=== PATIENT | female | born 1955 | race Caucasian/White ===

== ENCOUNTER → 2017-06-06 14:23 | Outpatient (CLI) | payer OTHER, SELFPAY ==
[2017-04-24 06:09] VITALS: BMI 31.4
[2017-04-26 14:00] VITALS: BP 146/74
--- NOTE | 2017-06-06 14:25 | RAD_ITS ---
STUDY: X-RAY - LEFT KNEE REASON FOR EXAM: Female, 62 years old. Follow-up. TECHNIQUE: 4 view(s) of the knee. COMPARISON: Left knee, April 24, 2017. FINDINGS: There is a total knee replacement. The prosthetic components are intact and articulate normally with each other. There is no evidence of loosening from the underlying bone. There is no evidence of osseous fracture or destructive osseous pathology. Resolution of the air and soft tissue swelling seen in the anterior knee. There is no joint effusion. RAD/Knee 4 or More Views IMPRESSION: Left TKA without acute abnormality. Electronically Signed: Mikhail Llamas DO at 18:31 EST Tel [phone], Service support ,
== END ==
PROVIDERS: Family Provider Family Medicine; PCP Family Medicine; Visit Provider Orthopaedic Surgery
DX: M25.562 Pain in left knee (principal)
CPT/HCPCS: 73564

== ENCOUNTER 2017-07-03 10:30 | Outpatient (RCR) | payer OTHER, SELFPAY ==
--- NOTE | 2017-05-01 08:46 | HP.PTEVAL_ITS ---
Patient's Visit Information AUDRA SANDERS is a 62 year old F referred to Physical Therapy by Mikey Whitman DO with a diagnosis of Left TKR. Date of Evaluation: 05/01/17 Physical Therapist: Carla Girard - Visit Plan Frequency: 2-3x /Week Duration: 4 Weeks Plan: TKR 04/24- Focus on ROM and functional mobility - Subjective Subjective: Right TKR in December by Dr. Whitman but this one is much worse. Left TKR Apr 24, 2017. Stayed a few days in the hospital and then went home. Lives in a 2 stroy home- full bath is upstairs- goes upstairs 1x a day to shower - sleeps on the couch downstairs. Has help at home as needed. Is not currently driving. Fully I before surgery. Worst: 12/07 Agg: exercises, movement. Eases: ice, percoset Best: 06/09. Pain is located in the whole knee and radiates to the thigh- No pain that radiates into the calf. Numbness on the sides. Occasionally a sharp pain but mostly just a dull ache. Sleep: is okay- she is on the couch. Goes back to see Dr. Whitman next week- incision is glued. Pretty active before surgery- wants to be able to walk, bike, gardening and hiking. Feels that her right leg is 80% of the way to normal. PMHx/Med: none since she left the hospital. - Objective Posture: FH, RS, increased kyphosis. Gait: antalgic- FWW- Decreased stance on the left LE- poor heel/toe pattern. Hr/TR: able. Stairs: non recip with 2 HR. SLS: WS but unable to SLS. Palpation: tender along medial and lateral knee joint- and along thigh. ROM: 15-80 degrees with pain at end range. Strength; Ankle: 5/5, Knee: 3/5, Hip: 3+/5- can SLR but does have a significant lag, quad set visible. - Goals Goal 1:: Patient will be I with HEP and progression Goal Time Frame: 4-6 Weeks Goal 2:: Patient will ambulate >300 feet with a normalized gait pattern Goal Time Frame: 4-6 Weeks Goal 3:: Patient will asc/desc 8 stairs recip with 1 HR Goal Time Frame: 4-6 Weeks Goal 4:: Patient will demo 0-115 degrees of ROM Goal Time Frame: 2-4 Weeks - Rehabilitation Potential Physical Therapy Diagnosis: Patient presents with hypomobility- she has decreased ROM, strength and muscular endurance s/p TRK decreasing her ability to perform normal ADL's Rehabilitation Potential: Good - Anticipated Interventions Patient/Client Instruction: Educate patient on: Benefits of Fitness Program For the Purpose of:: To increase tolerance to activity/condition/position Therapeutic Exercise to Include: Strength training, Endurance training, Balance training, Body mechanics, Postural training, Flexibilty training, Gait and locomotor training, Passive ROM, Active ROM, Dynamic Lumbar Stabilization For the Purpose of:: To improve muscle performance and motor function TENS: Yes Cryotherapy (ice pack, ice massage): Yes Thermo therapy (hot pack): Yes Ultrasound (thermal/non thermal): No Vasopneumatic device: Yes For the Purpose of:: To decrease pain, To decrease swelling/inflammation Thank you for the opportunity to evaluate your patient. For Medicare and Medicare HMO plans, please review the plan of care and approve it. It will need to be FAXED BACK to us at [phone] for Medicare purposes. Please let me know if there are questions or concerns regarding this plan of care. Physician Signature: Date:
--- NOTE | 2017-06-05 09:24 | HP.PTREVAL_ITS ---
Mikey Whitman, DO, It has been my pleasure to treat AUDRA SANDERS over the last 13 visits for Left TKR. Please see the progress note below for an update on the physical therapy plan of care! Subjective: Patient reports that her knee is hurting 3-08/07. Today is one of those days that everything hurts. Feels the knee is getting a little bit better. Has more use of it but its catching . Hurts on the top of the knee cap. Goes back to see Dr. Whitman on . Patient reports that she is getting around okay- her won't let her drive. Is taking the pain medication only at night with Tylenol during the day. Patient feels that she is 50% better. Patient is aware that she will be out of visits. Sleep: somewhat better but still challenging. Objective/Function: Posture: Fh, RS. Gait: slightly antalgic with loud foot slaps bilaterally. stairs: asc with 1 HR but descent uses 2 HR. HR/TR: able but reports pain. SLS: ws but unable to SLS without UE A. Palpation: tender along superior patella. ROM: 15-100 degrees. Strength: ankle: 5/5, Knee: 4+/5 , Hip: 4+/5 Plan Plan: Continue 1x a week for 4 weeks- focus on HEP of ROM and function Goals Goal 1:: Patient will be I with HEP and progression Goal Time Frame: 4-6 Weeks Goal Progress: Progressing Goal 2:: Patient will ambulate >300 feet with a normalized gait pattern Goal Time Frame: 4-6 Weeks Goal Progress: Goal Met Goal 3:: Patient will asc/desc 8 stairs recip with 1 HR Goal Time Frame: 4-6 Weeks Goal Progress: Progressing Goal 4:: Patient will demo 0-115 degrees of ROM Goal Time Frame: 4-6 Weeks Goal Progress: Progressing Anticipated Interventions Patient/Client Instruction: Educate patient on: Benefits of Fitness Program For the Purpose of:: To increase tolerance to activity/condition/position Therapeutic Exercise to Include: Strength training, Endurance training, Balance training, Body mechanics, Postural training, Flexibilty training, Gait and locomotor training, Passive ROM, Active ROM, Dynamic Lumbar Stabilization For the Purpose of:: To improve muscle performance and motor function TENS: Yes Cryotherapy (ice pack, ice massage): Yes Thermo therapy (hot pack): Yes Ultrasound (thermal/non thermal): No Vasopneumatic device: Yes For the Purpose of:: To decrease pain, To decrease swelling/inflammation Please do not hesitate to contact me at [phone] by phone or Fax: if you have questions or concerns regarding this new plan of care! Sincerely, Carla Girard
--- NOTE | 2017-07-03 10:43 | HP.PTDCSUM ---
HP - PT D/C Summary It has been my pleasure to treat AUDRA SANDERS under orders from Mikey Whitman DO, for the diagnosis of Left TKR for a total of 17 visit(s). Discharge Date: Please see the following information for a summary of their discharge status. - Subjective Subjective: Patient reports that the knees are both the same- stiff and sore. Most of the time the knees are stiff and sore- stretching makes them feel better (hamstring stretch and step stretch, bolster extn stretch). Still wakes her up at night. Dr. whitman reports that everything looks good. Patient feels that her knees are 70% better. Is doing her home exercise program. Insurance does not cover silver [employer] program. Worst: 10/07. Best: 05/09. Very steep and narrow to go upstairs- has to do them daily (bathroom, bedroom and sowing room). 2-07/07. Had x-rays taken about a week ago. - Pain left knee Pain Intensity (Out of 10): 3 - Objective Objective/Function: Posture: Fh, RS. Gait: slightly antalgic with loud foot slaps bilaterally. stairs: asc with 1 HR but descent uses 2 HR. HR/TR: able but reports pain with TR. SLS: SLS 5 seconds. Palpation: tender along superior patella and lateral joint line. ROM: 10-100 degrees. Strength: ankle: 5/5, Knee: 4+/5, Hip: 4+/5 - Goals Goal 1:: Patient will be I with HEP and progression Goal Progress: Goal Met Goal 2:: Patient will ambulate >300 feet with a normalized gait pattern Goal Progress: Goal Met Goal 3:: Patient will asc/desc 8 stairs recip with 1 HR Goal Progress: Goal Met Goal 4:: Patient will demo 0-115 degrees of ROM Goal Progress: Progressing - Plan Plan: Discharge to HEP - D/C Information If there are questions or concerns regarding this patient's physical therapy, please feel free to call me at [phone]. Thank you for the referral of this patient. Sincerely, Carla Girard
== END 2017-07-03 19:00 | disposition home or self-care (01) ==
LOC: PT 10:30
PROVIDERS: Family Provider Family Medicine; PCP Family Medicine; Visit Provider Orthopaedic Surgery
DX: Z96.652 Presence of left artificial knee joint (principal)
CPT/HCPCS: 97110; 97140; 97161; 97530

== ENCOUNTER → 2017-10-29 08:50 | Outpatient (CLI) | payer OTHER, SELFPAY ==
--- NOTE | 2017-10-29 08:52 | RAD_ITS ---
STUDY: X-RAY - LEFT KNEE REASON FOR EXAM: Female, 62 years old. Pain TECHNIQUE: 4 view(s) of the knee. COMPARISON: Previous study of June 06, 2017 FINDINGS: Status post total left knee replacement changes are seen with implants appearing in good position. There is no evidence of implant loosening or associated fracture or dislocation. There is a small suprapatellar effusion. RAD/Knee 4 or More Views IMPRESSION: Status post total left knee replacement changes seen with implants appearing in good position. There is no evidence of implant loosening or associated fracture or dislocation. There is a small suprapatellar effusion. Electronically Signed: Rinku Rodríguez MD at 17:00 EDT , Service support ,
== END ==
PROVIDERS: Family Provider Family Medicine; PCP Family Medicine; Visit Provider Orthopaedic Surgery
DX: M25.562 Pain in left knee (principal)
CPT/HCPCS: 73564

== ENCOUNTER → 2017-12-10 08:40 | Outpatient (CLI) | payer OTHER, SELFPAY ==
[2017-12-10 09:51] LABS: Microalbumin,Random Urine 92.6 mg/L (NO RANGE EST.); Microalbumin:Creatinine Ratio 155.1 mg/g CRE (<30 mg/g CRE)
[2017-12-10 09:53] LABS: Hemoglobin A1c 6.4 % (4.2-6.3)
[2017-12-10 10:04] LABS: Anion Gap 6 (5-15); BUN 20 mg/dL (7-18); BUN/Creat Ratio 24.4 RATIO (10-20); Calcium,Total 9.5 mg/dL (8.5-10.1); Chloride 101 mmol/L (98-107); Creatinine, Serum 0.82 mg/dL (0.55-1.02); EST Glomerular Filtration Rate 75 mL/min (>60); Est Glom Filt Rate - Afr Amer 91 mL/min (>60); Glucose 167 mg/dL (74-106); Potassium 4.4 mmol/L (3.5-5.1); Sodium Level 137 mmol/L (136-145); Thyroid Stim Hormone (TSH) 1.92 uIU/mL (0.358-3.74)
== END ==
PROVIDERS: Family Provider Family Medicine; PCP Family Medicine; Visit Provider Family Medicine
DX: E11.21 Type 2 diabetes mellitus with diabetic nephropathy (principal); E03.9 Hypothyroidism, unspecified; I10 Essential (primary) hypertension; R80.9 Proteinuria, unspecified; E78.5 Hyperlipidemia, unspecified
CPT/HCPCS: 36415; 80048; 82043; 82570; 83036; 84443

== ENCOUNTER → 2018-04-09 14:18 | Outpatient (CLI) | payer OTHER, SELFPAY ==
[2017-11-30 10:24] VITALS: BMI 30.3
--- NOTE | 2018-04-09 14:23 | RAD_ITS ---
STUDY: X-RAY - RIGHT HIP REASON FOR EXAM: Female, 62 years old. Right hip pain TECHNIQUE: 2 views of the hip. COMPARISON: None. FINDINGS: There is no evidence of fracture or dislocation in the pelvis or right hip. There are mild degenerative changes in the right hip. RAD/HIP, UNI W/ Pelvis 2-3 Views IMPRESSION: No fracture or dislocation in the pelvis or right hip. Mild degenerative changes. Electronically Signed: Alexander Yeager, at 15:03 EST Tel , Service support ,
--- OUTSIDE RECORDS SUMMARY | 2018-05-26 19:58 | XMS RPT_ITS ---
:1955 Author Organization OHIP Support Name Relationship Address Phone PAWEL LANIER Unavailable [address] + [place] [address] MARILYN TAYLOR Unavailable [address] + [place] [address] [facility] Unavailable [address] + [place] [address] LOBO LANIERD Unavailable [address] + [place] [address] MARILYN TAYLOR Unavailable [address] + [place] [address] [facility] Unavailable [address] + [place] [address] LOBO LANIERD Unavailable Unavailable + [place] [address] MARILYN, TAYLOR Unavailable [address] + [place] [address] UE Unavailable Unavailable Unavailable LOBO LANIERD Unavailable . + [place] [address] LILLYMICHELSARA, TAYLOR Unavailable [address] + [place] [address] UE Unavailable Unavailable Unavailable LOBO LANIERD Unavailable . + [place] [address] LILLYCOREEN, TAYLOR Unavailable [address] + [place] [address] UE Unavailable Unavailable Unavailable LOBO LANIERD Unavailable . + [place] [address] MARILYN, TAYLOR Unavailable [address] + [place] [address] UE Unavailable Unavailable Unavailable LOBO LANIERD Unavailable . + [place] [address] MARILYN TAYLOR Unavailable [address] + [place] [address] UE Unavailable Unavailable Unavailable ALLENBAUGH, ARMAS Unavailable . + [place] [address] ALLENBAUGH, TAYLOR Unavailable [address] + [place] [address] UE Unavailable Unavailable Unavailable ALLENBAUGH, ARMAS Unavailable . + [place] [address] ALLENBAUGH, TAYLOR Unavailable [address] + [place] [address] UE Unavailable Unavailable Unavailable ALLENBAUGH, ARMAS Unavailable . + [place] [address] ALLENBAUGH, TAYLOR Unavailable [address] + [place] [address] UE Unavailable Unavailable Unavailable ALLENBAUGH, ARMAS Unavailable . + [place] [address] ALLENBAUGH, TAYLOR Unavailable [address] + [place] [address] UE Unavailable Unavailable Unavailable ALLENBAUGH, ARMAS Unavailable . + [place] [address] ALLENBAUGH, TAYLOR Unavailable [address] + [place] [address] UE Unavailable Unavailable Unavailable Care Team Providers Name Role Phone Citlali Younger Attending Unavailable Citlali Younger Referring Unavailable Kitty, Karlos Primary Care Unavailable Kitty, Karlos Attending Unavailable Kitty, Karlos Primary Care Unavailable Kitty, Karlos Referring Unavailable Mikey Fields Attending Unavailable Kitty, Karlos Primary Care Unavailable Mikey Fields Attending Unavailable Kitty, Karlos Referring Unavailable Kitty, Karlos Primary Care Unavailable Mikey Fields Attending Unavailable Mikey Fields Referring Unavailable Kitty, Karlos Primary Care Unavailable Mkiey Fields Attending Unavailable Kitty, Karlos Referring Unavailable Kitty, Karlos Primary Care Unavailable Mony Kaur Attending Unavailable Chucho Stuart Attending Unavailable Mikey Fields Attending Unavailable Kitty, Karlos Referring Unavailable Kitty, Karlos Primary Care Unavailable Mikey Fields Attending Unavailable J Carlos Mikey Referring Unavailable Kitty, Karlos Primary Care Unavailable Chucho Stuart Attending Unavailable Kitty, Karlos Referring Unavailable Kitty, Karlos Primary Care Unavailable Kitty, Karlos Attending Unavailable Kitty, Karlos Referring Unavailable Kitty, Karlos Primary Care Unavailable PROBLEMS PROBLEMS DATE TYPE CONDITION / CODE ATTENDING STATUS SOURCE 12/10/2017 Unknown E78.5 - Karlos Tang Active [facility]lipidemia, [facility] unspecified / Hospital E78.5(ICD-10) Repository 12/10/2017 Unknown R80.9 - Proteinuria, Karlos Tang Active [facility] unspecified / Community R80.9(ICD-10) Hospital Repository 12/10/2017 Unknown I10 - Essential Karlos Tang Active [facility] (primary) Community hypertension / Hospital I10(ICD-10) Repository 12/10/2017 Unknown E03.9 - Karlos Tang Active [facility] Hypothyroidism, [facility] unspecified / Hospital E03.9(ICD-10) Repository 12/10/2017 Unknown E11.21 - Type 2 Karlos Tang Active [facility] diabetes mellitus [facility] with diabetic Hospital nephropathy / Repository E11.21(ICD-10) 11/30/2017 Unknown I48.0 - Paroxysmal Chucho Stuart Active [facility] atrial fibrillation Community / I48.0(ICD-10) Hospital Repository 11/30/2017 Unknown E78.2 - Mixed Chucho Stuart Active [facility] hyperlipidemia / Community E78.2(ICD-10) Hospital Repository 10/29/2017 Unknown M25.562 - Pain in Mikey Fields Active [facility] left knee / [facility] M25.562(ICD-10) Hospital Repository 07/06/2017 Unknown Z96.652 - Presence Mikey Fields Active [facility] of left artificial [facility] knee joint / Hospital Z96.652(ICD-10) Repository PROCEDURES PROCEDURES No Procedure Records FoundRESULTS RESULTS HIP, UNI W/ PELVIS Observed: 04/09/2018 Status: F Source: [place] 2-3 VIEWS 2:23 PM [facility] REPOSITORY [facility] Imaging Services [address] [place] [address] HIP, UNI W/ Pelvis 2-3 Views MR#: [id number] Acct: [id number] Name: AUDRA LANIER Rep #: [id number] : 1955 F 62 From: Alexander Yeager MD PCP: Karlos Tang DO Status: REG CLI Study: HIP, UNI W/ Pelvis 2-3 Views Date of Exam: 04/09/18 Exam# [id number] Ordering Dr: Citlali Younger MD STUDY: X-RAY - RIGHT HIP REASON FOR EXAM: Female, 62 years old. Right hip pain TECHNIQUE: 2 views of the hip. COMPARISON: None. FINDINGS: There is no evidence of fracture or dislocation in the pelvis or right hip. There are mild degenerative changes in the right hip. RAD/HIP, UNI W/ Pelvis 2-3 Views IMPRESSION: No fracture or dislocation in the pelvis or right hip. Mild degenerative changes. Electronically Signed: Alexander Shobha, at 15:03 EST Tel , Service support , CC: Citlali Younger MD; Karlos Tang DO Angiographer: Signed MICROALB:CREAT Collected: 12/10/2017 Status: F Source: [place] [facility] UR 8:44 AM [facility] REPOSITORY TYPE CODE TESTS RESULT OUT OF RANGE REFERENCE UNITS LAB L501.1200 NO RANGE EST. mg/dL Normal UR CREAT 59.70 LAB L502.0500 NO RANGE EST. mg/L Normal 92.6 MICROALBUMIN ,UR LAB L502.0600 <30 mg/g CRE mg/g CRE High 155.1 MALB:CREAT Performed By: #### L502.0250 #### [facility] [address] [place], [place], [address] HEMOGLOBIN A1C Collected: 12/10/2017 Status: F Source: [place] 8:44 AM [facility] REPOSITORY TYPE CODE TESTS RESULT OUT OF RANGE REFERENCE UNITS LAB L501.9985 4.2-6.3 % High HGB A1C 6.4 Performed By: #### L501.9985 #### [facility] [address] [place], [place], [address] BASIC METABOLIC Collected: 12/10/2017 Status: F Source: [place] PROFILE (BMP) 8:44 AM [facility] REPOSITORY TYPE CODE TESTS RESULT OUT OF RANGE REFERENCE UNITS LAB L501.0100 74-106 mg/dL High GLU 167 Result Comment: Fasting Glucose result greater than or equal to 126 mg/dL suggests DIABETES MELLITUS per A.D.A. criteria. Please note revised GLUCOSE reference range effective 2017. LAB L501.1000 7-18 mg/dL High BUN 20 LAB L501.1100 0.55-1.02 mg/dL Normal CREAT,SERUM 0.82 Result Comment: The validity of the calculated GFR AND GFRAA in patients over 70 years has not been determined. Clinical correlation is essential. LAB L501.1110 >60 mL/min Normal EST GFR 75 Result Comment: Non- GFR Calc LAB L501.1115 >60 mL/min Normal EST GFR - AA 91 Result Comment: GFR Calc LAB L501.1300 10-20 RATIO High BUN/CRE 24.4 LAB L501.2200 8.5-10.1 mg/dL CA Normal 9.5 LAB L501.5300 136-145 mmol/L NA Normal 137 LAB L501.5600 3.5-5.1 mmol/L K Normal 4.4 LAB L501.5900 98-107 mmol/L CL Normal 101 LAB L501.6100 21.0-32.0 mmol/L Normal CO2 30.0 LAB L501.6200 5-15 Normal GAP 6 Performed By: #### L500.2500, L501.9520 #### [facility] [address] [place], [place], [address] THYROID STIM HORMONE Collected: 12/10/2017 Status: F Source: [place] (TSH) 8:44 AM [facility] REPOSITORY TYPE CODE TESTS RESULT OUT OF RANGE REFERENCE UNITS LAB L501.9520 0.358-3.74 uIU/mL Normal TSH 1.92 Performed By: #### L500.2500, L501.9520 #### [facility] [address] [place], [address] CARDIOLOGY VISIT Observed: 11/30/2017 Status: F Source: [place] REPORT 10:50 AM [facility] REPOSITORY [facility] [address] [place] [address] OFFICE VISIT Date of Service: 11/30/17 MR#: [id number] Acct: [id number] Name: AUDRA LANIER Rep #: [id number] : 1955 Provider: Chucho Stuart MD Age/Sex: 62/F Location: [facility] Status: Signed HPI HPI Chief Complaint: Routine f/u Details: Referring physician: Dr. Castro Mrs. Lanier is a very pleasant 62-year-old moderately obese diabetic female with a history of hypertension, hypercholesterolemia, hypothyroidism. The patient reports that she has had periodic palpitations over the year prior to her 1st visit, which have recently accelerated in March 2015. At the same time she develops fleeting type chest pain and sought medical attention at [facility] ER on 06/03/15. That time she was found to be hypertensive and her pulse range between 140 and 190 with occasional lightheadedness and dizziness. She was ruled out for myocardial infarction, and her EKG demonstrated normal sinus rhythm, normal axis, normal intervals no evidence of previous myocardial infarction. 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 She was placed on a 30 day event monitor, Which showed occasional atrial fibrillation with RVR. This precipitated a stress echocardiogram on 07/01/15 which was abnormal, and then a catheterization on 07/07/15 which demonstrated no significant coronary disease. Her EF is 65%. She denies any exertional angina, chest pain, shortness of breath or on exertion. She is taking and tolerating her medicines well. She denies any prolonged palpitations. She occasionally has the sensation of ectopic beats but nothing prolonged. She is tolerating anticoagulation well. On further history she has an extensive family history of vascular disease, her father in his 80s of a CVA, mother of a subdural hematoma in her 50s, sister has atrial fibrillation and 2 of her brothers of myocardial infarction and had stents. Since her last visit and with medical therapy the patient is doing very well. Patient states she has very rare palpitations, but they are all self-limiting and less than 1 minute in time. She has had no presyncope or syncopal events. She is taking and tolerating her medicines well. She denies any exertional angina, chest pain, shortness of breath or dyspnea on exertion. She takes her blood pressures at home which range in the 140 systolic. he denies any bleeding issues, presyncope or syncope. She has had no change in her exercise capacity since her last visit. In our office today her blood pressure is 130/60, and pulse is 56 and regular. Her physical exam is as below. Her lipids as of 12/2014 show an HDL of 42 and LDL of 48. Her lipids as of August 2015 show an HDL of 40 and an LDL of 62. Her lipids as of 04/16/17 show an LDL of 41 and HDL of 48 Intake Vital Signs11/30/17 Height 5 ft 2 in 11/30/17 Weight: 166 lb 11/30/17 Body Mass Index (BMI) 30.3 11/30/17 Blood Pressure 130/60 Intake Visit Reasons: 6 M FU Allergies No Known Allergies Allergy (Verified 11/30/17 10:24) Medications B Complex with Vitamin C [B-Complex Plus Vitamin C] 1 ea PO DAILY 06/03/15 [History Confirmed 11/30/17] Levothyroxine [Synthroid] 125 mcg PO DAILY 06/03/15 [History Confirmed 11/30/17] Metformin HCl [Glucophage] 1,000 mg PO BIDCM 06/03/15 [History Confirmed 11/30/17] Simvastatin [Zocor] 20 mg PO QHS 06/03/15 [History Confirmed 11/30/17] Loratadine [Claritin] 10 mg PO DAILY 07/06/15 [History Confirmed 11/30/17] Alogliptin Benzoate [Alogliptin] 25 mg PO DAILY 01/08/17 [History Confirmed 11/30/17] melatonin 5 mg capsule 5 mg PO .daily at bedtime PRN ea 04/03/17 [History Confirmed 11/30/17] Gabapentin [Neurontin] 100 mg PO TID #30 cap 04/25/17 [Rx Confirmed 11/30/17] rivaroxaban 20 mg tablet 20 mg PO DAILY #30 tab 07/30/17 [Rx Confirmed 11/30/17] atenolol 50 mg tablet 50 mg PO BID #180 tab 08/13/17 [Rx Confirmed 11/30/17] losartan 100 mg tablet 100 mg PO QHS #90 tab 08/13/17 [Rx Confirmed 11/30/17] potassium chloride ER 20 mEq tablet,extended release(part/cryst) 20 meq PO DAILY #90 tab 08/13/17 [Rx Confirmed 11/30/17] hydrochlorothiazide 12.5 mg capsule 12.5 mg PO DAILY #90 cap 08/19/17 [Rx Confirmed 11/30/17] aspirin 81 mg tablet,delayed release 81 mg PO QDAY 11/30/17 [History Confirmed 11/30/17] tramadol 50 mg tablet 50 mg PO BID PRN tab 11/30/17 [History Confirmed 11/30/17] [facility] Medical History Type 2 diabetes mellitus without complications (Chronic) Hyperlipidemia (Chronic) Hypertension (Chronic) Paroxysmal atrial fibrillation (Chronic) Nonsustained paroxysmal ventricular tachycardia (Chronic) Family history of sudden cardiac (Chronic) Surgical History History of total left knee replacement (Acute) History of left heart catheterization (Chronic 06/2015) Hx of total knee replacement (Chronic) Family History Mother CVA (cerebral vascular accident) Atrial fibrillation Diabetes Sister Hyperlipidemia Sister Diabetes Atrial fibrillation Sister Parkinson disease Brother CAD (coronary artery disease) Brother CAD (coronary artery disease) Social History Smoking Status: Never smoker second hand exposure: No alcohol intake: former year quit: 2014 details: rarely substance use type: does not use caffeine: Yes Type: coffee Number of servings: 1 eating out: 1-3 times/week during the past year weight has: remained stable what type of physical activity do you participate in: yoga frequency: 3-4 times per week duration: 15-30 minutes/day kiley/worship: Jehovah Witness seatbelt use: always do you feel safe at home: Yes additional social history: No Blood Transfusions ROS Const Const: Negative for fatigue, weakness, weight gain, weight loss, frequent falls or excessive sweating Eyes Eyes: Negative for change in vision, blurry vision or transient loss of vision ENT ENT: Negative for dizziness or balance problems Cardio Chest Pain: No Palpitations: Yes (occasional) feels like its: skipping Edema: None Muscle aches with walking: None Resp Respiratory: Negative for SOB with activity or SOB at rest GI GI: Negative vomiting or vomiting blood/hematemesis : Negative for hematuria Musc Musc: Negative for balance problems, muscle aches/ myalgia, muscle weakness or joint pain Skin Skin: Negative non-healing lesions or rash Neuro Neuro: Positive for other (essential tremors); negative for weakness, blurry vision, dizziness, lightheadedness, frequent falls or orthostatic symptoms Eliud Hematologic/Lymphatic: Negative for easy bleeding Endo Endo: Negative for fatigue or excessive sweating Psych Psych: Negative for anxiety or depression Allergy Allergy/Immunology: Negative for hives, Negative for rash Cardiology Exam Const Appearance: cooperative, healthy appearing and no acute distress Nutritional Appearance: well nourished Orientation: alert, oriented x3 and oriented to person Head Head: normal to inspection, atraumatic and normocephalic Nose: external nose normal Face and Sinus: face symmetric Mouth: oral mucosae normal Eyes General: appearance normal, both eyes and all related structures Eyelids: eyelids normal Conjunctivae: conjunctivae normal Pupils: PERRL and normal by confrontation EOM: EOM intact bilaterally Neck Neck: normal visual inspection and full ROM Carotids: normal carotid upstroke Chest Chest inspection: normal inspection of the chest Auscultation: Bilateral: Clear to Auscultation Cardio Palpation: normal PMI Rate: regular rate Rhythm: regular rhythm Heart sounds: S1 normal and S2 normal GI GI: normal to inspection, no hepatosplenomegaly and bowel sounds present Neuro General: alert, oriented x3, awake, CN's II-XI intact bilaterally and moves all extremities Skin Skin: no rashes or lesions noted Extremities Pulses: Normal: Right Femoral Pulse, Left Femoral Pulse, Right Dorsalis Pedis Pulse, Left Dorsalis Pedis Pulse, Right Posterior Tibial Pulse, Left Posterior Tibial Pulse, Right Radial Pulse, Left Radial Pulse Lower Extremity Edema: None: Bilateral Psych Psychological: normal affect Assessment AND Plan 1. Paroxysmal atrial fibrillation I48.0 Plan 1. Atrial fibrillation: For the most part the patient is in normal sinus rhythm and occasionally gets palpitations which are self-limiting and or of a nuisance than anything else. She denies any chest pain, angina, shortness of breath or dyspnea on exertion. She is taking and tolerating her medicines well. I recommend she continue her baby aspirin, atenolol, hydrochlorothiazide, losartan, Xarelto and potassium. No indication for any additional testing at this time per 2. Mixed hyperlipidemia E78.2 Plan 2. Hyperlipidemia: Her LDL and HDL cholesterol are under optimal control. Continue Zocor. 3. Return office in 6 months. This note was generated using a voice recognition system and there may be incorrect words, spelling or punctuation that were not noted when reviewing the office note prior to saving. Plan Detail Other Medications Discontinued: promethazine Discontinued Reason: Pt no longer tak25 mg PO Q4H PRN PRN Nausea ing docusate sodium Discontinued Reason: Pt no longer 100 mg PO BID PRN PRN Constipation taking Follow Up +6M (Narciso) Coding Level of Care Code Off vis,est,level 3 Diagnoses Paroxysmal atrial fibrillation I48.0 Mixed hyperlipidemia E78.2 Hyperlipidemia type: mixed hyperlipidemia Coding Level of Care Code Off vis,est,level 3 Diagnoses Paroxysmal atrial fibrillation I48.0 Mixed hyperlipidemia E78.2 Hyperlipidemia type: mixed hyperlipidemia 11/30/17 1050 <Electronically signed by Chucho Stuart MD> Date [facility] Signature: Date (if applicable) CC: ORTHOPEDIC VISIT Observed: 11/07/2017 Status: F Source: [place] REPORT 9:44 AM [facility] REPOSITORY [facility] Medicine [address] [place] [address] OFFICE VISIT Date of Service: 10/29/17 MR#: [id number] Acct: [id number] Name: AUDRA LANIER Beatriz Rep #: [id number] : 1955 Provider: Mikey Fields DO Age/Sex: 62/F Location: [facility] Status: Signed Intake Intake Visit Reasons: LEFT KNEE Is patient in pain?: Yes Pain scale (1-10): 1 Allergies No Known Allergies Allergy (Verified 06/06/17 15:04) Medications B Complex with Vitamin C [B-Complex Plus Vitamin C] 1 ea PO DAILY 06/03/15 [History Confirmed 06/06/17] Levothyroxine [Synthroid] 125 mcg PO DAILY 06/03/15 [History Confirmed 06/06/17] Metformin HCl [Glucophage] 1,000 mg PO BIDCM 06/03/15 [History Confirmed 06/06/17] Simvastatin [Zocor] 20 mg PO QHS 06/03/15 [History Confirmed 06/06/17] Loratadine [Claritin] 10 mg PO DAILY 07/06/15 [History Confirmed 06/06/17] Alogliptin Benzoate [Alogliptin] 25 mg PO DAILY 01/08/17 [History Confirmed 06/06/17] melatonin 5 mg capsule 5 mg PO .daily at bedtime PRN ea 04/03/17 [History Confirmed 06/06/17] Docusate Sodium [Colace] 100 mg PO BID PRN PRN #30 cap 04/25/17 [Rx Confirmed 06/06/17] Gabapentin [Neurontin] 100 mg PO TID #30 cap 04/25/17 [Rx Confirmed 06/06/17] proMETHazine tablet [Phenergan] 25 mg PO Q4H PRN PRN #10 tab 04/25/17 [Rx Confirmed 06/06/17] rivaroxaban 20 mg tablet 20 mg PO DAILY #30 tab 07/30/17 [Rx] atenolol 50 mg tablet 50 mg PO BID #180 tab 08/13/17 [Rx] losartan 100 mg tablet 100 mg PO QHS #90 tab 08/13/17 [Rx] potassium chloride ER 20 mEq tablet,extended release(part/cryst) 20 meq PO DAILY #90 tab 08/13/17 [Rx] hydrochlorothiazide 12.5 mg capsule 12.5 mg PO DAILY #90 cap 08/19/17 [Rx] PFSH Medical History Type 2 diabetes mellitus without complications (Chronic) Hyperlipidemia (Chronic) Hypertension (Chronic) Paroxysmal atrial fibrillation (Chronic) Nonsustained paroxysmal ventricular tachycardia (Chronic) Family history of sudden cardiac (Chronic) Surgical History History of total left knee replacement (Acute) History of left heart catheterization (Chronic 06/2015) Hx of total knee replacement (Chronic) Family History Mother CVA (cerebral vascular accident) Atrial fibrillation Diabetes Sister Hyperlipidemia Sister Diabetes Atrial fibrillation Sister Parkinson disease Brother CAD (coronary artery disease) Brother CAD (coronary artery disease) Social History Smoking Status: Never smoker second hand exposure: No alcohol intake: former year quit: 2014 details: rarely substance use type: does not use caffeine: Yes Type: coffee Number of servings: 1 eating out: 1-3 times/week during the past year weight has: remained stable what type of physical activity do you participate in: yoga frequency: 3-4 times per week duration: 15-30 minutes/day kiley/worship: Jehovah Witness seatbelt use: always do you feel safe at home: Yes additional social history: No Blood Transfusions HPI LEFT KNEE: Details: AUDRA LANIER is a 62 year old F here today for f/u 04/24/17 left TKA. She complains of aching and some stiffness, she is working on rom at home and has joined [employer]. She states her pain is primarily in the posterior knee with aching medially. Denies any instability or swelling. She has good flexion but still lacks a small amount of extension. ROS Ovi Reports joint pain, Reports as per HPI Ortho Exam Right Knee Skin/Wound: Yes CDI Contralateral Normal: Yes Swelling: No Homans Sign: No Knee ROM: Yes ROM-Extension -20 to 0, Yes ROM-Passive Flexion 0-140, Yes ROM-Flexion 0-140, Yes ROM-Passive Extension -10 to 0 Quad Atrophy: No Stability: NML: Anterior Drawer, NML: Mary, NML: Posterior Drawer, NML: Valgus 0, NML: Valgus 30, NML: Varus 0, NML: Varus 30, NML: Dial 90, NML: Dial 30 Popliteal Adenopathy: No Patella Translation: 1 Apprehension with Lateral Translation: No Patellar Tilt Normal: Yes Patella Grind: No Left Knee Skin/Wound: Yes CDI Contralateral Normal: Yes Swelling: No Homans Sign: No Knee ROM: Yes ROM-Flexion 0-140 (0 115) Examination: No med jt line tenderness, No Lat jt line tenderness, No TTP inf pole patella, No Crepitus, No Pain with flexion, No Pam's Test, No Dial at 90, No Dial at 60, No Duck Walk Quad Atrophy: No Stability: NML: Posterior Drawer, NML: Valgus 0, NML: Valgus 30, NML: Varus 0, NML: Varus 30, NML: Dial 90, NML: Dial 30 Popliteal Adenopathy: No Patella Translation: 1 Apprehension with Lateral Translation: No Patellar Tilt Normal: Yes Patella Grind: No KNEE: Alert and oriented 3 in no acute distress. Appropriate eye contact and affect. Walks with a nonantalgic gait. Otherwise intact from L1-S1 distributions. Patient's range of motion is 0-115. Patient remains ligamentously stable. Patient has has has mild discomfort really anteromedially otherwise excellent tracking and range of motion. No popliteal masses or adenopathy. X-rays: Evaluated by myself the patient-hardware is otherwise well-seated well-placed status post left total knee arthroplasty with well centered patella. No signs of loosening Assessment AND Plan Problems 1. Primary osteoarthritis of left knee M17.12 2. History of total left knee replacement Z96.652 Plan Assessment: Knee osteoarthritis status post left total knee arthroplasty doing well. Plan: This point time patient continues to advance through the rehab and range of motion. Overall the patient's knee looks very good with no significant signs of swelling or signs of erythema etc. She remains ligamentously stable. He continues to make advancing progress. Overall radiographs of very good and the patient does need to continue to proceed work on good strengthening as a continued process of recovery. Patient will follow-up in 6 months with [facility] Melgar for surveillance x-rays. Patient aware that I am leaving the practice. Patient aware that if there is an issue with the prosthesis would refer to Dr. Delgadillo at the [facility]. X-rays at next for one-year surveillance. Any issues return. Orders Orders: Coding Level of Care Code Off vis,est,level 4 Diagnoses Primary osteoarthritis of left knee M17.12 Osteoarthritis type: primary History of total left knee replacement Z96.652 11/07/17 0944 <Electronically signed by Mikey Fields DO> Date Mikey Fields DO Cosigner Signature: Date (if applicable) CC: KNEE 4 OR MORE Observed: 10/29/2017 Status: F Source: [place] VIEWS 8:53 AM [facility] REPOSITORY [facility] Imaging Services [address] [place] [address] Knee 4 or More Views MR#: [id number] Acct: [id number] Name: AUDRA LANIER Rep #: [id number] : 1955 F 62 From: Rinku Rodríguez MD PCP: Karlos Tang DO Status: REG CLI Study: Knee 4 or More Views Date of Exam: 10/29/17 Exam# [id number] Ordering Dr: Mikey Fields DO STUDY: X-RAY - LEFT KNEE REASON FOR EXAM: Female, 62 years old. Pain TECHNIQUE: 4 view(s) of the knee. COMPARISON: Previous study of June 06, 2017 FINDINGS: Status post total left knee replacement changes are seen with implants appearing in good position. There is no evidence of implant loosening or associated fracture or dislocation. There is a small suprapatellar effusion. RAD/Knee 4 or More Views IMPRESSION: Status post total left knee replacement changes seen with implants appearing in good position. There is no evidence of implant loosening or associated fracture or dislocation. There is a small suprapatellar effusion. Electronically Signed: Rinku Rodríguez MD at 17:00 EDT , Service support , CC: Karlos Tang DO; Mikey Fields DO Angiographer: Signed PROGRESS Observed: 09/13/2017 Status: COMPLETED Source: [place] 2:59 PM [facility] REPOSITORY HNO ID: [id number] Author: Katy Carpenter Cma Service: (none) Author Type: (none) Type: Progress Notes Filed: 09/13/2017 3:00 PM Note Text: Patient left clinic due to insurance purposes. Dr. Castro removed as PCP. PROGRESS Observed: 09/10/2017 Status: COMPLETED Source: [place] 3:13 PM [facility] REPOSITORY HNO ID: [id number] Author: Katy Carpenter [facility] Service: (none) Author Type: (none) Type: Progress Notes Filed: 09/13/2017 3:00 PM Note Text: MediGainhart message sent. PROGRESS Observed: 09/10/2017 Status: COMPLETED Source: [place] 3:09 PM [facility] REPOSITORY HNO ID: [id number] Author: Katy Carpenter [facility] Service: (none) Author Type: (none) Type: Progress Notes Filed: 09/13/2017 3:00 PM Note Text: PHMA TEAMLET DOCUMENTATION Provider Action/FYI: Please file labs and specify DM dx. PSR Action/FYI: Teamlet has identified patient by name and date of . Team: unknown ? Last Office Visit:Visit date not found ? Next Office Visit: Visit date not found ? Last BP/Labs: Blood Pressure: Last 3 Encounter BP Readings: Date: BP: 01/06/2015 134/56 07/06/2014 116/64 01/05/2014 130/72 Lipids: Cholesterol, Total (mg/dL) Date Value 12/29/2014 111 01/05/2014 143 HDL Cholesterol (mg/dL) Date Value 12/29/2014 42 01/05/2014 49 LDL Cholesterol (mg/dL) Date Value 12/29/2014 48 01/05/2014 65 Triglyceride (mg/dL) Date Value 12/29/2014 107 01/05/2014 144 HGB A1C: Lab Results Component Value Date HBA1C 7.8 12/29/2014 HBA1C 7.7 06/30/2014 HBA1C 7.5 01/05/2014 TSH: TSH (uU/mL) Date Value 12/29/2014 0.919 06/30/2014 1.430 ) Care Gap: DM HTN Thyroid hyperlipidemia Plan: ? Confirm PCP / Status ? Type of appointment needed: Physical next available with PCP or MAILROOM COURIER Labs, HM and Immunization: Health Maintenance Due: DILATED RETINAL EXAM due on 1955 HEPATITIS C SCREENING due on 1998 - order pending HPV EVERY 5 YEARS due on 03/26/2011 MAMMOGRAM due on 04/09/2014 -order pending HBA1C due on 06/29/2015 - order pending URINE ALBUMIN CREATININE RATIO due on 07/01/2015 - order pending LDL due on 12/30/2015 - order pending DIABETIC FOOT EXAM due on 01/07/2016 FECAL OCCULT BLOOD due on 01/08/2016 PAP EVERY 5 YEARS due on 01/21/2017 Katy Carpenter [facility] CNPTOUTREACH Observed: 09/10/2017 Status: COMPLETED Source: [place] 12:00 AM [facility] REPOSITORY Patient Outreach (INTMWS) AUDRA LANIER ([id number]) 1955 F Date Time Provider Department 09/10/17 KATY CARPENTER (LATISHA) INTMWS During your visit today, we recorded the following information about you: Katy Carpenter [facility] 09/13/2017 3:00 PM Signed PHMA TEAMLET DOCUMENTATION Provider Action/FYI: Please file labs and specify DM dx. PSR Action/FYI: Teamlet has identified patient by name and date of . Team: unknown ? Last Office Visit:Visit date not found ? Next Office Visit: Visit date not found ? Last BP/Labs: Blood Pressure: Last 3 Encounter BP Readings: Date: BP: 01/06/2015 134/56 07/06/2014 116/64 01/05/2014 130/72 Lipids: Cholesterol, Total (mg/dL) Date Value 12/29/2014 111 01/05/2014 143 HDL Cholesterol (mg/dL) Date Value 12/29/2014 42 01/05/2014 49 LDL Cholesterol (mg/dL) Date Value 12/29/2014 48 01/05/2014 65 Triglyceride (mg/dL) Date Value 12/29/2014 107 01/05/2014 144 HGB A1C: Lab Results Component Value Date HBA1C 7.8 12/29/2014 HBA1C 7.7 06/30/2014 HBA1C 7.5 01/05/2014 TSH: TSH (uU/mL) Date Value 12/29/2014 0.919 06/30/2014 1.430 ) Care Gap: DM HTN Thyroid hyperlipidemia Plan: ? Confirm PCP / Status ? Type of appointment needed: Physical next available with PCP or MAILROOM COURIER Labs, HM and Immunization: Health Maintenance Due: DILATED RETINAL EXAM due on 1955 HEPATITIS C SCREENING due on 1998 - order pending HPV EVERY 5 YEARS due on 03/26/2011 MAMMOGRAM due on 04/09/2014 -order pending HBA1C due on 06/29/2015 - order pending URINE ALBUMIN CREATININE RATIO due on 07/01/2015 - order pending LDL due on 12/30/2015 - order pending DIABETIC FOOT EXAM due on 01/07/2016 FECAL OCCULT BLOOD due on 01/08/2016 PAP EVERY 5 YEARS due on 01/21/2017 Katy Randolph [facility] Katy [facility] 09/13/2017 3:00 PM Signed Prism Microwave message sent. Katyyolanda Carpenter [facility] 09/13/2017 3:00 PM Signed Patient left clinic due to insurance purposes. Dr. Castro removed as PCP. Allergies As of Date: 09/10/2017 (No Known Allergies) Date Reviewed: 01/06/2015 Reviewed by: Frandy Arndt - Fully Assessed Reason for Visit: [facility]/Care Gap Outreach [[id number]] Primary Visit Diagnosis:Screening mammogram, encounter for [Z12.31] Other Visit Diagnosis:Need for hepatitis C screening test [Z11.59] Prescriptions as of 09/10/2017 Sig: LEVOTHYROXINE 150 MCG TABLET Take 1 tablet by mouth once d* LOSARTAN 100 MG TABLET Take 1 tablet by mouth once d* METFORMIN 1,000 MG TABLET Take 1 tablet by mouth twice * SIMVASTATIN 20 MG TABLET Take 1 tablet by mouth daily * LORATADINE 10 MG TABLET Take 1 tablet by mouth once d* VITAMIN B COMPLEX TABLET Take 1 tablet by mouth once d* FLUTICASONE 50 MCG/ACTUATION * Use 2 Sprays in each nostril * Problem List As Of Date 09/10/2017 Noted Resolved Diabetes mellitus (HCC) [E11.9] Hypertension [I10] Hypothyroidism [E03.9] Hyperlipidemia [E78.5] Refusal of blood transfusions as patient is Jeh* Encounter Status:Closed by KATY CARPENTER CMA on 09/13/17 ORTHOPEDIC VISIT Observed: 07/26/2017 Status: F Source: [place] REPORT 9:58 AM [facility] Orthopaedics AND Sports Medicine [address] [place] [address] [address] [place] [address] OFFICE VISIT Date of Service: 07/18/17 MR#: [id number] Acct: [id number] Name: AUDRA LANIER Rep #: [id number] : 1955 Provider: Mikey Fields DO Age/Sex: 62/F Location: [facility] Status: Signed Intake Intake Visit Reasons: left knee Is patient in pain?: Yes Pain scale (1-10): 3 Allergies No Known Allergies Allergy (Verified 06/06/17 15:04) Medications B Complex with Vitamin C [B-Complex Plus Vitamin C] 1 ea PO DAILY 06/03/15 [History Confirmed 06/06/17] Levothyroxine [Synthroid] 125 mcg PO DAILY 06/03/15 [History Confirmed 06/06/17] Losartan Potassium [Cozaar] 100 mg PO QHS 06/03/15 [History Confirmed 06/06/17] Metformin HCl [Glucophage] 1,000 mg PO BIDCM 06/03/15 [History Confirmed 06/06/17] Simvastatin [Zocor] 20 mg PO QHS 06/03/15 [History Confirmed 06/06/17] Atenolol [Tenormin (beta omar)] 50 mg PO BID 07/06/15 [History Confirmed 06/06/17] Loratadine [Claritin] 10 mg PO DAILY 07/06/15 [History Confirmed 06/06/17] Rivaroxaban [Xarelto] 20 mg PO DAILY 07/06/15 [History Confirmed 06/06/17] Hydrochlorothiazide 12.5 mg PO DAILY 06/04/16 [History Confirmed 06/06/17] Potassium Chloride [Klor-Con M20] 20 meq PO DAILY 06/04/16 [History Confirmed 06/06/17] Alogliptin Benzoate [Alogliptin] 25 mg PO DAILY 01/08/17 [History Confirmed 06/06/17] melatonin 5 mg capsule 5 mg PO .daily at bedtime PRN ea 04/03/17 [History Confirmed 06/06/17] Docusate Sodium [Colace] 100 mg PO BID PRN PRN #30 cap 04/25/17 [Rx Confirmed 06/06/17] Gabapentin [Neurontin] 100 mg PO TID #30 cap 04/25/17 [Rx Confirmed 06/06/17] proMETHazine tablet [Phenergan] 25 mg PO Q4H PRN PRN #10 tab 04/25/17 [Rx Confirmed 06/06/17] Gabapentin [Neurontin] 100 mg PO TIDCM #30 cap 04/26/17 [Rx Confirmed 06/06/17] PFSH Medical History Hyperlipidemia (Chronic) Hypertension (Chronic) Palpitations (Chronic) Paroxysmal atrial fibrillation (Chronic) Nonsustained paroxysmal ventricular tachycardia (Chronic) Family history of sudden cardiac (Chronic) Type 2 diabetes mellitus without complications (Chronic) Surgical History History of total left knee replacement (Acute) Hx of total knee replacement (Chronic) Family History Mother CVA (cerebral vascular accident) Atrial fibrillation Diabetes Sister Hyperlipidemia Sister Diabetes Atrial fibrillation Sister Parkinson disease Brother CAD (coronary artery disease) Brother CAD (coronary artery disease) Social History Smoking Status: Never smoker second hand exposure: No alcohol intake: former year quit: 2014 details: rarely substance use type: does not use caffeine: Yes Type: coffee Number of servings: 1 eating out: 1-3 times/week during the past year weight has: remained stable what type of physical activity do you participate in: yoga frequency: 3-4 times per week duration: 15-30 minutes/day kiley/worship: Jehovah Witness seatbelt use: always do you feel safe at home: Yes additional social history: No Blood Transfusions HPI left knee: Details: AUDRA LANIER is a 62 year old F here today for f/u left TKA 04/24/17. She has been discharge from PT and continues to be compliant with her HEP. She has good rom today, walks with no assistive device and is able to get up and down from chair with no problem. She complains of posterior knee pain when walking and pain at the proximal aspect of her incision. Denies numbness, tingling or other associated symptoms. ROS Const Reports system reviewed and no additional complaints, except as docu Eyes Reports system reviewed and no additional complaints, except as docu ENT Reports system reviewed and no additional complaints, except as docu Card Reports system reviewed and no additional complaints, except as docu Resp Reports system reviewed and no additional complaints, except as docu GI Reports system reviewed and no additional complaints, except as docu Musc Reports joint pain, Reports muscle weakness, Reports stiffness Skin/Breast Reports system reviewed and no additional complaints, except as docu Neuro Yes system reviewed and no additional complaints, except as docu Psych Reports system reviewed and no additional complaints, except as docu Endo Reports system reviewed and no additional complaints, except as docu Ortho Exam Right Knee Patella Translation: 1 Left Knee Skin/Wound: Yes CDI, Yes healed Contralateral Normal: Yes Swelling: No Homans Sign: No Knee ROM: Yes ROM-Flexion 0-140 (0-120) Examination: No med jt line tenderness, No Lat jt line tenderness, No TTP inf pole patella, No Crepitus, No Pain with flexion, No Pam's Test, No Dial at 90, No Dial at 60, No Duck Walk Quad Atrophy: No Stability: NML: Posterior Drawer, NML: Valgus 0, NML: Valgus 30, NML: Varus 0, NML: Varus 30, NML: Dial 90, NML: Dial 30 Popliteal Adenopathy: No Patella Translation: 1 Apprehension with Lateral Translation: No Patellar Tilt Normal: Yes Patella Grind: No KNEE: No calf pain negative Homans. No signs of erythema. Excellent range of motion. Assessment AND Plan Problems 1. Orthopedic aftercare Z47.89 Plan Assessment: After orthopedic status post left total knee arthroplasty doing well. Plan: Patient follow-up in 3 months. X-rays at that time. Patient informed that I will be leaving the practice that there is any major issues with her joint arthroplasty she can follow-up with Dr. Delgadillo at [facility]. Coding Level of Care Code Global Post Op Diagnoses Orthopedic aftercare Z47.89 07/26/17 0958 <Electronically signed by Mikey Fields DO> Date Mikey Fields DO Cosigner Signature: Date (if applicable) CC: PT D/C SUMMARY (1) Observed: 07/03/2017 Status: F Source: [place] 10:44 AM [facility] REPOSITORY [facility] [address] [place], [place] [id number] Fax REHABILITATION SERVICES DISCHARGE SUMMARY MR#: [id number] Acct: [id number] Name: AUDRA LANIER Rep #: [id number] : 1955 62 From: Carla Girard DPT Referring Dr.: Mikey Fields DO Status: REG RCR Insurance: [employer] JUST FOR ME SELF PAY INSURANCE HP - PT D/C Summary It has been my pleasure to treat AUDRA LANIER under orders from Mikey Fields DO, for the diagnosis of Left TKR for a total of 17 visit(s). Discharge Date: Please see the following information for a summary of their discharge status. - Subjective Subjective: Patient reports that the knees are both the same- stiff and sore. Most of the time the knees are stiff and sore- stretching makes them feel better (hamstring stretch and step stretch, bolster extn stretch). Still wakes her up at night. Dr. fields reports that everything looks good. Patient feels that her knees are 70% better. Is doing her home exercise program. Insurance does not cover silver [employer] program. Worst: 10/07. Best: 05/09. Very steep and narrow to go upstairs- has to do them daily (bathroom, bedroom and sowing room). 2-07/07. Had x-rays taken about a week ago. - Pain left knee Pain Intensity (Out of 10): 3 - Objective Objective/Function: Posture: Fh, RS. Gait: slightly antalgic with loud foot slaps bilaterally. stairs: asc with 1 HR but descent uses 2 HR. HR/TR: able but reports pain with TR. SLS: SLS 5 seconds. Palpation: tender along superior patella and lateral joint line. ROM: 10-100 degrees. Strength: ankle: 5/5, Knee: 4+/5, Hip: 4+/5 - Goals Goal 1:: Patient will be I with HEP and progression Goal Progress: Goal Met Goal 2:: Patient will ambulate >300 feet with a normalized gait pattern Goal Progress: Goal Met Goal 3:: Patient will asc/desc 8 stairs recip with 1 HR Goal Progress: Goal Met Goal 4:: Patient will demo 0-115 degrees of ROM Goal Progress: Progressing - Plan Plan: Discharge to I HEP - D/C Information If there are questions or concerns regarding this patient's physical therapy, please feel free to call me at [phone]. Thank you for the referral of this patient. Sincerely, Carla Girard <Electronically signed by Carla Girard DPT> 07/03/17 1044 CC: Karlos Tang DO; Mikey Fields DO ELR Signed ORTHOPEDIC VISIT Observed: 06/13/2017 Status: F Source: [place] RE[place] 1:39 PM [facility] REPOSITORY [facility] Orthopaedics AND Sports Medicine [address] [place] [address] OFFICE VISIT Date of Service: 06/06/17 MR#: [id number] Acct: [id number] Name: AUDRA LANIER Rep #: [id number] : 1955 Provider: Mikey Fields DO Age/Sex: 62/F Location: [facility] Status: Signed Intake Intake Visit Reasons: LEFT KNEE Is patient in pain?: Yes Allergies No Known Allergies Allergy (Verified 06/06/17 15:04) Medications B Complex with Vitamin C [B-Complex Plus Vitamin C] 1 ea PO DAILY 06/03/15 [History Confirmed 06/06/17] Levothyroxine [Synthroid] 125 mcg PO DAILY 06/03/15 [History Confirmed 06/06/17] Losartan Potassium [Cozaar] 100 mg PO QHS 06/03/15 [History Confirmed 06/06/17] Metformin HCl [Glucophage] 1,000 mg PO BIDCM 06/03/15 [History Confirmed 06/06/17] Simvastatin [Zocor] 20 mg PO QHS 06/03/15 [History Confirmed 06/06/17] Atenolol [Tenormin (beta omar)] 50 mg PO BID 07/06/15 [History Confirmed 06/06/17] Loratadine [Claritin] 10 mg PO DAILY 07/06/15 [History Confirmed 06/06/17] Rivaroxaban [Xarelto] 20 mg PO DAILY 07/06/15 [History Confirmed 06/06/17] Hydrochlorothiazide 12.5 mg PO DAILY 06/04/16 [History Confirmed 06/06/17] Potassium Chloride [Klor-Con M20] 20 meq PO DAILY 06/04/16 [History Confirmed 06/06/17] Alogliptin Benzoate [Alogliptin] 25 mg PO DAILY 01/08/17 [History Confirmed 06/06/17] melatonin 5 mg capsule 5 mg PO .daily at bedtime PRN ea 04/03/17 [History Confirmed 06/06/17] Docusate Sodium [Colace] 100 mg PO BID PRN PRN #30 cap 04/25/17 [Rx Confirmed 06/06/17] Gabapentin [Neurontin] 100 mg PO TID #30 cap 04/25/17 [Rx Confirmed 06/06/17] ProMETHAzine [Phenergan] 25 mg PO Q4H PRN PRN #10 tab 04/25/17 [Rx Confirmed 06/06/17] Gabapentin [Neurontin] 100 mg PO TIDCM #30 cap 04/26/17 [Rx Confirmed 06/06/17] PFSH Medical History Hyperlipidemia (Chronic) Hypertension (Chronic) Palpitations (Chronic) Paroxysmal atrial fibrillation (Chronic) Nonsustained paroxysmal ventricular tachycardia (Chronic) Family history of sudden cardiac (Chronic) Type 2 diabetes mellitus without complications (Chronic) Surgical History History of total left knee replacement (Acute) Hx of total knee replacement (Chronic) Family History Mother CVA (cerebral vascular accident) Atrial fibrillation Diabetes Sister Hyperlipidemia Sister Diabetes Atrial fibrillation Sister Parkinson disease Brother CAD (coronary artery disease) Brother CAD (coronary artery disease) Social History Smoking Status: Never smoker second hand exposure: No alcohol intake: former year quit: 2014 details: rarely substance use type: does not use caffeine: Yes Type: coffee Number of servings: 1 eating out: 1-3 times/week during the past year weight has: remained stable what type of physical activity do you participate in: yoga frequency: 3-4 times per week duration: 15-30 minutes/day kiley/worship: Jehovah Witness seatbelt use: always do you feel safe at home: Yes additional social history: No Blood Transfusions HPI LEFT KNEE: Chief Complaint: left knee Details: AUDRA LANIER is a 62 year old F here today s/p left TKA dos 04/24/18. Patient states that she feels good and has been improving. She continues to have stiffness. Patient has done a home exercise program. She is ambulating with no assistive device. Denies numbness, tingling or other associated symptoms. ROS Const Reports system reviewed and no additional complaints, except as docu Eyes Reports system reviewed and no additional complaints, except as docu ENT Reports system reviewed and no additional complaints, except as docu Card Reports system reviewed and no additional complaints, except as docu Resp Reports system reviewed and no additional complaints, except as docu GI Reports system reviewed and no additional complaints, except as docu Reports system reviewed and no additional complaints, except as docu Musc Reports stiffness Skin/Breast Reports system reviewed and no additional complaints, except as docu Neuro Yes system reviewed and no additional complaints, except as docu Psych Reports system reviewed and no additional complaints, except as docu Endo Reports system reviewed and no additional complaints, except as docu Ortho Exam Left Knee Skin/Wound: Yes CDI Contralateral Normal: Yes Swelling: No Homans Sign: No Popliteal Adenopathy: No Apprehension with Lateral Translation: No Patellar Tilt Normal: Yes Patella Grind: No KNEE: Incision clean dry and intact. Range of motion 0-115. Ligamentously stable all planes. Good extension and flexion. Mild subjective numbness to the lateral aspect of the knee as expected. Otherwise no calf pain negative Homans. X-rays: Evaluate myself patient show the hardware otherwise well-seated well-placed with a centered patella. Assessment AND Plan Problems 1. Orthopedic aftercare Z47.89 Plan a/p: Patient will follow up with me in 6 weeks to check on range of motion. Otherwise activity as tolerated. Any major issues return. Patient agrees to plan. Orders Orders: Coding Level of Care Code Global Post Op Diagnoses Orthopedic aftercare Z47.89 06/13/17 1339 <Electronically signed by Mikey Fields DO> Date Mikey Fields DO Cosigner Signature: Date (if applicable) CC: KNEE 4 OR MORE Observed: 06/06/2017 Status: F Source: [place] VIEWS 2:25 PM [facility] REPOSITORY [facility] Imaging Services [address] [place] [address] Knee 4 or More Views MR#: [id number] Acct: [id number] Name: AUDRA LANIER Rep #: [id number] : 1955 F 62 From: Mikhail Llamas DO PCP: Karlos Tang DO Status: REG CLI Study: Knee 4 or More Views Date of Exam: 06/06/17 Exam# [id number] Ordering Dr: Mikey Fields DO STUDY: X-RAY - LEFT KNEE REASON FOR EXAM: Female, 62 years old. Follow-up. TECHNIQUE: 4 view(s) of the knee. COMPARISON: Left knee, April 24, 2017. FINDINGS: There is a total knee replacement. The prosthetic components are intact and articulate normally with each other. There is no evidence of loosening from the underlying bone. There is no evidence of osseous fracture or destructive osseous pathology. Resolution of the air and soft tissue swelling seen in the anterior knee. There is no joint effusion. RAD/Knee 4 or More Views IMPRESSION: Left TKA without acute abnormality. Electronically Signed: Mikhail LlamasDO at 18:31 EST Tel [phone], Service support , CC: Karlos Tang DO; Mikey Fields DO Angiographer: Signed RE-EVALUATION - PT (1) Observed: 06/05/2017 Status: F Source: [place] 9:24 AM [facility] REPOSITORY [facility] [address] [place] [address] Fax REEVALUATION / MEDICARE RECERTIFICATION PHYSICAL THERAPY MR#: [id number] Acct: [id number] Name: AUDRA LANIER Rep #: [id number] : 1955 62 From: Carla Girard DPT Referring Dr.: Mikey Fields DO Status: REG RCR Insurance: [employer] JUST FOR ME SELF PAY INSURANCE Mikey Fields DO, It has been my pleasure to treat AUDRA LANIER over the last 13 visits for Left TKR. Please see the progress note below for an update on the physical therapy plan of care! Subjective: Patient reports that her knee is hurting 3-08/07. Today is one of those days that everything hurts. Feels the knee is getting a little bit better. Has more use of it but its catching . Hurts on the top of the knee cap. Goes back to see Dr. Fields on . Patient reports that she is getting around okay- her won't let her drive. Is taking the pain medication only at night with Tylenol during the day. Patient feels that she is 50% better. Patient is aware that she will be out of visits. Sleep: somewhat better but still challenging. Objective/Function: Posture: Fh, RS. Gait: slightly antalgic with loud foot slaps bilaterally. stairs: asc with 1 HR but descent uses 2 HR. HR/TR: able but reports pain. SLS: ws but unable to SLS without UE A. Palpation: tender along superior patella. ROM: 15-100 degrees. Strength: ankle: 5/5, Knee: 4+/5, Hip: 4+/5 Plan Plan: Continue 1x a week for 4 weeks- focus on HEP of ROM and function Goals Goal 1:: Patient will be I with HEP and progression Goal Time Frame: 4-6 Weeks Goal Progress: Progressing Goal 2:: Patient will ambulate >300 feet with a normalized gait pattern Goal Time Frame: 4-6 Weeks Goal Progress: Goal Met Goal 3:: Patient will asc/desc 8 stairs recip with 1 HR Goal Time Frame: 4-6 Weeks Goal Progress: Progressing Goal 4:: Patient will demo 0-115 degrees of ROM Goal Time Frame: 4-6 Weeks Goal Progress: Progressing Anticipated Interventions Patient/Client Instruction: Educate patient on: Benefits of Fitness Program For the Purpose of:: To increase tolerance to activity/condition/position Therapeutic Exercise to Include: Strength training, Endurance training, Balance training, Body mechanics, Postural training, Flexibilty training, Gait and locomotor training, Passive ROM, Active ROM, Dynamic Lumbar Stabilization For the Purpose of:: To improve muscle performance and motor function TENS: Yes Cryotherapy (ice pack, ice massage): Yes Thermo therapy (hot pack): Yes Ultrasound (thermal/non thermal): No Vasopneumatic device: Yes For the Purpose of:: To decrease pain, To decrease swelling/inflammation Please do not hesitate to contact me at [phone] by phone or if you have questions or concerns regarding this new plan of care! Sincerely, Carla Girard <Electronically signed by Carla Girard DPT> 06/05/17 0924 CC: Karlos Tang DOJack Fields DO ELR Signed For Medicare only, by signing this I certify the plan of care. Physicians Signature Date ALLERGIES ALLERGIES DATE TYPE / CODE NAME / CODE REACTION SEVERITY SOURCE 11/30/2017 Drug No Known Unknown [place] [facility] Allergy/4160 Allergies/F00 [facility] 30216(SNOMED [id number](RXNOR Repository CT) M) ENCOUNTERS ENCOUNTERS ADMIT/DISCHARGE ACCOUNT ADMITTING ENCOUNTER LOCATION SOURCE NUMBER CLASS 05/14/2018 [id number] [place] [facility] ing:PT Repository 04/09/2018 [id number] Ambulatory [place] [facility] ing:MTRAD Repository 12/10/2017 [id number] Ambulatory [place] [facility] ing:LAB Repository 11/30/2017/ [id number] Ambulatory [facility]:B [place] [facility] 4 [facility] Repository 10/29/2017 [id number] Ambulatory [place] 9 [facility] ing:HPRAD Repository 10/29/2017/ [id number] Ambulatory BMSBuilding:B [place] [facility] 0 [facility] Repository 10/22/2017 [id number] Ambulatory BMS[facility]:B [place] 2 [facility] Repository 10/21/2017 [id number] Ambulatory B[facility]:B [place] 4 [facility] Repository 07/18/2017/ [id number] Ambulatory BMSBuilding:B [place] [facility] 6 [facility] Repository 07/03/2017/ [id number] Ambulatory [place] 8 9 [facility] ing:PT Repository 06/06/2017 [id number] Ambulatory [place] 2 [facility] ing:HPRAD Repository 06/06/2017/ [id number] Ambulatory BMSBuilding:B [place] 8 4 [facility] Repository PAYERS PAYERS ENCOUNTER GUARANTOR PAYER SUBSCRIBER SOURCE 05/14/2018 AUDRA Henderson Primary AUDRA [id number] CR Insurance:LAKEFIDENCIO MONTGOMERY: [address] Number: [id number], [place] [address]Dbt: [id number] Repository Date:2018-03-30 O (BW) [address]ATTN: [place] [address]PL: 05/14/2018 Secondary NOT GIVENUNK [place] Insurance:SELF PAY [facility] Number: Effective Repository Date:2018-05-13 04/09/2018 AUDRA Henderson Primary AUDRA Gaona [id number] CR Insurance:CARESOAJIT LANIERDOB: [address] , [place] [address]Mmg: Number: Repository [id number] (HP) Date:8684-10-74FJ [address] [place] [phone]: 04/09/2018 Secondary NOT GIVENUNK [place] Insurance:SELF PAY [facility] Number: Effective Repository Date:2018-04-09 12/10/2017 AUDRA M Primary AUDRA Henderson [place] [id number] CR Insurance:CARESOAJIT LANIERDOB: [address] , [place] [address]Cdi: Number: Repository [id number] (HP) Date:6803-30-50LH [address] [place] [address]TE: 12/10/2017 Secondary NOT GIVENUNK [place] Insurance:SELF PAY [facility] Number: Effective Repository Date:2017-12-10 11/30/2017 AUDRA Henderson Primary AUDRA Gaona [id number] Insurance:CARESOAJIT CHEWB: [address] Number: Repository , [place] [address]Dsl: [id number] Date:6544-80-50YS [address], [place] [address]LB: 11/30/2017 Secondary NOT GIVENUNK [place] Insurance:SELF PAY [facility] Number: Effective Repository Date:2017-11-23 10/29/2017 AUDRA Henderson Primary AUDRA Gaona [id number] CR Insurance:CARESOAJIT LANIERDOB: [address] , [place] [address]Qta: Number: Repository [id number] (HP) Date:3643-03-84TM [address] [address]WU: 10/29/2017 Secondary NOT GIVENUNK [place] Insurance:SELF PAY [facility] Number: Effective Repository Date:2017-10-29 10/29/2017 AUDRA Primary AUDRA CARRBAUGH80 CR Insurance:CARESOURCE ALLENCOREENDOB: Community [address] [place], [place] [address] , [place] [address]Oxw: Number: Repository [id number] (HP) Date:2868-94-75BJ [address] [address]AG: 10/29/2017 Secondary NOT GIVENUNK [place] Insurance:SELF PAY [facility] Number: Effective Repository Date:2017-10-29 10/22/2017 AUDRA Primary AUDRA CARRBAUGH80 CR Insurance:CARESOURCE MARILYNDOB: Community [address] [place], [place] [address] , [place] [address]Syy: Number: Repository [id number] (HP) Date:3183-70-41HA [address] [address]WR: 10/22/2017 Secondary NOT GIVENUNK [place] Insurance:SELF PAY [facility] Number: Effective Repository Date:2017-04-03 10/21/2017 AUDRA Primary AUDRA CARRBAUGH80 CR Insurance:CARESOURCE MARILYNDOB: [address] , [place] [address]Ikt: Number: Repository [id number] (HP) Date:4642-32-10VD [address] [address]UM: 10/21/2017 Secondary NOT GIVENUNK [place] Insurance:SELF PAY [facility] Number: Effective Repository Date:2017-10-21 07/18/2017 AUDRA Primary AUDRA CARRBAUGH80 CR Insurance:CARESOAJIT LANIERDOB: [address] , [place] [address]Ofy: Number: Repository [id number] (HP) Date:2074-26-25VW [address] [address]BL: 07/18/2017 Secondary NOT GIVENUNK [place] Insurance:SELF PAY [facility] Number: Effective Repository Date:2017-07-18 07/03/2017 AUDRA Primary AUDRA CARRBAUGH80 CR Insurance:CARESOAJIT LANIERDOB: [address] , [place] [address]Txe: Number: Repository [id number] (HP) Date:0911-36-86UY [address] [address]CK: 07/03/2017 Secondary NOT GIVENUNK [place] Insurance:SELF PAY [facility] Number: Effective Repository Date:2017-04-26 06/06/2017 AUDRA Primary AUDRA CARRBAUGH80 CR Insurance:LAKESOAJIT CHEWB: [address] , [place] [address]Uou: Number: Repository [id number] (HP) Date:1320-51-84IE [address] [address]ZH: 06/06/2017 Secondary NOT GIVENUNK [place] Insurance:SELF PAY [facility] Number: Effective Repository Date:2017-06-06 06/06/2017 AUDRA Primary AUDRA Gaona [id number] CR Insurance:LAKESOAJIT CHEWB: [address] , [place] [address]Rwt: Number: Repository [id number] (HP) Date:6360-35-33GX [address] [address]GK: 06/06/2017 Secondary NOT GIVENUNK [place] Insurance:SELF PAY [facility] Number: Effective Repository Date:2017-05-07
== END ==
PROVIDERS: Family Provider Family Medicine; PCP Family Medicine; Referring Provider Family Medicine; Visit Provider Family Medicine
DX: M25.551 Pain in right hip (principal)
CPT/HCPCS: 73502

== ENCOUNTER 2018-05-14 14:17 | Outpatient (RCR) | payer MEDICAID, SELFPAY ==
--- NOTE | 2018-07-04 11:44 | HP.PT.NRP ---
HP - Discharge Summary (1) - Patient Information AUDRA SANDERS was seen in my office for initial evaluation on . The following Plan of Care was established for this patient: This patient was last seen in our office 05/14/18. Pertinent comments regarding their Physical therapy will appear below: Pt. came for ther intiial evaluation, but decided to go a different route and did not complete her initial evaluation. Pt. has not been seen since and will be DC from PT at this point intime. At this point I will be discontinuing this patient from physical therapy. I would be happy to see this patient again in the future if found appropriate by the physician. Thank you! MOUNIKA VuongT
== END 2018-05-14 19:00 | disposition home or self-care (01) ==
LOC: PT 14:17
PROVIDERS: Family Provider Family Medicine; PCP Family Medicine; Referring Provider Family Medicine; Visit Provider Family Medicine
DX: M25.551 Pain in right hip (principal); M54.31 Sciatica, right side

== ENCOUNTER → 2018-06-11 09:18 | Outpatient (CLI) | payer MEDICAID, SELFPAY ==
[2018-06-07 11:51] VITALS: BMI 27.4
[2018-06-11 10:22] LABS: AST(SGOT) 23 U/L (15-37); Alanine Aminotransfer ALT/SGPT 29 U/L (13-56); Alkaline Phosphatase 48 U/L (45-117); Cholesterol 125 mg/dL (200); Globulin 3.4 g/dL (2.2-4.2); High Density Lipoprotein 52 mg/dL; Protein, Total 7.4 g/dL (6.4-8.2); Triglycerides 85 mg/dL; Very Low Density Lipoprotein 17 mg/dL (5-40)
== END ==
PROVIDERS: Family Provider Family Medicine; PCP Family Medicine; Referring Provider Internal Medicine Cardiovascular Disease; Visit Provider Internal Medicine Cardiovascular Disease
DX: E78.5 Hyperlipidemia, unspecified (principal)
CPT/HCPCS: 36415; 80061; 80076

== ENCOUNTER → 2018-12-06 08:19 | Outpatient (CLI) | payer MEDICAID, SELFPAY ==
[2018-06-07 11:51] VITALS: BMI 27.4
[2018-12-06 12:26] LABS: Absolute Lymphocyte Count 1.85 X10^3/uL (0.83-4.51); Absolute Neutrophil Count 2.7 X10^3/uL (2.0-7.7); Basophil# 0.02 X10^3/uL; Basophil% 0.4 % (0-1); Eosinophil# 0.29 X10^3/uL; Eosinophils% 5.5 % (0-5); Hematocrit 38.6 % (37-47); Hemoglobin 12.5 g/dL (12.0-15.0); Lymphocyte # 1.85 X10^3/ul (4.0); Lymphocyte % 35.2 % (19-41); Mean Corp Hgb Conc 32.4 g/dL (32-36); Mean Corpuscular Hgb 29.8 pg (27.0-32.0); Mean Corpuscular Volume 92.1 fL (81-99); Mean Platelet Vol. 9.9 fl (6.2-12.0); Monocyte# 0.37 X10^3/uL; NRBC Flagged by Analyzer 0 % (0-5); Neutrophil # 2.71 X10^3/uL (2.7-7.7); Neutrophil % 51.7 % (47-70); Platelet Count 205 K/mm3 (150-450); RBC Distribution Width CV 12.5 % (11.6-14.6); Red Blood Count 4.19 M/mm3 (4.2-5.4); White Blood Count 5.3 K/mm3 (4.4-11.0)
[2018-12-06 12:42] LABS: AST(SGOT) 21 U/L (15-37); Alanine Aminotransfer ALT/SGPT 31 U/L (13-56); Albumin, Serum 3.9 g/dL (3.2-5.0); Alkaline Phosphatase 61 U/L (45-117); Anion Gap 8 (5-15); BUN 24 mg/dL (7-18); BUN/Creat Ratio 27.8 RATIO (10-20); Calcium,Total 9.2 mg/dL (8.5-10.1); Chloride 101 mmol/L (98-107); Cholesterol 127 mg/dL (200); Creatinine, Serum 0.86 mg/dL (0.55-1.02); EST Glomerular Filtration Rate 70 mL/min (>60); Est Glom Filt Rate - Afr Amer 85 mL/min (>60); Globulin 3.1 g/dL (2.2-4.2); Glucose 109 mg/dL (74-106); High Density Lipoprotein 51 mg/dL; Potassium 4.2 mmol/L (3.5-5.1); Sodium Level 139 mmol/L (136-145); T4 Free Direct 1.46 ng/dL (0.76-1.46); Triglycerides 123 mg/dL; Very Low Density Lipoprotein 25 mg/dL (5-40)
[2018-12-06 12:43] LABS: Hemoglobin A1c 6.4 % (4.2-6.3)
[2018-12-06 12:51] LABS: Microalbumin:Creatinine Ratio 102.9 mg/g CRE (<30 mg/g CRE)
== END ==
PROVIDERS: Internal Medicine Cardiovascular Disease; Family Provider Family Medicine; PCP Family Medicine; Visit Provider Family Medicine
DX: E11.21 Type 2 diabetes mellitus with diabetic nephropathy (principal); I10 Essential (primary) hypertension; E03.9 Hypothyroidism, unspecified
CPT/HCPCS: 36415; 80048; 80061; 80076; 82043; 82570; 83036; 84439; 84443; 85025

== ENCOUNTER → 2019-06-11 08:27 | Outpatient (CLI) | payer MEDICARE, SELFPAY ==
[2019-06-05 10:52] VITALS: BMI 29.4
[2019-06-11 09:32] LABS: AST(SGOT) 24 U/L (15-37); Alanine Aminotransfer ALT/SGPT 37 U/L (13-56); Alkaline Phosphatase 62 U/L (45-117); Bilirubin, Direct 0.09 mg/dL (0.00-0.30); Cholesterol 175 mg/dL (200); Globulin 3.3 g/dL (2.2-4.2); High Density Lipoprotein 52 mg/dL; Protein, Total 7.3 g/dL (6.4-8.2); Triglycerides 208 mg/dL; Very Low Density Lipoprotein 42 mg/dL (5-40)
== END ==
PROVIDERS: PCP Family Medicine; Referring Provider Internal Medicine Cardiovascular Disease; Visit Provider Internal Medicine Cardiovascular Disease
DX: E11.9 Type 2 diabetes mellitus without complications (principal); E78.5 Hyperlipidemia, unspecified
CPT/HCPCS: 36415; 80061; 80076

== ENCOUNTER → 2019-06-20 10:39 | Outpatient (CLI) | payer MEDICARE, SELFPAY ==
[2019-06-05 10:52] VITALS: BMI 29.4
--- NOTE | 2019-06-20 10:42 | ECHOCS_ITS ---
Reason For Study: Afib/Flutter Procedure This was a 2D Doppler, Color Flow transthoracic echocardiogram. Contrast injection was performed. Exam performed in department. Left Ventricle Normal size and thickness. The estimated ejection fraction is 65 %. Stage 2 diastolic dysfunction. No regional wall motion abnormalities noted. Right Ventricle Normal size and thickness. Normal systolic function. Atria The left atrium is mildly enlarged. Normal right atrium. Normal atrial septum. Mitral Valve The mitral valve is structurally normal. No prolapse or stenosis seen. Trivial mitral valve insufficiency. Tricuspid Valve Normal tricuspid valve. Mild (1+) tricuspid valve insufficiency. Right ventricular systolic pressure estimated to be 39 mmHg. Mild pulmonary hypertension. Aortic Valve Trisinus/trileaflet aortic valve. Normal aortic valve. Pulmonic Valve Normal pulmonic valve. Great Vessels Normal aortic root. Normal arch. Normal inferior vena cava. Inferior vena cava collapse with respiration. Pericardium/Pleural No pericardial effusion. Medication 22 gauge I.V. with prn adaptor inserted into right arm. Diluted definity 2ml given slow IV push to enhance endocardial definition. MMode/2D Measurements & Calculations LVIDd: 4.5 cm IVSd: 1.3 cm LA dimension: 3.8 cm LVIDs: 2.9 cm LVPWd: 1.4 cm FS: 35.9 % LAV(MOD-bp): 74.8 ml LA A4 area: 22.4 cm2 RA A4 area: 16.0 cm2 LAV(MOD-bp) Indexed: 43.3 ml/m2 LAV(MOD-sp2): 76.0 ml LAV(MOD-sp4): 71.6 ml Time Measurements MV dec time: 0.18 sec Doppler Measurements & Calculations MV E max sergey: 83.0 cm/sec Lat Peak E' Sergey: 8.4 cm/sec Med Peak E' Sergey: 7.7 cm/sec MV A max sergey: 58.2 cm/sec E/E' lat: 9.9 E/E' med: 10.7 MV E/A: 1.4 MV V2 max: 94.4 cm/sec MV P1/2t max sergey: 93.4 cm/sec Ao V2 max: 147.3 cm/sec MV max P.6 mmHg MV P1/2t: 144.9 msec Ao max P.7 mmHg MV V2 mean: 44.8 cm/sec MV dec slope: 188.8 cm/sec2 Ao V2 mean: 93.0 cm/sec MV mean P.0 mmHg Ao mean P.0 mmHg MV V2 VTI: 37.7 cm MVA(P1/2t): 1.5 cm2 Ao V2 VTI: 33.3 cm LV V1 max: 116.9 cm/sec PA V2 max: 96.3 cm/sec PI end-d sergey: 105.9 cm/sec LV V1 max P.5 mmHg LV V1 mean P.8 mmHg LV V1 mean: 78.8 cm/sec LV V1 VTI: 29.3 cm TR max sergey: 291.3 cm/sec TR max P.0 mmHg Interpretation Summary The estimated ejection fraction is 65 %. Stage 2 diastolic dysfunction. The left atrium is mildly enlarged. Trivial mitral valve insufficiency. Mild (1+) tricuspid valve insufficiency. Right ventricular systolic pressure estimated to be 39 mmHg. Mild pulmonary hypertension. Compared to echo report dated 06/25/2015 no appreciable changes noted. The study was technically difficult. Contrast injection was performed. Ordering Physician: Chucho Stuart Referring Physician: Karlos Tagn Performed By: Agustin Masterson RCS
== END ==
PROVIDERS: PCP Family Medicine; Referring Provider Internal Medicine Cardiovascular Disease; Visit Provider Internal Medicine Cardiovascular Disease
DX: I48.0 Paroxysmal atrial fibrillation (principal); I47.2 Ventricular tachycardia; I10 Essential (primary) hypertension
CPT/HCPCS: 93306; Q9957; A4216; C8929

== ENCOUNTER → 2019-06-27 09:21 | Outpatient (CLI) | payer MEDICARE, SELFPAY ==
[2019-06-05 10:52] VITALS: BMI 29.4
--- NOTE | 2019-06-27 09:25 | STEWCON_ITS ---
Reason For Study: AFIB/FLUTTER Stress Results Protocol: Steven Protocol WITH DEFINITY Maximum Predicted HR: 155 bpm Target HR: 132 bpm % Maximum Predicted HR: 93 % DurationHeart Rate Stage (mm:ss) (bpm) BP Comment BASELINE 50 132/624 CC DEFINITY FOR TEST STAGE 1 3:00 102 168/62 STAGE 2 3:00 115 178/60 STAGE 3 3:00 144 180/82 RECOVERY 68 148/82 Stress Duration: 9:00 mm:ss Maximum Stress HR: 144 bpm Baseline Echocardiogram Findings The estimated ejection fraction is 65 %. Stress Echo Wall motion Data Resting WM Intermediate WM Stress WM Resting Wall Motion Wall Motion Stress No regional wall motion No regional wall motion abnormalities noted. abnormalities noted. EKG Data The baseline ECG displays normal sinus rhythm. The patient exercised according to the regular Steven protocol for a total duration of 9:00. The maximum heart rate attained was 142 beats per minute. This was 91% of maximum predicted heart rate. The patient exercised into stage 4 of the Steven protocol. During stress, there were no ST or T wave changes noted to suggest ischemia. No clinical angina was noted. No arrhythmias noted. Doppler Measurements & Calculations TR max josefa: 259.8 cm/sec TR max P.0 mmHg Interpretation Summary The estimated ejection fraction is 65 %. Normal, adequate, treadmill echocardiogram. Negative for ischemia by EKG and echocardiographic criteria. No anginal symptoms noted. No arrhythmias noted. Test terminated due to target heart rate achieved and dyspnea. Final LVEF is 75%. Decrease sensitivity due to poor echo windows requiring Definity agent. Patient tolerated procedure well. No complications. The study was technically difficult. Contrast injection was performed. Ordering Physician: Chucho Stuart Referring Physician: Chucho Stuart Performed By: Vaishnavi Sesay RDCS
== END ==
PROVIDERS: PCP Family Medicine; Referring Provider Internal Medicine Cardiovascular Disease; Visit Provider Internal Medicine Cardiovascular Disease
DX: I48.0 Paroxysmal atrial fibrillation (principal); I47.2 Ventricular tachycardia; E78.5 Hyperlipidemia, unspecified; E11.9 Type 2 diabetes mellitus without complications; I10 Essential (primary) hypertension; I25.10 Atherosclerotic heart disease of native coronary artery without angina pectoris
CPT/HCPCS: 93017; 93350; Q9957; A4216; C8928

== ENCOUNTER → 2019-07-01 14:13 | Outpatient (CLI) | payer MEDICARE, SELFPAY ==
[2019-06-05 10:52] VITALS: BMI 29.4
--- NOTE | 2019-07-01 14:16 | BI_ITS ---
MAMMOGRAPHY - BILATERAL SCREENING REASON FOR EXAM: Female, 64 years old. Routine annual screening examination. PERTINENT HISTORY: Non-contributory. TECHNIQUE: Digital bilateral breast phyllis (3D mammographic acquisition) in the CC and MLO projections. 2-D mediolateral oblique (MLO) and craniocaudad (CC) views of both breasts were obtained. CAD: Full Field Digital Mammography with Computer Added Detection was performed. COMPARISON: Comparison is made with prior examination dated September 08, 2015. FINDINGS: Breast Composition: The breasts are heterogeneously dense, which may obscure small masses. There are no dominant masses or suspicious calcifications. No other significant abnormalities are identified. There has been no significant change since the prior study. BI/SCREEN MAMM (CAD) W/PHYLLIS BILAT IMPRESSION: Stable bilateral screening mammogram. Yearly follow-up mammogram recommended. (A) ASSESSMENT CATEGORY: BIRADS Category 1: Negative. A letter regarding these results will be sent to the patient by the facility within 30 days. Approximately 10% of breast cancers are not detected by mammography. A normal mammogram should not delay biopsy of a clinically suspicious abnormality. [id number] Electronically Signed: Vicente Marshall, at 15:48 EST , Service support ,
--- NOTE | 2019-07-01 14:35 | BD_ITS ---
STUDY: DUAL ENERGY X-RAY ABSORPTIOMETRY / DXA REASON FOR EXAM: Female, 64 years old. Age of luis carlos- 48. Pat is 161.1# and 61 and amp; quot; a loss of 1 and amp; quot; per pat. Past hx of taking HRT. Type II diabetic and takes metformin. Has steroid ini in her knees and shoulder. Takes levothyroxin. Has a diuretic in her BP meds. Takes a multi-vit. Exercises a little to moderately. Sister have osteo. TECHNIQUE: Bone Mineral Density (BMD) measurements of lumbar spine and bilateral hips were obtained. COMPARISON: None. FINDINGS: Lumbar Spine (L1-L4): g/cm2 (1.203) / T-score (0.3) / Z-score (1.9) Findings are suggestive of normal bone density with a low fracture risk. Left Femur Total: g/cm2 (0.967) / T-score (-0.3) / Z-score (0.9) Left Femoral Neck: g/cm2 (0.816) / T-score (-1.6) / Z-score (-0.1) Right Femur Total: g/cm2 (0.929) / T-score (-0.6) / Z-score (0.6) Right Femoral Neck: g/cm2 (0.823) / T-score (-1.5) / Z-score (-0.1) BD/Dexa Bone Density Study IMPRESSION: The patient is considered osteopenic as outlined below according to World Alvaro Organization (WHO) criteria with a moderate fracture risk. Reference Information: The T-score is the number of standard deviations above or below the standard which is normal for young adults at their peak bone mineral density. The World Health Organization (WHO) interprets the T-scores as follows: Above -1 Normal bone density Between -1 and -2.5 Osteopenia Equal to / or below -2.5 Osteoporosis As a practical clinical guideline, osteopenia may be graded as follows: Mild -1 through -1.5 Moderate -1.6 through -2.0 Severe -2.1 through -2.4 The Z-score is the number of standard deviations above or below age-matched controls. A Z-score of less than -1.5 would be considered abnormal. References: 1. NIH Osteoporosis and Related Bone Diseases http://www.osteo.org 2. International Society for Clinical Densitometry http://www.iscd.org 3. National Osteoporosis Foundation http://www.nof.org Electronically Signed: Vicente Marshall, at 14:16 EST , Service support ,
== END ==
PROVIDERS: PCP Family Medicine; Referring Provider Family Medicine; Visit Provider Family Medicine
DX: Z12.31 Encounter for screening mammogram for malignant neoplasm of breast (principal); Z78.0 Asymptomatic menopausal state; Z13.820 Encounter for screening for osteoporosis; Z82.62 Family history of osteoporosis
CPT/HCPCS: 77063; 77067; 77080

== ENCOUNTER → 2019-10-13 11:06 | Outpatient (CLI) | payer MEDICARE, SELFPAY ==
[2019-06-05 10:52] VITALS: BMI 29.4
== END ==
PROVIDERS: PCP Family Medicine; Visit Provider Internal Medicine Gastroenterology
DX: Z11.59 Encounter for screening for other viral diseases (principal)
CPT/HCPCS: 87635; G2023; U0003

== ENCOUNTER → 2019-12-15 10:21 | Outpatient (CLI) | payer MEDICARE, SELFPAY ==
[2019-06-05 10:52] VITALS: BMI 29.4
[2019-12-15 12:12] LABS: Absolute Lymphocyte Count 1.52 X10^3/uL (0.83-4.51); Absolute Neutrophil Count 4.8 X10^3/uL (2.0-7.7); Basophil# 0.03 X10^3/uL; Basophil% 0.4 % (0-1); Eosinophil# 0.22 X10^3/uL; Eosinophils% 3.1 % (0-5); Hematocrit 38.4 % (37-47); Lymphocyte # 1.52 X10^3/ul (4.0); Lymphocyte % 21.7 % (19-41); Mean Corp Hgb Conc 31.3 g/dL (32-36); Mean Corpuscular Hgb 28.4 pg (27.0-32.0); Mean Platelet Vol. 9.9 fl (6.2-12.0); Monocyte# 0.44 X10^3/uL; Monocyte% 6.3 % (0-10); NRBC Flagged by Analyzer 0 % (0-5); Neutrophil # 4.75 X10^3/uL (2.7-7.7); Neutrophil % 67.9 % (47-70); Platelet Count 229 K/mm3 (150-450); RBC Distribution Width CV 12.5 % (11.6-14.6); RBC Distribution Width SD 41.2 fl (35.1-43.9); Red Blood Count 4.22 M/mm3 (4.2-5.4)
[2019-12-15 12:31] LABS: ALB/GLOB Ratio 1.2 RATIO (0.9-2.4); AST(SGOT) 21 U/L (15-37); Alanine Aminotransfer ALT/SGPT 31 U/L (13-56); Albumin, Serum 3.7 g/dL (3.2-5.0); Alkaline Phosphatase 53 U/L (45-117); Anion Gap 7 (5-15); BUN 28 mg/dL (7-18); BUN/Creat Ratio 31.6 RATIO (10-20); Chloride 105 mmol/L (98-107); Creatinine, Serum 0.88 mg/dL (0.55-1.02); EST Glomerular Filtration Rate 68 mL/min (>60); Est Glom Filt Rate - Afr Amer 82 mL/min (>60); Globulin 3.2 g/dL (2.2-4.2); Glucose 162 mg/dL (74-106); Potassium 4.3 mmol/L (3.5-5.1); Protein, Total 6.9 g/dL (6.4-8.2); Sodium Level 140 mmol/L (136-145); T4 Free Direct 1.29 ng/dL (0.76-1.46)
[2019-12-15 12:35] LABS: Microalbumin:Creatinine Ratio 471.5 mg/g CRE (<30 mg/g CRE)
[2019-12-15 14:11] LABS: Hemoglobin A1c 7.4 % (3.8-5.6)
== END ==
PROVIDERS: PCP Family Medicine; Visit Provider Family Medicine
DX: E11.21 Type 2 diabetes mellitus with diabetic nephropathy (principal); I10 Essential (primary) hypertension; E03.9 Hypothyroidism, unspecified; I48.0 Paroxysmal atrial fibrillation
CPT/HCPCS: 36415; 80053; 82043; 82570; 83036; 83735; 84439; 84443; 85025

== ENCOUNTER 2020-08-23 11:57 | Emergency (ER) | payer MEDICARE, SELFPAY ==
[2019-06-05 10:52] VITALS: BMI 29.4
[2020-08-23 12:01] VITALS: BP 141/109; PULSE 146; RESP 20; TEMP 36.6; O2SAT 96; BMI 33.3
--- NOTE | 2020-08-23 12:17 | EKG12_ITS ---
Test Reason : TACHY Blood Pressure : / mmHG Vent. Rate : 160 BPM Atrial Rate : 153 BPM P-R Int : 000 ms QRS Dur : 084 ms QT Int : 300 ms P-R-T Axes : 000 016 112 degrees QTc Int : 489 ms Atrial fibrillation with premature ventricular or aberrantly conducted complexes Nonspecific ST and T wave abnormality Abnormal ECG Confirmed by NATI CURRY, URIEL ([id number]), production editor TRAY GREEN ([id number]) on 08/25/2020 8:57:14 AM Referred By: DIAMOND/MEGGAN Confirmed By:URIEL DAMIAN MD
--- NOTE | 2020-08-23 12:17 | RAD_ITS ---
STUDY: X-RAY CHEST REASON FOR EXAM: Female, 65 years old. Chest pain TECHNIQUE: Single AP portable view of the chest. COMPARISON: Comparison is made with prior study dated 06/03/2015. FINDINGS: EKG electrodes are seen. Stable elevation of the right hemidiaphragm. The lungs are clear. There is no demonstrated pleural abnormality. Normal size heart. Normal mediastinum and jordy. Normal visualized pulmonary arteries. Normal visualized aortic arch and descending thoracic aorta. Normal visualized thoracic spine. Normal visualized ribs, clavicles, and shoulders. There is no demonstrated abnormality of the visualized soft tissue structures of the upper abdomen. RAD/Chest 1 View (Portable) IMPRESSION: Normal x-ray examination of the chest. Electronically Signed: Vicente Marshall MD at 12:58 EDT , Service support ,
[2020-08-23 12:35] LABS: Absolute Lymphocyte Count 1.49 X10^3/uL (0.83-4.51); Absolute Neutrophil Count 5.4 X10^3/uL (2.0-7.7); Basophil# 0.04 X10^3/uL; Basophil% 0.5 % (0-1); Eosinophil# 0.14 X10^3/uL; Eosinophils% 1.9 % (0-5); Hematocrit 38.3 % (37-47); Hemoglobin 12.2 g/dL (12.0-15.0); Lymphocyte # 1.49 X10^3/ul (0.83-4.51); Lymphocyte % 19.8 % (19-41); Mean Corp Hgb Conc 31.9 g/dL (32-36); Mean Corpuscular Hgb 28.3 pg (27.0-32.0); Mean Corpuscular Volume 88.9 fL (81-99); Mean Platelet Vol. 9.8 fl (6.2-12.0); Monocyte# 0.43 X10^3/uL; Monocyte% 5.7 % (0-10); NRBC Flagged by Analyzer 0 % (0-5); Neutrophil # 5.41 X10^3/uL (2.7-7.7); Neutrophil % 71.7 % (47-70); Platelet Count 220 K/mm3 (150-450); RBC Distribution Width CV 12.9 % (11.6-14.6); RBC Distribution Width SD 42.7 fl (35.1-43.9); Red Blood Count 4.31 M/mm3 (4.2-5.4); White Blood Count 7.5 K/mm3 (4.4-11.0)
--- NOTE | 2020-08-23 12:50 | EKG12_ITS ---
Test Reason : RHYTHM CHANGE Blood Pressure : / mmHG Vent. Rate : 069 BPM Atrial Rate : 069 BPM P-R Int : 146 ms QRS Dur : 076 ms QT Int : 394 ms P-R-T Axes : 034 010 033 degrees QTc Int : 422 ms Normal sinus rhythm Normal ECG Confirmed by NATI CURRY, URIEL ([id number]), clinical editor TRAY GREEN ([id number]) on 08/25/2020 9:00:22 AM Referred By: MEGGAN Confirmed By:URIEL DAMIAN MD
[2020-08-23 12:53] LABS: Anion Gap 10 (5-15); BUN 34 mg/dL (7-18); BUN/Creat Ratio 28.3 RATIO (10-20); Calcium,Total 9.3 mg/dL (8.5-10.1); Chloride 101 mmol/L (98-107); EST Glomerular Filtration Rate 48 mL/min (>60); Est Glom Filt Rate - Afr Amer 58 mL/min (>60); Estimated Creatinine Clearance 36.47 ml/min; Glucose 283 mg/dL (74-106); Magnesium 1.9 mg/dL (1.6-2.6); Potassium 4.1 mmol/L (3.5-5.1); Sodium Level 136 mmol/L (136-145)
--- NOTE | 2020-08-23 13:47 | ED.VIS.GEN ---
History of Present Illness Chief Complaint: Palpitations Informant: Patient, Significant Other Narrative: 65-year-old female with a history of paroxysmal atrial fibrillation presenting to the emergency department with rapid heartbeat. She tells me that she has been working with Dr. Infante and she notes over the past several months an increase in the amount of A. fib she has been experiencing. She states she is almost experiencing an hour daily. She has been referred to electrophysiology at [facility] and has appointment in about 2 weeks. Today she states her heart was extremely rapid. EMS was called they stated that her heart rate was about 250. They gave adenosine and the monitor then showed A. fib rate of 130-150. Patient denies any chest pain. No syncope. She has been compliant and not missed any doses of Xarelto. He states that she has been tried on multiple medications. - Past Medical History (1) Paroxysmal atrial fibrillation with RVR Status: Chronic (2) Hyperlipidemia Status: Chronic (3) Hypertension Status: Chronic (4) Type 2 diabetes mellitus without complications Status: Chronic Past Medical History - Allergies and Home Meds Allergies/Adverse Reactions: Allergies No Known Allergies Allergy (Verified 08/23/20 12:06) Primary Care Physician: Los Infante MD [STAFF PHYSICIAN] - As soon as possible Surgical History: noncontributory Lives: Spouse/ Significant Other Smoking Status: Never smoker Drugs: None Review of Systems General: Denies: Chills, Fever, Sweats Eyes: Denies: Visual changes - bilaterally, Diplopia ENT: Denies: Rhinorrhea, Sore throat Cardiovascular: Reports: Palpitations, Heart racing. Denies: Chest pain Respiratory: Denies: Dyspnea, Cough, Dyspnea on exertion Gastrointestinal: Denies: Abdominal pain, Nausea, Vomiting, Diarrhea, Melena, Hematochezia Genitourinary: Denies: Dysuria, Hematuria, Frequency Musculoskeletal: Denies: Back pain, Extremity Pain Skin: Denies: Rash, Wounds Neurological: Denies: Headache, Weakness, Numbness Physical Exam Vital Signs/Narrative: Vital Signs Temp Pulse Resp BP Pulse Ox 08/23/20 12:01 97.8 F 146 H 20 H 141/109 H 96 Inital Vital Signs reviewed: Yes General: Well nourished, Well developed, No Acute Distress Head: Normocephalic, Atraumatic Eyes: Perrl, EOMI ENT: Moist mucous membranes, No rhinorrhea Neck: Supple, Nontender Cardiovascular: No murmurs, Irregular Respiratory: No distress, CTA bilaterally, Chest nontender Abdomen: Soft, Nontender, Nondistended, Normal bowel sounds Back: Nontender, Normal Inspection Extremities: Nontender, No edema Skin: Normal color, No rash Neurological: Alert, Oriented x3, Cranial nerves II-XII grossly intact, Normal Strength, Normal Sensation Psychological: Normal affect, Normal Mood Diagnostic/Tx/Re-eval Clinical Impression(s) from Imaging Studies Chest X-Ray 08/23/20 12:17 IMPRESSION: Normal x-ray examination of the chest. Electronically Signed: Vicente Marshall MD at 12:58 EDT , Service support , Laboratory Last Values WBC 7.5 K/mm3 (4.4-11.0) 08/23/20 12: RBC 4.31 M/mm3 (4.2-5.4) 08/23/20 12:21 Hgb 12.2 g/dL (12.0-15.0) 08/23/20 12: Hct 38.3 % (37-47) 08/23/20 12:21 MCV 88.9 fL (81-99) 08/23/20 12:21 MCH 28.3 pg (27.0-32.0) 08/23/20 12: MCHC 31.9 g/dL (32-36) L 08/23/20 12: RDW Std Deviation 42.7 fl (35.1-43.9) 08/23/20 12:21 RDW Coeff of Woody 12.9 % (11.6-14.6) 08/23/20 12:21 Plt Count 220 K/mm3 (150-450) 08/23/20 12: MPV 9.8 fl (6.2-12.0) 08/23/20 12:21 Immature Gran % (Auto) 0.400 % (0.0-0.9) 08/23/20 12: Neut % (Auto) 71.7 % (47-70) H 08/23/20 12:21 Lymph % (Auto) 19.8 % (19-41) 08/23/20 12:21 Barton % (Auto) 5.7 % (0-10) 08/23/20 12:21 Eos % (Auto) 1.9 % (0-5) 08/23/20 12:21 Baso % (Auto) 0.5 % (0-1) 08/23/20 12:21 Absolute Neuts (auto) 5.4 X10^3/uL (2.0-7.7) 08/23/20 12:21 Absolute Lymphs (auto) 1.49 X10^3/uL (0.83-4.51) 08/23/20 12:21 Nucleated RBC % 0 % (0-5) 08/23/20 12:21 Sodium 136 mmol/L (136-145) 08/23/20 12:21 Potassium 4.1 mmol/L (3.5-5.1) 08/23/20 12:21 Chloride 101 mmol/L (98-107) 08/23/20 12:21 Carbon Dioxide 25.0 mmol/L (21.0-32.0) 08/23/20 12:21 Anion Gap 10 (5-15) 08/23/20 12:21 BUN 34 mg/dL (7-18) H 08/23/20 12:21 Creatinine 1.20 mg/dL (0.55-1.02) H 08/23/20 12:21 Estim Creat Clear Calc 36.47 ml/min 08/23/20 12:21 Est GFR (MDRD) Af Amer 58 mL/min (>60) L 08/23/20 12:21 Est GFR (MDRD) Non-Af 48 mL/min (>60) L 08/23/20 12:21 BUN/Creatinine Ratio 28.3 RATIO (10-20) H 08/23/20 12:21 Glucose 283 mg/dL (74-106) H 08/23/20 12:21 Calcium 9.3 mg/dL (8.5-10.1) 08/23/20 12:21 Magnesium 1.9 mg/dL (1.6-2.6) 08/23/20 12:21 Troponin I 0.073 ng/mL (<0.045) H 08/23/20 12:21 - EKG Initial EKG Interpretation: Atrial Fibrillation - EKG demonstrates atrial fibrillation with rapid ventricular response. - Medical Decision Making Patient self converted to sinus rhythm. She has been tried on multiple medications and has follow-up with EP. She most likely is going to do an ablation. I expressed my understanding that she is frustrated with the number of A. fib event she is having. At this point patient will be discharged home return if worsening or concerns ED Disposition - Plan for ED Patient: Disposition: Home or Assisted Living Diagnosis: Paroxysmal atrial fibrillation with RVR Instructions: ED AFIB Referrals: Los Infante MD [STAFF PHYSICIAN] - As soon as possible
[2020-08-23 14:08] VITALS: BP 112/66; PULSE 59; RESP 16; O2SAT 95
== END 2020-08-23 14:09 | disposition home or self-care (01) ==
PROVIDERS: Emergency Provider Emergency Medicine; PCP Family Medicine
DX: I48.0 Paroxysmal atrial fibrillation (principal); E78.5 Hyperlipidemia, unspecified; I10 Essential (primary) hypertension; E11.9 Type 2 diabetes mellitus without complications
CPT/HCPCS: 71045; 80048; 83735; 84484; 85025; 93005; 99285; A4216

== ENCOUNTER → 2021-01-07 14:37 | Outpatient (CLI) | payer MEDICARE, SELFPAY ==
--- NOTE | 2021-01-07 14:41 | RAD_ITS ---
INDICATION: BACK PAIN EXAMINATION/TECHNIQUE: X-RAY - XR Spine Thoracic 2 Views COMPARISON: Lumbar spine x-rays from 09/15/2016. FINDINGS: Mildly exaggerated thoracic kyphosis is not associated with vertebral body height loss or focal malalignment. There is no fracture or focal osseous lesion visualized thoracolumbar spine. Multilevel degenerative endplate sclerosis and anterior osteophytosis most notable at T6-T10. Visualized posterior ribs are intact. Soft tissue shadows visualized lungs and abdomen are within normal limits. RAD/Thoracic Spine 3 Views IMPRESSION: Mildly exaggerated thoracic kyphosis without focal malalignment. No fracture. Degenerative changes as above. Electronically Signed: Mikey Lee DO at 22:01 EDT Tel , Service support ,
== END ==
PROVIDERS: PCP Family Medicine; Referring Provider Family Medicine; Visit Provider Family Medicine
DX: M54.9 Dorsalgia, unspecified (principal)
CPT/HCPCS: 72072

== ENCOUNTER → 2021-03-23 15:43 | Outpatient (CLI) | payer MEDICARE, SELFPAY | PROVIDERS: PCP Family Medicine; Visit Provider Family Medicine | DX: Z20.828 Contact with and (suspected) exposure to other viral communicable diseases (principal) | CPT/HCPCS: 87635; U0005; U0003 ==

== ENCOUNTER 2021-04-11 09:13 | Outpatient (RCR) | payer MEDICARE, SELFPAY ==
[2021-04-11 10:22] LABS: International Normalized Ratio 3.1; Prothrombin Time (Protime)PT. 30.7 SECONDS (11.7-14.9)
== END 2021-04-30 18:00 | disposition home or self-care (01) ==
LOC: LAB 09:13
PROVIDERS: PCP Family Medicine; Referring Provider Internal Medicine Cardiovascular Disease; Visit Provider Internal Medicine Cardiovascular Disease
DX: I48.0 Paroxysmal atrial fibrillation (principal); Z79.01 Long term (current) use of anticoagulants
CPT/HCPCS: 36415; 85610

== ENCOUNTER → 2021-04-13 11:12 | Outpatient (CLI) | payer MEDICARE, SELFPAY ==
[2021-04-13 11:40] LABS: Pathologist Comment May follow
[2021-04-13 11:43] LABS: Absolute Lymphocyte Count 1.48 X10^3/uL (0.83-4.51); Absolute Neutrophil Count 7.5 X10^3/uL (2.0-7.7); Basophil# 0.02 X10^3/uL; Basophil% 0.2 % (0-1); Eosinophil# 0.11 X10^3/uL; Eosinophils% 1.1 % (0-5); Hematocrit 34.1 % (37-47); Hemoglobin 11.1 g/dL (12.0-15.0); Lymphocyte # 1.48 X10^3/ul (0.83-4.51); Lymphocyte % 15.2 % (19-41); Mean Corp Hgb Conc 32.6 g/dL (32-36); Mean Corpuscular Hgb 29.5 pg (27.0-32.0); Mean Corpuscular Volume 90.7 fL (81-99); Mean Platelet Vol. 8.7 fl (6.2-12.0); Monocyte# 0.59 X10^3/uL; Monocyte% 6.1 % (0-10); NRBC Flagged by Analyzer 0 % (0-5); Neutrophil # 7.45 X10^3/uL (2.7-7.7); Neutrophil % 76.8 % (47-70); Platelet Count 459 K/mm3 (150-450); RBC Distribution Width CV 12.5 % (11.6-14.6); RBC Distribution Width SD 41.5 fl (35.1-43.9); Red Blood Count 3.76 M/mm3 (4.2-5.4); White Blood Count 9.7 K/mm3 (4.4-11.0)
[2021-04-13 12:19] LABS: Synovial Fld Mononuclear WBC % 3.1 %; Synovial Fld Polynuclear WBC % 96.9 %
[2021-04-13 12:20] LABS: Anion Gap 8 (5-15); BUN 25 mg/dL (7-18); BUN/Creat Ratio 24.3 RATIO (10-20); Calcium,Total 9.9 mg/dL (8.5-10.1); Chloride 99 mmol/L (98-107); Creatinine, Serum 1.03 mg/dL (0.55-1.02); EST Glomerular Filtration Rate 57 mL/min (>60); Est Glom Filt Rate - Afr Amer 69 mL/min (>60); Glucose 206 mg/dL (74-106); Potassium 4.4 mmol/L (3.5-5.1); Sodium Level 135 mmol/L (136-145); Thyroid Stim Hormone (TSH) 8.65 uIU/mL (0.358-3.74)
[2021-04-13 12:34] LABS: RBC /Synovial Fluid 0.005 10^6/uL (0)
[2021-04-13 12:36] LABS: AUTO B FLUID DILUENT BKGD CT WBC <0.1 RBC <0.01 (W<.1,R<.01); Source- Body Fluid SYNOVIAL
[2021-04-13 12:37] LABS: Appearance /Synovial Fluid Cloudy (CLEAR); Color / Synovial Fluid Yellow (Pale Yellow); Source / Synovial Fluid LEFT KNEE
[2021-04-13 12:53] LABS: Lymph 3 %; Monocyte /Synovial Fluid 2 %; Neutrophil 95 % (0-25)
[2021-04-13 12:54] LABS: Body Fluid QC Type(s) BF1Q,BF2Q
[2021-04-13 14:38] LABS: Pathologist Review Reviewed
[2021-04-14 09:18] LABS: Erythrocyte Sedimentation Rate 39 mm/hr (0-30)
== END ==
PROVIDERS: Physician Assistant Medical; PCP Family Medicine; Visit Provider Physician Assistant
DX: M25.562 Pain in left knee (principal); M25.462 Effusion, left knee; R00.2 Palpitations; I48.0 Paroxysmal atrial fibrillation; I47.2 Ventricular tachycardia
CPT/HCPCS: 36415; 80048; 83735; 84443; 85025; 85652; 86141; 87070; 87075; 87205; 89050; 89051; 89060

== ENCOUNTER 2021-04-14 15:18 | Inpatient (IN) | payer MEDICARE, SELFPAY ==
[2021-04-14 13:38] VITALS: BP 140/61; PULSE 55; RESP 18; TEMP 36.5; O2SAT 96; BMI 31.4
[2021-04-14] MEDS: Scopolamine 1mg/72hr Patch 1 PATCH TD (13:52)
[2021-04-14] MEDS: Gabapentin 600 MG Tablet PO (13:54)
[2021-04-14] MEDS: Celecoxib 200 MG Capsule 400 MG PO (13:54)
[2021-04-14] MEDS: Acetaminophen 500 MG Tablet 1000 MG PO (13:54)
[2021-04-14 14:24] LABS: International Normalized Ratio 4.6; Prothrombin Time (Protime)PT. 42.5 SECONDS (11.7-14.9)
--- NOTE | 2021-04-14 15:01 | HP.PCM.HOS_ITS ---
HPI - General General Date of Admission: 04/14/21 Date of Service: 04/14/21 Chief Complaint: Left knee pain HPI Narrative AUDRA SANDERS, is a 65 F who presents with multiple comorbidities including paroxysmal A. fib with recent ablation 2 weeks prior to her admission, previous history of left knee replacement on 04/24/[address] Roberto who presents with a 2-week history of left knee pain with associated warmth and swelling. Patient had apparently been seen as an outpatient a knee aspirate was obtained and sent for cultures. Patient was supposed to have undergone further surgical intervention by Dr. Delgadillo on the day of her admission. She was however found to have elevated INR of 4.6. Patient procedure was postponed and admitted to the hospitalist service [facility] Medical History Arthritis Diabetes Easy bruising Family history of sudden cardiac Heartburn High cholesterol History of ulceration Hyperlipidemia Hypertension Non-smoker Nonsustained paroxysmal ventricular tachycardia Paroxysmal atrial fibrillation Post-menopausal Thyroid disease Type 2 diabetes mellitus without complications Walker as ambulation aid Wears glasses Home Medications B-complex with vitamin C 1 ea PO DAILY 06/03/15 [History Last Taken 04/23/17] tramadol 50 mg tablet 50 mg PO TID tab 11/30/17 [History Last Taken Unknown] levothyroxine 125 mcg tablet 125 mcg PO DAILY 06/07/18 [History Last Taken Unknown] loratadine 10 mg tablet 10 mg PO DAILY PRN 06/07/18 [History Last Taken Unknown] hydrochlorothiazide 12.5 mg capsule 12.5 mg PO DAILY #90 cap 06/05/19 [Rx Last Taken 04/14/21] losartan 100 mg tablet 100 mg PO QHS #90 tab 06/05/19 [Rx Last Taken Unknown] metformin 500 mg tablet 500 mg PO BIDCM tab 06/05/19 [History Last Taken 04/14/21] potassium chloride 20 mEq tablet,extended release(part/cryst) 20 meq PO DAILY #90 tab 06/05/19 [Rx Last Taken 04/14/21] simvastatin 20 mg tablet 20 mg PO QHS #90 tab 06/05/19 [Rx Last Taken Unknown] atenolol 25 mg tablet 25 mg PO DAILY #90 tab 06/11/20 [Rx Last Taken 04/14/21] amiodarone 100 mg tablet 100 mg PO DAILY 11/30/21 [History Last Taken Unknown] aspirin 81 mg tablet,delayed release 81 mg PO DAILY 03/29/21 [History Last Taken Unknown] warfarin 4 mg tablet 4 mg PO DAILY #30 tab 04/04/21 [Rx Last Taken Unknown] omeprazole 80 mg PO DAILY 04/14/21 [History Last Taken 04/14/21] Allergy/AdvReac Type Severity Reaction Status Date / Time No Known Allergies Allergy Verified 04/14/21 13:23 Family History Mother CVA (cerebral vascular accident) Atrial fibrillation Diabetes Sister Hyperlipidemia Sister Diabetes Atrial fibrillation Sister Parkinson disease Brother CAD (coronary artery disease) Brother CAD (coronary artery disease) Surgical History History of left heart catheterization (~06/2015) History of radiofrequency ablation (RFA) procedure for cardiac arrhythmia History of radiofrequency ablation procedure for cardiac arrhythmia (03/28/21) History of total left knee replacement Hx of total knee replacement Total knee replacement status Social History adopted: No household members: spouse and children housing: house number of children: 2 financial difficulty paying for basics: somewhat hard service: No current occupational status: retired current occupational exposures/hazards: No pets and animals: No leisure activities: exercise history of recent travel: No Smoking Status: Never smoker second hand exposure: No alcohol intake: former year quit: 2014 details: rarely substance use type: does not use diet: diabetic well-balanced diet: daily or most days caffeine: Yes Type: coffee Number of servings: 1 eating out: 1-3 times/week during the past year weight has: remained stable what type of physical activity do you participate in: walking How many days of moderate to strenuous exercise, like a brisk walk, did you do in the last 7 days: 3 frequency: 3-4 times per week duration: 45-60 minutes/day kiley/alevism: Jehovah Witness seatbelt use: always do you feel safe at home: Yes additional social history: No Blood Transfusions ROS ROS Narrative GENERAL: denies fever, chills, night sweats, HEENT: denies headache, sinus congestion, RESPIRATORY: denies cough, sputum production, CARDIAC: denies chest pain, palpitations, orthopnea, GASTROINTESTINAL: denies abdominal pain, nausea, EXTREMITY: denies swelling MUSCULOSKELETAL: Left knee swelling and pain NEUROLOGIC: denies focal numbness, weakness, tingling HEMATOLOGIC: denies easy bruising and/or hemorrhage INTEGUMENT: denies rashes PSYCHIATRIC: denies suicidal or homicidal ideation Vital Signs Vital Signs Vital Signs: 04/14/21 13:38 Temperature 97.7 F L Temperature Source Temporal Pulse Rate 55 L Respiratory Rate 18 Respiratory Pattern Normal Blood Pressure 140/61 H Blood Pressure Mean 87 Blood Pressure Source Monitor Blood Pressure Position Semi-Fowlers Blood Pressure Location Left Arm Pulse Ox 96 Oxygen Delivery Method Room Air Weight Weight: 78 kg Body Mass Index (BMI) 31.4 Physical Exam Narrative GENERAL: cooperative HEENT: Atraumatic; EYES; Anicteric, Normal Conjunctiva NECK; supple, normal thyroid, RESPIRATORY: Diminished to auscultation CARDIOVASCULAR: Regular S1 S2, GI: soft, normoactive bowel sounds, : No Renal angle tenderness; EXTREMITIES: No edema, no clubbing, MUSCULOSKELETAL: Left knee swelling with surrounding warmth NEURO: Awake; no lateralizing signs. SKIN: No Rash PSYCH; Flat affect Results Lab / Micro Data Labs: Laboratory Results - last 24 hr 04/14/21 14:00: PT 42.5 H, INR 4.6 H* Assessment & Plan Assessment/Plan (1) Septic arthritis of knee: PLAN: Patient is a 65-year-old lady presented with left knee pain and swelling and assessment of left prosthetic knee septic arthritis made admitted with consultation placed orthopedic surgery 1. Septic left prosthetic knee ?Patient has been admitted to regular nursing floor with plans for patient to undergo incision and drainage and possible revision by Dr. Burnette. Patient however is on Coumadin procedure was postponed plan is to reverse Coumadin with patient surgical procedure tentatively scheduled for the afternoon of 04/15/2021 2. Paroxysmal A. fib ?With recent ablation. Patient is on Coumadin INR is elevated. Patient coagulopathy is being reversed as discussed above. Patient is on amiodarone did continue 3. Coumadin induced coagulopathy ?As discussed above 4. Hypertension - Blood pressure controlled, home medications continued with dose adjustment as needed 5. Diabetes mellitus type II -patient's oral hypoglycemics held. Placed on long acting insulin, Accu-Cheks a.c. and at bedtime and covered with sliding scale insulin 6. Hypothyroidism - Patient is on levothyroxine home dose continued 7. Dyslipidemia -Patient is on statin therapy, continued at home dose 8. GERD ?On omeprazole 9. History of nonsustained paroxysmal ventricular tachycardia ?On amiodarone 10. Class I obesity with BMI of 31.5 ?Weight loss advised 11. DVT prophylaxis patient is on Coumadin ?No further management is warranted Advance planning; did discuss with the patient and family regarding advanced directives as well as CODE STATUS. Did explain the various scenarios involved ( FULL CODE, DNR CCA, DNR CCA with no intubation, and DNR CC and what each meant) patient elected full code and intubation. Patient also stated she Jehova's Witness and will therefore not like to receive any blood products.. Order was placed. Time spent on discussion 18 minutes. Charges/Coding Visit Charges Inpatient E&M: 71279 Init Hosp L3 Procedures Hospitalists Procedures: 71994 Advncd Care Plan 30 Min
[2021-04-14 15:20] LABS: Bedside Glucose 146 mg/dL (70-110)
[2021-04-14 16:27] LABS: Absolute Lymphocyte Count 1.06 X10^3/uL (0.83-4.51); Absolute Neutrophil Count 6.9 X10^3/uL (2.0-7.7); Basophil# 0.03 X10^3/uL; Basophil% 0.3 % (0-1); Eosinophil# 0.07 X10^3/uL; Eosinophils% 0.8 % (0-5); Hematocrit 30.8 % (37-47); Hemoglobin 9.9 g/dL (12.0-15.0); Lymphocyte # 1.06 X10^3/ul (0.83-4.51); Lymphocyte % 12.4 % (19-41); Mean Corp Hgb Conc 32.1 g/dL (32-36); Mean Corpuscular Hgb 28.9 pg (27.0-32.0); Mean Corpuscular Volume 89.8 fL (81-99); Mean Platelet Vol. 8.1 fl (6.2-12.0); Monocyte# 0.54 X10^3/uL; Monocyte% 6.3 % (0-10); NRBC Flagged by Analyzer 0 % (0-5); Neutrophil # 6.85 X10^3/uL (2.7-7.7); Neutrophil % 79.9 % (47-70); Platelet Count 398 K/mm3 (150-450); RBC Distribution Width CV 12.4 % (11.6-14.6); RBC Distribution Width SD 41.1 fl (35.1-43.9); Red Blood Count 3.43 M/mm3 (4.2-5.4); White Blood Count 8.6 K/mm3 (4.4-11.0)
[2021-04-14 16:44] VITALS: BMI 32.2
[2021-04-14 16:44] LABS: ALB/GLOB Ratio 0.6 RATIO (0.9-2.4); AST(SGOT) 15 U/L (15-37); Alanine Aminotransfer ALT/SGPT 21 U/L (13-56); Albumin, Serum 2.8 g/dL (3.2-5.0); Alkaline Phosphatase 61 U/L (45-117); Anion Gap 6 (5-15); BUN 22 mg/dL (7-18); BUN/Creat Ratio 23.7 RATIO (10-20); Calcium,Total 9.6 mg/dL (8.5-10.1); Chloride 100 mmol/L (98-107); Creatinine, Serum 0.93 mg/dL (0.55-1.02); EST Glomerular Filtration Rate 64 mL/min (>60); Est Glom Filt Rate - Afr Amer 77 mL/min (>60); Estimated Creatinine Clearance 47.06 ml/min; Globulin 4.4 g/dL (2.2-4.2); Glucose 169 mg/dL (74-106); Magnesium 1.7 mg/dL (1.6-2.6); Potassium 4.4 mmol/L (3.5-5.1); Protein, Total 7.2 g/dL (6.4-8.2); Sodium Level 135 mmol/L (136-145)
[2021-04-14 17:55] LABS: Bedside Glucose 162 mg/dL (70-110)
[2021-04-14] MEDS: Insulin Lispro 100 UNIT/ML INSULN.PEN SC ×2 (18:56→21:14)
[2021-04-14 19:29] VITALS: RESP 17; O2SAT 96
[2021-04-14 20:00] VITALS: BP 125/68; PULSE 75; RESP 18; TEMP 36.4; O2SAT 95
[2021-04-14] MEDS: Phytonadione (Vit K1) 5 MG TABLET 10 MG PO (20:37)
[2021-04-14] MEDS: Sodium Ferric Gluconat 250 MG in 0.9% Normal Saline 250 ML 135 MG IV (21:03)
[2021-04-14] MEDS: Atorvastatin Calcium 10 MG Tablet PO (21:04)
[2021-04-14] MEDS: Aspirin E.C. 81 MG Tablet PO (21:04)
[2021-04-14] MEDS: Losartan Potassium 100 MG Tablet PO (21:04)
[2021-04-14 21:36] LABS: Bedside Glucose 200 mg/dL (70-110)
[2021-04-14 22:13] LABS: Mucous, Urine 0 SEEN /hpf (<or=2+); Red Blood Cells-Urine 0 SEEN /hpf (0-5); Squamous Epithelial Cells - UA 0 SEEN /hpf (5-10)
[2021-04-14 22:14] LABS: Color, Urine Yellow (Yellow); Glucose, Dipstick Normal (Normal); Ketone-Dipstick Negative (Negative); Leukocyte Esterase-Dipstick 100 /ul (Negative); Nitrite-Dipstick Negative (Negative); Occult Blood-Urine 50 /ul (Negative); Protein-Dipstick 15 mg/dl (Negative); Urine Bilirubin Dipstick Negative (Negative); Urine Clarity Clear (Clear); Urine Urobilinogen Normal (Normal); Urine pH 6.5 (5.0 - 8.0)
[2021-04-14 22:21] LABS: Bacteria 1+ /hpf (None Seen); White Blood Cells 0-5 SEEN /hpf (0-5)
[2021-04-15] VITALS (12 sets, daily range): BP systolic 120–130; BP diastolic 60–78; PULSE 48–65; RESP 16; TEMP 36.3–36.7; O2SAT 96–97; BMI 32.2
[2021-04-15] MEDS: oxyCODONE 5 MG Tablet PO (04:01)
[2021-04-15 05:20] LABS: Bedside Glucose 122 mg/dL (70-110)
[2021-04-15 05:54] LABS: Absolute Lymphocyte Count 1.21 X10^3/uL (0.83-4.51); Absolute Neutrophil Count 4.7 X10^3/uL (2.0-7.7); Basophil# 0.03 X10^3/uL; Basophil% 0.5 % (0-1); Eosinophils% 1.5 % (0-5); Hematocrit 29.4 % (37-47); Hemoglobin 9.4 g/dL (12.0-15.0); Lymphocyte # 1.21 X10^3/ul (0.83-4.51); Lymphocyte % 18.4 % (19-41); Mean Corpuscular Hgb 28.7 pg (27.0-32.0); Mean Corpuscular Volume 89.9 fL (81-99); Mean Platelet Vol. 8.8 fl (6.2-12.0); Monocyte% 7.6 % (0-10); NRBC Flagged by Analyzer 0 % (0-5); Neutrophil % 71.7 % (47-70); Platelet Count 424 K/mm3 (150-450); RBC Distribution Width CV 12.5 % (11.6-14.6); RBC Distribution Width SD 41.3 fl (35.1-43.9); Red Blood Count 3.27 M/mm3 (4.2-5.4); White Blood Count 6.6 K/mm3 (4.4-11.0)
[2021-04-15 06:08] LABS: International Normalized Ratio 3.9; Prothrombin Time (Protime)PT. 37.1 SECONDS (11.7-14.9)
[2021-04-15 06:15] LABS: Anion Gap 7 (5-15); BUN 19 mg/dL (7-18); BUN/Creat Ratio 25.5 RATIO (10-20); Calcium,Total 9.2 mg/dL (8.5-10.1); Chloride 101 mmol/L (98-107); Creatinine, Serum 0.74 mg/dL (0.55-1.02); EST Glomerular Filtration Rate 83 mL/min (>60); Est Glom Filt Rate - Afr Amer 100 mL/min (>60); Estimated Creatinine Clearance 43.77 ml/min; Glucose 129 mg/dL (74-106); Potassium 4.3 mmol/L (3.5-5.1); Sodium Level 138 mmol/L (136-145)
--- NOTE | 2021-04-15 07:39 | PN.HOSP_ITS ---
Subjective Subjective Patient seen still complains of some discomfort in the left knee. Patient did receive 10 mg of vitamin K today prior. INR only dropped to 3.9. Additional 10 mg given this a.m.. Hemoglobin 9.4. Patient did receive parenteral iron the day prior. Objective Data Objective Data Vital Signs: Vital Signs Temp Pulse Resp BP Pulse Ox 98.0 F 62 16 128/70 H 97 04/15/21 05:57 04/15/21 06:00 04/15/21 05:57 04/15/21 05:57 04/15/21 05:57 Oxygen Delivery Method Room Air Weight: 79.9 kg Body Mass Index (BMI) 32.2 Intake & Output: Intake and Output for Last 24 Hours 04/13/21 04/14/21 04/15/21 23:59 23:59 23:59 Intake Total 270 / 370 100 / 100 Balance 270 / 370 100 / 100 Lab / Micro Data Result Diagrams: 04/15/21 05:10 04/15/21 05:10 Labs: Laboratory Results - last 24 hr 04/14/21 13:41: POC Glucose 146 H 04/14/21 14:00: PT 42.5 H, INR 4.6 H* 04/14/21 16:20: WBC 8.6, RBC 3.43 L, Hgb 9.9 L, Hct 30.8 L, MCV 89.8, MCH 28.9, MCHC 32.1, RDW Std Deviation 41.1, RDW Coeff of Woody 12.4, Plt Count 398, MPV 8.1, Immature Gran % (Auto) 0.300, Neut % (Auto) 79.9 H, Lymph % (Auto) 12.4 L, [place] % (Auto) 6.3, Eos % (Auto) 0.8, Baso % (Auto) 0.3, Absolute Neuts (auto) 6.9, Absolute Lymphs (auto) 1.06, Nucleated RBC % 0 04/14/21 16:20: Sodium 135 L, Potassium 4.4, Chloride 100, Carbon Dioxide 29.0, Anion Gap 6, BUN 22 H, Creatinine 0.93, Estim Creat Clear Calc 47.06, Est GFR (MDRD) Af Amer 77, Est GFR (MDRD) Non-Af 64, BUN/Creatinine Ratio 23.7 H, Glucose 169 H, Calcium 9.6, Magnesium 1.7, Total Bilirubin 0.20, AST 15, ALT 21, Alkaline Phosphatase 61, Total Protein 7.2, Albumin 2.8 L, Globulin 4.4 H, Albumin/Globulin Ratio 0.6 L 04/14/21 17:49: POC Glucose 162 H 04/14/21 21:10: POC Glucose 200 H 04/14/21 22:10: Urine Color Yellow, Urine Clarity Clear, Urine pH 6.5, Ur Specific [place] 1.010, Urine Protein 15 H, Urine Glucose (UA) Normal, Urine Ketones Negative, Urine Occult Blood 50 H, Urine Nitrite Negative, Urine Bilirubin Negative, Urine Urobilinogen Normal, Ur Leukocyte Esterase 100 H, Urine RBC 0 SEEN, Urine WBC 0-5 SEEN, Ur Squamous Epith Cells 0 SEEN, Urine Bacteria 1+, Urine Mucus 0 SEEN 04/15/21 05:07: POC Glucose 122 H 04/15/21 05:10: WBC 6.6, RBC 3.27 L, Hgb 9.4 L, Hct 29.4 L, MCV 89.9, MCH 28.7, MCHC 32.0, RDW Std Deviation 41.3, RDW Coeff of [place] 12.5, Plt Count 424, MPV 8.8, Immature Gran % (Auto) 0.300, Neut % (Auto) 71.7 H, Lymph % (Auto) 18.4 L, [place] % (Auto) 7.6, Eos % (Auto) 1.5, Baso % (Auto) 0.5, Absolute Neuts (auto) 4.7, Absolute Lymphs (auto) 1.21, Nucleated RBC % 0 04/15/21 05:10: PT 37.1 H, INR 3.9 04/15/21 05:10: Sodium 138, Potassium 4.3, Chloride 101, Carbon Dioxide 30.0, Anion Gap 7, BUN 19 H, Creatinine 0.74, Estim Creat Clear Calc 43.77, Est GFR (MDRD) Af Amer 100, Est GFR (MDRD) Non-Af 83, BUN/Creatinine Ratio 25.5 H, Glucose 129 H, Calcium 9.2 Physical Exam Narrative GENERAL: cooperative HEENT: Atraumatic; EYES; Anicteric, Normal Conjunctiva NECK; supple, normal thyroid, RESPIRATORY: Diminished to auscultation CARDIOVASCULAR: Regular S1 S2, GI: soft, normoactive bowel sounds, : No Renal angle tenderness; EXTREMITIES: No edema, no clubbing, MUSCULOSKELETAL: Left knee swelling with surrounding warmth NEURO: Awake; no lateralizing signs. SKIN: No Rash PSYCH; Flat affect Assessment & Plan Assessment/Plan (1) Septic arthritis of knee: PLAN: Patient is a 65-year-old lady presented with left knee pain and swelling and assessment of left prosthetic knee septic arthritis made admitted with consultation placed orthopedic surgery 1. Septic left prosthetic knee ?Patient has been admitted to regular nursing floor with plans for patient to undergo incision and drainage and possible revision by Dr. Burnette. Patient however is on Coumadin procedure was postponed plan is to reverse Coumadin with patient surgical procedure tentatively scheduled for the afternoon of 04/15/2021 ?Patient INR only came down to 3.9 after 10 mg administration of vitamin K. Additional 10 mg given with repeat labs ordered 2. Paroxysmal A. fib ?With recent ablation. Patient is on Coumadin INR is elevated. Patient coagulopathy is being reversed as discussed above. Patient is on amiodarone did continue 3. Coumadin induced coagulopathy ?As discussed above 4. Hypertension - Blood pressure controlled, home medications continued with dose adjustment as needed 5. Diabetes mellitus type II -patient's oral hypoglycemics held. Placed on long acting insulin, Accu-Cheks a. c. and at bedtime and covered with sliding scale insulin 6. Hypothyroidism - Patient is on levothyroxine home dose continued 7. Dyslipidemia -Patient is on statin therapy, continued at home dose 8. GERD ?On omeprazole 9. History of nonsustained paroxysmal ventricular tachycardia ?On amiodarone 10. Class I obesity with BMI of 31.5 ?Weight loss advised 11. DVT prophylaxis patient is on Coumadin ?No further management is warranted 12. Anemia - Secondary to chronic disorder monitoring H&H. Patient receiving parenteral iron Charges/Coding Visit Charges Inpatient E&M: 52912 Subs Hosp L3
[2021-04-15] MEDS: Phytonadione (Vit K1) 5 MG TABLET 10 MG PO (08:02)
[2021-04-15] MEDS: Levothyroxine 125 MCG Tablet PO (09:03)
[2021-04-15] MEDS: Potassium Chloride Oral Tablet 20 MEQ PO (09:03)
[2021-04-15] MEDS: hydroCHLOROthiazide 12.5mg 12.5 MG PO (09:03)
[2021-04-15 09:47] LABS: Thyroid Stim Hormone (TSH) 6.13 uIU/mL (0.358-3.74)
[2021-04-15 09:54] LABS: Hemoglobin A1c 7.6 % (3.8-5.6)
[2021-04-15] MEDS: Pantoprazole Sodium 40 MG Tablet 80 MG PO (10:03)
--- NOTE | 2021-04-15 10:07 | EKG12_ITS ---
Test Reason : PRE-OP Blood Pressure : / mmHG Vent. Rate : 053 BPM Atrial Rate : 053 BPM P-R Int : 148 ms QRS Dur : 082 ms QT Int : 464 ms P-R-T Axes : 040 005 028 degrees QTc Int : 435 ms Sinus bradycardia Otherwise normal ECG Confirmed by NATI CURRY, URIEL ([id number]), metropolitan editor TRAY GREEN ([id number]) on 04/18/2021 11:07:12 AM Referred By: Alexander Delgadillo Confirmed By:URIEL DAMIAN MD
--- NOTE | 2021-04-15 11:00 | CASEMGMT ---
RN CM Face to Face with patient for initial transition planning/care coordination assessment. RN CM introduced self and role at [facility]. Patient lying in bed, alert and oriented, at bedside. Patient willing to participate in assessment and is able to answer all questions appropriately. Care providers, pharmacy, and demographics verified. Patient wishes to discharge home. RN CM discussed possible IV ATBs at discharge and options of HHC vs SNF pending progress with therapy. Patient states she has no further needs or concerns at this time. CM to follow for discharge planning needs that may arise. PCP: Kitty Specialists: Juli cardioloigist; matthew Delgadillo Pharmacy: [facility] Insurance: [employer] Prescription Benefit: yes Living Will/HPOA: yes, daughter Taylor Lanier LNOK: , daughter Living Arrangements: Patient lives with in a 2 story home with bed and bath on the first floor. 2-6 steps to enter the home with railing. Patient states she is independent at home. Transportation: self/ DME/HHC: Patient states she has shower chair, raised toilet, cane, walker, and grab bars at home. Patient denies previous HHC or SNF. Disposition Plan: HHC vs SNF pending course of treatment and progress with therapy. Will need IV ATBs at discharge per ID. Fariba PALACIOS, RN, CM
[2021-04-15] MEDS: Amiodarone 200 MG Tablet 100 MG PO (11:03)
[2021-04-15] MEDS: Atenolol 25 MG Tablet PO (11:04)
[2021-04-15] MEDS: Vitamin B Comp W-C Capsule 1 CAP PO (11:04)
[2021-04-15 11:16] LABS: Bedside Glucose 134 mg/dL (70-110)
[2021-04-15] MEDS: 0.9% Saline Lock 10 ML Syringe IV (12:11)
[2021-04-15] MEDS: Sodium Ferric Gluconat 250 MG in 0.9% Normal Saline 250 ML 135 MG IV (12:11)
[2021-04-15 12:32] LABS: International Normalized Ratio 2.3; Prothrombin Time (Protime)PT. 24.3 SECONDS (11.7-14.9)
--- NOTE | 2021-04-15 13:18 | NURSING ---
2nd chlorahex bath given at this time. OR belt picker time scheduled for approx 1330.
--- NOTE | 2021-04-15 14:35 | PCM.CONS.GEN ---
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 OR with Dr. Delgadillo planned for 04/16/21. Aspiration cx neg so far. Holding abx. After surgery, recommend starting iv vanc pharm to dose and iv ceftriaxone 2gm iv q24h. Is fully covid vaccinated. Will follow, thank you HPI Consult Data Date of Consult: 04/15/21 HPI Narrative HPI Narrative: AUDRA SANDERS, is a 65 F who presented with 2-3 weeks of progressive L knee pain, swelling, warmth. Has prior knee replacement. No inciting event, no drainage, no fever. Admitted after aspiration done, abx have been held. OR planned for tomorrow. Has had covid vaccine x3. Full ROS performed and neg except as noted above. [facility] Medical History Arthritis Diabetes Easy bruising Family history of sudden cardiac Heartburn High cholesterol History of ulceration Hyperlipidemia Hypertension Non-smoker Nonsustained paroxysmal ventricular tachycardia Paroxysmal atrial fibrillation Post-menopausal Thyroid disease Type 2 diabetes mellitus without complications Walker as ambulation aid Wears glasses Home Medications B-complex with vitamin C 1 ea PO DAILY 06/03/15 [History Last Taken 04/13/21] tramadol 50 mg tablet 50 mg PO TID tab 11/30/17 [History Last Taken 04/13/21] levothyroxine 125 mcg tablet 125 mcg PO DAILY 06/07/18 [History Last Taken 04/13/21] loratadine 10 mg tablet 10 mg PO DAILY PRN 06/07/18 [History Last Taken Unknown] hydrochlorothiazide 12.5 mg capsule 12.5 mg PO DAILY #90 cap 06/05/19 [Rx Last Taken 04/14/21] losartan 100 mg tablet 100 mg PO QHS #90 tab 06/05/19 [Rx Last Taken 04/13/21] metformin 500 mg tablet 500 mg PO BIDCM tab 06/05/19 [History Last Taken 04/14/21] potassium chloride 20 mEq tablet,extended release(part/cryst) 20 meq PO DAILY #90 tab 06/05/19 [Rx Last Taken 04/14/21] simvastatin 20 mg tablet 20 mg PO QHS #90 tab 06/05/19 [Rx Last Taken 04/13/21] atenolol 25 mg tablet 25 mg PO DAILY #90 tab 06/11/20 [Rx Last Taken 04/14/21] amiodarone 100 mg tablet 100 mg PO DAILY 03/29/21 [History Last Taken 04/13/21] aspirin 81 mg tablet,delayed release 81 mg PO DAILY 03/29/21 [History Last Taken 04/13/21] warfarin 4 mg tablet 4 mg PO DAILY #30 tab 04/04/21 [Rx Last Taken 04/13/21] omeprazole 80 mg PO DAILY 04/14/21 [History Last Taken 04/14/21] Allergy/AdvReac Type Severity Reaction Status Date / Time No Known Allergies Allergy Verified 04/14/21 13:23 Family History Mother CVA (cerebral vascular accident) Atrial fibrillation Diabetes Sister Hyperlipidemia Sister Diabetes Atrial fibrillation Sister Parkinson disease Brother CAD (coronary artery disease) Brother CAD (coronary artery disease) Surgical History (Updated 04/15/21 @ 09:38 by Janae Arizmendi) History of left heart catheterization (~06/2015) History of radiofrequency ablation (RFA) procedure for cardiac arrhythmia History of radiofrequency ablation procedure for cardiac arrhythmia (03/28/21) History of total left knee replacement Hx of total knee replacement Total knee replacement status Social History adopted: No household members: spouse and children housing: house number of children: 2 financial difficulty paying for basics: somewhat hard service: No current occupational status: retired current occupational exposures/hazards: No pets and animals: No leisure activities: exercise history of recent travel: No Smoking Status: Never smoker second hand exposure: No alcohol intake: former year quit: 2014 details: rarely substance use type: does not use diet: diabetic well-balanced diet: daily or most days caffeine: Yes Type: coffee Number of servings: 1 eating out: 1-3 times/week during the past year weight has: remained stable what type of physical activity do you participate in: walking How many days of moderate to strenuous exercise, like a brisk walk, did you do in the last 7 days: 3 frequency: 3-4 times per week duration: 45-60 minutes/day kiley/latter-day: Jehovah Witness seatbelt use: always do you feel safe at home: Yes additional social history: No Blood Transfusions Physical Exam Const alert, oriented x3 and no apparent distress General Appearance: cooperative Exam Limitations: no limitations HEENT normocephalic and head/scalp atraumatic Eyes PERRL and EOMs intact bilaterally Neck supple and No nodes Resp normal air movement and clear to auscultation bilaterally Cardio regular rate and regular rhythm GI normal to inspection, nondistended, normoactive bowel sounds Extremity no clubbing, cyanosis or edema Skin Skin Narrative: L knee with warmth, tenderness, swelling Neuro CN's II-XII intact bilaterally Lab / Micro Data Result Diagrams: 04/15/21 05:10 04/15/21 05:10 Labs: Laboratory Results - last 24 hr 04/14/21 13:41: POC Glucose 146 H 04/14/21 16:20: WBC 8.6, RBC 3.43 L, Hgb 9.9 L, Hct 30.8 L, MCV 89.8, MCH 28.9, MCHC 32.1, RDW Std Deviation 41.1, RDW Coeff of Woody 12.4, Plt Count 398, MPV 8.1, Immature Gran % (Auto) 0.300, Neut % (Auto) 79.9 H, Lymph % (Auto) 12.4 L, [place] % (Auto) 6.3, Eos % (Auto) 0.8, Baso % (Auto) 0.3, Absolute Neuts (auto) 6.9, Absolute Lymphs (auto) 1.06, Nucleated RBC % 0 04/14/21 16:20: Sodium 135 L, Potassium 4.4, Chloride 100, Carbon Dioxide 29.0, Anion Gap 6, BUN 22 H, Creatinine 0.93, Estim Creat Clear Calc 47.06, Est GFR (MDRD) Af Amer 77, Est GFR (MDRD) Non-Af 64, BUN/Creatinine Ratio 23.7 H, Glucose 169 H, Calcium 9.6, Magnesium 1.7, Total Bilirubin 0.20, AST 15, ALT 21, Alkaline Phosphatase 61, Total Protein 7.2, Albumin 2.8 L, Globulin 4.4 H, Albumin/Globulin Ratio 0.6 L 04/14/21 17:49: POC Glucose 162 H 04/14/21 21:10: POC Glucose 200 H 04/14/21 22:10: Urine Color Yellow, Urine Clarity Clear, Urine pH 6.5, Ur Specific [place] 1.010, Urine Protein 15 H, Urine Glucose (UA) Normal, Urine Ketones Negative, Urine Occult Blood 50 H, Urine Nitrite Negative, Urine Bilirubin Negative, Urine Urobilinogen Normal, Ur Leukocyte Esterase 100 H, Urine RBC 0 SEEN, Urine WBC 0-5 SEEN, Ur Squamous Epith Cells 0 SEEN, Urine Bacteria 1+, Urine Mucus 0 SEEN 04/15/21 05:07: POC Glucose 122 H 04/15/21 05:10: WBC 6.6, RBC 3.27 L, Hgb 9.4 L, Hct 29.4 L, MCV 89.9, MCH 28.7, MCHC 32.0, RDW Std Deviation 41.3, RDW Coeff of [place]y 12.5, Plt Count 424, MPV 8.8, Immature Gran % (Auto) 0.300, Neut % (Auto) 71.7 H, Lymph % (Auto) 18.4 L, [place] % (Auto) 7.6, Eos % (Auto) 1.5, Baso % (Auto) 0.5, Absolute Neuts (auto) 4.7, Absolute Lymphs (auto) 1.21, Nucleated RBC % 0 04/15/21 05:10: PT 37.1 H, INR 3.9 04/15/21 05:10: Sodium 138, Potassium 4.3, Chloride 101, Carbon Dioxide 30.0, Anion Gap 7, BUN 19 H, Creatinine 0.74, Estim Creat Clear Calc 43.77, Est GFR (MDRD) Af Amer 100, Est GFR (MDRD) Non-Af 83, BUN/Creatinine Ratio 25.5 H, Glucose 129 H, Calcium 9.2 04/15/21 05:10: TSH 6.13 H 04/15/21 05:10: Hemoglobin A1c 7.6 H 04/15/21 11:07: POC Glucose 134 H 04/15/21 12:08: PT 24.3 H, INR 2.3
--- NOTE | 2021-04-15 16:08 | CON.PCM_ITS ---
Assessment & Plan Assessment/Plan (1) Infection of prosthetic left knee joint: PLAN: At this point I have explained to the patient that she meets criteria for infection of the left knee. Cultures at this point are negative. However I recommended that since her symptoms are less than 4 weeks there is a significantly good chance that she can be treated with debridement irrigation and retainment of implants with a polyethylene exchange. Patient understands that without surgery treatment for infection of a periprosthetic joint infection would likely lead to chronic infection and required removal of implants compl etely. She also understands that there is roughly a 25% failure rate and retaining implants. She has had a well-functioning total knee. I did note that there was a lucency along the tibial baseplate. We will attempt to determine loosening intraoperatively. If implants are stably fixed we will retain implants if they are not we will proceed with a antibiotic spacer. Currently cultures are negative so we are holding antibiotics. Postoperative antibiotic regimen is recommended by infectious disease for vancomycin and cephalosporins. Risk and benefits of procedure were discussed the patient including but not limited to blood loss, DVTs, PEs, nervous damage infection, the risk of anesthes ia including loss of life. Considering the patient's cardiac history and her INR of 2.3 as well as her hemoglobin of 9.4 and her personal decision to not except any blood products due to scientologist reasons we have elected to continue with iron infusions and vitamin K to allow the patient's INR to reverse further until tomorrow morning. Considering the current literature this keeps this in the time frame of successful irrigation debridement and retainment of implants. Patient demonstrates an understanding. Plan is to proceed with surgery tomorrow. 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: (3) History of radiofrequency ablation procedure for cardiac arrhythmia: (4) Type 2 diabetes mellitus without complications: (5) Hyperlipidemia: QUALIFIERS: Hyperlipidemia type: mixed hyperlipidemia Qualified Code(s): E78.2 - Mixed hyperlipidemia (6) Hypertension: QUALIFIERS: Hypertension type: essential hypertension Qualified Code(s): I10 - Essential (primary) hypertension (7) Paroxysmal atrial fibrillation: HPI Consult Data Date of Consult: 04/15/21 PCP / Referring MD: Renato Attending Care Provider: Referred for left knee pain status post left total knee replacement HPI Narrative HPI Narrative: AUDRA SANDERS, is a 65 F with a history of diabetes mellitus and atrial fibrillation on Coumadin for anticoagulation presents today for left knee pain and swelling. Patient was originally seen in my office on April 13. She was complaining of left knee pain she was seen and evaluated by the PA. Patient had a left total knee replacement in March [address] Mikey Whitman. Patient notes that postoperatively she had no complications and her knee was functioning well up until 2 weeks ago. On March 28 patient had a cardiac ablation for her atrial fibrillation where they placed a catheter through her groin. She did not receive preoperative antibiotics. She notes the following day she had stiffness in her knee. Subsequently she developed swelling and pain. She never had any fevers at home. She is currently afebrile she denies any chills or night sweats. She has difficulty with knee flexion and extension at this time. She is lost range of motion since the swelling began. She denies any associated erythema. No associated numbness or tingling distally. She was aspirated in the office and sent for inflammatory lab work. Inflammatory lab work was elevated. White blood cell in the aspiration was 46,000 with 95% neutrophils. She meets criteria for periprosthetic joint infection. Her INR yesterday was 4.6. This morning was 3.9. Currently it is 2.3. She is Islam and it is against her sikhism to take blood products. [facility] Medical History Arthritis Diabetes Easy bruising Family history of sudden cardiac Heartburn High cholesterol History of ulceration Hyperlipidemia Hypertension Non-smoker Nonsustained paroxysmal ventricular tachycardia Paroxysmal atrial fibrillation Post-menopausal Thyroid disease Type 2 diabetes mellitus without complications Walker as ambulation aid Wears glasses Home Medications B-complex with vitamin C 1 ea PO DAILY 06/03/15 [History Last Taken 04/13/21] tramadol 50 mg tablet 50 mg PO TID tab 11/30/17 [History Last Taken 04/13/21] levothyroxine 125 mcg tablet 125 mcg PO DAILY 06/07/18 [History Last Taken 04/13/21] loratadine 10 mg tablet 10 mg PO DAILY PRN 06/07/18 [History Last Taken Unknown] hydrochlorothiazide 12.5 mg capsule 12.5 mg PO DAILY #90 cap 06/05/19 [Rx Last Taken 04/14/21] losartan 100 mg tablet 100 mg PO QHS #90 tab 06/05/19 [Rx Last Taken 04/13/21] metformin 500 mg tablet 500 mg PO BIDCM tab 06/05/19 [History Last Taken 04/14/21] potassium chloride 20 mEq tablet,extended release(part/cryst) 20 meq PO DAILY #90 tab 06/05/19 [Rx Last Taken 04/14/21] simvastatin 20 mg tablet 20 mg PO QHS #90 tab 06/05/19 [Rx Last Taken 04/13/21] atenolol 25 mg tablet 25 mg PO DAILY #90 tab 06/11/20 [Rx Last Taken 04/14/21] amiodarone 100 mg tablet 100 mg PO DAILY 03/29/21 [History Last Taken 04/13/21] aspirin 81 mg tablet,delayed release 81 mg PO DAILY 03/29/21 [History Last Taken 04/13/21] warfarin 4 mg tablet 4 mg PO DAILY #30 tab 04/04/21 [Rx Last Taken 04/13/21] omeprazole 80 mg PO DAILY 04/14/21 [History Last Taken 04/14/21] Allergy/AdvReac Type Severity Reaction Status Date / Time No Known Allergies Allergy Verified 04/14/21 13:23 Family History Mother CVA (cerebral vascular accident) Atrial fibrillation Diabetes Sister Hyperlipidemia Sister Diabetes Atrial fibrillation Sister Parkinson disease Brother CAD (coronary artery disease) Brother CAD (coronary artery disease) Surgical History (Updated 04/15/21 @ 09:38 by Janae Arizmendi) History of left heart catheterization (~06/2015) History of radiofrequency ablation (RFA) procedure for cardiac arrhythmia History of radiofrequency ablation procedure for cardiac arrhythmia (03/28/21) History of total left knee replacement Hx of total knee replacement Total knee replacement status Social History adopted: No household members: spouse and children housing: house number of children: 2 financial difficulty paying for basics: somewhat hard service: No current occupational status: retired current occupational exposures/hazards: No pets and animals: No leisure activities: exercise history of recent travel: No Smoking Status: Never smoker second hand exposure: No alcohol intake: former year quit: 2014 details: rarely substance use type: does not use diet: diabetic well-balanced diet: daily or most days caffeine: Yes Type: coffee Number of servings: 1 eating out: 1-3 times/week during the past year weight has: remained stable what type of physical activity do you participate in: walking How many days of moderate to strenuous exercise, like a brisk walk, did you do in the last 7 days: 3 frequency: 3-4 times per week duration: 45-60 minutes/day kiley/sikhism: Jehovah Witness seatbelt use: always do you feel safe at home: Yes additional social history: No Blood Transfusions ROS Constitutional Constitutional: Reports systems reviewed and no addt'l complaints, except as documented Physical Exam Const alert, oriented x3 and no apparent distress HEENT normocephalic Eyes PERRL Neck no JVD Resp normal respiratory effort Cardio Cardio Narrative: Regular pulse rate GI non-distended Extremity Extremity Narrative: Left lower extremity: Well-healed incision. Patient has large effusion with tenderness palpation. Previous aspiration site is noted. Range of motion is 10-90 with increased pain with increased flexion. No overlying erythema but significant increase in warmth compared to the contralateral side. Right lower extremity shows a well-healed incision with no effusion. Lab / Micro Data Result Diagrams: 04/15/21 05:10 04/15/21 05:10 Labs: Laboratory Results - last 24 hr 04/14/21 16:20: WBC 8.6, RBC 3.43 L, Hgb 9.9 L, Hct 30.8 L, MCV 89.8, MCH 28.9, MCHC 32.1, RDW Std Deviation 41.1, RDW Coeff of Woody 12.4, Plt Count 398, MPV 8.1, Immature Gran % (Auto) 0.300, Neut % (Auto) 79.9 H, Lymph % (Auto) 12.4 L, [place] % (Auto) 6.3, Eos % (Auto) 0.8, Baso % (Auto) 0.3, Absolute Neuts (auto) 6.9, Absolute Lymphs (auto) 1.06, Nucleated RBC % 0 04/14/21 16:20: Sodium 135 L, Potassium 4.4, Chloride 100, Carbon Dioxide 29.0, Anion Gap 6, BUN 22 H, Creatinine 0.93, Estim Creat Clear Calc 47.06, Est GFR (MDRD) Af Amer 77, Est GFR (MDRD) Non-Af 64, BUN/Creatinine Ratio 23.7 H, Glucose 169 H, Calcium 9.6, Magnesium 1.7, Total Bilirubin 0.20, AST 15, ALT 21, Alkaline Phosphatase 61, Total Protein 7.2, Albumin 2.8 L, Globulin 4.4 H, Albumin/Globulin Ratio 0.6 L 04/14/21 17:49: POC Glucose 162 H 04/14/21 21:10: POC Glucose 200 H 04/14/21 22:10: Urine Color Yellow, Urine Clarity Clear, Urine pH 6.5, Ur Specific [place] 1.010, Urine Protein 15 H, Urine Glucose (UA) Normal, Urine Ketones Negative, Urine Occult Blood 50 H, Urine Nitrite Negative, Urine Bilirubin Negative, Urine Urobilinogen Normal, Ur Leukocyte Esterase 100 H, U rine RBC 0 SEEN, Urine WBC 0-5 SEEN, Ur Squamous Epith Cells 0 SEEN, Urine Bacteria 1+, Urine Mucus 0 SEEN 04/15/21 05:07: POC Glucose 122 H 04/15/21 05:10: WBC 6.6, RBC 3.27 L, Hgb 9.4 L, Hct 29.4 L, MCV 89.9, MCH 28.7, MCHC 32.0, RDW Std Deviation 41.3, RDW Coeff of Woody 12.5, Plt Count 424, MPV 8.8, Immature Gran % (Auto) 0.300, Neut % (Auto) 71.7 H, Lymph % (Auto) 18.4 L, [place] % (Auto) 7.6, Eos % (Auto) 1.5, Baso % (Auto) 0.5, Absolute Neuts (auto) 4.7, Absolute Lymphs (auto) 1.21, Nucleated RBC % 0 04/15/21 05:10: PT 37.1 H, INR 3.9 04/15/21 05:10: Sodium 138, Potassium 4.3, Chloride 101, Carbon Dioxide 30.0, Anion Gap 7, BUN 19 H, Creatinine 0.74, Estim Creat Clear Calc 43.77, Est GFR (MDRD) Af Amer 100, Est GFR (MDRD) Non-Af 83, BUN/Creatinine Ratio 25.5 H, Glucose 129 H, Calcium 9.2 04/15/21 05:10: TSH 6.13 H 04/15/21 05:10: Hemoglobin A1c 7.6 H 04/15/21 11:07: POC Glucose 134 H 04/15/21 12:08: PT 24.3 H, INR 2.3
[2021-04-15] MEDS: Insulin Lispro 100 UNIT/ML INSULN.PEN SC (16:44)
[2021-04-15] MEDS: Acetaminophen 325 MG Tablet 650 MG PO (16:49)
[2021-04-15 16:51] LABS: Bedside Glucose 210 mg/dL (70-110)
[2021-04-15] MEDS: Atorvastatin Calcium 10 MG Tablet PO (21:37)
[2021-04-15] MEDS: Losartan Potassium 100 MG Tablet PO (21:37)
[2021-04-15 21:40] LABS: International Normalized Ratio 1.9; Prothrombin Time (Protime)PT. 20.7 SECONDS (11.7-14.9)
[2021-04-15 21:55] LABS: Bedside Glucose 147 mg/dL (70-110)
[2021-04-16] VITALS (21 sets, daily range): BP systolic 119–150; BP diastolic 59–82; PULSE 48–102; RESP 16–18; TEMP 36.1–36.8; O2SAT 83–97; BMI 32.4
[2021-04-16] MEDS: oxyCODONE 5 MG Tablet PO ×3 (02:26→21:57)
[2021-04-16 06:35] LABS: Bedside Glucose 171 mg/dL (70-110)
[2021-04-16 07:31] LABS: Absolute Lymphocyte Count 1.48 X10^3/uL (0.83-4.51); Absolute Neutrophil Count 5.1 X10^3/uL (2.0-7.7); Basophil# 0.02 X10^3/uL; Basophil% 0.3 % (0-1); Eosinophil# 0.11 X10^3/uL; Eosinophils% 1.5 % (0-5); Hematocrit 33.2 % (37-47); Hemoglobin 10.6 g/dL (12.0-15.0); Lymphocyte # 1.48 X10^3/ul (0.83-4.51); Lymphocyte % 19.8 % (19-41); Mean Corp Hgb Conc 31.9 g/dL (32-36); Mean Corpuscular Hgb 28.6 pg (27.0-32.0); Mean Corpuscular Volume 89.5 fL (81-99); Mean Platelet Vol. 8.7 fl (6.2-12.0); Monocyte# 0.68 X10^3/uL; Monocyte% 9.1 % (0-10); NRBC Flagged by Analyzer 0 % (0-5); Neutrophil # 5.14 X10^3/uL (2.7-7.7); Neutrophil % 68.5 % (47-70); Platelet Count 487 K/mm3 (150-450); RBC Distribution Width CV 12.5 % (11.6-14.6); RBC Distribution Width SD 41.4 fl (35.1-43.9); Red Blood Count 3.71 M/mm3 (4.2-5.4); White Blood Count 7.5 K/mm3 (4.4-11.0)
--- NOTE | 2021-04-16 07:46 | PCM.PN.HOSP ---
Subjective Subjective Patient seen INR down to 1.6. Scheduled to undergo I&D and left knee revision Objective Data Objective Data Vital Signs: Vital Signs Temp Pulse Resp BP Pulse Ox 98.2 F 58 L 18 144/77 H 97 04/16/21 06:08 04/16/21 06:08 04/16/21 06:08 04/16/21 06:08 04/16/21 06:08 Oxygen Delivery Method Room Air Weight: 79.9 kg Body Mass Index (BMI) 32.4 Intake & Output: Intake and Output for Last 24 Hours 04/14/21 04/15/21 04/16/21 23:59 23:59 23:59 Intake Total 270 / 370 970 / 1210 240 / 240 Balance 270 / 370 970 / 1210 240 / 240 Lab / Micro Data Result Diagrams: 04/16/21 06:44 04/16/21 06:44 Labs: Laboratory Results - last 24 hr 04/15/21 05:10: TSH 6.13 H 04/15/21 05:10: Hemoglobin A1c 7.6 H 04/15/21 11:07: POC Glucose 134 H 04/15/21 12:08: PT 24.3 H, INR 2.3 04/15/21 16:43: POC Glucose 210 H 04/15/21 21:13: PT 20.7 H, INR 1.9 04/15/21 21:45: POC Glucose 147 H 04/16/21 06:25: POC Glucose 171 H 04/16/21 06:44: WBC 7.5, RBC 3.71 L, Hgb 10.6 L, Hct 33.2 L, MCV 89.5, MCH 28.6, MCHC 31.9 L, RDW Std Deviation 41.4, RDW Coeff of Woody 12.5, Plt Count 487 H, MPV 8.7, Immature Gran % (Auto) 0.800, Neut % (Auto) 68.5, Lymph % (Auto) 19.8, [place] % (Auto) 9.1, Eos % (Auto) 1.5, Baso % (Auto) 0.3, Absolute Neuts (auto) 5.1, Absolute Lymphs (auto) 1.48, Nucleated RBC % 0 Micro: Microbiology 04/15/21 22:15 Nasal Secretion SARS-CoV-2 Antigen (Rapid) - Final Physical Exam Narrative GENERAL: cooperative HEENT: Atraumatic; EYES; Anicteric, Normal Conjunctiva NECK; supple, normal thyroid, RESPIRATORY: Diminished to auscultation CARDIOVASCULAR: Regular S1 S2, GI: soft, normoactive bowel sounds, : No Renal angle tenderness; EXTREMITIES: No edema, no clubbing, MUSCULOSKELETAL: Left knee swelling with surrounding warmth NEURO: Awake; no lateralizing signs. SKIN: No Rash PSYCH; Flat affect Assessment & Plan Assessment/Plan (1) Septic arthritis of knee: PLAN: Patient is a 65-year-old lady presented with left knee pain and swelling and assessment of left prosthetic knee septic arthritis made admitted with consultation placed orthopedic surgery 1. Septic left prosthetic knee ?Patient has been admitted to regular nursing floor with plans for patient to undergo incision and drainage and possible revision by Dr. Burnette. Patient however is on Coumadin procedure was postponed plan is to reverse Coumadin with patient surgical procedure tentatively scheduled for the afternoon of 04/15/2021 ?Patient INR only came down to 3.9 after 10 mg administration of vitamin K. Additional 10 mg given with repeat labs ordered -04/16/2021; Patient seen INR down to 1.6. Scheduled to undergo I&D and left knee revision 2. Paroxysmal A. fib ?With recent ablation. Patient is on Coumadin INR is elevated. Patient coagulopathy is being reversed as discussed above. Patient is on amiodarone did continue 3. Coumadin induced coagulopathy ?As discussed above 4. Hypertension - Blood pressure controlled, home medications continued with dose adjustment as needed 5. Diabetes mellitus type II -patient's oral hypoglycemics held. Placed on long acting insulin, Accu-Cheks a.c. and at bedtime and covered with sliding scale insulin 6. Hypothyroidism - Patient is on levothyroxine home dose continued 7. Dyslipidemia -Patient is on statin therapy, continued at home dose 8. GERD ?On omeprazole 9. History of nonsustained paroxysmal ventricular tachycardia ?On amiodarone 10. Class I obesity with BMI of 31.5 ?Weight loss advised 11. DVT prophylaxis patient is on Coumadin ?No further management is warranted 12. Anemia - Secondary to chronic disorder monitoring H&H. Patient receiving parenteral iron Charges/Coding Visit Charges Inpatient E&M: 04491 Subs Hosp L2
[2021-04-16 07:49] LABS: Anion Gap 9 (5-15); BUN 23 mg/dL (7-18); BUN/Creat Ratio 24.4 RATIO (10-20); Calcium,Total 9.7 mg/dL (8.5-10.1); Chloride 100 mmol/L (98-107); Creatinine, Serum 0.94 mg/dL (0.55-1.02); EST Glomerular Filtration Rate 63 mL/min (>60); Est Glom Filt Rate - Afr Amer 76 mL/min (>60); Estimated Creatinine Clearance 44.42 ml/min; Glucose 183 mg/dL (74-106); Potassium 3.7 mmol/L (3.5-5.1); Sodium Level 138 mmol/L (136-145)
[2021-04-16 07:55] LABS: International Normalized Ratio 1.6; Prothrombin Time (Protime)PT. 18.2 SECONDS (11.7-14.9)
--- NOTE | 2021-04-16 08:06 | PCS.PANDOC ---
PANDEMIC DOCUMENTATION INITIATED: Date: 12/13/2020 Time: 190
--- NOTE | 2021-04-16 08:44 | RAD_ITS ---
STUDY: X-RAY - LEFT KNEE REASON FOR EXAM: Female, 65 years old. post op -- AP and Lateral xray of operative knee in PACU TECHNIQUE: 2 view(s) of the knee. COMPARISON: 10/29/2017 FINDINGS: Normal visualized distal femur. Normal visualized proximal tibia and fibula. Normal proximal tibiofibular articulation. Status post recent revision of total knee arthroplasty with skin nai and subcutaneous emphysema.. The soft tissue structures are unremarkable. RAD/Knee 1 or 2 Views IMPRESSION: Status post recent revision of left total knee arthroplasty. Electronically Signed: Holger Contreras MD at 10:42 EST Tel , Service support ,
[2021-04-16] MEDS: Vancomycin IV 1,000 MG/20 ML Vial 1000 MG OPERA.SITE (08:46)
--- NOTE | 2021-04-16 08:46 | PCM.OPRPT ---
Report of Operation Date of Procedure: 04/16/21 Pre-Operative Diagnosis: Left knee periprosthetic joint infection Post-Operative Diagnosis: Left knee periprosthetic joint infection Surgery/Procedure Performed:: Irrigation debridement with complete synovectomy and polyethylene exchange 1 component revision left knee Description of Surgical Findings:: Gross synovitis. Cloudy synovial fluid. Patient's preoperative examination showed gross instability. We did exchange the 9 mm polyethylene for a 11 mm which demonstrated greater stability of the knee. Surgeon: Alexander Delgadillo strainer tender: Juanito Becker Type of Anesthesia: General Anesthesiologist: Patti Booth Special Medications: 2 g Ancef were administered after cultures were taken. 1 g vancomycin was placed in the wound and the powder form prior to closure. Specimen's removed: 3 separate specimens were sent to microbiology Estimated Blood Loss (mL): 150 Fluids Replaced: 1 L crystalloid Description of Procedure: 65 yo F history of L TKA in presents with knee swelling and pain with aspiration consistent with infection status post cardiac ablation 2 weeks ago. Reviewed options were discussed the patient. Based on acuity of the symptoms and organism irrigation debridement with polyethylene exchange is recommended. Risks and benefits of the procedure were discussed with the patient including but not limited to blood loss, DVTs, PEs, neurovascular damage, infection, general risk of anesthesia including loss of life. Demonstrated understanding and was able to sign informed consent. On the date of procedure patient's L lower extremity was marked in the preoperative area. The patient was then taken back to the operating room where the patient was placed on the table in the supine position. All bony prominences were identified a well-padded. Anesthesia assumed control of the C-spine and airway and remained controlled throughout the remainder of the procedure. A tourniquet was placed on the operative thigh and the leg was prepped in a sterile fashion. The surgeon then scrubbed at this time .Upon reentering the room left lower extremity was draped in a standard orthopedic fashion. A timeout was then called and everyone agreed upon the side, the site, the procedure to be performed, patient's identity and antibiotics given. A midline skin incision was made and sharp dissection was taken down through skin subcutaneous tissue and fat. Appropriate flaps were elevated medially and laterally. His arthrotomy was identified and the standard medial parapatellar incision was made and the patella was subluxed laterally. The standard deep MCL release was done. At this point an aggressive synovectomy commenced. Our attention was first turned towards the subpatellar pouch and all suspicious synovium and tissues were debrided. We then directed our attention towards medial lateral gutters were these tissues were aggressively debrided. Knee was then flexed up the polyethylene was removed. Once polyethylene was removed we did the remainder of the synovium in the medial and lateral gutters and along the lateral structures and MCL. We then debrided the posterior knee. Knee was flexed up and culture was taken from the femoral notch. And also there was a membrane beneath the tibial baseplate that was removed and sent for culture. He had completed our synovectomy and were happy with the joint. We then used a chlorahexadine scrub sponge and physically scrub the metal implants using a scrub sponge but nothing abrasive. We also scrubbed the remainder of the wound with chlorhexidine. Tourniquet was let down and hemostasis was obtained. 6 L of normal saline were then irrigated throughout the wound with low-pressure lavage and the wound was once again explored. All remaining tissue that was suspicious was seen in the wound was once again irrigated with normal saline. We then once again trialed based on her preoperative examination she did have instability especially laterally. An 11 mm polyethylene was more appropriate for stability of the knee. Based on this and 11 mm polyethylene was then opened and put back into place after appropriate trialing. Hemostasis was obtained as well as possible. Lateral drain was placed in 2 g of vancomycin powder were placed in the wound/joint. Once the final components were placed the wound was lavaged with TXA for 2 minutes with firm pressure on the knee, then a 3-minute Betadine soak then irrisept solution and finally was copiously irrigated with normal saline solution. The wound was closed in a layer myles fashion using #1 vicryl interrupted sutures for the arthrotomy, 2-0 interrupted Vicryl for the subcuticular layer and nai for final skin closure. A sterile compressive dressing was then placed. The patient was then awakened from anesthesia, transferred to the [facility] and transferred to the PACU for recovery. Post op plan Based on patient's jew aversion to blood products, her preoperative anemia and expected associated blood loss I would like to hold her Coumadin for 48 hours prior to initiating anticoagulation again. We will start Coumadin on postoperative day 2. Patient is weightbearing as tolerated, activity as tolerated. Patient will be placed on vancomycin and ceftriaxone postoperatively as recommended by infectious disease. PICC line is ordered. [place] removed on postop day 13. Follow-up in office in 2 weeks. Grafts/Implants Used: [place] size 3, X3 polyethylene 11 mm PS
[2021-04-16] MEDS: Atenolol 25 MG Tablet PO (11:08)
[2021-04-16] MEDS: Pantoprazole Sodium 40 MG Tablet 80 MG PO (11:09)
[2021-04-16] MEDS: Vitamin B Comp W-C Capsule 1 CAP PO (11:09)
[2021-04-16] MEDS: Potassium Chloride Oral Tablet 20 MEQ PO (11:10)
[2021-04-16] MEDS: Amiodarone 200 MG Tablet 100 MG PO (11:11)
[2021-04-16] MEDS: Aspirin E.C. 81 MG Tablet PO (11:11)
[2021-04-16] MEDS: hydroCHLOROthiazide 12.5mg 12.5 MG PO (11:11)
[2021-04-16] MEDS: Senna/Docusate Sodium 1 Tablet 2 TABLET PO ×2 (11:14→21:49)
--- NOTE | 2021-04-16 12:10 | PCM.RX.CS ---
Consult Pharmacy has been consulted to manage selected antiobiotic: Vancomycin Type of Consult: New start Suspected Infection: Sepsis Prior Doses of Antibiotics Received/Current Regimen: 1250mg (15mg/kg) iv x 1 as initial dose. Labs: Sodium 138 mmol/L (136-145) 04/16/21 06:44 Potassium 3.7 mmol/L (3.5-5.1) 04/16/21 06:44 Chloride 100 mmol/L (98-107) 04/16/21 06:44 Carbon Dioxide 29.0 mmol/L (21.0-32.0) 04/16/21 06:44 Anion Gap 9 (5-15) 04/16/21 06:44 BUN 23 mg/dL (7-18) H 04/16/21 06:44 Creatinine 0.94 mg/dL (0.55-1.02) 04/16/21 06:44 Est GFR (MDRD) Af Amer 76 mL/min (>60) 04/16/21 06:44 Est GFR (MDRD) Non-Af 63 mL/min (>60) 04/16/21 06:44 BUN/Creatinine Ratio 24.4 RATIO (10-20) H 04/16/21 06:44 Glucose 183 mg/dL (74-106) H 04/16/21 06:44 Microbiology: Microbiology 04/15/21 22:15 Nasal Secretion SARS-CoV-2 Antigen (Rapid) - Final Weight used for dosin.9 kg Estimated Creatinine Clearance: 44 ml/min Goal Trough: 15-20 mcg/mL Pharmacy Plan for Drug Dosing: Will begin 500mg iv q12h per protocol. Trough level ordered fro 04.17.21 before 4th total dose. Pharmacy Service will continue to monitor and adjust dosing as required.
[2021-04-16] MEDS: Insulin Lispro 100 UNIT/ML INSULN.PEN SC ×3 (12:30→21:47)
[2021-04-16 12:40] LABS: Bedside Glucose 240 mg/dL (70-110)
[2021-04-16] MEDS: Acetaminophen 500 MG Tablet 1000 MG PO ×2 (14:25→21:50)
[2021-04-16 16:35] LABS: Bedside Glucose 339 mg/dL (70-110)
[2021-04-16] MEDS: Acetaminophen 325 MG Tablet 650 MG PO (17:08)
[2021-04-16] MEDS: Ensure Surgery 237 ML LIQUID PO (17:12)
[2021-04-16] MEDS: Losartan Potassium 100 MG Tablet PO (21:46)
[2021-04-16] MEDS: Atorvastatin Calcium 10 MG Tablet PO (21:49)
[2021-04-16 22:00] LABS: Bedside Glucose 347 mg/dL (70-110)
[2021-04-16] MEDS: Vancomycin IV 500 MG/100 ML BAG 100 MG IV (22:36)
[2021-04-17] VITALS (10 sets, daily range): BP systolic 128–149; BP diastolic 52–68; PULSE 47–61; RESP 16–18; TEMP 36.4–36.8; O2SAT 95–98
[2021-04-17] MEDS: Levothyroxine 125 MCG Tablet PO (06:11)
[2021-04-17] MEDS: Acetaminophen 500 MG Tablet 1000 MG PO ×3 (06:11→20:59)
[2021-04-17] MEDS: Insulin Lispro 100 UNIT/ML INSULN.PEN SC ×4 (06:26→21:00)
[2021-04-17 06:36] LABS: Bedside Glucose 233 mg/dL (70-110)
[2021-04-17 07:20] LABS: Absolute Lymphocyte Count 0.72 X10^3/uL (0.83-4.51); Absolute Neutrophil Count 11.1 X10^3/uL (2.0-7.7); Basophil# 0.01 X10^3/uL; Basophil% 0.1 % (0-1); Hematocrit 28.3 % (37-47); Hemoglobin 9.2 g/dL (12.0-15.0); Lymphocyte # 0.72 X10^3/ul (0.83-4.51); Lymphocyte % 5.7 % (19-41); Mean Corp Hgb Conc 32.5 g/dL (32-36); Mean Corpuscular Hgb 28.8 pg (27.0-32.0); Mean Corpuscular Volume 88.7 fL (81-99); Mean Platelet Vol. 8.7 fl (6.2-12.0); Monocyte# 0.81 X10^3/uL; Monocyte% 6.4 % (0-10); NRBC Flagged by Analyzer 0 % (0-5); Neutrophil # 11.11 X10^3/uL (2.7-7.7); Neutrophil % 87.2 % (47-70); Platelet Count 423 K/mm3 (150-450); RBC Distribution Width CV 12.5 % (11.6-14.6); RBC Distribution Width SD 40.6 fl (35.1-43.9); Red Blood Count 3.19 M/mm3 (4.2-5.4); White Blood Count 12.7 K/mm3 (4.4-11.0)
--- NOTE | 2021-04-17 07:23 | PCM.PN.HOSP ---
Subjective Subjective Patient underwent Irrigation debridement with complete synovectomy and polyethylene exchange 1 component revision left knee on 04/16/2021. Culture sent results pending. Case discussed with Dr. Burnette plan is to start patient systemic anticoagulation starting 04/18/2021. Objective Data Objective Data Vital Signs: Vital Signs Temp Pulse Resp BP Pulse Ox 97.7 F L 57 L 18 133/52 H 95 04/17/21 02:21 04/17/21 02:21 04/17/21 02:21 04/17/21 02:21 04/17/21 07:11 Oxygen Flow Rate (L/min) 2 Oxygen Delivery Method Nasal Cannula Weight: 79.9 kg Body Mass Index (BMI) 32.4 Intake & Output: Intake and Output for Last 24 Hours 04/15/21 04/16/21 04/17/21 23:59 23:59 23:59 Intake Total 970 / 1210 849.5 / 849.5 210 / 210 Balance 970 / 1210 849.5 / 849.5 210 / 210 Lab / Micro Data Result Diagrams: 04/17/21 06:57 04/17/21 06:57 Labs: Laboratory Results - last 24 hr 04/16/21 06:44: WBC 7.5, RBC 3.71 L, Hgb 10.6 L, Hct 33.2 L, MCV 89.5, MCH 28.6, MCHC 31.9 L, RDW Std Deviation 41.4, RDW Coeff of Woody 12.5, Plt Count 487 H, MPV 8.7, Immature Gran % (Auto) 0.800, Neut % (Auto) 68.5, Lymph % (Auto) 19.8, [place] % (Auto) 9.1, Eos % (Auto) 1.5, Baso % (Auto) 0.3, Absolute Neuts (auto) 5.1, Absolute Lymphs (auto) 1.48, Nucleated RBC % 0 04/16/21 06:44: PT 18.2 H, INR 1.6 04/16/21 06:44: Sodium 138, Potassium 3.7, Chloride 100, Carbon Dioxide 29.0, Anion Gap 9, BUN 23 H, Creatinine 0.94, Estim Creat Clear Calc 44.42, Est GFR (MDRD) Af Amer 76, Est GFR (MDRD) Non-Af 63, BUN/Creatinine Ratio 24.4 H, Glucose 183 H, Calcium 9.7 04/16/21 12:28: POC Glucose 240 H 04/16/21 16:31: POC Glucose 339 H 04/16/21 21:43: POC Glucose 347 H 04/17/21 06:25: POC Glucose 233 H 04/17/21 06:57: WBC 12.7 H, RBC 3.19 L, Hgb 9.2 L, Hct 28.3 L, MCV 88.7, MCH 28.8, MCHC 32.5, RDW Std Deviation 40.6, RDW Coeff of Woody 12.5, Plt Count 423, MPV 8.7, Immature Gran % (Auto) 0.600, Neut % (Auto) 87.2 H, Lymph % (Auto) 5.7 L, [place] % (Auto) 6.4, Eos % (Auto) 0.0, Baso % (Auto) 0.1, Absolute Neuts (auto) 11.1 H, Absolute Lymphs (auto) 0.72 L, Nucleated RBC % 0 Micro: Microbiology 04/15/21 22:15 Nasal Secretion SARS-CoV-2 Antigen (Rapid) - Final Radiography Diagnostic Testing: Radiology Impression Knee X-Ray 04/16/21 08:44 IMPRESSION: Status post recent revision of left total knee arthroplasty. Electronically Signed: Holger Contreras MD at 10:42 EST Tel , Service support , Physical Exam Narrative GENERAL: cooperative HEENT: Atraumatic; EYES; Anicteric, Normal Conjunctiva NECK; supple, normal thyroid, RESPIRATORY: Diminished to auscultation CARDIOVASCULAR: Regular S1 S2, GI: soft, normoactive bowel sounds, : No Renal angle tenderness; EXTREMITIES: No edema, no clubbing, MUSCULOSKELETAL: Left knee in surgical dressing NEURO: Awake; no lateralizing signs. SKIN: No Rash PSYCH; Flat affect Assessment & Plan Assessment/Plan (1) Septic arthritis of knee: PLAN: Patient is a 65-year-old lady presented with left knee pain and swelling and assessment of left prosthetic knee septic arthritis made admitted with consultation placed orthopedic surgery 1. Septic left prosthetic knee ?Patient has been admitted to regular nursing floor with plans for patient to undergo incision and drainage and possible revision by Dr. Delgadillo. Patient however is on Coumadin procedure was postponed plan is to reverse Coumadin with patient surgical procedure tentatively scheduled for the afternoon of 04/15/2021 ?Patient INR only came down to 3.9 after 10 mg administration of vitamin K. Additional 10 mg given with repeat labs ordered -04/16/2021; Patient seen INR down to 1.6. Scheduled to undergo I&D and left knee revision 04/17/2021; Patient underwent Irrigation debridement with complete synovectomy and polyethylene exchange 1 component revision left knee on 04/16/2021. Culture sent results pending. Patient remains on broad-spectrum antibiotic therapy with Rocephin and vancomycin. 2. Paroxysmal A. fib ?With recent ablation. Patient is on Coumadin INR is elevated. Patient coagulopathy is being reversed as discussed above. Patient is on amiodarone did continue -04/17/2021;Case discussed with Dr. Delgadillo plan is to start patient systemic anticoagulation starting 04/18/2021. 3. Coumadin induced coagulopathy ?As discussed above 4. Hypertension - Blood pressure controlled, home medications continued with dose adjustment as needed 5. Diabetes mellitus type II -patient's oral hypoglycemics held. Placed on long acting insulin, Accu-Cheks a.c. and at bedtime and covered with sliding scale insulin 6. Hypothyroidism - Patient is on levothyroxine home dose continued 7. Dyslipidemia -Patient is on statin therapy, continued at home dose 8. GERD ?On omeprazole 9. History of nonsustained paroxysmal ventricular tachycardia ?On amiodarone 10. Class I obesity with BMI of 31.5 ?Weight loss advised 11. DVT prophylaxis patient is on Coumadin ?No further management is warranted 12. Anemia - Secondary to chronic disorder monitoring H&H. Patient receiving parenteral iron Charges/Coding Visit Charges Inpatient E&M: 38142 Subs Hosp L2
[2021-04-17 07:57] LABS: Anion Gap 7 (5-15); BUN 22 mg/dL (7-18); BUN/Creat Ratio 23.7 RATIO (10-20); Calcium,Total 9.1 mg/dL (8.5-10.1); Chloride 100 mmol/L (98-107); Creatinine, Serum 0.93 mg/dL (0.55-1.02); EST Glomerular Filtration Rate 64 mL/min (>60); Est Glom Filt Rate - Afr Amer 78 mL/min (>60); Glucose 252 mg/dL (74-106); Potassium 4.3 mmol/L (3.5-5.1); Sodium Level 134 mmol/L (136-145)
--- NOTE | 2021-04-17 08:07 | PN.ORTHO_ITS ---
Subjective Subjective The patient was sitting in bed eating breakfast upon examination. Patient denies any chest pain, shortness of breath, dizziness, lightheadedness, nausea or vomiting, or calf pain. Pain is controlled on medications. No adverse overnight events. Patient appears to be doing well from an orthopedic standpoint. We are currently holding the Coumadin for 48 hours postoperatively due to her anemia. Due to patient's jehovah's witness believes she does not want any blood products. Patient states the pain is well controlled in the knee. Objective Data Objective Data Vital Signs: Vital Signs Temp Pulse Resp BP Pulse Ox 97.7 F L 57 L 18 133/52 H 95 04/17/21 02:21 04/17/21 02:21 04/17/21 02:21 04/17/21 02:21 04/17/21 07:11 Oxygen Flow Rate (L/min) 2 Oxygen Delivery Method Nasal Cannula Weight: 79.9 kg Body Mass Index (BMI) 32.4 Intake & Output: Intake and Output for Last 24 Hours 04/15/21 04/16/21 04/17/21 23:59 23:59 23:59 Intake Total 970 / 1210 849.5 / 849.5 210 / 210 Balance 970 / 1210 849.5 / 849.5 210 / 210 Lab / Micro Data Result Diagrams: 04/17/21 06:57 04/17/21 06:57 Labs: Laboratory Results - last 24 hr 04/16/21 12:28: POC Glucose 240 H 04/16/21 16:31: POC Glucose 339 H 04/16/21 21:43: POC Glucose 347 H 04/17/21 06:25: POC Glucose 233 H 04/17/21 06:57: WBC 12.7 H, RBC 3.19 L, Hgb 9.2 L, Hct 28.3 L, MCV 88.7, MCH 28.8, MCHC 32.5, RDW Std Deviation 40.6, RDW Coeff of Woody 12.5, Plt Count 423, MPV 8.7, Immature Gran % (Auto) 0.600, Neut % (Auto) 87.2 H, Lymph % (Auto) 5.7 L, [place] % (Auto) 6.4, Eos % (Auto) 0.0, Baso % (Auto) 0.1, Absolute Neuts (auto) 11.1 H, Absolute Lymphs (auto) 0.72 L, Nucleated RBC % 0 04/17/21 06:57: Sodium 134 L, Potassium 4.3, Chloride 100, Carbon Dioxide 27.0, Anion Gap 7, BUN 22 H, Creatinine 0.93, Estim Creat Clear Calc 44.90, Est GFR (MDRD) Af Amer 78, Est GFR (MDRD) Non-Af 64, BUN/Creatinine Ratio 23.7 H, Glucose 252 H, Calcium 9.1 Micro: Microbiology 04/15/21 22:15 Nasal Secretion SARS-CoV-2 Antigen (Rapid) - Final Radiography Diagnostic Testing: Radiology Impression Knee X-Ray 04/16/21 08:44 IMPRESSION: Status post recent revision of left total knee arthroplasty. Electronically Signed: Holger Contreras MD at 10:42 EST Tel , Service support , Physical Exam Narrative Vital signs stable and afebrile. Patient is able to plantarflex and dorsiflex actively. Sensation is intact to light touch to saphenous, sural, superficial and deep peroneal, and tibial distribution. Dressing is clean dry and intact. Negative Homans bilaterally, negative signs and symptoms of DVT. Const alert, oriented x3 and no apparent distress Assessment & Plan Assessment/Plan (1) Infection of prosthetic left knee joint: (2) Septic arthritis of knee: PLAN: 1. S/P irrigation debridement with complete synovectomy and polyethylene exchange 1 component revision left knee POD #1 2. Continue Pain Medications: Continue with Tylenol and oxycodone as needed for pain control 3. DVT Prophylaxis: Due to patient's preoperative anemia and expected blood loss with surgery Dr. Alexander Delgadillo would like Coumadin to be held for 48 hours prior to initiating her anticoagulation again. Plan to start the Coumadin on postoperative day #2 4. PT/OT: Weightbearing as tolerated left lower extremity 5. H & H: 9.2/28.3, patient is currently asymptomatic. Postoperative anemia secondary to acute blood loss from surgery without any intra operative complications. Due to patient's jehovah's witness believes she does not want any blood products. Continue treatment per medicine. She did get iron treatment prior to surgery and vitamin K. 6. Encouraged Incentive Spirometry 7. Continue postoperative medical management per medicine 8. Continue antibiotics while following cultures: Currently on vancomycin and ceftriaxone per infectious disease. Cultures are pending. Continue consult with infectious disease and appreciate input on further antibiotics and cultu res. 9. Disposition: Patient orthopedically is doing well. We will need to continue to follow cultures and appreciate recommendation from infectious disease. Patient is currently on vancomycin and ceftriaxone. Plan will be for patient to continue with physical therapy for range of motion and strengthening. Weightbearing as tolerated. Patient will require the postoperative dressing for 5 days postoperatively. Continue with MARY butler bilaterally. We will need to see the patient back for a 2-week follow-up at [facility] [place] with Dr. Alexander Delgadillo. Plan to remove nai 2 weeks postoperatively.
[2021-04-17 08:08] LABS: International Normalized Ratio 1.6; Prothrombin Time (Protime)PT. 18.4 SECONDS (11.7-14.9)
[2021-04-17] MEDS: 0.9% Saline Lock 10 ML Syringe IV ×2 (08:37→16:46)
[2021-04-17] MEDS: Sodium Ferric Gluconat 250 MG in 0.9% Normal Saline 250 ML 135 MG IV (08:38)
[2021-04-17] MEDS: oxyCODONE 5 MG Tablet PO ×3 (08:47→19:37)
[2021-04-17] MEDS: Vitamin B Comp W-C Capsule 1 CAP PO (08:48)
[2021-04-17] MEDS: Potassium Chloride Oral Tablet 20 MEQ PO (08:48)
[2021-04-17] MEDS: Aspirin E.C. 81 MG Tablet PO (08:48)
[2021-04-17] MEDS: Pantoprazole Sodium 40 MG Tablet 80 MG PO (08:48)
[2021-04-17] MEDS: Senna/Docusate Sodium 1 Tablet 2 TABLET PO ×2 (08:48→20:59)
[2021-04-17] MEDS: Amiodarone 200 MG Tablet 100 MG PO (08:57)
[2021-04-17] MEDS: hydroCHLOROthiazide 12.5mg 12.5 MG PO (08:58)
[2021-04-17] MEDS: Ensure Surgery 237 ML LIQUID PO ×2 (08:59→12:07)
[2021-04-17] MEDS: 0.9 % NaCl (Sterile) Posiflush 10 mL IV (09:28)
[2021-04-17] MEDS: Vancomycin IV 500 MG/100 ML BAG 100 MG IV ×2 (12:00→23:09)
[2021-04-17] MEDS: Atenolol 25 MG Tablet PO (12:01)
[2021-04-17 12:16] LABS: Bedside Glucose 305 mg/dL (70-110)
[2021-04-17 16:31] LABS: Bedside Glucose 267 mg/dL (70-110)
[2021-04-17] MEDS: Morphine 4 MG/ML Syringe IV (16:45)
[2021-04-17 17:10] LABS: Bedside Glucose 250 mg/dL (70-110)
[2021-04-17] MEDS: Atorvastatin Calcium 10 MG Tablet PO (20:59)
[2021-04-17] MEDS: Losartan Potassium 100 MG Tablet PO (20:59)
[2021-04-17 21:06] LABS: Bedside Glucose 294 mg/dL (70-110)
[2021-04-18] VITALS (10 sets, daily range): BP systolic 112–152; BP diastolic 59–71; PULSE 48–79; RESP 16–18; TEMP 36.5–36.9; O2SAT 96–99
[2021-04-18] MEDS: oxyCODONE 5 MG Tablet PO ×6 (00:25→23:56)
[2021-04-18 00:35] LABS: Vancomycin, Trough Level 10.9 ug/mL (5.0-15.0)
--- NOTE | 2021-04-18 01:04 | PCM.RX.CS ---
Consult Pharmacy has been consulted to manage selected antiobiotic: Vancomycin Type of Consult: Follow-up Labs: Sodium 134 mmol/L (136-145) L 04/17/21 06:57 Potassium 4.3 mmol/L (3.5-5.1) 04/17/21 06:57 Chloride 100 mmol/L (98-107) 04/17/21 06:57 Carbon Dioxide 27.0 mmol/L (21.0-32.0) 04/17/21 06:57 Anion Gap 7 (5-15) 04/17/21 06:57 BUN 22 mg/dL (7-18) H 04/17/21 06:57 Creatinine 0.93 mg/dL (0.55-1.02) 04/17/21 06:57 Est GFR (MDRD) Af Amer 78 mL/min (>60) 04/17/21 06:57 Est GFR (MDRD) Non-Af 64 mL/min (>60) 04/17/21 06:57 BUN/Creatinine Ratio 23.7 RATIO (10-20) H 04/17/21 06:57 Glucose 252 mg/dL (74-106) H 04/17/21 06:57 Vancomycin Trough 10.9 ug/mL (5.0-15.0) 04/17/21 23:02 Microbiology: Microbiology 04/16/21 08:00 Tissue - Tibial Membrane Gram Stain - Final 04/16/21 08:00 Tissue - Tibial Membrane Wound Culture - Preliminary Gram positive organism 04/16/21 08:00 Tissue - Femoral Membrane Gram Stain - Final 04/16/21 08:00 Tissue - Femoral Membrane Wound Culture - Preliminary No growth-Final to follow 04/16/21 08:00 Tissue - Suprapatellar Pouch Gram Stain - Final 04/16/21 08:00 Tissue - Suprapatellar Pouch Wound Culture - Preliminary No growth-Final to follow 04/15/21 22:15 Nasal Secretion SARS-CoV-2 Antigen (Rapid) - Final Goal Trough: 15-20 mcg/mL Pharmacy Plan for Drug Dosing: Pharmacy Service will continue to monitor and adjust dosing as required. TROUGH 10.9 AT 11HRS. INCREASE TO 750MG Q12H AND FOLLOW UP TROUGH PRIOR TO 4TH DOSE Follow-Up Labs: Trough Vancomycin Labs to be done on [date and time ordered]: 04/19 @ 4394
[2021-04-18] MEDS: Acetaminophen 500 MG Tablet 1000 MG PO ×3 (06:03→22:32)
[2021-04-18] MEDS: Insulin Lispro 100 UNIT/ML INSULN.PEN SC ×4 (06:04→22:33)
[2021-04-18] MEDS: Levothyroxine 125 MCG Tablet PO (06:04)
[2021-04-18 06:15] LABS: Bedside Glucose 215 mg/dL (70-110)
--- NOTE | 2021-04-18 07:31 | PN.ORTHO_ITS ---
Subjective Subjective Patient sitting at bedside. Patient states pain is been very well managed. Patient denies chest pain calf pain, nausea vomiting. Patient has no other complaints at this time. Patient is anxious to return home. Objective Data Objective Data Vital Signs: Vital Signs Temp Pulse Resp BP Pulse Ox 98.2 F 56 L 18 112/59 L 99 04/18/21 02:43 04/18/21 02:43 04/18/21 02:43 04/18/21 02:43 04/18/21 02:43 Oxygen Flow Rate (L/min) 3 Oxygen Delivery Method Nasal Cannula Weight: 79.9 kg Body Mass Index (BMI) 32.4 Intake & Output: Intake and Output for Last 24 Hours 04/16/21 04/17/21 04/18/21 23:59 23:59 23:59 Intake Total 849.5 / 849.5 630 / 630 100 / 100 Balance 849.5 / 849.5 630 / 630 100 / 100 Lab / Micro Data Result Diagrams: 04/18/21 06:14 04/18/21 06:14 Labs: Laboratory Results - last 24 hr 04/17/21 06:57: PT 18.4 H, INR 1.6 04/17/21 06:57: Sodium 134 L, Potassium 4.3, Chloride 100, Carbon Dioxide 27.0, Anion Gap 7, BUN 22 H, Creatinine 0.93, Estim Creat Clear Calc 44.90, Est GFR (MDRD) Af Amer 78, Est GFR (MDRD) Non-Af 64, BUN/Creatinine Ratio 23.7 H, Glucose 252 H, Calcium 9.1 04/17/21 12:03: POC Glucose 305 H 04/17/21 16:26: POC Glucose 267 H 04/17/21 16:51: POC Glucose 250 H 04/17/21 20:55: POC Glucose 294 H 04/17/21 23:02: Vancomycin Trough 10.9 04/18/21 06:01: POC Glucose 215 H 04/18/21 06:14: WBC 11.4 H, RBC 1.81 L, Hgb 6.0 L*, Hct 19.0 L, MCV 105.0 H D, MCH 33.1 H, MCHC 31.6 L, RDW Std Deviation 58.2 H, RDW Coeff of Woody 15.5 H, Plt Count 326, MPV 9.8, Immature Gran % (Auto) 3.700 H, Neut % (Auto) 67.2, Lymph % (Auto) 19.5, [place] % (Auto) 7.3, Eos % (Auto) 1.8, Baso % (Auto) 0.5, Absolute Neuts (auto) 7.7, Absolute Lymphs (auto) 2.23, Nucleated RBC % 0 04/18/21 06:14: PT 12.1, INR 1.0 04/18/21 06:14: Sodium 137, Potassium 4.0, Chloride 101, Carbon Dioxide 32.0, Anion Gap 4 L, BUN 16, Creatinine 0.84, Estim Creat Clear Calc 49.04, Est GFR (MDRD) Af Amer 87, Est GFR (MDRD) Non-Af 72, BUN/Creatinine Ratio 19.0, Glucose 108 H, Calcium 9.2 Micro: Microbiology 04/16/21 08:00 Tissue - Tibial Membrane Gram Stain - Final 04/16/21 08:00 Tissue - Tibial Membrane Wound Culture - Preliminary Gram positive organism 04/16/21 08:00 Tissue - Femoral Membrane Gram Stain - Final 04/16/21 08:00 Tissue - Femoral Membrane Wound Culture - Preliminary No growth-Final to follow 04/16/21 08:00 Tissue - Suprapatellar Pouch Gram Stain - Final 04/16/21 08:00 Tissue - Suprapatellar Pouch Wound Culture - Preliminary No growth-Final to follow 04/15/21 22:15 Nasal Secretion SARS-CoV-2 Antigen (Rapid) - Final Physical Exam Narrative Patient alert and oriented. Patient in no respiratory distress, speaking in full sentences. Patient's dressing is clean dry intact. Patient has no calf pain no signs or symptoms of DVT. Patient has good plantar flexion dorsiflexion of the left ankle and foot. Neurovascular is otherwise intact. Harrison positive organisms noted in preliminary results. Patient's hemoglobin is 6.0. Patient is a Jehovah witness, and refuses transfusion Const alert and oriented x3 Eyes PERRL Neuro CN's II-XII intact bilaterally Assessment & Plan Assessment/Plan (1) Infection of prosthetic left knee joint: PLAN: 1. Continue all pain medications as prescribed 2. Ice to left knee 3. Medicine ID will continue to manage 4. Resume anticoagulation when hemoglobin is stable as directed by medicine 5. Continue antibiotic therapy as directed by ID 6. Patient to follow-up with Dr. Delgadillo in 2 weeks.
[2021-04-18] MEDS: Aspirin E.C. 81 MG Tablet PO (09:11)
[2021-04-18] MEDS: Vitamin B Comp W-C Capsule 1 CAP PO (09:11)
[2021-04-18] MEDS: Amiodarone 200 MG Tablet 100 MG PO (09:11)
[2021-04-18] MEDS: Pantoprazole Sodium 40 MG Tablet 80 MG PO (09:12)
[2021-04-18] MEDS: Atenolol 25 MG Tablet PO (09:12)
[2021-04-18] MEDS: Potassium Chloride Oral Tablet 20 MEQ PO (09:12)
[2021-04-18] MEDS: hydroCHLOROthiazide 12.5mg 12.5 MG PO (09:12)
[2021-04-18] MEDS: Senna/Docusate Sodium 1 Tablet 2 TABLET PO ×2 (09:12→22:32)
[2021-04-18] MEDS: Ensure Surgery 237 ML LIQUID PO ×2 (09:19→16:59)
--- NOTE | 2021-04-18 11:15 | PN.ID_ITS ---
ID ID: Route of nutrition/ use of supplements: [] Nutritional Intake: [] IV Site: [] Li Catheter: [] Patient is alert overall clinically stable. Denies any specific complaints, one of the operative specimens is growing rare growth of Enterococcus. Patient felisa ears to be tolerating parenteral antibiotic therapy well. Patient does have a PICC line in left arm. On exam she is alert does not appear toxic left knee appears stable. Abdomen soft nontender Based on the microbiology data, I will add ampicillin 2 g IV every 6 hours and closely follow the final sensitivity data of this Enterococcus.
[2021-04-18 11:50] LABS: Bedside Glucose 348 mg/dL (70-110)
--- NOTE | 2021-04-18 15:28 | CASEMGMT ---
JS VELEZ in to discuss discharge planning with patient. Per ID, patient will need IV ATBs at discharge. Patient states she would like to go home at discharge. RN AGUSTIN provided list of HHC and infusion companies. Patient states she would like [facility] and [facility]. JS VELEZ sent referrals to [facility] and [facility]. Per Michelle they are able to accept the patient with an anticipated discharge of Sunday. [facility] is requesting earlier discharge on Sunday if possible. Still awaiting script for IV ATB. CM will continue to follow this patient and plan for a safe discharge.
[2021-04-18 17:05] LABS: Bedside Glucose 258 mg/dL (70-110)
[2021-04-18 22:31] LABS: Bedside Glucose 245 mg/dL (70-110)
[2021-04-18] MEDS: Atorvastatin Calcium 10 MG Tablet PO (22:32)
[2021-04-18] MEDS: Losartan Potassium 100 MG Tablet PO (22:32)
[2021-04-19] VITALS (10 sets, daily range): BP systolic 140–154; BP diastolic 64–78; PULSE 57–70; RESP 16–18; TEMP 36.4–36.8; O2SAT 93–97
[2021-04-19] MEDS: oxyCODONE 5 MG Tablet PO ×4 (03:58→21:03)
[2021-04-19] MEDS: Acetaminophen 500 MG Tablet 1000 MG PO ×3 (06:25→21:03)
[2021-04-19] MEDS: Levothyroxine 125 MCG Tablet PO (06:25)
[2021-04-19] MEDS: Insulin Lispro 100 UNIT/ML INSULN.PEN SC ×4 (06:25→21:03)
[2021-04-19 06:50] LABS: Bedside Glucose 187 mg/dL (70-110)
--- NOTE | 2021-04-19 07:37 | PCM.PN.ORT ---
Subjective Subjective Patient sitting at bedside. Patient states her pain is been well managed. Patient reports that she had a brief nosebleed yesterday. Patient denies chest pain, shortness of breath, calf pain, nausea vomiting. Patient denies any dizziness or lightheadedness. No other complaints at this time. Objective Data Objective Data Vital Signs: Vital Signs Temp Pulse Resp BP Pulse Ox 97.7 F L 62 18 140/68 H 97 04/19/21 03:54 04/19/21 04:00 04/19/21 03:54 04/19/21 03:54 04/19/21 03:54 Oxygen Flow Rate (L/min) 2 Oxygen Delivery Method Nasal Cannula Weight: 79.9 kg Body Mass Index (BMI) 32.4 Intake & Output: Intake and Output for Last 24 Hours 04/17/21 04/18/21 04/19/21 23:59 23:59 23:59 Intake Total 630 / 630 1062.25 / 2562.25 1867.75 / 1867.75 Balance 630 / 630 1062.25 / 2562.25 1867.75 / 1867.75 Lab / Micro Data Result Diagrams: 04/18/21 06:14 04/18/21 06:14 Labs: Laboratory Results - last 24 hr 04/18/21 06:14: Differential Comment COMMENT, Diff Path Review May 04/18/21 11:48: POC Glucose 348 H 04/18/21 16:56: POC Glucose 258 H 04/18/21 22:22: POC Glucose 245 H 04/19/21 06:24: POC Glucose 187 H Micro: Microbiology 04/16/21 08:00 Tissue - Tibial Membrane Gram Stain - Final 04/16/21 08:00 Tissue - Tibial Membrane Wound Culture - Preliminary GPC Poss Enterococcus sp 04/16/21 08:00 Tissue - Tibial Membrane Anaerobic Culture - Preliminary 04/16/21 08:00 Tissue - Femoral Membrane Gram Stain - Final 04/16/21 08:00 Tissue - Femoral Membrane Wound Culture - Preliminary No growth-Final to follow 04/16/21 08:00 Tissue - Femoral Membrane Anaerobic Culture - Preliminary No growth in 48 hours. 04/16/21 08:00 Tissue - Suprapatellar Pouch Gram Stain - Final 04/16/21 08:00 Tissue - Suprapatellar Pouch Wound Culture - Preliminary No growth-Final to follow 04/16/21 08:00 Tissue - Suprapatellar Pouch Anaerobic Culture - Preliminary No growth in 48 hours. 04/15/21 22:15 Nasal Secretion SARS-CoV-2 Antigen (Rapid) - Final Physical Exam Narrative Patient in no respiratory distress, speaking in full sentences. Patient's dressing is clean dry intact. Or signs and symptoms of DVT. Patient hemoglobin is 6.0. Patient's vitals remained stable. Const alert and oriented x3 Eyes PERRL Neuro CN's II-XII intact bilaterally Assessment & Plan Assessment/Plan (1) Infection of prosthetic left knee joint: PLAN: 1. Continue continue all pain medications as prescribed 2. Continue physical therapy 3. Encourage incentive spirometry 4. Discussed with medicine, who will continue to manage medically. Patient is Orthodox and refuses transfusion 5. ID will continue to to manage antibiotic treatments (2) Anemia: QUALIFIERS: Other causes of anemia: other cause, not classified Anemia type: other cause Qualified Code(s): D64.89 - Other specified anemias
[2021-04-19 09:21] LABS: Absolute Lymphocyte Count 1.16 X10^3/uL (0.83-4.51); Absolute Neutrophil Count 7.8 X10^3/uL (2.0-7.7); Basophil# 0.02 X10^3/uL; Basophil% 0.2 % (0-1); Eosinophil# 0.11 X10^3/uL; Eosinophils% 1.1 % (0-5); Hematocrit 29.6 % (37-47); Hemoglobin 9.6 g/dL (12.0-15.0); Lymphocyte # 1.16 X10^3/ul (0.83-4.51); Lymphocyte % 11.8 % (19-41); Mean Corp Hgb Conc 32.4 g/dL (32-36); Mean Corpuscular Hgb 29.8 pg (27.0-32.0); Mean Corpuscular Volume 91.9 fL (81-99); Mean Platelet Vol. 8.8 fl (6.2-12.0); Monocyte# 0.64 X10^3/uL; Monocyte% 6.5 % (0-10); NRBC Flagged by Analyzer 0.2 % (0-5); Neutrophil # 7.77 X10^3/uL (2.7-7.7); Platelet Count 415 K/mm3 (150-450); RBC Distribution Width CV 13.2 % (11.6-14.6); RBC Distribution Width SD 43.7 fl (35.1-43.9); Red Blood Count 3.22 M/mm3 (4.2-5.4); White Blood Count 9.8 K/mm3 (4.4-11.0)
[2021-04-19] MEDS: Vitamin B Comp W-C Capsule 1 CAP PO (10:24)
[2021-04-19] MEDS: Amiodarone 200 MG Tablet 100 MG PO (10:25)
[2021-04-19] MEDS: Aspirin E.C. 81 MG Tablet PO (10:25)
[2021-04-19] MEDS: hydroCHLOROthiazide 12.5mg 12.5 MG PO (10:26)
[2021-04-19] MEDS: Pantoprazole Sodium 40 MG Tablet 80 MG PO (10:27)
[2021-04-19] MEDS: Potassium Chloride Oral Tablet 20 MEQ PO (10:27)
[2021-04-19] MEDS: Senna/Docusate Sodium 1 Tablet 2 TABLET PO ×2 (10:28→21:03)
[2021-04-19] MEDS: Ensure Surgery 237 ML LIQUID PO ×2 (10:29→11:41)
[2021-04-19] MEDS: Atenolol 25 MG Tablet PO (10:30)
[2021-04-19 10:59] LABS: Anion Gap 9 (5-15); BUN 19 mg/dL (7-18); BUN/Creat Ratio 21.4 RATIO (10-20); Calcium,Total 8.9 mg/dL (8.5-10.1); Chloride 98 mmol/L (98-107); Creatinine, Serum 0.89 mg/dL (0.55-1.02); EST Glomerular Filtration Rate 67 mL/min (>60); Est Glom Filt Rate - Afr Amer 82 mL/min (>60); Estimated Creatinine Clearance 46.29 ml/min; Glucose 329 mg/dL (74-106); Potassium 4.1 mmol/L (3.5-5.1); Sodium Level 136 mmol/L (136-145)
[2021-04-19 11:35] LABS: Bedside Glucose 397 mg/dL (70-110)
[2021-04-19 11:40] LABS: International Normalized Ratio 1.5; Prothrombin Time (Protime)PT. 17.3 SECONDS (11.7-14.9)
--- NOTE | 2021-04-19 13:38 | PN.HOSP_ITS ---
Subjective Subjective Feels tired. Denies any new complaints. Objective Data Objective Data Vital Signs: Vital Signs Temp Pulse Resp BP Pulse Ox 36.5 C L 70 18 154/78 H 95 04/19/21 10:00 04/19/21 11:54 04/19/21 10:00 04/19/21 10:00 04/19/21 10:02 Oxygen Flow Rate (L/min) 2 Oxygen Delivery Method Room Air Weight: 79.9 kg Body Mass Index (BMI) 32.4 Intake & Output: Intake and Output for Last 24 Hours 04/17/21 04/18/21 04/19/21 23:59 23:59 23:59 Intake Total 630 / 630 1062.25 / 2562.25 1867.75 / 1867.75 Balance 630 / 630 1062.25 / 2562.25 1867.75 / 1867.75 Lab / Micro Data Result Diagrams: 04/19/21 08:45 04/19/21 08:45 Labs: Laboratory Results - last 24 hr 04/18/21 06:14: WBC Cancelled, Corrected WBC Cancelled, RBC Cancelled, Hgb Cancelled, Hct Cancelled, MCV Cancelled, MCH Cancelled, MCHC Cancelled, RDW Std Deviation Cancelled, RDW Coeff of Woody Cancelled, Plt Count Cancelled, MPV Cancelled, Immature Gran % (Auto) Cancelled, Neut % (Auto) Cancelled, Lymph % (Auto) Cancelled, [place] % (Auto) Cancelled, Eos % (Auto) Cancelled, Baso % (Auto) Cancelled, Absolute Neuts (auto) Cancelled, Absolute Lymphs (auto) Cancelled, Total Counted Cancelled, Neutrophils % (Manual) Cancelled, Band Neutrophils % Cancelled, Lymphocytes % (Manual) Cancelled, Monocytes % (Manual) Cancelled, Eosinophils % (Manual) Cancelled, Basophils % (Manual) Cancelled, Metamyelocytes % Cancelled, Myelocytes % Cancelled, Promyelocytes % Cancelled, Blast Cells % Cancelled, Plasma Cell % (Manual) Cancelled, Other Cells % Cancelled, Nucleated RBC % Cancelled, Nucleated RBCs/100 WBC Cancelled, Differential Comment Cancelled, Diff Path Review Cancelled, Hypersegmented Neuts Cancelled, Atypical Lymphocytes Cancelled, Reactive Lymphocytes Cancelled, Smudge Cells Cancelled, Toxic Granulation Cancelled, Toxic Vacuolation Cancelled, Dohle Bodies Cancelled, Jamar Rods Cancelled, Platelet Estimate Cancelled, Plt Morphology Comment Cancelled, RBC Morphology Cancelled, Polychromasia Cancelled, Hypochromasia Cancelled, Poikilocytosis Cancelled, Basophilic Stippling Cancelled, Anisocytosis Cancelled, Microcytosis Cancelled, Macrocytosis Cancelled, Spherocytes Cancelled, Sickle Cells Cancelled, Target Cells Cancelled, Tear Drop Cells Cancelled, Ovalocytes Cancelled, Stomatocytes Cancelled, [place] Bodies Cancelled, [place] Cells Cancelled, Bite Cells Cancelled, Crenated Cell Cancelled, Acanthocytes (Spur) Cancelled, Rouleaux C ancelled, Schistocytes Cancelled 04/18/21 06:14: PT Cancelled, INR Cancelled 04/18/21 06:14: Sodium Cancelled, Potassium Cancelled, Chloride Cancelled, Ca rbon Dioxide Cancelled, Anion Gap Cancelled, BUN Cancelled, Creatinine Cancelled, Estim Creat Clear Calc Cancelled, Est GFR (MDRD) Af Amer Cancelled, Est GFR (MDRD) Non-Af Cancelled, BUN/Creatinine Ratio Cancelled, Glucose Cancelled, Calcium Cancelled 04/18/21 16:56: POC Glucose 258 H 04/18/21 22:22: POC Glucose 245 H 04/19/21 06:24: POC Glucose 187 H 04/19/21 08:45: WBC 9.8, RBC 3.22 L, Hgb 9.6 L, Hct 29.6 L, MCV 91.9, MCH 29.8, MCHC 32.4, RDW Std Deviation 43.7, RDW Coeff of Woody 13.2, Plt Count 415, MPV 8.8, Immature Gran % (Auto) 1.400 H, Neut % (Auto) 79.0 H, Lymph % (Auto) 11.8 L , [place] % (Auto) 6.5, Eos % (Auto) 1.1, Baso % (Auto) 0.2, Absolute Neuts (auto) 7.8 H, Absolute Lymphs (auto) 1.16, Nucleated RBC % 0.2 04/19/21 08:45: Sodium 136, Potassium 4.1, Chloride 98, Carbon Dioxide 29.0, Anion Gap 9, BUN 19 H, Creatinine 0.89, Estim Creat Clear Calc 46.29, Est GFR (MDRD) Af Amer 82, Est GFR (MDRD) Non-Af 67, BUN/Creatinine Ratio 21.4 H, Glucose 329 H, Calcium 8.9 04/19/21 11:11: PT 17.3 H, INR 1.5 04/19/21 11:27: POC Glucose 397 H Micro: Microbiology 04/16/21 08:00 Tissue - Tibial Membrane Gram Stain - Final 04/16/21 08:00 Tissue - Tibial Membrane Wound Culture - Preliminary Strep salivarius sp salivarius 04/16/21 08:00 Tissue - Tibial Membrane Anaerobic Culture - Preliminary 04/16/21 08:00 Tissue - Femoral Membrane Gram Stain - Final 04/16/21 08:00 Tissue - Femoral Membrane Wound Culture - Final No growth aerobically. 04/16/21 08:00 Tissue - Femoral Membrane Anaerobic Culture - Preliminary No growth in 48 hours. 04/16/21 08:00 Tissue - Suprapatellar Pouch Gram Stain - Final 04/16/21 08:00 Tissue - Suprapatellar Pouch Wound Culture - Final No growth aerobically. 04/16/21 08:00 Tissue - Suprapatellar Pouch Anaerobic Culture - Preliminary No growth in 48 hours. 04/15/21 22:15 Nasal Secretion SARS-CoV-2 Antigen (Rapid) - Final Physical Exam Const alert and no apparent distress Resp normal respiratory effort, no retractions and no use of accessory muscles Cardio regular rate, regular rhythm and S1 normal heart sound GI normal to inspection, nondistended, normoactive bowel sounds, soft to palpation, non-tender and non-distended Extremity normal to inspection Assessment & Plan Assessment/Plan (1) Anemia: QUALIFIERS: Anemia type: other cause Other causes of anemia: other cause, not classified Qualified Code(s): D64.89 - Other specified anemias (2) Infection of prosthetic left knee joint: QUALIFIERS: Encounter type: sequela Qualified Code(s): T84.54XS - Infection and inflammatory reaction due to internal left knee prosthesis, sequela PLAN: 1. Anemia Patient had a hemoglobin that read at 6 on the . Today, the hemoglobin is 9.6. The lab from the has since been rejected by laboratory. So that was obviously a laboratory error. Hemoglobin is currently stable. No additional anemia work-up is necessary at this time. Of note, if the patient does have further anemia issue she is a [place]anda[place] and would refuse any transfusions. Fortunately, no transfusions are indicated at this time. No additional work-up at this time 2. Atrial fibrillation Patient had been on warfarin and was put on it because her did not want to pay for the rivaroxaban which was too expensive. Patient now states that she would rather be on rivaroxaban given the convenience of administration rather than doing with the getting her labs checked with warfarin. 3. Septic arthritis of prosthetic knee S/P I+D w complete synovectomy and polyethylene exchange on the 04/16 micro showing Strep salivarius sp. ID following. On vanc 4. VTE prophylaxis: anticoagulated. Charges/Coding Visit Charges Inpatient E&M: 54850 Subs Hosp L2
--- NOTE | 2021-04-19 13:49 | CASEMGMT ---
JS VELEZ NOTE: TC to Carmela @ [facility]. Culture sensitivity is still pending, so unknown at this time what atb's pt will be on @ discharge. Carmela did provide the following costs: Vanco $22.61/wk Ceftriaxone- $9.64/wk Ampicillin- $51.76/wk In addition, there will be an additional charge of $80/week, per atb, for supplies and pharmacy fees. Mark PALACIOS RN, CM
[2021-04-19] MEDS: Rivaroxaban 20 MG Tablet PO (16:55)
[2021-04-19 17:06] LABS: Bedside Glucose 313 mg/dL (70-110)
[2021-04-19] MEDS: Atorvastatin Calcium 10 MG Tablet PO (21:02)
[2021-04-19] MEDS: Losartan Potassium 100 MG Tablet PO (21:03)
[2021-04-19 21:06] LABS: Bedside Glucose 277 mg/dL (70-110)
[2021-04-20] VITALS (7 sets, daily range): BP systolic 156–175; BP diastolic 68–83; PULSE 56–68; RESP 16; TEMP 36.5–36.7; O2SAT 95–97
[2021-04-20 00:24] LABS: Vancomycin, Trough Level 12.4 ug/mL (5.0-15.0)
--- NOTE | 2021-04-20 01:16 | PCM.RX.CS ---
Consult Pharmacy has been consulted to manage selected antiobiotic: Vancomycin Type of Consult: Follow-up Labs: Sodium 136 mmol/L (136-145) 04/19/21 08:45 Potassium 4.1 mmol/L (3.5-5.1) 04/19/21 08:45 Chloride 98 mmol/L (98-107) 04/19/21 08:45 Carbon Dioxide 29.0 mmol/L (21.0-32.0) 04/19/21 08:45 Anion Gap 9 (5-15) 04/19/21 08:45 BUN 19 mg/dL (7-18) H 04/19/21 08:45 Creatinine 0.89 mg/dL (0.55-1.02) 04/19/21 08:45 Est GFR (MDRD) Af Amer 82 mL/min (>60) 04/19/21 08:45 Est GFR (MDRD) Non-Af 67 mL/min (>60) 04/19/21 08:45 BUN/Creatinine Ratio 21.4 RATIO (10-20) H 04/19/21 08:45 Glucose 329 mg/dL (74-106) H 04/19/21 08:45 Vancomycin Trough 12.4 ug/mL (5.0-15.0) 04/19/21 22:06 Microbiology: Microbiology 04/16/21 08:00 Tissue - Tibial Membrane Gram Stain - Final 04/16/21 08:00 Tissue - Tibial Membrane Wound Culture - Preliminary Strep salivarius sp salivarius 04/16/21 08:00 Tissue - Tibial Membrane Anaerobic Culture - Preliminary 04/16/21 08:00 Tissue - Femoral Membrane Gram Stain - Final 04/16/21 08:00 Tissue - Femoral Membrane Wound Culture - Final No growth aerobically. 04/16/21 08:00 Tissue - Femoral Membrane Anaerobic Culture - Preliminary No growth in 48 hours. 04/16/21 08:00 Tissue - Suprapatellar Pouch Gram Stain - Final 04/16/21 08:00 Tissue - Suprapatellar Pouch Wound Culture - Final No growth aerobically. 04/16/21 08:00 Tissue - Suprapatellar Pouch Anaerobic Culture - Preliminary No growth in 48 hours. 04/15/21 22:15 Nasal Secretion SARS-CoV-2 Antigen (Rapid) - Final Pharmacy Plan for Drug Dosing: Pharmacy Service will continue to monitor and adjust dosing as required. TROUGH 12.4 @ 10.5 HRS. INCREASE TO 1GM Q12H AND FOLLOW UP TROUGH PRIOR TO 4TH DOSE Follow-Up Labs: Trough Vancomycin Labs to be done on [date and time ordered]: 04/21 @ [id number]
[2021-04-20] MEDS: oxyCODONE 5 MG Tablet PO ×4 (01:50→14:33)
[2021-04-20] MEDS: Levothyroxine 125 MCG Tablet PO (05:57)
[2021-04-20] MEDS: Acetaminophen 500 MG Tablet 1000 MG PO ×2 (05:57→14:32)
[2021-04-20] MEDS: Insulin Lispro 100 UNIT/ML INSULN.PEN SC ×2 (06:11→11:21)
[2021-04-20 06:26] LABS: Bedside Glucose 212 mg/dL (70-110)
[2021-04-20 06:49] LABS: Anion Gap 7 (5-15); BUN 22 mg/dL (7-18); BUN/Creat Ratio 25.5 RATIO (10-20); Calcium,Total 8.8 mg/dL (8.5-10.1); Chloride 100 mmol/L (98-107); Creatinine, Serum 0.86 mg/dL (0.55-1.02); EST Glomerular Filtration Rate 70 mL/min (>60); Est Glom Filt Rate - Afr Amer 84 mL/min (>60); Glucose 238 mg/dL (74-106); Potassium 4.4 mmol/L (3.5-5.1); Sodium Level 137 mmol/L (136-145)
[2021-04-20] MEDS: Amiodarone 200 MG Tablet 100 MG PO (07:52)
[2021-04-20] MEDS: Pantoprazole Sodium 40 MG Tablet 80 MG PO (07:52)
[2021-04-20] MEDS: Vitamin B Comp W-C Capsule 1 CAP PO (07:52)
[2021-04-20] MEDS: Atenolol 25 MG Tablet PO (07:53)
[2021-04-20] MEDS: Potassium Chloride Oral Tablet 20 MEQ PO (07:53)
[2021-04-20] MEDS: Aspirin E.C. 81 MG Tablet PO (07:53)
[2021-04-20] MEDS: hydroCHLOROthiazide 12.5mg 12.5 MG PO (07:53)
[2021-04-20] MEDS: Senna/Docusate Sodium 1 Tablet 2 TABLET PO (07:53)
--- NOTE | 2021-04-20 11:08 | PCM.PN.ID ---
Physical Exam Narrative Alert does not appear toxic. Overall clinically stable PICC line is in place. Lungs are clear heart exam S1-S2 left knee appears stable. ID ID: Alert had a relatively uneventful night. Microbiology data reviewed Route of nutrition/ use of supplements: [] Nutritional Intake: [] IV Site: [] Li Catheter: [] Assessment & Plan Assessment/Plan (1) Infection of prosthetic left knee joint: QUALIFIERS: Encounter type: sequela Qualified Code(s): T84.54XS - Infection and inflammatory reaction due to internal left knee prosthesis, sequela PLAN: Based on the microbiology data of the intraoperative culture will treat with ceftriaxone 2 g IV daily through May 27 with weekly blood work that includes a CBC, CMP, ESR. Prescription written.
[2021-04-20 11:50] LABS: Bedside Glucose 323 mg/dL (70-110)
--- NOTE | 2021-04-20 11:51 | CASEMGMT ---
JS VELEZ received script from ID for IV Rocephin daily. JS VELEZ updated [facility] and [facility]. Patient to discharge home today with planned start of care for 04/21/21 1100. JS VELEZ updated patient regarding IV ATB, [facility] start of care, and potential costs. Patient voiced understanding. Patient had no further questions or concerns at this time.
--- NOTE | 2021-04-20 12:05 | PCM.DC ---
Discharge Instructions Diet Discharge Diet: No restrictions Activity Discharge Activity: Return to Normal Activity and Use Walker Dressing / Incision Call your doctor if you observe: Fever of 101 or Higher and Shortness of breath Follow Up Care Test Results: Test results from this visit will be discussed in further detail at your follow-up appointment, if applicable. Discharge Plan Admission Admit Date/Time: 04/14/21 15:18 Primary Reason for Your Visit: septic arthritis Attending Provider: Mickey Guaman Primary Care Provider: Karlos Tang Consulting Providers: Alexander Delgadillo ; Carlton Prado Discharge Orders/Prescriptions Prescriptions: New Xarelto 20 mg Tablet 20 mg PO DINNER Qty: 30 RF: 0 oxycodone 5 mg Tablet 5 mg PO Q4H PRN PRN (Reason: Pain Score 6-10/10) 3 Days Qty: 12 RF: 0 ceftriaxone in dextrose,iso-os 2 gram/50 mL piggyback 2 g IV DAILY Qty: 24 RF: 0 Continued tramadol 50 mg tablet 50 mg PO TID RF: 0 levothyroxine 125 mcg tablet 125 mcg PO DAILY RF: 0 hydrochlorothiazide 12.5 mg capsule 12.5 mg PO DAILY Qty: 90 RF: 3 losartan 100 mg tablet 100 mg PO QHS Qty: 90 RF: 3 potassium chloride 20 mEq tablet,ER particles/crystals 20 meq PO DAILY Qty: 90 RF: 3 simvastatin 20 mg tablet 20 mg PO QHS Qty: 90 RF: 3 B-complex with vitamin C 1 EACH tablet 1 ea PO DAILY RF: 0 metformin 500 mg tablet 500 mg PO BIDCM RF: 0 loratadine 10 mg tablet 10 mg PO DAILY PRN (Reason: SEASONAL ALLERGIES) RF: 0 omeprazole 40 mg capsule,delayed release(DR/EC) 40 mg PO BID RF: 0 atenolol 25 mg tablet 25 mg PO DAILY Qty: 90 RF: 3 aspirin [Adult Low Dose Aspirin] 81 mg tablet,delayed release (DR/EC) 81 mg PO DAILY RF: 0 amiodarone 100 mg tablet 100 mg PO DAILY RF: 0 Hold Instructions: Persistent cough Discontinued warfarin 4 mg tablet 4 mg PO DAILY Qty: 30 RF: 11 Referrals / Follow Up: Karlos Tang DO [Primary Care Provider] - Within 2 Weeks Carlton Prado MD [STAFF PHYSICIAN] - Within 2 Weeks Alexander Delgadillo MD [STAFF PHYSICIAN] - Within 2 Weeks Disposition Disposition (needs filled in before D/C Order can be placed): Home Health Service
--- NOTE | 2021-04-20 12:43 | DS.PCM_ITS ---
Providers Date of Admission: 04/14/21 Primary Care Physician: Dr. Karlos Tang, Consultations 04/14/21 15:24 Consult: Infectious Disease Routine Consulting Provider: Carlton Prado Reason for Consult: Septic knee EMERGENT Consult: No MD Notified: Yes Date Notified: 04/15/21 Time Notified: 07:38 Method of Notification: Answering Service Consult: Orthopedics Routine Consulting Provider: Alexander Delgadillo Reason for Consult: Septic knee EMERGENT Consult: No Notified: Yes Date Notified: 04/14/21 Time Notified: 15:24 Method of Notification: Verbal Diagnosis Discharge Diagnosis (1) Infection of prosthetic left knee joint: Status: Acute Code(s): T84.54XA - Infection and inflammatory reaction due to internal left knee prosthesis, initial encounter Qualifiers: Encounter type: sequela Qualified Code(s): T84.54XS - Infection and inflammatory reaction due to internal left knee prosthesis, sequela Medications at Discharge Home Medications B-complex with vitamin C 1 ea PO DAILY 06/03/15 tramadol 50 mg tablet 50 mg PO TID tab 11/30/17 levothyroxine 125 mcg tablet 125 mcg PO DAILY 06/07/18 loratadine 10 mg tablet 10 mg PO DAILY PRN 06/07/18 hydrochlorothiazide 12.5 mg capsule 12.5 mg PO DAILY #90 cap 06/05/19 losartan 100 mg tablet 100 mg PO QHS #90 tab 06/05/19 metformin 500 mg tablet 500 mg PO BIDCM tab 06/05/19 potassium chloride 20 mEq tablet,extended release(part/cryst) 20 meq PO DAILY #90 tab 06/05/19 simvastatin 20 mg tablet 20 mg PO QHS #90 tab 06/05/19 atenolol 25 mg tablet 25 mg PO DAILY #90 tab 06/11/20 amiodarone 100 mg tablet 100 mg PO DAILY 03/29/21 aspirin 81 mg tablet,delayed release 81 mg PO DAILY 03/29/21 omeprazole 40 mg PO BID 04/14/21 ceftriaxone in dextrose,iso-os 2 g IV DAILY #24 ea 04/20/21 oxycodone 5 mg PO Q4H PRN PRN 3 Days #12 tab 04/20/21 rivaroxaban [Xarelto] 20 mg PO DINNER #30 tab 04/20/21 Hospital Course Operations - ( Irrigation debridement with complete synovectomy and polyethylene exchange 1 component revision left knee) Procedures None Summary of Care Provided Minutes Spent on Discharge: 32 Hospital Course: 1. Anemia Patient had a hemoglobin that read at 6 on the . Today, the hemoglobin is 9.6. The lab from the has since been rejected by laboratory. So that was obviously a laboratory error. Hemoglobin is currently stable. No additional anemia work-up is necessary at this time. Of note, if the patient does have further anemia issue she is a [employer]ism and would refuse any transfusions. Fortunately, no transfusions are indicated at this time. No additional work-up at this time 2. Atrial fibrillation Patient had been on warfarin and was put on it because her did not want to pay for the rivaroxaban which was too expensive. Patient now states that she would rather be on rivaroxaban given the convenience of administration rather than doing with the getting her labs checked with warfarin. 3. Septic arthritis of prosthetic knee S/P I+D w complete synovectomy and polyethylene exchange on the 04/16 micro showing Strep salivarius sp. ID following. Ceftriaxone through 05/27/21 Physical Exam Resp normal respiratory effort, no retractions, no use of accessory muscles and clear to auscultation bilaterally Cardio regular rate and regular rhythm GI normal to inspection, nondistended, normoactive bowel sounds and soft to palpation Weight / BMI Weight Weight: 79.9 kg Body Mass Index (BMI) 32.4 ABG / Lab / Microbiology Data Result Diagrams: 04/19/21 08:45 04/20/21 06:17 Laboratory: Laboratory Results - last 24 hr 04/19/21 16:51: POC Glucose 313 H 04/19/21 20:54: POC Glucose 277 H 04/19/21 22:06: Vancomycin Trough 12.4 04/20/21 06:10: POC Glucose 212 H 04/20/21 06:17: Sodium 137, Potassium 4.4, Chloride 100, Carbon Dioxide 30.0, Anion Gap 7, BUN 22 H, Creatinine 0.86, Estim Creat Clear Calc 47.90, Est GFR (MDRD) Af Amer 84, Est GFR (MDRD) Non-Af 70, BUN/Creatinine Ratio 25.5 H, Glucose 238 H, Calcium 8.8 04/20/21 11:19: POC Glucose 323 H Microbiology: Microbiology 04/16/21 08:00 Tissue - Tibial Membrane Gram Stain - Final 04/16/21 08:00 Tissue - Tibial Membrane Wound Culture - Final Strep salivarius sp salivarius 04/16/21 08:00 Tissue - Tibial Membrane Anaerobic Culture - Final No anaerobic bacteria isolated. 04/16/21 08:00 Tissue - Femoral Membrane Gram Stain - Final 04/16/21 08:00 Tissue - Femoral Membrane Wound Culture - Final No growth aerobically. 04/16/21 08:00 Tissue - Femoral Membrane Anaerobic Culture - Preliminary No growth in 48 hours. 04/16/21 08:00 Tissue - Suprapatellar Pouch Gram Stain - Final 04/16/21 08:00 Tissue - Suprapatellar Pouch Wound Culture - Final No growth aerobically. 04/16/21 08:00 Tissue - Suprapatellar Pouch Anaerobic Culture - Preliminary No growth in 48 hours. 04/15/21 22:15 Nasal Secretion SARS-CoV-2 Antigen (Rapid) - Final D/C Instructions Discharge Diet: No restrictions Call your doctor if you observe: Fever of 101 or Higher and Shortness of breath Meaningful Use Info Meaningful Use Diagnoses (Choose all that apply): None applicable Discharge Plan Admission Admit Date/Time: 04/14/21 15:18 Primary Reason for Your Visit: septic arthritis Attending Provider: Mickey Guaman Primary Care Provider: Karlos Tang Consulting Providers: Alexander Delgadillo ; Carlton Prado Discharge Orders/Prescriptions Prescriptions: New Xarelto 20 mg Tablet 20 mg PO DINNER Qty: 30 RF: 0 oxycodone 5 mg Tablet 5 mg PO Q4H PRN PRN (Reason: Pain Score 6-10/10) 3 Days Qty: 12 RF: 0 ceftriaxone in dextrose,iso-os 2 gram/50 mL piggyback 2 g IV DAILY Qty: 24 RF: 0 Continued tramadol 50 mg tablet 50 mg PO TID RF: 0 levothyroxine 125 mcg tablet 125 mcg PO DAILY RF: 0 hydrochlorothiazide 12.5 mg capsule 12.5 mg PO DAILY Qty: 90 RF: 3 losartan 100 mg tablet 100 mg PO QHS Qty: 90 RF: 3 potassium chloride 20 mEq tablet,ER particles/crystals 20 meq PO DAILY Qty: 90 RF: 3 simvastatin 20 mg tablet 20 mg PO QHS Qty: 90 RF: 3 B-complex with vitamin C 1 EACH tablet 1 ea PO DAILY RF: 0 metformin 500 mg tablet 500 mg PO BIDCM RF: 0 loratadine 10 mg tablet 10 mg PO DAILY PRN (Reason: SEASONAL ALLERGIES) RF: 0 omeprazole 40 mg capsule,delayed release(DR/EC) 40 mg PO BID RF: 0 atenolol 25 mg tablet 25 mg PO DAILY Qty: 90 RF: 3 aspirin [Adult Low Dose Aspirin] 81 mg tablet,delayed release (DR/EC) 81 mg PO DAILY RF: 0 amiodarone 100 mg tablet 100 mg PO DAILY RF: 0 Hold Instructions: Persistent cough Discontinued warfarin 4 mg tablet 4 mg PO DAILY Qty: 30 RF: 11 Referrals / Follow Up: Karlos Tang DO [Primary Care Provider] - Within 2 Weeks Carlton Prado MD [STAFF PHYSICIAN] - Within 2 Weeks Alexander Delgadillo MD [STAFF PHYSICIAN] - Within 2 Weeks Disposition Disposition (needs filled in before D/C Order can be placed): Home Health Service Charges/Coding Visit Charges Inpatient E&M: 19068 Disch Hosp
[2021-04-20] MEDS: 0.9% Saline Lock 10 ML Syringe IV (14:33)
== END 2021-04-20 15:00 | disposition home health service (06) | DRG 467 ==
LOC: SDC 16:22 → MS2 16:22
PROVIDERS: Anesthesiology; Internal Medicine; Admitting Provider Specialist; PCP Family Medicine; Referring Provider Specialist
PROC: 0SRW0JZ Replacement of Left Knee Joint, Tibial Surface with Synthetic Substitute, Open Approach (ICD-10-PCS; CPT 27301; principal; 2021-04-16 07:00)
DX: T84.54XA Infection and inflammatory reaction due to internal left knee prosthesis, initial encounter (principal); M00.9 Pyogenic arthritis, unspecified; D62 Acute posthemorrhagic anemia; Y83.1 Surgical operation with implant of artificial internal device as the cause of abnormal reaction of the patient, or of later complication, without mention of misadventure at the time of the procedure; R04.0 Epistaxis; M65.9 Synovitis and tenosynovitis, unspecified; I48.0 Paroxysmal atrial fibrillation; E11.9 Type 2 diabetes mellitus without complications; E03.9 Hypothyroidism, unspecified; I10 Essential (primary) hypertension; E78.5 Hyperlipidemia, unspecified; K21.9 Gastro-esophageal reflux disease without esophagitis; E66.9 Obesity, unspecified; Z68.31 Body mass index [BMI] 31.0-31.9, adult; Z66 Do not resuscitate; R79.1 Abnormal coagulation profile; D64.9 Anemia, unspecified; Z79.01 Long term (current) use of anticoagulants; Z82.41 Family history of sudden cardiac death; Z79.82 Long term (current) use of aspirin; Z82.0 Family history of epilepsy and other diseases of the nervous system; Z82.3 Family history of stroke; Z82.49 Family history of ischemic heart disease and other diseases of the circulatory system; Z83.3 Family history of diabetes mellitus
CPT/HCPCS: 36415; 36569; 73560; 80048; 80053; 80202; 81001; 82962; 83036; 83735; 84443; 85025; 85610; 85652; 86141; 87015; 87070; 87075; 87077; 87102; 87116; 87176; 87186; 87205; 87206; 87426; 89050; 89051; 89060; 93005; 97110; 97116; 97162; 97164; 97165; 97166; 97168; 97530; 97535; 99251; C1776; J7050; J7120; A4216; G0463; J0696; J2405; J2916

== ENCOUNTER 2021-04-28 15:46 | Outpatient (RCR) | payer MEDICARE, SELFPAY ==
[2021-04-28 16:22] LABS: Hematocrit 34.7 % (37-47); Hemoglobin 10.5 g/dL (12.0-15.0); Mean Corp Hgb Conc 30.3 g/dL (32-36); Mean Corpuscular Hgb 28.8 pg (27.0-32.0); Mean Corpuscular Volume 95.1 fL (81-99); Mean Platelet Vol. 9.1 fl (6.2-12.0); Platelet Count 301 K/mm3 (150-450); RBC Distribution Width CV 14.8 % (11.6-14.6); RBC Distribution Width SD 49.9 fl (35.1-43.9); Red Blood Count 3.65 M/mm3 (4.2-5.4)
[2021-04-28 16:28] LABS: Erythrocyte Sedimentation Rate 44 mm/hr (0-30)
[2021-04-28 16:33] LABS: ALB/GLOB Ratio 0.8 RATIO (0.9-2.4); AST(SGOT) 26 U/L (15-37); Alanine Aminotransfer ALT/SGPT 42 U/L (13-56); Albumin, Serum 3.3 g/dL (3.2-5.0); Alkaline Phosphatase 63 U/L (45-117); Anion Gap 7 (5-15); BUN 21 mg/dL (7-18); BUN/Creat Ratio 18.9 RATIO (10-20); Calcium,Total 9.4 mg/dL (8.5-10.1); Chloride 100 mmol/L (98-107); Creatinine, Serum 1.11 mg/dL (0.55-1.02); EST Glomerular Filtration Rate 52 mL/min (>60); Est Glom Filt Rate - Afr Amer 63 mL/min (>60); Globulin 4.2 g/dL (2.2-4.2); Glucose 146 mg/dL (74-106); Potassium 4.3 mmol/L (3.5-5.1); Protein, Total 7.5 g/dL (6.4-8.2); Sodium Level 137 mmol/L (136-145)
== END 2021-04-30 18:00 | disposition home or self-care (01) ==
LOC: HHLAB 15:46
PROVIDERS: PCP Family Medicine; Visit Provider Internal Medicine Infectious Disease
DX: M00.9 Pyogenic arthritis, unspecified (principal)
CPT/HCPCS: 80053; 85027; 85652

== ENCOUNTER 2021-05-05 13:33 | Outpatient (RCR) | payer MEDICARE, SELFPAY ==
[2021-05-05 15:20] LABS: Hematocrit 33.9 % (37-47); Hemoglobin 10.5 g/dL (12.0-15.0); Mean Corpuscular Hgb 29.2 pg (27.0-32.0); Mean Corpuscular Volume 94.2 fL (81-99); Mean Platelet Vol. 9.4 fl (6.2-12.0); Platelet Count 328 K/mm3 (150-450); RBC Distribution Width CV 14.9 % (11.6-14.6); RBC Distribution Width SD 51.7 fl (35.1-43.9)
[2021-05-05 15:37] LABS: ALB/GLOB Ratio 0.9 RATIO (0.9-2.4); AST(SGOT) 23 U/L (15-37); Alanine Aminotransfer ALT/SGPT 30 U/L (13-56); Albumin, Serum 3.6 g/dL (3.2-5.0); Alkaline Phosphatase 59 U/L (45-117); Anion Gap 10 (5-15); BUN 21 mg/dL (7-18); BUN/Creat Ratio 23.3 RATIO (10-20); Calcium,Total 9.9 mg/dL (8.5-10.1); Chloride 95 mmol/L (98-107); EST Glomerular Filtration Rate 66 mL/min (>60); Est Glom Filt Rate - Afr Amer 80 mL/min (>60); Glucose 132 mg/dL (74-106); Potassium 4.3 mmol/L (3.5-5.1); Protein, Total 7.6 g/dL (6.4-8.2); Sodium Level 134 mmol/L (136-145)
[2021-05-05 16:07] LABS: Erythrocyte Sedimentation Rate 53 mm/hr (0-30)
== END 2021-05-05 23:59 | disposition home or self-care (01) ==
LOC: HHLAB 13:33
PROVIDERS: PCP Family Medicine; Referring Provider Internal Medicine Infectious Disease; Visit Provider Internal Medicine Infectious Disease
DX: Z45.2 Encounter for adjustment and management of vascular access device (principal); T84.54XA Infection and inflammatory reaction due to internal left knee prosthesis, initial encounter; Y83.1 Surgical operation with implant of artificial internal device as the cause of abnormal reaction of the patient, or of later complication, without mention of misadventure at the time of the procedure
CPT/HCPCS: 80053; 85027; 85652

== ENCOUNTER 2021-05-26 12:11 | Outpatient (RCR) | payer MEDICARE, SELFPAY ==
[2021-05-12 17:57] LABS: Erythrocyte Sedimentation Rate 26 mm/hr (0-30)
[2021-05-12 17:58] LABS: Hematocrit 32.1 % (37-47); Hemoglobin 10.2 g/dL (12.0-15.0); Mean Corp Hgb Conc 31.8 g/dL (32-36); Mean Corpuscular Volume 94.4 fL (81-99); Mean Platelet Vol. 9.6 fl (6.2-12.0); Platelet Count 299 K/mm3 (150-450); RBC Distribution Width CV 14.7 % (11.6-14.6); RBC Distribution Width SD 50.8 fl (35.1-43.9); White Blood Count 5.7 K/mm3 (4.4-11.0)
[2021-05-12 18:08] LABS: AST(SGOT) 21 U/L (15-37); Alanine Aminotransfer ALT/SGPT 35 U/L (13-56); Albumin, Serum 3.6 g/dL (3.2-5.0); Alkaline Phosphatase 51 U/L (45-117); Anion Gap 8 (5-15); BUN 19 mg/dL (7-18); BUN/Creat Ratio 21.1 RATIO (10-20); Calcium,Total 9.2 mg/dL (8.5-10.1); Chloride 98 mmol/L (98-107); EST Glomerular Filtration Rate 66 mL/min (>60); Est Glom Filt Rate - Afr Amer 80 mL/min (>60); Globulin 3.5 g/dL (2.2-4.2); Glucose 138 mg/dL (74-106); Potassium 4.1 mmol/L (3.5-5.1); Protein, Total 7.1 g/dL (6.4-8.2); Sodium Level 137 mmol/L (136-145)
[2021-05-19 17:51] LABS: Hematocrit 33.5 % (37-47); Hemoglobin 10.5 g/dL (12.0-15.0); Mean Corp Hgb Conc 31.3 g/dL (32-36); Mean Corpuscular Hgb 29.3 pg (27.0-32.0); Mean Corpuscular Volume 93.6 fL (81-99); Mean Platelet Vol. 9.5 fl (6.2-12.0); Platelet Count 275 K/mm3 (150-450); RBC Distribution Width CV 14.9 % (11.6-14.6); Red Blood Count 3.58 M/mm3 (4.2-5.4); White Blood Count 7.3 K/mm3 (4.4-11.0)
[2021-05-19 18:02] LABS: Erythrocyte Sedimentation Rate 38 mm/hr (0-30)
[2021-05-19 18:15] LABS: ALB/GLOB Ratio 1.1 RATIO (0.9-2.4); AST(SGOT) 23 U/L (15-37); Alanine Aminotransfer ALT/SGPT 31 U/L (13-56); Albumin, Serum 3.8 g/dL (3.2-5.0); Alkaline Phosphatase 49 U/L (45-117); Anion Gap 7 (5-15); BUN 22 mg/dL (7-18); Calcium,Total 9.6 mg/dL (8.5-10.1); Chloride 100 mmol/L (98-107); Creatinine, Serum 0.88 mg/dL (0.55-1.02); EST Glomerular Filtration Rate 68 mL/min (>60); Est Glom Filt Rate - Afr Amer 83 mL/min (>60); Globulin 3.6 g/dL (2.2-4.2); Glucose 135 mg/dL (74-106); Potassium 4.5 mmol/L (3.5-5.1); Protein, Total 7.4 g/dL (6.4-8.2); Sodium Level 138 mmol/L (136-145)
[2021-05-26 12:33] LABS: Hemoglobin 10.9 g/dL (12.0-15.0); Mean Corp Hgb Conc 32.1 g/dL (32-36); Mean Corpuscular Hgb 29.7 pg (27.0-32.0); Mean Corpuscular Volume 92.6 fL (81-99); Mean Platelet Vol. 9.4 fl (6.2-12.0); Platelet Count 258 K/mm3 (150-450); RBC Distribution Width CV 14.5 % (11.6-14.6); RBC Distribution Width SD 49.5 fl (35.1-43.9); Red Blood Count 3.67 M/mm3 (4.2-5.4); White Blood Count 6.3 K/mm3 (4.4-11.0)
[2021-05-26 12:37] LABS: Erythrocyte Sedimentation Rate 33 mm/hr (0-30); Scan Indicated on CBC? Y/N NO
[2021-05-26 13:26] LABS: AST(SGOT) 19 U/L (15-37); Alanine Aminotransfer ALT/SGPT 28 U/L (13-56); Albumin, Serum 3.7 g/dL (3.2-5.0); Alkaline Phosphatase 54 U/L (45-117); Anion Gap 8 (5-15); BUN 23 mg/dL (7-18); BUN/Creat Ratio 28.8 RATIO (10-20); Calcium,Total 9.7 mg/dL (8.5-10.1); Chloride 99 mmol/L (98-107); EST Glomerular Filtration Rate 76 mL/min (>60); Est Glom Filt Rate - Afr Amer 92 mL/min (>60); Globulin 3.8 g/dL (2.2-4.2); Glucose 137 mg/dL (74-106); Potassium 4.4 mmol/L (3.5-5.1); Protein, Total 7.5 g/dL (6.4-8.2); Sodium Level 135 mmol/L (136-145)
== END 2021-05-30 18:00 | disposition home or self-care (01) ==
LOC: HHLAB 12:11
PROVIDERS: PCP Family Medicine; Visit Provider Internal Medicine Infectious Disease
DX: Z45.2 Encounter for adjustment and management of vascular access device (principal); T84.54XA Infection and inflammatory reaction due to internal left knee prosthesis, initial encounter; Y83.1 Surgical operation with implant of artificial internal device as the cause of abnormal reaction of the patient, or of later complication, without mention of misadventure at the time of the procedure
CPT/HCPCS: 80053; 85027; 85652

== ENCOUNTER 2021-07-05 13:00 | Outpatient (RCR) | payer MEDICARE, SELFPAY ==
--- NOTE | 2021-05-31 09:08 | HP.PTEVAL_ITS ---
Patient's Visit Information AUDRA SANDERS is a 66 year old F referred to Physical Therapy by Dr. Alexander Delgadillo MD with a diagnosis of L knee infection post cardiac ablation. Date of Evaluation: 05/31/21 Physical Therapist: Naveed Flood, PT, ATC - Visit Plan Frequency: 1x/Week Duration: 2 Weeks Plan: Issue and instruct pt on a safe gym routine consisting of L LE strengthening and core stab ex's over 1-2 visits - Subjective Pt reports she had L TKA approximately 4 years ago. Pt reports she had a heart ablasion 2 months ago and shortly after that she ended up with an infection of her L knee. Pt reports her knee became stiff and swelled up, and that is when she was told she had an infection. Pt reports she had to have surgery the next day to have her knee flushed out and to replace the spacer in her L knee. Pt reports she was in the hospital for 5-6 days, and then sent home on antibiotics. Pt reports then over the next 4 weeks, she had physical therapy come to her house to treat her for one day a week to focus on ROM and walking. Pt reports it did help some, but she would like to get her [employer] membership started so she can do some more aggressive strengthening. Pt denies tingling or numbness in L LE with the exception of tissue surrounding the incision. Pt reports she has stairs at her house, and she has difficulty with descending stairs at this time. Pt reports she also feels limited with prolonged ambulation so grocery shopping is still limited. 2/10 pain at rest, 4/10 pain with prolonged activity. - Pain L knee Pain Intensity (Out of 10): 2 Pain Intensity Range: 4 - Objective Neuro: B LE sensation is WNL to light touch. reflexes unable to obtain. Girth at joint line: L knee 39 cm, R knee 37 cm. ROM: R knee 0-10-108; L knee 0-16-100 degrees. MMT: L knee flexion and extension are 4-/5. All other B LE MMT 5/5 throughout. Gait: Pt ambulates with a lack of heel strike secondary to lack of L knee extension - Balance/Special Test Scores Lower Extremity Functional Score: 50 - Goals Goal 1:: I with a gym based program after 1-2 visits - Rehabilitation Potential Physical Therapy Diagnosis: Pt has L knee weakness, limited ROM, and L knee pain secondary to L knee infection post cardiac ablasion Rehabilitation Potential: Good - Anticipated Interventions Patient/Client Instruction: Educate patient on: Condition, Plan of Care For the Purpose of:: To improve self management Therapeutic Exercise to Include: Strength training, Endurance training, Balance training, Flexibilty training, Active ROM, Dynamic Lumbar Stabilization For the Purpose of:: To decrease pain, To increase ROM, To improve muscle performance and motor function Cryotherapy (ice pack, ice massage): Yes For the Purpose of:: To decrease pain Thank you for the opportunity to evaluate your patient. For Medicare and Medicare HMO plans, please review the plan of care and approve it. It will need to be FAXED BACK to us at [phone] for Medicare purposes. For Medicare only, by signing this I certify the plan of care. Please let me know if there are questions or concerns regarding this plan of care. Physician Signature: Date:__
--- NOTE | 2021-07-05 13:49 | HP.PTREVAL ---
Dr. Alexander Delgadillo MD, It has been my pleasure to treat AUDRA SANDERS over the last 3 visits for L knee infection post cardiac ablation. Please see the progress note below for an update on the physical therapy plan of care! Subjective: Pt reports her pain is minimal Objective/Function: L knee pain is currently 2/10, increases to 5/10 at worst. L knee strength is grossly 4+/5 throughout. L knee ROM: 0-10-100 Plan Plan: Follow up or discharge in one month Balance/Gait/Functional tests - Balance/Special Test Scores Lower Extremity Functional Score: 57 Goals Goal 1:: I with a gym based program after 1-2 visits Anticipated Interventions Patient/Client Instruction: Educate patient on: Condition, Plan of Care For the Purpose of:: To improve self management Therapeutic Exercise to Include: Strength training, Endurance training, Balance training, Flexibilty training, Active ROM, Dynamic Lumbar Stabilization For the Purpose of:: To decrease pain, To increase ROM, To improve muscle performance and motor function Cryotherapy (ice pack, ice massage): Yes For the Purpose of:: To decrease pain Please do not hesitate to contact me at [phone] by phone or if you have questions or concerns regarding this new plan of care! Sincerely, Naveed Flood, PT, ATC
--- NOTE | 2021-10-11 13:48 | HP.PT.NRP ---
AUDRA SANDERS was seen in my office for initial evaluation on 05/31/21. The following Plan of Care was established for this patient: Initial Frequency: 1x/Week Initial Duration: 2 Weeks Patient/Client Instruction: Educate patient on: Condition, Plan of Care For the Purpose of:: To improve self management Therapeutic Exercise to Include: Strength training, Endurance training, Balance training, Flexibilty training, Active ROM, Dynamic Lumbar Stabilization For the Purpose of:: To decrease pain, To increase ROM, To improve muscle performance and motor function Cryotherapy (ice pack, ice massage): Yes For the Purpose of:: To decrease pain This patient was last seen in our office . Pertinent comments regarding their Physical therapy will appear below: Pt was treated for 3 PT visits for L knee pain through the date of 07/05/21. Pt has not returned through todays date and will be discontinued at this time. At this point I will be discontinuing this patient from physical therapy. I would be happy to see this patient again in the future if found appropriate by the physician. Thank you! Naveed Flood, PT, ATC Balance/Gait/Functional tests - Balance/Special Test Scores Lower Extremity Functional Score: 57
== END 2021-07-05 19:00 | disposition home or self-care (01) ==
LOC: PT 13:00
PROVIDERS: PCP Family Medicine; Referring Provider Specialist; Visit Provider Specialist
DX: Z96.652 Presence of left artificial knee joint (principal); Z47.1 Aftercare following joint replacement surgery
CPT/HCPCS: 97110; 97161; 97164

== ENCOUNTER 2021-08-08 11:08 | Outpatient (CLI) | payer MEDICARE, SELFPAY ==
[2021-08-08 12:31] LABS: Absolute Lymphocyte Count 1.41 X10^3/uL (0.83-4.51); Absolute Neutrophil Count 3.5 X10^3/uL (2.0-7.7); Basophil# 0.02 X10^3/uL; Basophil% 0.4 % (0-1); Eosinophil# 0.22 X10^3/uL; Eosinophils% 3.9 % (0-5); Hematocrit 36.6 % (37-47); Hemoglobin 12.1 g/dL (12.0-15.0); Lymphocyte # 1.41 X10^3/ul (0.83-4.51); Lymphocyte % 24.8 % (19-41); Mean Corp Hgb Conc 33.1 g/dL (32-36); Mean Corpuscular Hgb 29.3 pg (27.0-32.0); Mean Corpuscular Volume 88.6 fL (81-99); Mean Platelet Vol. 9.4 fl (6.2-12.0); Monocyte# 0.51 X10^3/uL; NRBC Flagged by Analyzer 0 % (0-5); Neutrophil % 61.4 % (47-70); Platelet Count 233 K/mm3 (150-450); RBC Distribution Width CV 13.1 % (11.6-14.6); RBC Distribution Width SD 42.5 fl (35.1-43.9); Red Blood Count 4.13 M/mm3 (4.2-5.4); White Blood Count 5.7 K/mm3 (4.4-11.0)
[2021-08-08 12:42] LABS: Erythrocyte Sedimentation Rate 7 mm/hr (0-30)
== END 2021-08-08 23:59 | disposition home or self-care (01) ==
LOC: LAB 11:10
PROVIDERS: PCP Family Medicine; Referring Provider Internal Medicine Infectious Disease; Visit Provider Internal Medicine Infectious Disease
DX: T84.54XA Infection and inflammatory reaction due to internal left knee prosthesis, initial encounter (principal)
CPT/HCPCS: 36415; 85025; 85652

== ENCOUNTER → 2021-08-19 | Outpatient (CLI) | payer MEDICARE, SELFPAY ==
[2021-08-19 10:18] LABS: Absolute Lymphocyte Count 1.32 X10^3/uL (0.83-4.51); Absolute Neutrophil Count 4.1 X10^3/uL (2.0-7.7); Basophil# 0.03 X10^3/uL; Basophil% 0.5 % (0-1); Eosinophil# 0.23 X10^3/uL; Eosinophils% 3.7 % (0-5); Hematocrit 38.6 % (37-47); Hemoglobin 12.4 g/dL (12.0-15.0); Lymphocyte # 1.32 X10^3/ul (0.83-4.51); Lymphocyte % 21.4 % (19-41); Mean Corp Hgb Conc 32.1 g/dL (32-36); Mean Corpuscular Hgb 28.6 pg (27.0-32.0); Mean Corpuscular Volume 88.9 fL (81-99); Mean Platelet Vol. 9.6 fl (6.2-12.0); Monocyte# 0.45 X10^3/uL; Monocyte% 7.3 % (0-10); NRBC Flagged by Analyzer 0 % (0-5); Neutrophil # 4.11 X10^3/uL (2.7-7.7); Neutrophil % 66.8 % (47-70); Platelet Count 265 K/mm3 (150-450); RBC Distribution Width SD 42.5 fl (35.1-43.9); Red Blood Count 4.34 M/mm3 (4.2-5.4); White Blood Count 6.2 K/mm3 (4.4-11.0)
[2021-08-19 10:37] LABS: Hemoglobin A1c 7.5 % (3.8-5.6)
[2021-08-19 10:48] LABS: ALB/GLOB Ratio 1.1 RATIO (0.9-2.4); AST(SGOT) 21 U/L (15-37); Alanine Aminotransfer ALT/SGPT 34 U/L (13-56); Albumin, Serum 3.8 g/dL (3.2-5.0); Alkaline Phosphatase 51 U/L (45-117); Anion Gap 4 (5-15); BUN 17 mg/dL (7-18); BUN/Creat Ratio 19.7 RATIO (10-20); Calcium,Total 9.5 mg/dL (8.5-10.1); Chloride 103 mmol/L (98-107); Cholesterol 150 mg/dL (200); Creatinine, Serum 0.86 mg/dL (0.55-1.02); EST Glomerular Filtration Rate 70 mL/min (>60); Est Glom Filt Rate - Afr Amer 84 mL/min (>60); Globulin 3.5 g/dL (2.2-4.2); Glucose 201 mg/dL (74-106); High Density Lipoprotein 49 mg/dL; Microalbumin:Creatinine Ratio 360.1 mg/g CRE (<30 mg/g CRE); Potassium 4.2 mmol/L (3.5-5.1); Protein, Total 7.3 g/dL (6.4-8.2); Sodium Level 138 mmol/L (136-145); T4 Free Direct 1.95 ng/dL (0.76-1.46); Thyroid Stim Hormone (TSH) 1.68 uIU/mL (0.358-3.74); Triglycerides 152 mg/dL; Very Low Density Lipoprotein 30 mg/dL (5-40)
== END | disposition home or self-care (01) ==
PROVIDERS: PCP Family Medicine; Referring Provider Family Medicine; Visit Provider Family Medicine
DX: E11.21 Type 2 diabetes mellitus with diabetic nephropathy (principal); I10 Essential (primary) hypertension; E78.5 Hyperlipidemia, unspecified; E03.9 Hypothyroidism, unspecified
CPT/HCPCS: 36415; 80053; 80061; 82043; 82570; 83036; 84439; 84443; 85025

== ENCOUNTER → 2021-09-27 | Outpatient (CLI) | payer MEDICARE, SELFPAY ==
--- NOTE | 2021-09-27 11:54 | BI_ITS ---
MAMMOGRAPHY - BILATERAL SCREENING REASON FOR EXAM: Female, 66 years old. Routine annual screening examination. PERTINENT HISTORY: Non-contributory. TECHNIQUE: Digital bilateral breast phyllis (3D mammographic acquisition) in the CC and MLO projections. 2-D mediolateral oblique (MLO) and craniocaudad (CC) views of both breasts were obtained. CAD: Full Field Digital Mammography with Computer Added Detection was performed. COMPARISON: Comparison is made with prior study of 07/01/2019 and 09/08/2015. FINDINGS: Breast Composition: The breasts are heterogeneously dense, which may obscure small masses. There are no dominant masses or suspicious calcifications. No other significant abnormalities are identified. There has been no significant change since the prior study. BI/SCRN MAMM (CAD)W/PHYLLIS BILAT IMPRESSION: Stable bilateral screening mammogram. Yearly follow-up mammogram recommended. (A) ASSESSMENT CATEGORY: BIRADS Category 1: Negative. A letter regarding these results will be sent to the patient by the facility within 30 days. Approximately 10% of breast cancers are not detected by mammography. A normal mammogram should not delay biopsy of a clinically suspicious abnormality. [id number] Electronically Signed: Vicente Marshall MD at 12:31 EDT ,
== END | disposition home or self-care (01) ==
LOC: OPBI 11:52
PROVIDERS: PCP Family Medicine; Visit Provider Family Medicine
DX: Z12.31 Encounter for screening mammogram for malignant neoplasm of breast (principal)
CPT/HCPCS: 77063; 77067

== ENCOUNTER 2021-09-30 09:00 | Outpatient (RCR) | payer SELFPAY | END 2021-09-30 19:00 | disposition home or self-care (01) | LOC: PT 09:00 | PROVIDERS: PCP Family Medicine | DX: Z00.00 Encounter for general adult medical examination without abnormal findings (principal) ==

== ENCOUNTER → 2021-10-18 | Outpatient (CLI) | payer MEDICARE, SELFPAY ==
--- NOTE | 2021-10-18 09:35 | RAD_ITS ---
INDICATION: DYSPHAGIA -- 12 MM TABLET EXAMINATION/TECHNIQUE: Barium oral contrast , barium pill, and gas bubbles were administered to the patient. Total Fluoroscopic Time: 18 seconds AND number of Fluoroscopic Images: 12 COMPARISON: None. FINDINGS: No masses or strictures are identified. No hiatal hernia. The mucosal pattern is unremarkable. There is normal motility. Reflux was not elicited. Small supra clavicular calcified density adjacent to the esophagus could relate to a calcified thyroid nodule. RAD/Esophagus Dual Contrast IMPRESSION: Normal esophagram. Small calcified density adjacent to the esophagus is a nonspecific finding but could relate to a calcified thyroid nodule. Further assessment with ultrasound recommended. Electronically Signed: Ramin Serrato, at 11:14 EDT ,
== END | disposition home or self-care (01) ==
LOC: RAD 09:28
PROVIDERS: PCP Family Medicine; Referring Provider Internal Medicine Gastroenterology; Visit Provider Internal Medicine Gastroenterology
DX: R13.10 Dysphagia, unspecified (principal)
CPT/HCPCS: 74221

== ENCOUNTER 2021-11-02 08:53 | Emergency (ER) | payer MEDICARE, SELFPAY ==
[2021-11-02 08:55] VITALS: BP 162/74; PULSE 165; RESP 16; TEMP 36.4; O2SAT 94; BMI 31.1
--- NOTE | 2021-11-02 09:18 | EKG12_ITS ---
Test Reason : CP Blood Pressure : / mmHG Vent. Rate : 162 BPM Atrial Rate : 214 BPM P-R Int : 000 ms QRS Dur : 072 ms QT Int : 246 ms P-R-T Axes : 000 018 183 degrees QTc Int : [address] depression, consider subendocardial injury Nonspecific T wave abnormality Abnormal ECG Confirmed by NATI CURRY, URIEL ([id number]), sports editor TRAY GREEN ([id number]) on 11/05/2021 9:42:55 AM Referred By: Confirmed By:URIEL DAMIAN MD
--- NOTE | 2021-11-02 09:25 | RAD_ITS ---
STUDY: X-RAY CHEST REASON FOR EXAM: Female, 66 years old. Chest pain TECHNIQUE: Single AP portable view of the chest. COMPARISON: Comparison is made with prior study dated 08/23/2020. FINDINGS: EKG electrodes are seen. Persistent elevation of the right hemidiaphragm. The lungs are clear. There is no demonstrated pleural abnormality. Normal size heart. Normal mediastinum and jordy. Normal visualized pulmonary arteries. There is atherosclerotic calcification of the aortic arch with tortuosity. Normal visualized thoracic spine. Normal visualized ribs, clavicles, and shoulders. There is no demonstrated abnormality of the visualized soft tissue structures of the upper abdomen. RAD/Chest 1 View (Portable) IMPRESSION: No acute abnormality is seen. Electronically Signed: iVcente Marshall MD at 9:50 EDT ,
[2021-11-02] MEDS: Aspirin 81 MG TAB.CHEW 324 MG PO (09:26)
[2021-11-02] MEDS: dilTIAZem 25 MG/5 ML Vial 20 MG IV BOLUS (09:27)
[2021-11-02 09:28] VITALS: BP 125/76; PULSE 143; RESP 15; O2SAT 96
[2021-11-02 09:29] VITALS: O2SAT 95
[2021-11-02 09:33] LABS: Absolute Lymphocyte Count 1.86 X10^3/uL (0.83-4.51); Absolute Neutrophil Count 6.2 X10^3/uL (2.0-7.7); Basophil# 0.03 X10^3/uL; Basophil% 0.3 % (0-1); Eosinophil# 0.18 X10^3/uL; Hemoglobin 14.2 g/dL (12.0-15.0); Lymphocyte # 1.86 X10^3/ul (0.83-4.51); Lymphocyte % 20.8 % (19-41); Mean Corpuscular Hgb 29.8 pg (27.0-32.0); Mean Corpuscular Volume 90.3 fL (81-99); Mean Platelet Vol. 9.7 fl (6.2-12.0); Monocyte# 0.64 X10^3/uL; Monocyte% 7.2 % (0-10); NRBC Flagged by Analyzer 0 % (0-5); Neutrophil % 69.3 % (47-70); Platelet Count 286 K/mm3 (150-450); RBC Distribution Width CV 12.7 % (11.6-14.6); RBC Distribution Width SD 41.8 fl (35.1-43.9); Red Blood Count 4.76 M/mm3 (4.2-5.4)
--- NOTE | 2021-11-02 09:43 | EX.ED.DYSGE1 ---
HPI History of Present Illness Chief Complaint: Chest Pain Narrative Narrative: Patient presents with palpitations and chest discomfort, this is day #3. She has a history of atrial fibrillation, she is on Xarelto although last week she skipped a few days because she Holter monitor in place. She has no back pain or tearing sensation, she has no pleuritic component, she has no lower extremity edema or calf pain no neurological symptoms. [facility] Medical History Arthritis Diabetes Easy bruising Essential hypertension Family history of sudden cardiac Heartburn High cholesterol History of ulceration Hyperlipidemia Infection of prosthetic left knee joint USP current use of anticoagulant Non-smoker Nonsustained paroxysmal ventricular tachycardia Paroxysmal atrial fibrillation Post-menopausal Septic arthritis of knee Thyroid disease Type 2 diabetes mellitus without complications Walker as ambulation aid Wears glasses Home Medications tramadol 50 mg tablet 50 mg PO TID PRN PRN Pain 11/30/17 [History Last Taken 04/13/21] levothyroxine 125 mcg tablet 125 mcg PO DAILY thyroid 06/07/18 [History Last Taken 04/13/21] loratadine 10 mg tablet 10 mg PO DAILY PRN SEASONAL ALLERGIES 06/07/18 [History Last Taken Unknown] hydrochlorothiazide 12.5 mg capsule 12.5 mg PO DAILY DIURETIC #90 caps 06/05/19 [Rx Last Taken 04/14/21] losartan 100 mg tablet 100 mg PO QHS BP #90 tabs 06/05/19 [Rx Last Taken 04/13/21] metformin 500 mg tablet 500 mg PO BIDCM DIABETES 06/05/19 [History Last Taken 04/14/21] potassium chloride 20 mEq tablet,extended release(part/cryst) 20 meq PO DAILY POTASSIUM #90 tabs 06/05/19 [Rx Last Taken 04/14/21] simvastatin 20 mg tablet 20 mg PO QHS CHOLESTEROL #90 tabs 06/05/19 [Rx Last Taken 04/13/21] atenolol 25 mg tablet 25 mg PO DAILY (stop Metoprolol) #90 tabs 05/30/21 [Rx Last Taken Unknown] amoxicillin 500 mg capsule 1 cap PO TID 11/02/21 [History Last Taken Unknown] omeprazole 40 mg capsule,delayed release 40 mg PO DAILY stomach 11/02/21 [History Last Taken Unknown] Allergy/AdvReac Type Severity Reaction Status Date / Time No Known Allergies Allergy Verified 11/02/21 08:55 Family History Mother CVA (cerebral vascular accident) Atrial fibrillation Diabetes Sister Hyperlipidemia Sister Diabetes Atrial fibrillation Sister Parkinson disease Brother CAD (coronary artery disease) Brother CAD (coronary artery disease) Surgical History History of left heart catheterization (~06/2015) History of radiofrequency ablation (RFA) procedure for cardiac arrhythmia History of radiofrequency ablation procedure for cardiac arrhythmia (03/28/21) History of total left knee replacement Hx of total knee replacement Total knee replacement status Social History adopted: No household members: spouse and children housing: house number of children: 2 current occupational status: retired current occupational exposures/hazards: No pets and animals: No leisure activities: exercise history of recent travel: No Smoking Status: Never smoker second hand exposure: No alcohol intake: former year quit: 2014 details: rarely substance use type: does not use diet: diabetic well-balanced diet: daily or most days caffeine: Yes Type: coffee Number of servings: 1 eating out: 1-3 times/week during the past year weight has: remained stable what type of physical activity do you participate in: walking frequency: 3-4 times per week duration: 45-60 minutes/day kiley/presybeterian: Jehovah Witness seatbelt use: always do you feel safe at home: Yes additional social history: No Blood Transfusions ROS ROS ED ROS Narrative Past medical history: Reviewed in [facility] includes A. fib, hypertension, hyperlipidemia Medications: Reviewed, includes Xarelto Social history: Noncontributory Review of systems: All systems negative except as indicated General: No fever Eyes: No visual changes ENT: No upper airway congestion, normal voice Neck: No neck pain Cardiovascular: As in HPI Respiratory: No shortness of breath or cough Gastrointestinal: No abdominal pain, nausea vomiting or diarrhea Genitourinary: No dysuria Musculoskeletal: Denies myalgias no difficulty with ambulation Skin: No rash Neurological: No memory loss, confusion or any focal weakness Psych: No recent behavioral changes Hematologic: No easy bleeding or easy bruising EXAM Physical Exam Narrative Exam Narrative: Physical exam General: Well nourished, Well developed, No Acute Distress Head: Normocephalic, Atraumatic Eyes: Conjunctiva not pale ENT: Moist mucous membranes Neck: Supple, Nontender, No lymphadenopathy Cardiovascular: Irregular tachycardia, no obvious murmur Respiratory: No distress, CTA bilaterally Abdomen: Soft, Nontender, Nondistended Back: Nontender, Normal Inspection. Negative for: CVA tenderness Extremities: Nontender, No edema Skin: Normal color, No rash Neurological: Alert, Normal Strength, Normal Sensation Psychological: Normal affect Const Vital Signs: 11/02/21 08:55 11/02/21 09:28 11/02/21 09:29 Temperature 97.6 F L Temperature Source Oral Pulse Rate 165 H 143 H Respiratory Rate 16 15 Respiratory Effort Blood Pressure 162/74 H 125/76 H Blood Pressure Mean 103 92 Pulse Ox 94 96 95 Oxygen Delivery Method Room Air Room Air Room Air 11/02/21 09:58 11/02/21 10:00 Temperature Temperature Source Pulse Rate 105 H Respiratory Rate 16 Respiratory Effort Normal Non-Labored Blood Pressure 120/78 Blood Pressure Mean 92 Pulse Ox 97 Oxygen Delivery Method Room Air MDM MDM MDM Narrative Medical decision making narrative: After 20 mg of Cardizem patient converted to sinus rhythm she has been in sinus rhythm for about an hour now I believe she can be now discharged home she is to continue her Xarelto as well as her atenolol and all her other medications. I attempted to talk to Dr. Han who is in a procedure however my reason for calling is that to see if she can get an earlier appointment since her appointments not till November. Otherwise I will discharge the patient in stable condition. Lab Data Labs: Laboratory Results - last 24 hr 11/02/21 11/02/21 11/02/21 09:00 09:00 09:00 WBC 9.0 RBC 4.76 Hgb 14.2 Hct 43.0 MCV 90.3 MCH 29.8 MCHC 33.0 RDW Std Deviation 41.8 RDW Coeff of Woody 12.7 Plt Count 286 MPV 9.7 Immature Gran % (Auto) 0.400 Neut % (Auto) 69.3 Lymph % (Auto) 20.8 [place] % (Auto) 7.2 Eos % (Auto) 2.0 Baso % (Auto) 0.3 Absolute Neuts (auto) 6.2 Absolute Lymphs (auto) 1.86 Nucleated RBC % 0 PT 14.9 INR 1.2 Sodium 138 Potassium 4.1 Chloride 100 Carbon Dioxide 28.0 Anion Gap 10 BUN 27 H Creatinine 1.30 H Estim Creat Clear Calc 33.21 Est GFR (MDRD) Af Amer 53 L Est GFR (MDRD) Non-Af 43 L BUN/Creatinine Ratio 20.8 H Glucose 308 H Calcium 10.0 Troponin I High Sens 72 H B-Natriuretic Peptide TSH 3.95 H 11/02/21 09:00 WBC RBC Hgb Hct MCV MCH MCHC RDW Std Deviation RDW Coeff of Woody Plt Count MPV Immature Gran % (Auto) Neut % (Auto) Lymph % (Auto) [place] % (Auto) Eos % (Auto) Baso % (Auto) Absolute Neuts (auto) Absolute Lymphs (auto) Nucleated RBC % PT INR Sodium Potassium Chloride Carbon Dioxide Anion Gap BUN Creatinine Estim Creat Clear Calc Est GFR (MDRD) Af Amer Est GFR (MDRD) Non-Af BUN/Creatinine Ratio Glucose Calcium Troponin I High Sens B-Natriuretic Peptide 272.5 H TSH Radiography Chest X-Ray - ED: 1 View, Read by ED Physician, Read by Radiologist and Normal Diagnostic Testing: Clinical Impression(s) from Imaging Studies Chest X-Ray 11/02/21 09:25 IMPRESSION: No acute abnormality is seen. Electronically Signed: Vicente Marshall MD at 9:50 EDT , X-ray read by me and radiologist as normal EKG Initial EKG: Comments: Atrial fibrillation with a rate of 162. Normal QTC, no obvious ischemic changes. Interpreted by emergency Dr. Discharge Plan Triage Chief Complaint: Chest Pain ED Provider: Marino Hoover Dx/Rx/DC Orders Clinical Impression: Paroxysmal atrial fibrillation, Rapid palpitations Instructions: ED AFIB Prescriptions: No Action tramadol 50 mg tablet 50 mg PO TID PRN PRN (Reason: Pain) levothyroxine 125 mcg tablet 125 mcg PO DAILY hydrochlorothiazide 12.5 mg capsule 12.5 mg PO DAILY Qty: 90 3RF losartan 100 mg tablet 100 mg PO QHS Qty: 90 3RF potassium chloride 20 mEq tablet,ER particles/crystals 20 meq PO DAILY Qty: 90 3RF simvastatin 20 mg tablet 20 mg PO QHS Qty: 90 3RF metformin 500 mg tablet 500 mg PO BIDCM loratadine 10 mg tablet 10 mg PO DAILY PRN (Reason: SEASONAL ALLERGIES) Label Comments: SEASONAL ALLERGIES amoxicillin 500 mg capsule 1 cap PO TID Label Comments: TAKE 1 CAPSULE BY MOUTH THREE TIMES DAILY omeprazole 40 mg capsule,delayed release(DR/EC) 40 mg PO DAILY atenolol 25 mg tablet 25 mg PO DAILY Qty: 90 3RF Primary Care Provider: Karlos Tang Referrals: Quinton Bustos MD [STAFF PHYSICIAN] - 3-5 Days Karlos Tang DO [Primary Care Provider] - Disposition Disposition: Home, Self Care
[2021-11-02 09:48] LABS: International Normalized Ratio 1.2; Prothrombin Time (Protime)PT. 14.9 SECONDS (11.7-14.9)
[2021-11-02 09:54] LABS: BNP,B-Type NATRIURETIC PEPTIDE 272.5 pg/mL (0-100)
[2021-11-02 09:56] LABS: Anion Gap 10 (5-15); BUN 27 mg/dL (7-18); BUN/Creat Ratio 20.8 RATIO (10-20); Chloride 100 mmol/L (98-107); EST Glomerular Filtration Rate 43 mL/min (>60); Est Glom Filt Rate - Afr Amer 53 mL/min (>60); Estimated Creatinine Clearance 33.21 ml/min; Glucose 308 mg/dL (74-106); Potassium 4.1 mmol/L (3.5-5.1); Sodium Level 138 mmol/L (136-145); Thyroid Stim Hormone (TSH) 3.95 uIU/mL (0.358-3.74); Troponin-I HS (w/2H Reflex) 72 pg/mL (3.0-54.0)
[2021-11-02 10:00] VITALS: BP 120/78; PULSE 105; RESP 16; O2SAT 97
--- NOTE | 2021-11-02 10:10 | EKG12_ITS ---
Test Reason : repeat Blood Pressure : / mmHG Vent. Rate : 105 BPM Atrial Rate : 105 BPM P-R Int : 180 ms QRS Dur : 074 ms QT Int : 336 ms P-R-T Axes : 094 005 015 degrees QTc Int : 444 ms Sinus tachycardia Nonspecific T wave abnormality Abnormal ECG Confirmed by NATI CURRY, URIEL ([id number]), newspaper editor managing TRAY GREEN ([id number]) on 11/05/2021 9:43:11 AM Referred By: Kiko Confirmed By:URIEL DAMIAN MD
[2021-11-02 10:34] VITALS: BP 126/84
[2021-11-02 11:25] LABS: Reflex Troponin-HS? (from REC) Y
== END 2021-11-02 10:39 | disposition home or self-care (01) ==
PROVIDERS: Emergency Provider Emergency Medicine; PCP Family Medicine; Visit Provider Emergency Medicine
DX: I48.0 Paroxysmal atrial fibrillation (principal); E11.9 Type 2 diabetes mellitus without complications; I10 Essential (primary) hypertension; R00.2 Palpitations; E78.5 Hyperlipidemia, unspecified; Z79.01 Long term (current) use of anticoagulants; R94.31 Abnormal electrocardiogram [ECG] [EKG]
CPT/HCPCS: 71045; 80048; 83880; 84443; 84484; 85025; 85610; 93005; 99285; J7030; A4216

== ENCOUNTER → 2021-12-07 | Outpatient (CLI) | payer MEDICARE, SELFPAY ==
--- NOTE | 2021-12-07 14:51 | US_ITS ---
STUDY: THYROID ULTRASOUND REASON FOR EXAM: Female, 66 years old. ASSESS THYROID NODULE TECHNIQUE: Ultrasound evaluation of the thyroid was performed with real-time and static crane-scale imaging. COMPARISON: None. FINDINGS: RIGHT LOBE: The right lobe of the thyroid gland measures 4.2 cm x 1.5 cm x 1.8 cm. There is a heterogeneous echotexture. Multiple hypoechoic solid nodules are seen throughout the right lobe. The largest measures 1.2 cm x 0.87 x 1.1 cm. LEFT LOBE: The left lobe of the thyroid gland measures 4.5 cm x 1.5 cm x 1.8 cm. There is a heterogeneous echotexture. Multiple hypoechoic solid nodule is seen. The largest measures 1.3 cm x 1.5 cm x 1.3 cm. This is slightly echogenic. ISTHMUS: The isthmus measures 5 mm. The regional lymph nodes are normal. US/Thyroid IMPRESSION: Heterogeneous appearance of the thyroid with multiple bilateral hypoechoic solid nodules with dominant nodules in each lobe. Correlation with a nuclear medicine thyroid scan and uptake recommended for further evaluation. Electronically Signed: Vicente Marshall MD at 15:36 EDT ,
== END | disposition home or self-care (01) ==
LOC: US 14:50
PROVIDERS: PCP Family Medicine; Referring Provider Family Medicine; Visit Provider Family Medicine
DX: E04.1 Nontoxic single thyroid nodule (principal)
CPT/HCPCS: 76536

== ENCOUNTER → 2022-02-08 | Outpatient (CLI) | payer MEDICARE, SELFPAY ==
--- NOTE | 2022-02-08 08:56 | NM_ITS ---
CLINICAL: 66-year-old female with history of thyroid nodularity. I-123 THYROID UPTAKE and SCAN COMPARISON: Thyroid ultrasound report 12/07/2021 FINDINGS: The patient was administered a 304 uCi I-123 capsule by mouth. The 4-hour I-123 radioactive iodine thyroidal uptake was calculated to be 4.5 % (normal 5 to 25 %). The 24-hour I-123 radioactive iodine thyroidal uptake was calculated to be 6.8 % (normal 5 to 40 %). The I-123 thyroid scan demonstrates homogeneous radiopharmaceutical concentration throughout both lobes of a U -shaped thyroid gland. There are no colloidal parenchymal hypofunctioning cold nodules noted in either lobe of the thyroid gland. NM/Thyroid Uptake Single or Mult IMPRESSION: 1. ABNORMAL DECREASED 4- and LOWER LIMITS OF NORMAL 24-hour I-123 radioactive iodine thyroidal uptakes. 2. The I-123 thyroid scan is consistent with stage I nodular colloid goiter secondary to the presence of isthmus radiopharmaceutical concentration. (Larry et al, J Nucl Med 32: 1455, 1991). 3. No hypofunctioning-cold nodules are identified. Electronically Signed: Holger Gong, at 20:36 EDT ,
== END | disposition home or self-care (01) ==
PROVIDERS: PCP Family Medicine; Referring Provider Family Medicine; Visit Provider Family Medicine
DX: E04.2 Nontoxic multinodular goiter (principal)
CPT/HCPCS: 78012; A9516

== ENCOUNTER → 2022-03-09 | Outpatient (CLI) | payer MEDICARE, SELFPAY ==
[2022-03-09 13:26] LABS: Anion Gap 8 (5-15); BUN 24 mg/dL (7-18); BUN/Creat Ratio 23.1 RATIO (10-20); Calcium,Total 9.6 mg/dL (8.5-10.1); Chloride 102 mmol/L (98-107); Creatinine, Serum 1.04 mg/dL (0.55-1.02); EST Glomerular Filtration Rate 56 mL/min (>60); Est Glom Filt Rate - Afr Amer 68 mL/min (>60); Glucose 215 mg/dL (74-106); Potassium 4.5 mmol/L (3.5-5.1); Sodium Level 137 mmol/L (136-145); T4 Free Direct 1.51 ng/dL (0.76-1.46); Thyroid Stim Hormone (TSH) 3.81 uIU/mL (0.358-3.74)
== END | disposition home or self-care (01) ==
LOC: BFHLAB 09:42
PROVIDERS: PCP Family Medicine; Visit Provider Family Medicine
DX: E03.9 Hypothyroidism, unspecified (principal); I10 Essential (primary) hypertension
CPT/HCPCS: 36415; 80048; 84439; 84443

== ENCOUNTER → 2022-04-06 | Day surgery (SDC) | payer MEDICARE, SELFPAY ==
[2022-04-05 08:11] VITALS: BMI 32.5
== END | disposition home or self-care (01) ==
PROVIDERS: PCP Family Medicine; Visit Provider Internal Medicine Cardiovascular Disease
DX: Z53.8 Procedure and treatment not carried out for other reasons (principal); I48.91 Unspecified atrial fibrillation
CPT/HCPCS: 93005

== ENCOUNTER → 2022-04-14 | Outpatient (CLI) | payer MEDICARE, SELFPAY | END | disposition home or self-care (01) | LOC: PSN 09:21 | PROVIDERS: PCP Family Medicine; Visit Provider Internal Medicine Cardiovascular Disease | DX: I48.0 Paroxysmal atrial fibrillation (principal) | CPT/HCPCS: 93225; 93226 ==

== ENCOUNTER → 2022-05-10 | Outpatient (CLI) | payer MEDICARE, SELFPAY ==
[2022-05-10 14:17] LABS: Anion Gap 3 (5-15); BUN 31 mg/dL (7-18); BUN/Creat Ratio 28.4 RATIO (10-20); Calcium,Total 9.8 mg/dL (8.5-10.1); Chloride 104 mmol/L (98-107); Creatinine, Serum 1.09 mg/dL (0.55-1.02); EST Glomerular Filtration Rate 53 mL/min (>60); Est Glom Filt Rate - Afr Amer 64 mL/min (>60); Glucose 134 mg/dL (74-106); Potassium 4.7 mmol/L (3.5-5.1); Sodium Level 137 mmol/L (136-145)
== END | disposition home or self-care (01) ==
LOC: LAB 13:07
PROVIDERS: Visit Provider Physician Assistant Medical
DX: I48.0 Paroxysmal atrial fibrillation (principal)
CPT/HCPCS: 36415; 80048

== ENCOUNTER → 2022-07-05 | Outpatient (CLI) | payer MEDICARE, SELFPAY ==
[2022-07-05 15:01] LABS: Absolute Lymphocyte Count 1.99 X10^3/uL (0.83-4.51); Absolute Neutrophil Count 4.1 X10^3/uL (2.0-7.7); Basophil# 0.03 X10^3/uL; Basophil% 0.4 % (0-1); Eosinophil# 0.21 X10^3/uL; Eosinophils% 3.1 % (0-5); Hematocrit 38.4 % (37-47); Hemoglobin 12.1 g/dL (12.0-15.0); Lymphocyte # 1.99 X10^3/ul (0.83-4.51); Lymphocyte % 28.9 % (19-41); Mean Corp Hgb Conc 31.5 g/dL (32-36); Mean Corpuscular Hgb 28.3 pg (27.0-32.0); Mean Corpuscular Volume 89.9 fL (81-99); Mean Platelet Vol. 9.4 fl (6.2-12.0); Monocyte# 0.52 X10^3/uL; Monocyte% 7.6 % (0-10); NRBC Flagged by Analyzer 0 % (0-5); Neutrophil % 59.6 % (47-70); Platelet Count 241 K/mm3 (150-450); RBC Distribution Width CV 13.8 % (11.6-14.6); RBC Distribution Width SD 45.3 fl (35.1-43.9); Red Blood Count 4.27 M/mm3 (4.2-5.4); White Blood Count 6.9 K/mm3 (4.4-11.0)
[2022-07-05 15:24] LABS: Anion Gap 7 (5-15); BUN 25 mg/dL (7-18); BUN/Creat Ratio 20.8 RATIO (10-20); Calcium,Total 9.7 mg/dL (8.5-10.1); Chloride 104 mmol/L (98-107); EST Glomerular Filtration Rate 48 mL/min (>60); Est Glom Filt Rate - Afr Amer 57 mL/min (>60); Glucose 159 mg/dL (74-106); Potassium 4.5 mmol/L (3.5-5.1); Sodium Level 140 mmol/L (136-145)
== END | disposition home or self-care (01) ==
LOC: LAB 14:38
PROVIDERS: PCP Family Medicine; Referring Provider Physician Assistant Medical; Visit Provider Physician Assistant Medical
DX: I10 Essential (primary) hypertension (principal); I48.92 Unspecified atrial flutter; I48.91 Unspecified atrial fibrillation; E78.2 Mixed hyperlipidemia
CPT/HCPCS: 36415; 80048; 85025

== ENCOUNTER → 2022-07-27 | Day surgery (SDC) | payer MEDICARE, SELFPAY ==
[2022-07-26 08:07] VITALS: BMI 33.3
== END | disposition home or self-care (01) ==
PROVIDERS: PCP Family Medicine; Referring Provider Internal Medicine Cardiovascular Disease; Visit Provider Internal Medicine Cardiovascular Disease
DX: R00.1 Bradycardia, unspecified (principal); Z53.09 Procedure and treatment not carried out because of other contraindication
CPT/HCPCS: 93005

== ENCOUNTER 2022-09-15 10:21 | Day surgery (SDC) | payer MEDICARE, SELFPAY ==
--- NOTE | 2022-09-12 14:26 | HP.PCM_ITS ---
History and Physical Gypsy Lanier is a 67-year-old female that presents here today for a DCCV.? She has a history of paroxysmal atrial fibrillation, hypertension, hyperlipidemia, hypothyroidism. Patient did undergo an ablation at [facility] on March 28, 2021.? To her last visit she had been on diltiazem and had atenolol was discontinued.? She has had some problems with her thyroid and so her Synthroid has also been discontinued.? EKG at last visit was atrial tachycardia or atrial flutter with a 2-1 block.? Her atenolol was readded.? She was scheduled to have a DCCV however the appt was cancelled d/t her being ill.? She came in a few days later she was noted to be in SR.? At her last office visit she felt that she was sometimes in/out of Afib/fl utter.? She feels more fatigued when she is in Afib/flutter.? She was restarted on her amiodarone at 100 mg daily. She presented back to the office 2 weeks later was noted to be in atrial flutter. Did discuss options with patient about referring patient to EP for possible ablation versus another cardioversion. Patient would like to proceed with both. She is also on this process of being scheduled for an EP consult. Allergies No Known Allergies Allergy (Verified 07/05/22 13:45) Medications tramadol 50 mg tablet 50 mg PO TID PRN PRN Pain 11/30/17 [History Confirmed 07/05/22] levothyroxine 125 mcg tablet 125 mcg PO DAILY thyroid 06/07/18 [History Confirmed 07/05/22] hydrochlorothiazide 12.5 mg capsule 12.5 mg PO DAILY DIURETIC #90 caps 06/05/19 [Rx Confirmed 07/05/22] losartan 100 mg tablet 100 mg PO QHS BP #90 tabs 06/05/19 [Rx Confirmed 07/05/22] potassium chloride 20 mEq tablet,extended release(part/cryst) 20 meq PO DAILY POTASSIUM #90 tabs 06/05/19 [Rx Confirmed 07/05/22] glipizide 5 mg tablet 5 mg PO BID 03/29/22 [History Confirmed 07/05/22] pdwmdwgpadgo-dcamhnwu-pebalo tablet 1 tab PO DAILY 03/29/22 [History Confirmed 07/05/22] pravastatin 20 mg tablet 20 mg PO QHS Stop Simvastatin #90 tabs 04/12/22 [Rx Confirmed 07/05/22] dabigatran etexilate 150 mg capsule 150 mg PO BID Pt is stopping Xarelto and changing to this. #180 caps 05/04/22 [Rx Confirmed 07/05/22] omeprazole 40 mg capsule,delayed release 40 mg PO DAILY stomach #90 caps 06/30/22 [Rx Confirmed 07/05/22] atenolol 25 mg tablet 25 mg PO BID 07/05/22 [History Confirmed 07/05/22] diltiazem HCl 240 mg capsule,24 hr,extended release 120 mg PO DAILY 07/05/22 [History Confirmed 07/05/22] metformin 500 mg tablet 1,000 mg PO BIDCM DIABETES 07/05/22 [History Confirmed 07/05/22] PFSH Medical History? 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 History of left heart catheterization (06/2015) History of radiofrequency ablation (RFA) procedure for cardiac arrhythmia (03/28/21) History of total left knee replacement Hx of total knee replacement Total knee replacement status Family History? Mother CVA (cerebral vascular accident) Atrial fibrillation DiabetesSister HyperlipidemiaSister Diabetes Atrial fibrillationSister Parkinson diseaseBrother CAD (coronary artery disease)Brother CAD (coronary artery disease) Social History? adopted:? No household members:? spouse and children housing:? house number of children:? 2 current occupational status:? retired current occupational exposures/hazards:? No pets and animals:? No leisure activities:? exercise history of recent travel:? No Smoking Status:? Never smoker second hand exposure:? No alcohol intake:? former year quit: 2014 details:? rarely substance use type:? does not use diet:? diabetic well-balanced diet:? daily or most days caffeine:? Yes Type: coffee Number of servings: 1 eating out:? 1-3 times/week during the past year weight has:? remained stable what type of physical activity do you participate in:? walking frequency:? 3-4 times per week duration:? 45-60 minutes/day kiley/confucianist:? Jehovah Witness seatbelt use:? always do you feel safe at home:? Yes additional social history:? No Blood Transfusions ROS Const Const: Positive for fatigue; Negative for weakness, headache(s), frequent falls, excessive sweating, weight gain or weight loss Eyes Eyes: Negative for blind spots, loss of peripheral vision, transient loss of vision, blurry vision, change in vision or double vision ENT ENT: Negative for headache(s), dizziness, tinnitus, Nosebleed/epistaxis or balance problems Cardio Chest Pain: No Palpitations: Yes Edema: None Muscle aches with walking: None Resp Respiratory: Positive for SOB with activity; Negative for SOB at rest, SOB orthopnea\SOB lying down or Cough GI GI: Negative nausea, vomiting, heartburn, bloating, vomiting blood/hematemesis, bright, red blood in stools or black,tarry stools : Negative for hematuria Musc Musc: Negative for muscle aches/ myalgia, muscle weakness, joint pain or balance problems Skin Skin: Negative rash or wounds Neuro Neuro: Negative for dizziness, lightheadedness, near syncope, syncope, orthostatic symptoms, frequent falls, headache(s), weakness, confusion, memory loss, restless legs, blurry vision or double vision Eliud Hematologic/Lymphatic: Negative for easy bleeding or easy bruising Endo Endo: Positive for fatigue; Negative for cold intolerance, heat intolerance or excessive sweating Psych Psych: Negative for anxiety or depression Allergy Allergy/Immunology: Negative for rash Cardiology Exam Const Appearance: cooperative, healthy appearing, comfortable, no acute distress and well developed Orientation: alert, awake and oriented x3 Head Head: normal to inspection Ears: hearing grossly normal bilaterally Nose: external nose normal Face and Sinus: face symmetric Mouth: oral mucosae normal, lip normal and moist mucous membranes Eyes General: appearance normal, both eyes and all related structures Eyelids: eyelids normal Conjunctivae: conjunctivae normal Pupils: PERRL EOM: EOM intact bilaterally Neck Neck: normal visual inspection and trachea midline; Negative no JVD Carotids: Negative bruit Chest Chest inspection: normal inspection of the chest Auscultation: Bilateral: Clear to Auscultation Cardio Palpation: normal PMI Rate: regular rate Rhythm: regular rhythm Heart sounds: S1 normal and S2 normal; Negative rub, gallop or murmur GI GI: soft, no hepatosplenomegaly and bowel sounds present Neuro General: patient alert, patient awake, patient oriented x3 and CN's II-XI intact bilaterally Extremities Pulses: Normal: Right Posterior Tibial Pulse, Left Posterior Tibial Pulse, Right Radial Pulse and Left Radial Pulse Lower Extremity Edema: None: Bilateral Psych Psychological: normal affect Assessment & Plan Assessment/Plan (1) Atrial fibrillation/flutter: PLAN: Patient is agreeable to proceed with her cardioversion. She has not interrupted her anticoagulation. She is on Pradaxa due to cost of Xarelto. Follow-up will be based upon outcome of cardioversion.
[2022-09-13 11:26] LABS: Anion Gap 8 (5-15); BUN 25 mg/dL (7-18); BUN/Creat Ratio 25.5 RATIO (10-20); Calcium,Total 9.8 mg/dL (8.5-10.1); Chloride 101 mmol/L (98-107); Creatinine, Serum 0.98 mg/dL (0.55-1.02); EST Glomerular Filtration Rate 60 mL/min (>60); Est Glom Filt Rate - Afr Amer 73 mL/min (>60); Glucose 247 mg/dL (74-106); Potassium 4.4 mmol/L (3.5-5.1); Sodium Level 136 mmol/L (136-145)
[2022-09-14 10:05] VITALS: BMI 33.3
--- NOTE | 2022-09-15 11:44 | PCM.OP.BLANK ---
Operative Report Date of Procedure: 09/15/22 DC cardioversion. 67-year-old lady status post previous atrial fibrillation ablation in February 2021 has been on anticoagulation uninterrupted with preserved left ventricular systolic function. Patient was brought to the cardiac catheterization lab and seen by Dr. Quinn of the critical care division. Informed consent was obtained. Anterior-posterior pads were applied. 40 milligrams of intravenous propofol was administered and 200 J of synchronized DC cardioversion biphasic energy were applied, with prompt reversal to sinus rhythm. Patient tolerated the procedure well. Conclusion: Successful DC cardioversion from atrial fibrillation to sinus rhythm. Follow-up as per office protocol.
--- NOTE | 2022-09-15 13:34 | PCM.OP.PRO ---
Procedure Report Date of Procedure: 09/15/22 CONSCIOUS SEDATION REPORT DATE OF SERVICE: September 15, 2022 BRIEF HISTORY OF PRESENT ILLNESS: The patient is a 67-year-old female who presented to [facility] [place] for elective outpatient cardioversion due to underlying atrial fibrillation. The patient has never previously undergone a cardioversion. She denied any prior anesthetic complications. Her last surface echocardiogram demonstrated an ejection fraction of approximately 65%. The patient is systemically anticoagulated on Pradaxa. PHYSICAL EXAMINATION: VITAL SIGNS: Reviewed and were acceptable. GENERAL: The patient is an obese female, in no apparent distress, speaking in full sentences. HEENT: Normocephalic, atraumatic. Mucous membranes are moist and pink. Good mouth opening noted. Trachea is midline. Good neck mobility. CHEST: S1, S2 irregularly irregular. No murmurs, rubs or gallops were noted. LUNGS: Clear to auscultation bilaterally without appreciable wheezes, rales or rhonchi. ABDOMEN: Soft, nontender, nondistended. Positive bowel sounds. EXTREMITIES: There is no clubbing, cyanosis or edema. ASA Class: II DESCRIPTION OF PROCEDURE: After confirmation of informed consent, the patient's anesthesia plan was reviewed in detail. Propofol was chosen. Risks and benefits were reviewed and the patient agreed to proceed. At 1129, the patient was given 40 mg of propofol. The patient achieved an appropriate level of sedation and was given a 200 joule synchronized cardioversion by Dr. Bustos at the bedside. This was successful in achieving normal sinus rhythm. The patient was monitored until 1144, at which time she reached her baseline mental status and function. The patient tolerated the procedure well. COMPLICATIONS: None ESTIMATED BLOOD LOSS: None RECOMMENDATIONS: Okay to recover in usual fashion. Procedures Pulmonary 9xxxx: [id number] Con Sedation
== END 2022-09-15 12:30 | disposition home or self-care (01) ==
LOC: CLSP 10:22
PROVIDERS: Physician Assistant Medical; PCP Family Medicine; Referring Provider Internal Medicine Cardiovascular Disease; Visit Provider Internal Medicine Cardiovascular Disease
DX: I48.0 Paroxysmal atrial fibrillation (principal); E11.9 Type 2 diabetes mellitus without complications; I10 Essential (primary) hypertension; E78.5 Hyperlipidemia, unspecified; E03.9 Hypothyroidism, unspecified; E66.9 Obesity, unspecified; Z79.01 Long term (current) use of anticoagulants; Z79.899 Other long term (current) drug therapy; Z79.84 Long term (current) use of oral hypoglycemic drugs; Z79.890 Hormone replacement therapy
CPT/HCPCS: 36415; 80048; 92960; 93005; J7040

== ENCOUNTER → 2022-10-19 | Outpatient (CLI) | payer MEDICARE, SELFPAY ==
[2022-10-19 16:01] LABS: Absolute Lymphocyte Count 1.73 X10^3/uL (0.83-4.51); Absolute Neutrophil Count 4.4 X10^3/uL (2.0-7.7); Basophil# 0.02 X10^3/uL; Basophil% 0.3 % (0-1); Eosinophil# 0.15 X10^3/uL; Eosinophils% 2.2 % (0-5); Hematocrit 37.2 % (37-47); Hemoglobin 12.2 g/dL (12.0-15.0); Lymphocyte # 1.73 X10^3/ul (0.83-4.51); Lymphocyte % 25.2 % (19-41); Mean Corp Hgb Conc 32.8 g/dL (32-36); Mean Corpuscular Hgb 29.6 pg (27.0-32.0); Mean Corpuscular Volume 90.3 fL (81-99); Mean Platelet Vol. 9.5 fl (6.2-12.0); Monocyte# 0.52 X10^3/uL; Monocyte% 7.6 % (0-10); NRBC Flagged by Analyzer 0 % (0-5); Neutrophil # 4.42 X10^3/uL (2.7-7.7); Neutrophil % 64.3 % (47-70); Platelet Count 221 K/mm3 (150-450); RBC Distribution Width CV 13.4 % (11.6-14.6); RBC Distribution Width SD 44.1 fl (35.1-43.9); Red Blood Count 4.12 M/mm3 (4.2-5.4); White Blood Count 6.9 K/mm3 (4.4-11.0)
[2022-10-19 16:43] LABS: ALB/GLOB Ratio 1.2 RATIO (0.9-2.4); AST(SGOT) 22 U/L (15-37); Alanine Aminotransfer ALT/SGPT 32 U/L (13-56); Albumin, Serum 3.8 g/dL (3.2-5.0); Alkaline Phosphatase 49 U/L (45-117); Anion Gap 7 (5-15); BUN 31 mg/dL (7-18); Calcium,Total 9.6 mg/dL (8.5-10.1); Chloride 104 mmol/L (98-107); Creatinine, Serum 1.24 mg/dL (0.55-1.02); EST Glomerular Filtration Rate 46 mL/min (>60); Est Glom Filt Rate - Afr Amer 55 mL/min (>60); Globulin 3.3 g/dL (2.2-4.2); Glucose 101 mg/dL (74-106); Potassium 4.3 mmol/L (3.5-5.1); Protein, Total 7.1 g/dL (6.4-8.2); Sodium Level 139 mmol/L (136-145); Thyroid Stim Hormone (TSH) 4.24 uIU/mL (0.358-3.74)
== END | disposition home or self-care (01) ==
LOC: LAB 15:18
PROVIDERS: PCP Family Medicine; Referring Provider Physician Assistant Medical; Visit Provider Physician Assistant Medical
DX: E78.2 Mixed hyperlipidemia (principal); I10 Essential (primary) hypertension
CPT/HCPCS: 36415; 80053; 84443; 85025

== ENCOUNTER 2022-11-17 12:18 | Inpatient (IN) | payer MEDICARE, SELFPAY ==
[2022-11-17] VITALS (20 sets, daily range): BP systolic 102–166; BP diastolic 40–75; PULSE 26–70; RESP 13–23; TEMP 36.2–36.9; O2SAT 90–97; BMI 32.0; BMI 33.7
[2022-11-17] MEDS: Atropine Sulfate 1 MG/10 ML Syringe IV ×2 (12:32→12:44)
[2022-11-17] MEDS: 0.9% Normal Saline 1,000 ML 1000 ML IV (12:35)
--- NOTE | 2022-11-17 12:41 | ED.RN ---
THIS RN INFORMED DR. MOFFETT IMMEDIATELY UPON PT BEING PLACED IN ROOM 18 OF LOW HR. THIS RN PLACE CRASH CART AT PT'S ROOM.
[2022-11-17 12:45] LABS: Absolute Lymphocyte Count 1.67 X10^3/uL (0.83-4.51); Absolute Neutrophil Count 8.7 X10^3/uL (2.0-7.7); Basophil# 0.03 X10^3/uL; Basophil% 0.3 % (0-1); Eosinophil# 0.17 X10^3/uL; Eosinophils% 1.5 % (0-5); Hematocrit 37.9 % (37-47); Lymphocyte # 1.67 X10^3/ul (0.83-4.51); Lymphocyte % 14.8 % (19-41); Mean Corp Hgb Conc 31.7 g/dL (32-36); Mean Corpuscular Hgb 29.1 pg (27.0-32.0); Mean Platelet Vol. 9.7 fl (6.2-12.0); Monocyte# 0.56 X10^3/uL; NRBC Flagged by Analyzer 0 % (0-5); Neutrophil # 8.74 X10^3/uL (2.7-7.7); Neutrophil % 77.7 % (47-70); Platelet Count 266 K/mm3 (150-450); RBC Distribution Width CV 13.5 % (11.6-14.6); RBC Distribution Width SD 45.7 fl (35.1-43.9); Red Blood Count 4.12 M/mm3 (4.2-5.4); White Blood Count 11.3 K/mm3 (4.4-11.0)
--- NOTE | 2022-11-17 12:45 | RAD_ITS ---
STUDY: X-RAY CHEST REASON FOR EXAM: Female, 67 years old. chest pain TECHNIQUE: Single AP portable view of the chest. COMPARISON: 11/02/2021 FINDINGS: EKG leads overlie the chest. Stable elevation of the right hemidiaphragm The lungs are clear and expanded. There is no demonstrated pleural abnormality. There is persistent right basilar atelectasis Normal size heart. Normal mediastinum and jordy. Normal visualized pulmonary arteries. Normal visualized aortic arch and descending thoracic aorta. Normal visualized thoracic spine. Normal visualized ribs, clavicles, and shoulders. There is no demonstrated abnormality of the visualized soft tissue structures of the upper abdomen. RAD/Chest 1 View (Portable) IMPRESSION: No acute pulmonary process, stable right basilar atelectasis likely due to chronic elevation of the right hemidiaphragm Electronically Signed: Andrew Mendoza MD at 13:08 EDT ,
[2022-11-17] MEDS: Ondansetron 4 MG/2 ML Vial IV ×2 (12:50→18:07)
[2022-11-17] MEDS: Glucagon 1 MG/ML Syringe 5 MG IV (13:03)
[2022-11-17 13:05] LABS: Anion Gap 12 (5-15); BNP,B-Type NATRIURETIC PEPTIDE 127.2 pg/mL (0-100); BUN 38 mg/dL (7-18); BUN/Creat Ratio 17.3 RATIO (10-20); Calcium,Total 9.4 mg/dL (8.5-10.1); Chloride 100 mmol/L (98-107); EST Glomerular Filtration Rate 24 mL/min (>60); Est Glom Filt Rate - Afr Amer 29 mL/min (>60); Estimated Creatinine Clearance 19.36 ml/min; Glucose 296 mg/dL (74-106); Potassium 5.7 mmol/L (3.5-5.1); Sodium Level 134 mmol/L (136-145); Troponin-I HS (w/2H Reflex) 30 pg/mL (3.0-54.0)
[2022-11-17] MEDS: Dextrose 50%-Water 25 GM/50 ML DISP.SYRIN IV (13:30)
[2022-11-17] MEDS: 0.9% Normal Saline 1,000 ML 999 ML IV (13:30)
[2022-11-17] MEDS: Calcium Chloride 1 GM/10 ML Syringe IV (13:30)
[2022-11-17] MEDS: Insulin Lispro 10 UNIT in Syringe 0 ML 6 UNIT IV (13:30)
[2022-11-17 13:44] LABS: Bedside Glucose 300 mg/dL (74-106)
[2022-11-17 14:33] LABS: Bedside Glucose 446 mg/dL (74-106)
[2022-11-17 14:41] LABS: Reflex Troponin-HS? (from REC) Y
--- NOTE | 2022-11-17 15:28 | EDS_ITS ---
HPI History of Present Illness Chief Complaint: Dizziness Narrative Narrative: 67-year-old female presenting with lightheadedness and dizziness. She feels a little bit of shortness of breath. This all started about 6 AM this morning. Patient has history of atrial fibrillation and atrial flutter in the past. She is on amiodarone, atenolol, Xarelto, diltiazem. Does not report chest pain. She is never had lightheadedness like this. No fevers or chills. 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 Non-smoker Nonsustained paroxysmal ventricular tachycardia Obesity Paroxysmal atrial fibrillation Post-menopausal Septic arthritis of knee Thyroid disease Thyroid nodule Type 2 diabetes mellitus without complications Walker as ambulation aid Wears glasses Home Medications tramadol 50 mg tablet 50 mg PO TID PRN PRN Pain 11/30/17 [History Last Taken 07/27/22] levothyroxine 125 mcg tablet 150 mcg PO DAILY thyroid 06/07/18 [History Last Taken 09/15/22] hydrochlorothiazide 12.5 mg capsule 12.5 mg PO DAILY DIURETIC #90 caps 06/05/19 [Rx Last Taken 04/14/21] losartan 100 mg tablet 100 mg PO QHS BP #90 tabs 06/05/19 [Rx Last Taken 07/27/22] potassium chloride 20 mEq tablet,extended release(part/cryst) 20 meq PO DAILY POTASSIUM #90 tabs 06/05/19 [Rx Last Taken 09/15/22] glipizide 5 mg tablet 5 mg PO BID 03/29/22 [History Last Taken 09/15/22] hxvgpchownkl-zmpxupzh-kgyolj tablet 1 tab PO DAILY 03/29/22 [History Last Taken 07/27/22] pravastatin 20 mg tablet 20 mg PO QHS Stop Simvastatin #90 tabs 04/12/22 [Rx Last Taken Unknown] omeprazole 40 mg capsule,delayed release 40 mg PO DAILY stomach #90 caps 06/30/22 [Rx Last Taken 09/15/22] diltiazem HCl 240 mg capsule,24 hr,extended release 120 mg PO DAILY 07/05/22 [History Last Taken 09/15/22] metformin 500 mg tablet 1,000 mg PO BIDCM DIABETES 07/05/22 [History Last Taken 09/15/22] amiodarone 200 mg tablet 100 mg (1/2 x 200 mg) PO DAILY #45 tabs 08/01/22 [Rx Last Taken 09/15/22] atenolol 25 mg tablet 25 mg PO DAILY 10/19/22 [History Last Taken Unknown] rivaroxaban 20 mg tablet (Xarelto) 20 mg PO QPM Pt awaiting mail order RX (Omid xa dc'd) #90 tabs 11/09/22 [Rx Last Taken Unknown] Allergy/AdvReac Type Severity Reaction Status Date / Time No Known Allergies Allergy Verified 11/17/22 12:20 Family History Mother CVA (cerebral vascular accident) Atrial fibrillation Diabetes Sister Hyperlipidemia Sister Diabetes Atrial fibrillation Sister Parkinson disease Brother CAD (coronary artery disease) Brother CAD (coronary artery disease) Surgical History History of left heart catheterization (06/2015) History of radiofrequency ablation (RFA) procedure for cardiac arrhythmia (03/28/21) History of total left knee replacement Hx of total knee replacement Total knee replacement status Social History adopted: No household members: spouse and children housing: house number of children: 2 current occupational status: retired current occupational exposures/hazards: No pets and animals: No leisure activities: exercise history of recent travel: No Smoking Status: Never smoker second hand exposure: No alcohol intake: former year quit: 2014 details: rarely substance use type: does not use diet: diabetic well-balanced diet: daily or most days caffeine: Yes Type: coffee Number of servings: 1 eating out: 1-3 times/week during the past year weight has: remained stable what type of physical activity do you participate in: walking frequency: 3-4 times per week duration: 45-60 minutes/day kiley/zoroastrian: Jehovah Witness seatbelt use: always do you feel safe at home: Yes additional social history: No Blood Transfusions ROS ROS ED ROS Narrative Lightheadedness Constitutional Constitutional ED: Denies chills, fever(s) or sweats Eyes Eyes: Denies blurry vision or change in vision ENT ENT ED: Denies ear pain or sore throat Cardiovascular Cardiovascular: Reports palpitations; Denies chest pain or racing heartbeat Respiratory/Chest Respiratory/Chest: Denies cough, dyspnea or sputum Gastrointestinal Gastrointestinal: Denies abdominal pain, constipation, diarrhea, nausea or vomiting Genitourinary Genitourinary ED: Denies dysuria, hematuria or urinary frequency Musculoskeletal Musculoskeletal: Denies arthralgias, myalgias or neck pain Integumentary Denies abscess, Abrasions or rash Neurologic Neurologic: Denies headache(s), paresthesias or weakness Psychiatric Psychiatric: Denies anxiety, depression, suicidal ideation or suicidal thoughts Endocrine Endocrinology: Denies polydipsia or polyuria EXAM Physical Exam Const Vital Signs: 11/17/22 12:20 11/17/22 12:30 11/17/22 12:36 Temperature 98 F Temperature Source Temporal Pulse Rate 29 L 26 L 30 L Respiratory Rate 17 14 Respiratory Effort Respiratory Pattern Blood Pressure 102/44 L Blood Pressure Mean 63 Pulse Ox 93 97 Oxygen Delivery Method Oxygen Flow Rate (L/min) 11/17/22 12:37 11/17/22 12:38 11/17/22 13:09 Temperature Temperature Source Pulse Rate 41 L Respiratory Rate Respiratory Effort Normal Respiratory Pattern Normal Blood Pressure Blood Pressure Mean Pulse Ox Oxygen Delivery Method Room Air Oxygen Flow Rate (L/min) 11/17/22 13:15 11/17/22 15:21 Temperature Temperature Source Pulse Rate 43 L 35 L Respiratory Rate 18 13 Respiratory Effort Respiratory Pattern Blood Pressure 147/52 H 107/43 L Blood Pressure Mean 83 64 Pulse Ox 94 92 Oxygen Delivery Method Nasal Cannula Nasal Cannula Oxygen Flow Rate (L/min) 2 2 Positive well nourished General Appearance ED: Negative for cyanotic, diaphoretic or pallor Eyes PERRL and EOMs intact bilaterally Resp normal respiratory effort and clear to auscultation bilaterally Auscultation: Negative for rales, rhonchi or wheezes Cardio regular rate and regular rhythm GI normal to inspection, nondistended, normoactive bowel sounds Neuro oriented x3 and CN's II-XII intact bilaterally Sensorium / Orientation: alert Skin no rashes or lesions noted General Skin Exam: elasticity normal; Negative for jaundice or pallor MDM MDM MDM Narrative Medical decision making narrative: Patient presenting with lightheadedness and a little bit of shortness of breath. Differential at this point includes acute coronary syndrome, heart block, electrolyte abnormalities, dehydration, CHF, medication side effect. Her arrival EKG showed a junctional bradycardia at 26 bpm without sign of ST elevation or depression. She was given 2 doses of atropine with no real effect. I did give her 5 mg of glucagon to see if this would reverse some of her meds. It did not. CBC was obtained to assess white blood cell count, hemoglobin, platelets. This is all unremarkable. BMP to assess renal function electrolyt es. Creatinine is elevated 2.20 today so she was given IV fluids. Potassium 5.7 so she was treated for hyperkalemia. Blood sugar slightly elevated at 296 without anion gap. High-sensitivity troponin is 30. BNP slightly elevated at 127. Chest x-ray my interpretation shows no acute process discussed the case with Dr. Vazquez, who is on-call for cardiology. He recommended admitting the patient and holding her meds. He did speak with Dr. Bustos and the patient is able to be seen by him. He recommended that if her pressures start dropping that she should be on a dopamine drip. This was discussed with the hospitalist. Admitted in stable condition. Impression: 1. Bradycardia 2. Hyperkalemia 3. Lightheadedness 4. Acute kidney Lab Data Attestation: I reviewed the patient's lab results. Labs: Laboratory Results - last 24 hr 11/17/22 11/17/22 11/17/22 12:30 13:26 14:14 WBC 11.3 H RBC 4.12 L Hgb 12.0 Hct 37.9 MCV 92.0 MCH 29.1 MCHC 31.7 L RDW Std Deviation 45.7 H RDW Coeff of Woody 13.5 Plt Count 266 MPV 9.7 Immature Gran % (Auto) 0.700 Neut % (Auto) 77.7 H Lymph % (Auto) 14.8 L Kershaw % (Auto) 5.0 Eos % (Auto) 1.5 Baso % (Auto) 0.3 Absolute Neuts (auto) 8.7 H Absolute Lymphs (auto) 1.67 Nucleated RBC % 0 Sodium 134 L Potassium 5.7 H Chloride 100 Carbon Dioxide 22.0 Anion Gap 12 BUN 38 H Creatinine 2.20 H Estim Creat Clear Calc 19.36 Est GFR (MDRD) Af Amer 29 L Est GFR (MDRD) Non-Af 24 L BUN/Creatinine Ratio 17.3 Glucose 296 H Calcium 9.4 Troponin I High Sens 30 B-Natriuretic Peptide 127.2 H POC Glucose 300 H 446 H Radiography Diagnostic Testing: Clinical Impression(s) from Imaging Studies Chest X-Ray 11/17/22 12:45 IMPRESSION: No acute pulmonary process, stable right basilar atelectasis likely due to chronic elevation of the right hemidiaphragm Electronically Signed: Andrew Mendoza MD at 13:08 EDT , Discharge Plan Triage Chief Complaint: Dizziness ED Provider: Theron Webb Dx/Rx/DC Orders Prescriptions: No Action tramadol 50 mg tablet 50 mg PO TID PRN PRN (Reason: Pain) levothyroxine 125 mcg tablet 150 mcg PO DAILY Hold Instructions: having uptake scan hydrochlorothiazide 12.5 mg capsule 12.5 mg PO DAILY Qty: 90 3RF losartan 100 mg tablet 100 mg PO QHS Qty: 90 3RF potassium chloride 20 mEq tablet,ER particles/crystals 20 meq PO DAILY Qty: 90 3RF [id number]-qxgxyfai-zzvrvr Tablet 1 tab PO DAILY glipizide 5 mg tablet 5 mg PO BID diltiazem HCl 240 mg capsule,extended release 24 hr 120 mg PO DAILY atenolol 25 mg tablet 25 mg PO DAILY metformin 500 mg tablet 1,000 mg PO BIDCM pravastatin 20 mg tablet 20 mg PO QHS Qty: 90 3RF omeprazole 40 mg capsule,delayed release(DR/EC) 40 mg PO DAILY Qty: 90 3RF amiodarone 200 mg tablet 100 mg PO DAILY Qty: 45 3RF Xarelto 20 mg tablet 20 mg PO QPM Qty: 90 3RF Rx Instructions: must administer with evening meal Primary Care Provider: Karlos Tang Referrals: Karlos Tang DO [Primary Care Provider] -
[2022-11-17 15:29] LABS: Troponin-I HS 23 pg/mL (3.0-54.0)
--- NOTE | 2022-11-17 15:49 | HP.PCM.HOS_ITS ---
HPI - General General Date of Admission: 11/17/22 Date of Service: 11/17/22 Chief Complaint: Dizziness and lightheadedness in the morning, today about 9 AM. HPI Narrative AUDRA SANDERS, is a 67 F with history of A-fib on rate control medications and rivaroxaban came to ED for dizziness lightheadedness about 9 AM. She went to bed as usual last night but when she woke up she felt mild generalized headache and blurry vision. About 9 AM she felt dizzy and lightheaded and mildly short of breath. She denies chest pain tightness or pressure. She denies passing out/LOC. In ED, heart rate was found very low 26 to 29/min, BP low 102/44. Twelve-lead EKG was done and individually reviewed. Junctional bradycardia 26 bpm, low voltage QRS, QTc 382 ms. Isolated troponin 30. Chest x-ray was reviewed and did not show acute process. Cutifilm discussed with And recommended admission in ICU and holding rate control medications. Patient also had high potassium in BMP 5.7 for which hyperkalemia cocktail was given by ED physician. Currently, heart rate and blood pressure is better. [facility] Medical History Arthritis Diabetes Easy bruising Essential hypertension Family history of sudden cardiac History of ulceration Hyperlipidemia Hypothyroidism Infection of prosthetic left knee joint FDC current use of anticoagulant Non-smoker Nonsustained paroxysmal ventricular tachycardia Obesity Paroxysmal atrial fibrillation Post-menopausal Septic arthritis of knee Thyroid disease Thyroid nodule Type 2 diabetes mellitus without complications Walker as ambulation aid Wears glasses Home Medications tramadol 50 mg tablet 50 mg PO TID PRN PRN Pain 11/30/17 [History Last Taken 07/27/22] levothyroxine 125 mcg tablet 150 mcg PO DAILY thyroid 06/07/18 [History Last Taken 09/15/22] hydrochlorothiazide 12.5 mg capsule 12.5 mg PO DAILY DIURETIC #90 caps 06/05/19 [Rx Last Taken 04/14/21] losartan 100 mg tablet 100 mg PO QHS BP #90 tabs 06/05/19 [Rx Last Taken 07/27/22] potassium chloride 20 mEq tablet,extended release(part/cryst) 20 meq PO DAILY POTASSIUM #90 tabs 06/05/19 [Rx Last Taken 09/15/22] glipizide 5 mg tablet 5 mg PO BID 03/29/22 [History Last Taken 09/15/22] gxpjevmiisbz-zkzwuflr-skwvzq tablet 1 tab PO DAILY 03/29/22 [History Last Taken 07/27/22] pravastatin 20 mg tablet 20 mg PO QHS Stop Simvastatin #90 tabs 04/12/22 [Rx Last Taken Unknown] omeprazole 40 mg capsule,delayed release 40 mg PO DAILY stomach #90 caps 06/30/22 [Rx Last Taken 09/15/22] diltiazem HCl 240 mg capsule,24 hr,extended release 120 mg PO DAILY 07/05/22 [History Last Taken 09/15/22] metformin 500 mg tablet 1,000 mg PO BIDCM DIABETES 07/05/22 [History Last Taken 09/15/22] amiodarone 200 mg tablet 100 mg (1/2 x 200 mg) PO DAILY #45 tabs 08/01/22 [Rx Last Taken 09/15/22] atenolol 25 mg tablet 25 mg PO DAILY 10/19/22 [History Last Taken Unknown] rivaroxaban 20 mg tablet (Xarelto) 20 mg PO QPM Pt awaiting mail order RX (Pradaxa dc'd) #90 tabs 11/09/22 [Rx Last Taken Unknown] Allergy/AdvReac Type Severity Reaction Status Date / Time No Known Allergies Allergy Verified 11/17/22 12:20 Family History Mother CVA (cerebral vascular accident) Atrial fibrillation Diabetes Sister Hyperlipidemia Sister Diabetes Atrial fibrillation Sister Parkinson disease Brother CAD (coronary artery disease) Brother CAD (coronary artery disease) Surgical History History of left heart catheterization (06/2015) History of radiofrequency ablation (RFA) procedure for cardiac arrhythmia (03/28/21) History of total left knee replacement Hx of total knee replacement Total knee replacement status Social History adopted: No household members: spouse and children housing: house number of children: 2 current occupational status: retired current occupational exposures/hazards: No pets and animals: No leisure activities: exercise history of recent travel: No Smoking Status: Never smoker second hand exposure: No alcohol intake: former year quit: 2014 details: rarely substance use type: does not use diet: diabetic well-balanced diet: daily or most days caffeine: Yes Type: coffee Number of servings: 1 eating out: 1-3 times/week during the past year weight has: remained stable what type of physical activity do you participate in: walking frequency: 3-4 times per week duration: 45-60 minutes/day kiley/mandaeism: Jehovah Witness seatbelt use: always do you feel safe at home: Yes additional social history: No Blood Transfusions ROS ROS Narrative Constitutional: Reports fatigue and weakness. No fever. HEENT: Reports systems reviewed and no addt'l complaints, except as documented Respiratory/Chest: No cough or URI symptoms. Mild shortness of breath at home. CVS: No chest pain or tightness. Gastrointestinal: Denies coffee ground emesis, hematemesis or vomiting Genitourinary: Denies burning urination or new urinary tract symptoms Musculoskeletal: Denies acute joint pain or limited range of motion. No acute injury Neurologic: Denies seizure-like symptoms. skin: No ulcer. No rash Endocrinology: Reports systems reviewed and no addt'l complaints, except as documented Hematologic/Lymphatic: Reports systems reviewed and no addt'l complaints, except as documented Rest 14 ROS are negative except as mentioned in HPI Vital Signs Vital Signs Vital Signs: 11/17/22 12:20 11/17/22 12:30 11/17/22 12:36 Temperature 98 F Temperature Source Temporal Pulse Rate 29 L 26 L 30 L Respiratory Rate 17 14 Respiratory Effort Respiratory Pattern Blood Pressure 102/44 L Blood Pressure Mean 63 Pulse Ox 93 97 Oxygen Delivery Method Oxygen Flow Rate (L/min) 11/17/22 12:37 11/17/22 12:38 11/17/22 13:09 Temperature Temperature Source Pulse Rate 41 L Respiratory Rate Respiratory Effort Normal Respiratory Pattern Normal Blood Pressure Blood Pressure Mean Pulse Ox Oxygen Delivery Method Room Air Oxygen Flow Rate (L/min) 11/17/22 13:15 11/17/22 15:21 Temperature Temperature Source Pulse Rate 43 L 35 L Respiratory Rate 18 13 Respiratory Effort Respiratory Pattern Blood Pressure 147/52 H 107/43 L Blood Pressure Mean 83 64 Pulse Ox 94 92 Oxygen Delivery Method Nasal Cannula Nasal Cannula Oxygen Flow Rate (L/min) 2 2 Weight Weight: 175 lb Body Mass Index (BMI) 32.0 Physical Exam Narrative General: Alert, Oriented x3, Cooperative. BMI 32.0 kg/m? HEENT: Atraumatic, PERRLA, EOMI, Normocephalic Oral: Oral mucosa dry. No Gingival or Mucosal Lesions/ Ulcerations Neck: Supple, No JVD, Negative Carotid Bruits Lungs: Air entry diminished in bilateral lung bases. No crepitation/rhonchi Cardiovascular: Severe junctional bradycardia. Normal S1, Normal S2, No murmurs Abdomen: Bowel Sounds Present, Soft, Non Tender, Non-Distended : No renal angle tenderness. No suprapubic tenderness. Extremities: No edema, Capillary Refill Less than 3 Seconds Skin: No rashes, No breakdown Musculoskeletal: No Tenderness to Palpation of Joints or Extremities. Bilateral TKR. ROM slightly limited at knees and hip joints, degenerative arthritis. Neurological: Cranial nerves II-XII grossly intact, DTR 2+/4 and Symmetrical, Neuro grossly intact Psych/Mental Status: Flat affect. Results Lab / Micro Data 11/17/22 12:30 11/17/22 14:58 Labs: Laboratory Results - last 24 hr 11/17/22 12:30: WBC 11.3 H, RBC 4.12 L, Hgb 12.0, Hct 37.9, MCV 92.0, MCH 29.1, MCHC 31.7 L, RDW Std Deviation 45.7 H, RDW Coeff of Woody 13.5, Plt Count 266, MPV 9.7, Immature Gran % (Auto) 0.700, Neut % (Auto) 77.7 H, Lymph % (Auto) 14.8 L, [place] % (Auto) 5.0, Eos % (Auto) 1.5, Baso % (Auto) 0.3, Absolute Neuts (auto) 8.7 H, Absolute Lymphs (auto) 1.67, Nucleated RBC % 0, Sodium 134 L, Potassium 5.7 H, Chloride 100, Carbon Dioxide 22.0, Anion Gap 12, BUN 38 H, Creatinine 2.20 H, Estim Creat Clear Calc 19.36, Est GFR (MDRD) Af Amer 29 L, Est GFR (MDRD) Non-Af 24 L, BUN/Creatinine Ratio 17.3, Glucose 296 H, Calcium 9.4, Troponin I High Sens 30, B-Natriuretic Peptide 127.2 H 11/17/22 13:26: POC Glucose 300 H 11/17/22 14:14: POC Glucose 446 H 11/17/22 14:58: Troponin I High Sens 23 Radiology Impression Chest X-Ray 11/17/22 12:45 IMPRESSION: No acute pulmonary process, stable right basilar atelectasis likely due to chronic elevation of the right hemidiaphragm Electronically Signed: Andrew Mendoza MD at 13:08 EDT Reading Location ID and State: [facility] / [place] , Service support , Assessment & Plan Assessment/Plan (1) Junctional bradycardia: PLAN: Plan 1. Severe junctional bradycardia associated with low BP: Patient is being admitted in ICU for intense hemodynamic monitoring. Drill Bit Sharpener is consulted. Blood pressure slightly better. Hold rate control medications and antihypertensive medications. In case if patient's gets hypotensive or heart r ate less than 30, will need dopamine drip. Serial troponin enzymes ordered. 2. Hyperkalemia most likely due to potassium supplement losartan: Patient is on KCl 20 mEq and losartan 100 mg daily. Hold potassium supplement antihypertensive medications. Repeat BMP now. Patient was given hyperkalemia cocktail in the ED 3. History of A-fib/flutter status post radiofrequency ablation and history of nonsustained paroxysmal ventricular tachycardia: Patient had catheter ablation in the past. Last cardiology visit in October 17. She had last mobile cardiac telemetry in September 2021 and her heart rate was sinus rhythm, 86/min. She follows Dr. Bustos and Nory Sharpe. Last stress echo in September 2019 was reported normal adequate treadmill echo, negative for ischemia by EKG and echocardiogram. Echo in May 2019 reported as EF 65%, stage II diastolic dysfunction, LA mildly enlarged mild TR, RVSP 39 mmHg suggesting mild pulmonary hypertension. Last cardiac cath in June 2015 reported as nonobstructive CAD with 30% ostial stenosis of obtuse marginal 1. 4. Diabetes mellitus type 2: Accu-Cheks before meals and at bedtime and cover with Humalog sliding scale. Hold oral hypoglycemic agents. 5. Other comorbidities include hypertension, hypothyroidism, dyslipidemia, GERD: Home medication reconciliation done. 6. DVT prophylaxis: Patient on Xarelto. Patient does not give recent history of bleeding therefore we will continue it. Living will/advanced directive/end of life care: Patient does have living will or advanced directive and power of state's attorney for health. Patient's daughter is power of state's attorney for health. After discussion of benefits/risks procedures involved with full code, DNR CC arrest and DNR CC, the patient opted for DNRCC arrest with no intubation Patient doesn't want artificial life support including intubation, tube feed, ventilator and/chest compression, central venous catheter, vasopressor and DC shock if needed Total time spent in [id number] encounter in discussion of advanced directive 17 minutes. Charges/Coding Visit Charges Inpatient E&M: 65351 Init Hosp L3 Procedures Hospitalists Procedures: 41316 Advncd Care Plan 30 Min
[2022-11-17 16:01] LABS: Anion Gap 11 (5-15); BUN 37 mg/dL (7-18); Calcium,Total 9.3 mg/dL (8.5-10.1); Chloride 105 mmol/L (98-107); Creatinine, Serum 2.18 mg/dL (0.55-1.02); EST Glomerular Filtration Rate 24 mL/min (>60); Est Glom Filt Rate - Afr Amer 29 mL/min (>60); Estimated Creatinine Clearance 19.53 ml/min; Glucose 337 mg/dL (74-106); Magnesium 1.9 mg/dL (1.6-2.6); Phosphorus 5.1 mg/dL (2.5-4.9); Potassium 4.6 mmol/L (3.5-5.1); Sodium Level 138 mmol/L (136-145)
[2022-11-17] MEDS: DOPamine IV 800 MG/250 ML IV.SOLN. 7.9 MG CONT INF (17:30)
[2022-11-17] MEDS: 0.9% Normal Saline 1,000 ML 75 ML IV (18:02)
[2022-11-17 19:15] LABS: Troponin-I HS 28 pg/mL (3.0-54.0)
[2022-11-17] MEDS: Pravastatin 20 MG Tablet PO (20:26)
[2022-11-17] MEDS: Insulin Lispro 100 UNIT/ML INSULN.PEN SC (20:26)
[2022-11-17 20:40] LABS: Bedside Glucose 198 mg/dL (74-106)
[2022-11-18] VITALS (21 sets, daily range): BP systolic 118–157; BP diastolic 57–82; PULSE 51–79; RESP 12–20; TEMP 36.1–36.8; O2SAT 84–100; BMI 34.1
[2022-11-18] MEDS: Ondansetron 4 MG/2 ML Vial IV (01:02)
[2022-11-18 03:58] LABS: Absolute Lymphocyte Count 1.12 X10^3/uL (0.83-4.51); Absolute Neutrophil Count 10.4 X10^3/uL (2.0-7.7); Basophil# 0.03 X10^3/uL; Basophil% 0.2 % (0-1); Eosinophil# 0.01 X10^3/uL; Eosinophils% 0.1 % (0-5); Hematocrit 32.1 % (37-47); Hemoglobin 10.5 g/dL (12.0-15.0); Lymphocyte # 1.12 X10^3/ul (0.83-4.51); Mean Corp Hgb Conc 32.7 g/dL (32-36); Mean Corpuscular Hgb 29.1 pg (27.0-32.0); Mean Corpuscular Volume 88.9 fL (81-99); Mean Platelet Vol. 9.3 fl (6.2-12.0); Monocyte# 0.86 X10^3/uL; Monocyte% 6.9 % (0-10); NRBC Flagged by Analyzer 0 % (0-5); Neutrophil # 10.37 X10^3/uL (2.7-7.7); Neutrophil % 83.3 % (47-70); Platelet Count 199 K/mm3 (150-450); RBC Distribution Width CV 13.3 % (11.6-14.6); RBC Distribution Width SD 43.6 fl (35.1-43.9); Red Blood Count 3.61 M/mm3 (4.2-5.4); White Blood Count 12.5 K/mm3 (4.4-11.0)
[2022-11-18 04:57] LABS: Anion Gap 5 (5-15); BUN 36 mg/dL (7-18); BUN/Creat Ratio 16.8 RATIO (10-20); Calcium,Total 9.3 mg/dL (8.5-10.1); Chloride 105 mmol/L (98-107); Cholesterol 121 mg/dL (200); Creatinine, Serum 2.14 mg/dL (0.55-1.02); EST Glomerular Filtration Rate 24 mL/min (>60); Est Glom Filt Rate - Afr Amer 29 mL/min (>60); Glucose 168 mg/dL (74-106); High Density Lipoprotein 44 mg/dL; Potassium 4.7 mmol/L (3.5-5.1); Sodium Level 139 mmol/L (136-145); Thyroid Stim Hormone (TSH) 1.88 uIU/mL (0.358-3.74); Triglycerides 132 mg/dL; Very Low Density Lipoprotein 26 mg/dL (5-40)
[2022-11-18] MEDS: 0.9% Normal Saline 1,000 ML 75 ML IV (05:46)
[2022-11-18] MEDS: Levothyroxine 150 MCG Tablet PO (05:48)
--- NOTE | 2022-11-18 07:06 | PCM.PN.HOSP ---
Reason for Visit Reason for Visit: Dizziness/Ligntheadedness Subjective Subjective Mrs. Lanier is a 67-year-old white female who presented to the emergency department at [facility] on 11/17/2022 with dizziness and lightheadedness that started on the morning of admission at about 9 AM. She has a history of A-fib and is on rate controlling medication and rivaroxaban at baseline. She reported she went to bed as usual the night prior but when she woke up she felt some mild generalized headache and blurred vision. About 9 AM she had some dizziness and lightheadedness with mild shortness of breath. She had no loss of consciousness. Upon presentation she was found to be extremely bradycardic with heart rates between 26 and 29 bpm. Blood pressure was 102/44. Twelve-lead EKG was performed and showed a junctional bradycardia with a rate of 26. Her atenolol, amiodarone and diltiazem placed on hold. She was initiated on a dopamine drip was which was able to be stopped overnight and heart rates remained stable. She is asymptomatic at this time. She does have a history of radiofrequency ablation for her atrial fibs/flutter and also history of nonsustained paroxysmal VT. She follows with Dr. Bustos at baseline. States she is feeling so much better today. No dizziness or lightheadedness any further heart rates are better and she is in normal sinus rhythm. She is awaiting cardiology input. Objective Data Objective Data Vital Signs: Vital Signs Temp Pulse Resp BP Pulse Ox O2 Del Method O2 Flow Rate 97.5 F L 72 14 140/67 H 98 Nasal Cannula 6 11/18/22 04:00 11/18/22 06:00 11/18/22 06:00 11/18/22 06:00 11/18/22 06:00 11/18/22 06:00 11/18/22 06:00 Oxygen Flow Rate (L/min) 6 Oxygen Delivery Method Nasal Cannula Weight: 84.2 kg Body Mass Index (BMI) 34.1 Intake & Output: Intake and Output for Last 24 Hours 11/16/22 11/17/22 11/18/22 23:59 23:59 23:59 Intake Total 3151.79 / 3159.69 911.6 / 911.6 Output Total 550 / 550 1200 / 1200 Balance 2601.79 / 2609.69 -288.4 / -288.4 Lab / Micro Data 11/18/22 03:50 11/18/22 03:50 Labs: Laboratory Results - last 24 hr 11/17/22 12:30: WBC 11.3 H, RBC 4.12 L, Hgb 12.0, Hct 37.9, MCV 92.0, MCH 29.1, MCHC 31.7 L, RDW Std Deviation 45.7 H, RDW Coeff of Woody 13.5, Plt Count 266, MPV 9.7, Immature Gran % (Auto) 0.700, Neut % (Auto) 77.7 H, Lymph % (Auto) 14.8 L, [place] % (Auto) 5.0, Eos % (Auto) 1.5, Baso % (Auto) 0.3, Absolute Neuts (auto) 8.7 H, Absolute Lymphs (auto) 1.67, Nucleated RBC % 0, Sodium 134 L, Potassium 5.7 H, Chloride 100, Carbon Dioxide 22.0, Anion Gap 12, BUN 38 H, Creatinine 2.20 H, Estim Creat Clear Calc 19.36, Est GFR (MDRD) Af Amer 29 L, Est GFR (MDRD) Non-Af 24 L, BUN/Creatinine Ratio 17.3, Glucose 296 H, Calcium 9.4, Troponin I High Sens 30, B-Natriuretic Peptide 127.2 H 11/17/22 13:26: POC Glucose 300 H 11/17/22 14:14: POC Glucose 446 H 11/17/22 14:58: Sodium 138, Potassium 4.6, Chloride 105, Carbon Dioxide 22.0, Anion Gap 11, BUN 37 H, Creatinine 2.18 H, Estim Creat Clear Calc 19.53, Est GFR (MDRD) Af Amer 29 L, Est GFR (MDRD) Non-Af 24 L, BUN/Creatinine Ratio 17.0, Glucose 337 H, Calcium 9.3, Phosphorus 5.1 H, Magnesium 1.9, Troponin I High Sens 23 11/17/22 18:15: Troponin I High Sens 28 11/17/22 20:21: POC Glucose 198 H 11/18/22 03:50: WBC 12.5 H, RBC 3.61 L, Hgb 10.5 L, Hct 32.1 L, MCV 88.9, MCH 29.1, MCHC 32.7, RDW Std Deviation 43.6, RDW Coeff of Woody 13.3, Plt Count 199, MPV 9.3, Immature Gran % (Auto) 0.500, Neut % (Auto) 83.3 H, Lymph % (Auto) 9.0 L, [place] % (Auto) 6.9, Eos % (Auto) 0.1, Baso % (Auto) 0.2, Absolute Neuts (auto) 10.4 H, Absolute Lymphs (auto) 1.12, Nucleated RBC % 0, Sodium 139, Potassium 4.7, Chloride 105, Carbon Dioxide 29.0, Anion Gap 5, BUN 36 H, Creatinine 2.14 H, Estim Creat Clear Calc 19.90, Est GFR (MDRD) Af Amer 29 L, Est GFR (MDRD) Non-Af 24 L, BUN/Creatinine Ratio 16.8, Glucose 168 H, Calcium 9.3, Triglycerides 132, Cholesterol 121, LDL Cholesterol 51, VLDL Cholesterol 26, HDL Cholesterol 44, TSH 1.88 Radiography Diagnostic Testing: Radiology Impression Chest X-Ray 11/17/22 12:45 IMPRESSION: No acute pulmonary process, stable right basilar atelectasis likely due to chronic elevation of the right hemidiaphragm Electronically Signed: Andrew Mendoza MD at 13:08 EDT , Physical Exam Const alert, oriented x3, no apparent distress, healthy appearing and well nourished Constitutional Narrative: Obese, upper middle-aged, white female, sitting up in a chair at the bedside, appears comfortable and nontoxic, at bedside HEENT head/scalp atraumatic and moist oral mucous membranes HEENT Narrative: Mallampati 2-3, no thrush Head and Scalp: normocephalic Resp normal respiratory effort, no retractions, no use of accessory muscles and clear to auscultation bilaterally Auscultation: Negative for rales, rhonchi or wheezes Cardio regular rate, regular rhythm, S1 normal heart sound, S2 normal heart sound, no murmurs, no rub, no gallops and no clicks GI normal to inspection, nondistended, normoactive bowel sounds, soft to palpation and non-tender Extremity no clubbing, cyanosis or edema Extremity Narrative: Pedal pulses are 2+ Neuro oriented x3, moves all extremities and no focal motor deficits Speech: speech normal Psych affect normal Psych Narrative: Very pleasant, appropriately interactive Assessment & Plan Assessment/Plan (1) Junctional bradycardia: (2) Fatigue: (3) JENA (acute kidney injury): (4) Hypoxemia: (5) Hyperkalemia: PLAN: Plan Symptomatic bradycardia -Patient on multiple heart rate regulating medications including atenolol, diltiazem -Continue to hold -Had been on dopamine drip which was stopped through the night -Rates are currently stable -TSH within normal limits at 1.88 -History of A-fib status post radiofrequency ablation -Last echo from 2019 showed an EF of 65%, stage II diastolic dysfunction, mild left atrial enlargement, right ventricular systolic pressure of 39 mmHg -Cardiology consultation JENA -Baseline serum creatinine appears to be between 0.9 and 1.2 -Serum creatinine on presentation was 2.20 -Current serum creatinine is 2.14 -Continue to hold losartan and hydrochlorothiazide -Hold home metformin -Anticipate that this is likely related to her bradycardia and hypotension on presentation -Continue IV fluids but change to continuous at 100 cc/h and reevaluate tomorrow 11/19/2022 -Creatinine does not dramatically improve may need further work-up Hyperkalemia -Potassium on admission was 5.7 and did not appear to be hemolyzed -Potassium is resolved and normal today at 4.7 -Continue to hold losartan and potassium supplementation Hypoxia -Etiology unclear upon review of oxygenation sats did not drop below 92% and patient was placed on 2 L nasal cannula and since has been uptitrated to 6 L with current saturations at 99% -Chest x-ray was unremarkable Fatigue -Likely related to bradycardia -Continue to monitor -TSH within normal limits Hypothyroidism -Continue home levothyroxine -TSH is 1.88 Hypertension -Antihypertensives on hold as blood pressure was soft on admission -Continue to monitor and reinitiate antihypertensives as able -Home antihypertensive medications include atenolol, diltiazem, hydrochlorothiazide, losartan -Blood pressures are improving with most recent blood pressure being 135 systolic -As needed hydralazine for systolic pressure greater than 160 History of atrial fibrillation/flutter -Hold rate controlling medication -History of radiofrequency ablation -Continue rivaroxaban but renally dose to 15 mg daily until creatinine clearance improves to greater than 50 -Okay per discussion with cardiology to restart amiodarone 100 mg daily GERD -Continue PPI Nonobstructive CAD -Last cardiac cath in June 2015 reported as nonobstructive CAD with 30% ostial stenosis of obtuse marginal 1 DM-2 -Hold home oral hypoglycemic agents -Would be cautious in reinitiating metformin if renal function does not improve -SSI -Carb controlled diet DVT prophylaxis -Continue Xarelto CODE STATUS -DNR CCA with no intubation Charges/Coding Visit Charges Inpatient E&M: 50209 Subs Hosp L2
[2022-11-18] MEDS: Acetaminophen 325 MG Tablet 650 MG PO (08:34)
[2022-11-18 08:52] LABS: Bedside Glucose 135 mg/dL (74-106)
--- NOTE | 2022-11-18 10:56 | PCM.CONS.C ---
Assessment & Plan Assessment/Plan (1) Symptomatic bradycardia: PLAN: Likely iatrogenic. Heart rate improved with holding atenolol and diltiazem. Back in sinus rhythm. DC atenolol and diltiazem. Continue amiodarone. Monitor rhythm. (2) Paroxysmal atrial fibrillation: PLAN: See #1 above. Presently normal sinus rhythm. Continue amiodarone. On rivaroxaban. (3) JENA (acute kidney injury): PLAN: Follow as per internal medicine. Consider nephrology consult. (4) Essential hypertension: PLAN: Presently controlled. Monitor. HPI Consult Data Date of Consult: 11/18/22 HPI Narrative Reason for Consultation: Symptomatic bradycardia HPI Narrative: The patient has past medical history significant for paroxysmal atrial fibrillation. She presented to the emergency room complaining of few days history of generalized weakness and fatigue. She was noted to have her heart rate in the low 30s with junctional bradycardia. Patient denies any history of chest pains or shortness of breath. No orthopnea. No PND. No ankle edema. FORMERLY [facility] Medical History Arthritis Diabetes Easy bruising Essential hypertension Family history of sudden cardiac History of ulceration Hyperlipidemia Hypothyroidism Infection of prosthetic left knee joint senior living current use of anticoagulant Non-smoker Nonsustained paroxysmal ventricular tachycardia Obesity Paroxysmal atrial fibrillation Post-menopausal Septic arthritis of knee Thyroid disease Thyroid nodule Type 2 diabetes mellitus without complications Walker as ambulation aid Wears glasses Home Medications tramadol 50 mg tablet 50 mg PO TID PRN PRN Pain 11/30/17 [History Last Taken 07/27/22] levothyroxine 125 mcg tablet 150 mcg PO DAILY thyroid 06/07/18 [History Last Taken 09/15/22] hydrochlorothiazide 12.5 mg capsule 12.5 mg PO DAILY DIURETIC #90 caps 06/05/19 [Rx Last Taken 04/14/21] losartan 100 mg tablet 100 mg PO QHS BP #90 tabs 06/05/19 [Rx Last Taken 07/27/22] potassium chloride 20 mEq tablet,extended release(part/cryst) 20 meq PO DAILY POTASSIUM #90 tabs 06/05/19 [Rx Last Taken 09/15/22] glipizide 5 mg tablet 5 mg PO BID 03/29/22 [History Last Taken 09/15/22] ylcmyiniytfb-ibjqpuqx-xeyyuj tablet 1 tab PO DAILY 03/29/22 [History Last Taken 07/27/22] pravastatin 20 mg tablet 20 mg PO QHS Stop Simvastatin #90 tabs 04/12/22 [Rx Last Taken Unknown] omeprazole 40 mg capsule,delayed release 40 mg PO DAILY stomach #90 caps 06/30/22 [Rx Last Taken 09/15/22] diltiazem HCl 240 mg capsule,24 hr,extended release 120 mg PO DAILY 07/05/22 [History Last Taken 09/15/22] metformin 500 mg tablet 1,000 mg PO BIDCM DIABETES 07/05/22 [History Last Taken 09/15/22] amiodarone 200 mg tablet 100 mg (1/2 x 200 mg) PO DAILY #45 tabs 08/01/22 [Rx Last Taken 09/15/22] atenolol 25 mg tablet 25 mg PO DAILY 10/19/22 [History Last Taken Unknown] rivaroxaban 20 mg tablet (Xarelto) 20 mg PO QPM Pt awaiting mail order RX (Pradaxa dc'd) #90 tabs 11/09/22 [Rx Last Taken Unknown] Allergy/AdvReac Type Severity Reaction Status Date / Time No Known Allergies Allergy Verified 11/17/22 12:20 Family History Mother CVA (cerebral vascular accident) Atrial fibrillation Diabetes Sister Hyperlipidemia Sister Diabetes Atrial fibrillation Sister Parkinson disease Brother CAD (coronary artery disease) Brother CAD (coronary artery disease) Surgical History History of left heart catheterization (06/2015) History of radiofrequency ablation (RFA) procedure for cardiac arrhythmia (03/28/21) History of total left knee replacement Hx of total knee replacement Total knee replacement status Social History adopted: No household members: spouse and children housing: house number of children: 2 current occupational status: retired current occupational exposures/hazards: No pets and animals: No leisure activities: exercise history of recent travel: No Smoking Status: Never smoker second hand exposure: No alcohol intake: former year quit: 2014 details: rarely substance use type: does not use diet: diabetic well-balanced diet: daily or most days caffeine: Yes Type: coffee Number of servings: 1 eating out: 1-3 times/week during the past year weight has: remained stable what type of physical activity do you participate in: walking frequency: 3-4 times per week duration: 45-60 minutes/day kiley/amish: Jehovah Witness seatbelt use: always do you feel safe at home: Yes additional social history: No Blood Transfusions Physical Exam Narrative Comfortable. No apparent distress. Sitting up in chair. Heart sounds 1 and 2 normal. Chest clear to auscultation bilaterally. Abdomen soft. Alert oriented x3. No ankle edema noted. Risk Stratification Risk Stratification Applicable: No Objective Data Vital Signs: Vital Signs Temp Pulse Resp BP Pulse Ox O2 Del Method O2 Flow Rate 97.5 F L 73 19 H 135/60 H 97 Nasal Cannula 2 11/18/22 04:00 11/18/22 07:00 11/18/22 07:00 11/18/22 07:00 11/18/22 10:29 11/18/22 08:00 11/18/22 10:30 Oxygen Flow Rate (L/min) 2 Oxygen Delivery Method Nasal Cannula Weight: 185 lb 10.067 oz Body Mass Index (BMI) 34.1 Intake & Output: Intake and Output for Last 24 Hours 11/16/22 11/17/22 11/18/22 23:59 23:59 23:59 Intake Total 3151.79 / 3159.69 1114.1 / 1114.1 Output Total 550 / 550 1200 / 1200 Balance 2601.79 / 2609.69 -85.9 / -85.9 Lab / Micro Data 11/18/22 03:50 11/18/22 03:50 Labs: Laboratory Results - last 24 hr 11/17/22 12:30: WBC 11.3 H, RBC 4.12 L, Hgb 12.0, Hct 37.9, MCV 92.0, MCH 29.1, MCHC 31.7 L, RDW Std Deviation 45.7 H, RDW Coeff of Woody 13.5, Plt Count 266, MPV 9.7, Immature Gran % (Auto) 0.700, Neut % (Auto) 77.7 H, Lymph % (Auto) 14.8 L, [place] % (Auto) 5.0, Eos % (Auto) 1.5, Baso % (Auto) 0.3, Absolute Neuts (auto) 8.7 H, Absolute Lymphs (auto) 1.67, Nucleated RBC % 0, Sodium 134 L, Potassium 5.7 H, Chloride 100, Carbon Dioxide 22.0, Anion Gap 12, BUN 38 H, Creatinine 2.20 H, Estim Creat Clear Calc 19.36, Est GFR (MDRD) Af Amer 29 L, Est GFR (MDRD) Non-Af 24 L, BUN/Creatinine Ratio 17.3, Glucose 296 H, Calcium 9.4, Troponin I High Sens 30, B-Natriuretic Peptide 127.2 H 11/17/22 13:26: POC Glucose 300 H 11/17/22 14:14: POC Glucose 446 H 11/17/22 14:58: Sodium 138, Potassium 4.6, Chloride 105, Carbon Dioxide 22.0, Anion Gap 11, BUN 37 H, Creatinine 2.18 H, Estim Creat Clear Calc 19.53, Est GFR (MDRD) Af Amer 29 L, Est GFR (MDRD) Non-Af 24 L, BUN/Creatinine Ratio 17.0, Glucose 337 H, Calcium 9.3, Phosphorus 5.1 H, Magnesium 1.9, Troponin I High Sens 23 11/17/22 18:15: Troponin I High Sens 28 11/17/22 20:21: POC Glucose 198 H 11/18/22 03:50: WBC 12.5 H, RBC 3.61 L, Hgb 10.5 L, Hct 32.1 L, MCV 88.9, MCH 29.1, MCHC 32.7, RDW Std Deviation 43.6, RDW Coeff of Woody 13.3, Plt Count 199, MPV 9.3, Immature Gran % (Auto) 0.500, Neut % (Auto) 83.3 H, Lymph % (Auto) 9.0 L, [place] % (Auto) 6.9, Eos % (Auto) 0.1, Baso % (Auto) 0.2, Absolute Neuts (auto) 10.4 H, Absolute Lymphs (auto) 1.12, Nucleated RBC % 0, Sodium 139, Potassium 4.7, Chloride 105, Carbon Dioxide 29.0, Anion Gap 5, BUN 36 H, Creatinine 2.14 H, Estim Creat Clear Calc 19.90, Est GFR (MDRD) Af Amer 29 L, Est GFR (MDRD) Non-Af 24 L, BUN/Creatinine Ratio 16.8, Glucose 168 H, Calcium 9.3, Triglycerides 132, Cholesterol 121, LDL Cholesterol 51, VLDL Cholesterol 26, HDL Cholesterol 44, TSH 1.88 11/18/22 08:33: POC Glucose 135 H Rhythm Strip Rhythm Strip: Sinus Rhythm Ectopy: None Cardiology Labs/Tests 11/17/22 12:30: WBC 11.3 H, RBC 4.12 L, Hgb 12.0, Hct 37.9, MCV 92.0, MCH 29.1, MCHC 31.7 L, Plt Count 266, MPV 9.7, Immature Gran % (Auto) 0.700, Neut % (Auto) 77.7 H, Lymph % (Auto) 14.8 L, [place] % (Auto) 5.0, Eos % (Auto) 1.5, Baso % (Auto) 0.3, Absolute Neuts (auto) 8.7 H, Nucleated RBC % 0, Sodium 134 L, Potassium 5.7 H, Chloride 100, Carbon Dioxide 22.0, Anion Gap 12, BUN 38 H, Creatinine 2.20 H, Est GFR (MDRD) Af Amer 29 L, Est GFR (MDRD) Non-Af 24 L, BUN/Creatinine Ratio 17.3, Glucose 296 H, Calcium 9.4, B-Natriuretic Peptide 127.2 H 11/17/22 14:58: Sodium 138, Potassium 4.6, Chloride 105, Carbon Dioxide 22.0, Anion Gap 11, BUN 37 H, Creatinine 2.18 H, Est GFR (MDRD) Af Amer 29 L, Est GFR (MDRD) Non-Af 24 L, BUN/Creatinine Ratio 17.0, Glucose 337 H, Calcium 9.3, Phosphorus 5.1 H, Magnesium 1.9 11/18/22 03:50: WBC 12.5 H, RBC 3.61 L, Hgb 10.5 L, Hct 32.1 L, MCV 88.9, MCH 29.1, MCHC 32.7, Plt Count 199, MPV 9.3, Immature Gran % (Auto) 0.500, Neut % (Auto) 83.3 H, Lymph % (Auto) 9.0 L, [place] % (Auto) 6.9, Eos % (Auto) 0.1, Baso % (Auto) 0.2, Absolute Neuts (auto) 10.4 H, Nucleated RBC % 0, Sodium 139, Potassium 4.7, Chloride 105, Carbon Dioxide 29.0, Anion Gap 5, BUN 36 H, Creatinine 2.14 H, Est GFR (MDRD) Af Amer 29 L, Est GFR (MDRD) Non-Af 24 L, BUN/Creatinine Ratio 16.8, Glucose 168 H, Calcium 9.3, Triglycerides 132, Cholesterol 121, LDL Cholesterol 51, VLDL Cholesterol 26, HDL Cholesterol 44 Rhythm: Presently normal sinus rhythm. EKG: ECG done in the emergency room showed sinus arrest with junctional bradycardia. ECHO: Stress Test: Cardiac Cath: PCI: CT Surgery: Holter monitor: EPS: PPM: CXR: Chest CT Scan: Radiography Diagnostic Testing: Radiology Impression Chest X-Ray 11/17/22 12:45 IMPRESSION: No acute pulmonary process, stable right basilar atelectasis likely due to chronic elevation of the right hemidiaphragm Electronically Signed: Andrew Mendoza MD at 13:08 EDT ,
[2022-11-18] MEDS: Pantoprazole Sodium 40 MG Tablet PO (11:43)
[2022-11-18 13:29] LABS: Bedside Glucose 139 mg/dL (74-106)
--- NOTE | 2022-11-18 14:50 | CASEMGMT ---
JS VELEZ Assessment: Face to Face with pt for initial transition planning/care coordination assessment. RN AGUSTIN introduced self and role at [facility], pt voices understanding and consents to assessment. Pt is A/O x4 and answers all questions appropriately at this time. Pt sitting up in chair with oxygen on in no distress. at bedside. Care providers, pharmacy, and demographics verified/updated. Admitting Dx: bradycardia with hypotension PCP:Kitty Specialists:Juli, cardio; Cosme, cardio; Raghav Heart, derm; Crow, eyes Preferred Pharmacy: [facility] Insurance: Ash[facility] Prescription Benefit: yes LNOK: Abdulkadir Lanier, ; Taylor Lanier, dtr Living Arrangements: Pt lives with and son in a two story home with 2 steps to enter in the front. Pt reports she is I in ADL's and denies concerns at home. Transportation: Pt drives self and denies concerns with transportation. DME/HHC/SNF: Pt has grab bars in the bathroom, shower chair, cane and walker. Pt does not use AD to ambulate. Pt has a BGM with sufficient supplies. Pt has had [facility] in the past and denies SNF stays. Pt states no concerns with going home at time of dc. Pt states no further concerns/needs. Pt currently does not feel she will need any services at home. CM to follow. Advised pt to ask CM if any further question/concerns/needs arise, voices understanding. Pt Goal: Home Plan: Home, monitor oxygen and follow therapy.
[2022-11-18] MEDS: Insulin Lispro 100 UNIT/ML INSULN.PEN SC (16:24)
[2022-11-18] MEDS: Amiodarone 200 MG Tablet 100 MG PO (16:24)
[2022-11-18] MEDS: Rivaroxaban 15 MG Tablet PO (16:25)
[2022-11-18] MEDS: 0.9% Normal Saline 1,000 ML 100 ML IV (16:25)
[2022-11-18 16:52] LABS: Bedside Glucose 152 mg/dL (74-106)
[2022-11-18] MEDS: 0.9% Saline Lock 10 ML Syringe IV (20:07)
[2022-11-18] MEDS: Pravastatin 20 MG Tablet PO (20:07)
[2022-11-18 22:10] LABS: Bedside Glucose 138 mg/dL (74-106)
[2022-11-19] VITALS (8 sets, daily range): BP systolic 147–168; BP diastolic 50–70; PULSE 55–78; RESP 18; TEMP 36.5–36.8; O2SAT 93–100; BMI 34.3
[2022-11-19] MEDS: 0.9% Normal Saline 1,000 ML 100 ML IV ×2 (00:19→09:46)
[2022-11-19] MEDS: Levothyroxine 150 MCG Tablet PO (05:44)
[2022-11-19 06:16] LABS: Absolute Neutrophil Count 6.2 X10^3/uL (2.0-7.7); Basophil# 0.02 X10^3/uL; Basophil% 0.2 % (0-1); Eosinophil# 0.17 X10^3/uL; Eosinophils% 2.1 % (0-5); Hematocrit 33.3 % (37-47); Hemoglobin 10.5 g/dL (12.0-15.0); Lymphocyte % 14.8 % (19-41); Mean Corp Hgb Conc 31.5 g/dL (32-36); Mean Corpuscular Hgb 29.6 pg (27.0-32.0); Mean Corpuscular Volume 93.8 fL (81-99); Mean Platelet Vol. 9.9 fl (6.2-12.0); Monocyte# 0.52 X10^3/uL; Monocyte% 6.4 % (0-10); NRBC Flagged by Analyzer 0 % (0-5); Neutrophil # 6.17 X10^3/uL (2.7-7.7); Platelet Count 194 K/mm3 (150-450); RBC Distribution Width CV 13.8 % (11.6-14.6); RBC Distribution Width SD 47.6 fl (35.1-43.9); Red Blood Count 3.55 M/mm3 (4.2-5.4); White Blood Count 8.1 K/mm3 (4.4-11.0)
[2022-11-19 06:41] LABS: Anion Gap 4 (5-15); BUN 25 mg/dL (7-18); BUN/Creat Ratio 17.5 RATIO (10-20); Calcium,Total 8.8 mg/dL (8.5-10.1); Chloride 107 mmol/L (98-107); Creatinine, Serum 1.43 mg/dL (0.55-1.02); EST Glomerular Filtration Rate 39 mL/min (>60); Est Glom Filt Rate - Afr Amer 47 mL/min (>60); Estimated Creatinine Clearance 29.78 ml/min; Glucose 174 mg/dL (74-106); Potassium 4.7 mmol/L (3.5-5.1); Sodium Level 140 mmol/L (136-145)
[2022-11-19 07:17] LABS: Bedside Glucose 170 mg/dL (74-106)
--- NOTE | 2022-11-19 07:59 | PN.HOSP_ITS ---
Reason for Visit Reason for Visit: Diagnoses Hyperkalemia (11/17/22) Essential (primary) hypertension (11/17/22) Paroxysmal atrial fibrillation (11/17/22) Acute kidney failure, unspecified (11/17/22) Bradycardia, unspecified (11/17/22) Hypoxemia (11/17/22) Other fatigue (11/17/22) Objective Data Objective Data Vital Signs: Vital Signs Temp Pulse Resp BP Pulse Ox O2 Del Method O2 Flow Rate 97.8 F 55 L 18 168/50 H 93 Nasal Cannula 2 11/19/22 05:35 11/19/22 05:35 11/19/22 05:35 11/19/22 05:35 11/19/22 05:35 11/19/22 07:40 11/19/22 07:40 Oxygen Flow Rate (L/min) 2 Oxygen Delivery Method Nasal Cannula Weight: 187 lb 9.814 oz Body Mass Index (BMI) 34.3 Intake & Output: Intake and Output for Last 24 Hours 11/17/22 11/18/22 11/19/22 23:59 23:59 23:59 Intake Total 3151.79 / 3159.69 3110.77 / 3110.77 790 / 790 Output Total 550 / 550 1600 / 1600 Balance 2601.79 / 2609.69 1510.77 / 1510.77 790 / 790 Lab / Micro Data 11/19/22 05:25 11/19/22 05:25 Labs: Laboratory Results - last 24 hr 11/18/22 08:33: POC Glucose 135 H 11/18/22 13:05: POC Glucose 139 H 11/18/22 16:22: POC Glucose 152 H 11/18/22 20:09: POC Glucose 138 H 11/19/22 05:25: WBC 8.1, RBC 3.55 L, Hgb 10.5 L, Hct 33.3 L, MCV 93.8 D, MCH 29.6, MCHC 31.5 L, RDW Std Deviation 47.6 H, RDW Coeff of Woody 13.8, Plt Count 194, MPV 9.9, Immature Gran % (Auto) 0.500, Neut % (Auto) 76.0 H, Lymph % (Auto) 14.8 L, [place] % (Auto) 6.4, Eos % (Auto) 2.1, Baso % (Auto) 0.2, Absolute Neuts (auto) 6.2, Absolute Lymphs (auto) 1.20, Nucleated RBC % 0, Sodium 140, Potassium 4.7, Chloride 107, Carbon Dioxide 29.0, Anion Gap 4 L, BUN 25 H, Creatinine 1.43 H, Estim Creat Clear Calc 29.78, Est GFR (MDRD) Af Amer 47 L, Est GFR (MDRD) Non-Af 39 L, BUN/Creatinine Ratio 17.5, Glucose 174 H, Calcium 8.8 11/19/22 05:41: POC Glucose 170 H Rhythm Strip Rhythm Strip: Sinus Rhythm Ectopy: None Physical Exam Narrative General: Alert, Oriented x3, Cooperative. BMI 32.0 kg/m? HEENT: Atraumatic, PERRLA, EOMI, Normocephalic Oral: Oral mucosa dry. No Gingival or Mucosal Lesions/ Ulcerations Neck: Supple, No JVD, Negative Carotid Bruits Lungs: Air entry diminished in bilateral lung bases. No crepitation/rhonchi Cardiovascular: Sinus bradycardia, heart rate low 50s. Normal S1, Normal S2, No murmurs Abdomen: Bowel Sounds Present, Soft, Non Tender, Non-Distended : No renal angle tenderness. No suprapubic tenderness. Extremities: No edema, Capillary Refill Less than 3 Seconds Skin: No rashes, No breakdown Musculoskeletal: No Tenderness to Palpation of Joints or Extremities. Bilateral TKR. ROM slightly limited at knees and hip joints, degenerative arthritis. Neurological: Cranial nerves II-XII grossly intact, DTR 2+/4 and Symmetrical, Neuro grossly intact Psych/Mental Status: Flat affect. Assessment & Plan Assessment/Plan (1) Junctional bradycardia: (2) Fatigue: QUALIFIERS: Fatigue type: unspecified Qualified Code(s): R53.83 - Other fatigue (3) JENA (acute kidney injury): (4) Hypoxemia: (5) Hyperkalemia: PLAN: Plan Symptomatic junctional bradycardia: -Patient on multiple heart rate regulating medications including atenolol, diltiazem are on hold. Dopamine drip was discontinued overnight and patient was transferred to PCU on 11/18. TSH 1.88. History of chronic recalcitrant A-fib status post cardioversion and radiofrequency ablation. Patient is asymptomatic. -TSH within normal limits at 1.88 -History of A-fib status post radiofrequency ablation -Last echo from 2019 showed an EF of 65%, stage II diastolic dysfunction, mild left atrial enlargement, right ventricular systolic pressure of 39 mmHg Double Bass Player consult appreciated and discussed. JENA -Baseline serum creatinine appears to be between 0.9 and 1.2 -Serum creatinine on presentation was 2.20. Improved to 1.4. Patient treated with IV fluid normal saline but will discontinue as patient has history of HFpEF. Patient is documented 6.2 L positive net fluid balance. Hyperkalemia -Potassium on admission was 5.7 and did not appear to be hemolyzed -Potassium is resolved and normal today at 4.7. -Continue to hold losartan and potassium supplementation Hypoxia -Etiology unclear upon review of oxygenation sats did not drop below 92% and patient was placed on 2 L nasal cannula and since has been uptitrated to 6 L with current saturations at 99% -Chest x-ray was unremarkable Fatigue -Likely related to bradycardia -Continue to monitor -TSH within normal limits Hypothyroidism -Continue home levothyroxine -TSH is 1.88 Hypertension -Antihypertensives on hold as blood pressure was soft on admission -Continue to monitor and reinitiate antihypertensives as able -Home antihypertensive medications include atenolol, diltiazem, hydrochlorothiazide, losartan -Blood pressures are improving with most recent blood pressure being 135 systolic -As needed hydralazine for systolic pressure greater than 160 History of atrial fibrillation/flutter -Hold rate controlling medication -History of radiofrequency ablation -Continue rivaroxaban but renally dose to 15 mg daily until creatinine clearance improves to greater than 50 Amiodarone started 100 mg daily. Probably will need amiodarone 100 mg every other day. GERD -Continue PPI Nonobstructive CAD -Last cardiac cath in June 2015 reported as nonobstructive CAD with 30% ostial stenosis of obtuse marginal 1 DM-2 -Hold home oral hypoglycemic agents -Would be cautious in reinitiating metformin if renal function does not improve -SSI -Carb controlled diet DVT prophylaxis -Continue Xarelto CODE STATUS -DNR CCA with no intubation Charges/Coding Visit Charges Inpatient E&M: 84112 Subs Hosp L2
[2022-11-19] MEDS: Sodium Chloride 0.65% 1 SPRAY SPRAY.BTL 2 SPRAY NASAL (08:57)
[2022-11-19] MEDS: Amiodarone 200 MG Tablet 100 MG PO (09:38)
[2022-11-19] MEDS: Pantoprazole Sodium 40 MG Tablet PO (09:38)
[2022-11-19] MEDS: hydrALAZINE 20 MG/ML Vial 10 MG IV (09:43)
[2022-11-19] MEDS: Insulin Lispro 100 UNIT/ML INSULN.PEN SC (11:40)
[2022-11-19 12:07] LABS: Bedside Glucose 212 mg/dL (74-106)
--- NOTE | 2022-11-19 13:03 | PN.CARD_ITS ---
Subjective Subjective Denies any complaints. No weakness. Objective Data Vital Signs: Vital Signs Temp Pulse Resp BP Pulse Ox O2 Del Method O2 Flow Rate 98.3 F 72 18 167/70 H 99 Nasal Cannula 2 11/19/22 09:30 11/19/22 09:43 11/19/22 09:30 11/19/22 09:43 11/19/22 09:30 11/19/22 09:30 11/19/22 09:30 Oxygen Flow Rate (L/min) 2 Oxygen Delivery Method Nasal Cannula Weight: 187 lb 9.814 oz Body Mass Index (BMI) 34.3 Intake & Output: Intake and Output for Last 24 Hours 11/17/22 11/18/22 11/19/22 23:59 23:59 23:59 Intake Total 3151.79 / 3159.69 3110.77 / 3110.77 2375 / 2375 Output Total 550 / 550 1600 / 1600 Balance 2601.79 / 2609.69 1510.77 / 1510.77 2375 / 2375 Lab / Micro Data 11/19/22 05:25 11/19/22 05:25 Labs: Laboratory Results - last 24 hr 11/18/22 13:05: POC Glucose 139 H 11/18/22 16:22: POC Glucose 152 H 11/18/22 20:09: POC Glucose 138 H 11/19/22 05:25: WBC 8.1, RBC 3.55 L, Hgb 10.5 L, Hct 33.3 L, MCV 93.8 D, MCH 2 9.6, MCHC 31.5 L, RDW Std Deviation 47.6 H, RDW Coeff of Woody 13.8, Plt Count 194, MPV 9.9, Immature Gran % (Auto) 0.500, Neut % (Auto) 76.0 H, Lymph % (Auto) 14.8 L, [place] % (Auto) 6.4, Eos % (Auto) 2.1, Baso % (Auto) 0.2, Absolute Neuts (auto) 6.2, Absolute Lymphs (auto) 1.20, Nucleated RBC % 0, Sodium 140, Potassium 4.7, Chloride 107, Carbon Dioxide 29.0, Anion Gap 4 L, BUN 25 H, Creatinine 1.43 H, Estim Creat Clear Calc 29.78, Est GFR (MDRD) Af Amer 47 L, Est GFR (MDRD) Non-Af 39 L, BUN/Creatinine Ratio 17.5, Glucose 174 H, Calcium 8.8 11/19/22 05:41: POC Glucose 170 H 11/19/22 11:39: POC Glucose 212 H Rhythm Strip Rhythm Strip: Sinus Rhythm Ectopy: None Cardiology Labs/Tests 11/19/22 05:25: WBC 8.1, RBC 3.55 L, Hgb 10.5 L, Hct 33.3 L, MCV 93.8 D, MCH 29.6, MCHC 31.5 L, Plt Count 194, MPV 9.9, Immature Gran % (Auto) 0.500, Neut % (Auto) 76.0 H, Lymph % (Auto) 14.8 L, [place] % (Auto) 6.4, Eos % (Auto) 2.1, Baso % (Auto) 0.2, Absolute Neuts (auto) 6.2, Nucleated RBC % 0, Sodium 140, Potassium 4.7, Chloride 107, Carbon Dioxide 29.0, Anion Gap 4 L, BUN 25 H, Creatinine 1.43 H, Est GFR (MDRD) Af Amer 47 L, Est GFR (MDRD) Non-Af 39 L, BUN/ Creatinine Ratio 17.5, Glucose 174 H, Calcium 8.8 Rhythm: EKG: ECHO: Stress Test: Cardiac Cath: PCI: CT Surgery: Holter monitor: EPS: PPM: CXR: Chest CT Scan: Physical Exam Narrative Comfortable. No apparent distress. Sitting up in chair. Heart sounds 1 and 2 normal. Chest clear to auscultation bilaterally. Abdomen soft. Alert oriented x3. No ankle edema noted. Assessment & Plan Assessment/Plan (1) Symptomatic bradycardia: PLAN: Improved after stopping diltiazem and atenolol. Presently normal sinus rhythm. Continue amiodarone 100 mg daily. (2) Paroxysmal atrial fibrillation: PLAN: See #1 above. Presently normal sinus rhythm. Continue amiodarone. On rivaroxaban. (3) JENA (acute kidney injury): PLAN: Creatinine improved. (4) Essential hypertension: PLAN: Blood pressure above goal. Start on diuretics. Avoid negative chronotropic agents. PLAN: Plan May discharge home in the morning if hemodynamics remain stable.
[2022-11-19 13:57] LABS: Anion Gap 4 (5-15); BUN 22 mg/dL (7-18); BUN/Creat Ratio 16.8 RATIO (10-20); Chloride 107 mmol/L (98-107); Creatinine, Serum 1.31 mg/dL (0.55-1.02); EST Glomerular Filtration Rate 43 mL/min (>60); Est Glom Filt Rate - Afr Amer 52 mL/min (>60); Estimated Creatinine Clearance 32.51 ml/min; Glucose 191 mg/dL (74-106); Potassium 4.4 mmol/L (3.5-5.1); Sodium Level 139 mmol/L (136-145)
[2022-11-19] MEDS: Acetaminophen 325 MG Tablet 650 MG PO (14:26)
[2022-11-19] MEDS: Furosemide 40 MG Tablet PO (14:26)
[2022-11-19] MEDS: hydrALAZINE 25 MG Tablet PO ×2 (14:26→21:40)
[2022-11-19] MEDS: Rivaroxaban 15 MG Tablet PO (16:56)
[2022-11-19 17:21] LABS: Bedside Glucose 116 mg/dL (74-106)
[2022-11-19] MEDS: MELATONIN 3 MG TABLET PO (21:40)
[2022-11-19] MEDS: Pravastatin 20 MG Tablet PO (21:40)
[2022-11-19 22:01] LABS: Bedside Glucose 161 mg/dL (74-106)
[2022-11-20 04:11] VITALS: BMI 34.0
[2022-11-20 05:14] VITALS: PULSE 67
[2022-11-20] MEDS: Levothyroxine 150 MCG Tablet PO (05:14)
[2022-11-20] MEDS: hydrALAZINE 25 MG Tablet PO (05:14)
[2022-11-20 05:20] VITALS: BP 152/66; PULSE 67; RESP 18; TEMP 36.6; O2SAT 99
[2022-11-20 05:40] LABS: Bedside Glucose 170 mg/dL (74-106)
[2022-11-20 05:51] LABS: Absolute Lymphocyte Count 0.92 X10^3/uL (0.83-4.51); Absolute Neutrophil Count 6.7 X10^3/uL (2.0-7.7); Basophil# 0.01 X10^3/uL; Basophil% 0.1 % (0-1); Eosinophil# 0.16 X10^3/uL; Eosinophils% 1.9 % (0-5); Hematocrit 30.7 % (37-47); Lymphocyte # 0.92 X10^3/ul (0.83-4.51); Lymphocyte % 10.9 % (19-41); Mean Corp Hgb Conc 32.6 g/dL (32-36); Mean Corpuscular Hgb 29.9 pg (27.0-32.0); Mean Corpuscular Volume 91.6 fL (81-99); Mean Platelet Vol. 9.6 fl (6.2-12.0); Monocyte# 0.65 X10^3/uL; Monocyte% 7.7 % (0-10); NRBC Flagged by Analyzer 0 % (0-5); Neutrophil # 6.67 X10^3/uL (2.7-7.7); Neutrophil % 78.9 % (47-70); Platelet Count 191 K/mm3 (150-450); RBC Distribution Width CV 13.6 % (11.6-14.6); RBC Distribution Width SD 45.2 fl (35.1-43.9); Red Blood Count 3.35 M/mm3 (4.2-5.4); White Blood Count 8.5 K/mm3 (4.4-11.0)
[2022-11-20 06:35] LABS: Anion Gap 5 (5-15); BUN 19 mg/dL (7-18); BUN/Creat Ratio 18.1 RATIO (10-20); Chloride 104 mmol/L (98-107); Creatinine, Serum 1.05 mg/dL (0.55-1.02); EST Glomerular Filtration Rate 55 mL/min (>60); Est Glom Filt Rate - Afr Amer 67 mL/min (>60); Estimated Creatinine Clearance 40.56 ml/min; Glucose 166 mg/dL (74-106); Potassium 4.1 mmol/L (3.5-5.1); Sodium Level 139 mmol/L (136-145)
[2022-11-20 07:08] VITALS: O2SAT 95
[2022-11-20] MEDS: Pantoprazole Sodium 40 MG Tablet PO (08:52)
[2022-11-20] MEDS: Amiodarone 200 MG Tablet 100 MG PO (08:52)
[2022-11-20] MEDS: Furosemide 40 MG Tablet PO (08:53)
[2022-11-20] MEDS: Acetaminophen 325 MG Tablet 650 MG PO (08:53)
--- NOTE | 2022-11-20 10:40 | PCM.DC ---
Discharge Instructions Diet Discharge Diet: No restrictions Activity Discharge Activity: Return to Normal Activity Weight Bearing Status: Weight bearing as tolerated Dressing / Incision Call your doctor if you observe: Fever of 101 or Higher, Coldness, Increased Pain, Numbness or Tingling, Change in Color, Inability to urinate, Inability to have a bowel movement, Using more than 1 pad per hour, Shortness of breath, Dizziness, Fainting spells, Swelling in the ankles, Chest pain, Prolonged hiccupping, Increased palpitations (irregular heartbeat) and Calf discomfort Follow Up Care When: IN 2 WEEKS Test Results: Test results from this visit will be discussed in further detail at your follow-up appointment, if applicable. Discharge Plan Admission Admit Date/Time: 11/17/22 15:34 Primary Reason for Your Visit: Severe junctional bradycardia Attending Provider: Cleveland Biggs Primary Care Provider: Karlos Tang Consulting Providers: Cleveland Biggs; Geovanna Vazquez; Alcira Pemberton Discharge Orders/Prescriptions Prescriptions: New Xarelto 15 mg Tablet 15 mg PO DINNER 30 Days Qty: 30 0RF furosemide 40 mg Tablet 40 mg PO DAILY 30 Days Qty: 30 2RF sennosides-docusate sodium [Stool Softener-Stimulant Laxat] 8.6-50 mg Tablet 2 tab PO BID PRN (Reason: Constipation) Qty: 0 0RF Continued tramadol 50 mg tablet 50 mg PO TID PRN PRN (Reason: Pain) levothyroxine 125 mcg tablet 150 mcg PO DAILY Hold Instructions: having uptake scan potassium chloride 20 mEq tablet,ER particles/crystals 20 meq PO DAILY Qty: 90 3RF ebyprpcoubii-yyhnuhpq-ojmokz Tablet 1 tab PO DAILY glipizide 5 mg tablet 5 mg PO BID pravastatin 20 mg tablet 20 mg PO QHS Qty: 90 3RF omeprazole 40 mg capsule,delayed release(DR/EC) 40 mg PO DAILY Qty: 90 3RF amiodarone 200 mg tablet 100 mg PO DAILY Qty: 45 3RF Changed losartan 100 mg tablet 50 mg PO QHS Qty: 90 3RF Held diltiazem HCl 240 mg capsule,extended release 24 hr 120 mg PO DAILY Hold Instructions: Hold it on till seen by side seam machine operator. atenolol 25 mg tablet 25 mg PO DAILY Hold Instructions: Hold it until seen by side seam machine operator metformin 500 mg tablet 1,000 mg PO BIDCM Hold Instructions: Hold for 5 days. Xarelto 20 mg tablet 20 mg PO QPM Qty: 90 3RF Hold Instructions: Hold it until creatinine clearance increase more than 50 mL/min Rx Instructions: must administer with evening meal Discontinued hydrochlorothiazide 12.5 mg capsule 12.5 mg PO DAILY Qty: 90 3RF Referrals / Follow Up: Quinton Bustos MD [Med Staff - Active Staff] - Within 1 Month Karlos Tang DO [Primary Care Provider] - Roxann Jiménez NP, ENVIRONMENTAL ECONOMIST-C [Med Staff - Adv Practice Prof] - See Referral Note (Call as soon as you are able to make an appointment for a sleep apnea evaluation) Nory Sharpe PA [Med Staff - Adv Practice Prof] - Within 2 Weeks Disposition Disposition (needs filled in before D/C Order can be placed): Home, Self Care
--- NOTE | 2022-11-20 10:44 | CASEMGMT ---
JS VELEZ Follow-up: Face to face with pt who is alert, sitting up in chair. Introduced self and role at [facility]. Pt continues to deny any discharge needs at this time and declines need for HH. Noted therapy without recommendations for additional therapy at discharge. Discussed Patient Link program. Pt is interested but would like additional information prior to consenting. Referral sent and JS Smith notified of pt's request to discuss further prior to consenting to program. Pt states she is ready for discharge and denies any additional needs at this time. Nataly Sanchez RN CM
[2022-11-20 10:55] VITALS: BP 140/66; PULSE 69; RESP 16; TEMP 37.3; O2SAT 95
[2022-11-20] MEDS: 0.9% Saline Lock 10 ML Syringe IV (10:57)
[2022-11-20] MEDS: Insulin Lispro 100 UNIT/ML INSULN.PEN SC (11:02)
--- NOTE | 2022-11-20 11:10 | PCM.DC.SUM ---
Providers Date of Admission: 11/17/22 Date of Discharge: 11/20/22 Primary Care Physician: Dr. Karlos Tang, DO Consultations 11/17/22 17:46 Consult: Cardiology Routine Consulting Provider: Geovanna Vazquez Reason for Consult: Bradycardia with hypotension EMERGENT Consult: No MD Notified: Yes Date Notified: 11/17/22 Time Notified: 15:39 Method of Notification: ED Physician Initiated Reason For Visit: BRADYCARDIA WITH HYPOTENSION Diagnosis Discharge Diagnosis (1) Symptomatic bradycardia: Status: Acute Code(s): R00.1 - Bradycardia, unspecified (2) Paroxysmal atrial fibrillation: Status: Chronic Code(s): I48.0 - Paroxysmal atrial fibrillation (3) JENA (acute kidney injury): Status: Acute Code(s): N17.9 - Acute kidney failure, unspecified (4) Essential hypertension: Status: Chronic Code(s): I10 - Essential (primary) hypertension Plan Symptomatic junctional bradycardia: -Patient on multiple heart rate regulating medications including atenolol, diltiazem are on hold. Dopamine drip was discontinued overnight and patient was transferred to PCU on 11/18. TSH 1.88. History of chronic recalcitrant A-fib status post cardioversion and radiofrequency ablation. Patient is asymptomatic. -TSH within normal limits at 1.88 -History of A-fib status post radiofrequency ablation -Last echo from 2019 showed an EF of 65%, stage II diastolic dysfunction, mild left atrial enlargement, right ventricular systolic pressure of 39 mmHg Bowling Teacher consult appreciated and discussed. 11/21: Discussed with the supervisor instrument repair Dr. Vazquez. Patient is being discharged on amiodarone 100 mg daily. Hold atenolol and diltiazem ER. Patient follows Dr. Bustos and Nory Sharpe. JENA -Baseline serum creatinine appears to be between 0.9 and 1.2 -Serum creatinine on presentation was 2.20. Improved to 1.4. Patient treated with IV fluid normal saline but will discontinue as patient has history of HFpEF. Patient is documented 6.2 L positive net fluid balance. 11/20: JENA resolved. Creatinine 1.05. Patient is started on furosemide 40 mg daily. HCTZ discontinued. Hold metformin. Xarelto dose adjusted to creatinine clearance 15 mg daily. Hyperkalemia -Potassium on admission was 5.7 and did not appear to be hemolyzed -Potassium is resolved and normal today at 4.7. -Continue to hold losartan and potassium supplementation 11/20: Hyperkalemia resolved. Losartan started at lower dose 50 mg daily. Hypoxia -Etiology unclear upon review of oxygenation sats did not drop below 92% and patient was placed on 2 L nasal cannula and since has been uptitrated to 6 L with current saturations at 99% -Chest x-ray was unremarkable 11/20: Hypoxia resolved: Fatigue -Likely related to bradycardia -Continue to monitor -TSH within normal limits Hypothyroidism -Continue home levothyroxine -TSH is 1.88 Hypertension -Antihypertensives on hold as blood pressure was soft on admission -Continue to monitor and reinitiate antihypertensives as able -Home antihypertensive medications include atenolol, diltiazem, hydrochlorothiazide, losartan -Blood pressures are improving with most recent blood pressure being 135 systolic 11/20: Losartan resumed at lower dose 50 mg daily. Hydralazine discontinued. History of atrial fibrillation/flutter -Hold rate controlling medication -History of radiofrequency ablation -Continue rivaroxaban but renally dose to 15 mg daily until creatinine clearance improves to greater than 50 Amiodarone started 100 mg daily. Probably will need amiodarone 100 mg every other day. GERD -Continue PPI Nonobstructive CAD -Last cardiac cath in June 2015 reported as nonobstructive CAD with 30% ostial stenosis of obtuse marginal 1 DM-2 -Hold home oral hypoglycemic agents -Would be cautious in reinitiating metformin if renal function does not improve -SSI -Carb controlled diet DVT prophylaxis -Continue Xarelto CODE STATUS -DNR CCA with no intubation Discharge medication reconciliation done. Discharge follow-up instructions completed. Discharge process discussed with the patient and all questions were answered to patient's satisfaction. Prescriptions given for furosemide and Xarelto 15 mg daily. Advised to hold Latuda 20 mg daily. BMP in 3 days and follow with PCP to address the dose of diuretic and other medication. Total time spent, exact 35 minutes on discharge meds reconciliation, examination, coordination of care with nurses and ancillary staff, review of imaging and blood test and discussion with the patient on follow-up instructions. Medications at Discharge Home Medications tramadol 50 mg tablet 50 mg PO TID PRN PRN Pain 11/30/17 levothyroxine 125 mcg tablet 150 mcg PO DAILY thyroid 02/08/19 potassium chloride 20 mEq tablet,extended release(part/cryst) 20 meq PO DAILY POTASSIUM #90 tabs 06/05/19 glipizide 5 mg tablet 5 mg PO BID 03/29/22 pekvbxfaaikd-mrhlyasm-bxwqjx tablet 1 tab PO DAILY 03/29/22 pravastatin 20 mg tablet 20 mg PO QHS Stop Simvastatin #90 tabs 04/12/22 omeprazole 40 mg capsule,delayed release 40 mg PO DAILY stomach #90 caps 06/30/22 diltiazem HCl 240 mg capsule,24 hr,extended release 120 mg PO DAILY 07/05/22 metformin 500 mg tablet 1,000 mg PO BIDCM DIABETES 07/05/22 amiodarone 200 mg tablet 100 mg (1/2 x 200 mg) PO DAILY #45 tabs 08/01/22 atenolol 25 mg tablet 25 mg PO DAILY 10/19/22 rivaroxaban 20 mg tablet (Xarelto) 20 mg PO QPM Pt awaiting mail order RX (Pradaxa dc'd) #90 tabs 11/09/22 furosemide 40 mg tablet 40 mg PO DAILY 30 days #30 tabs 11/20/22 losartan 100 mg tablet 50 mg (1/2 x 100 mg) PO QHS BP #90 tabs 11/20/22 rivaroxaban 15 mg tablet (Xarelto) 15 mg PO DINNER 30 days #30 tabs 11/20/22 sennosides 8.6 mg-docusate sodium 50 mg tablet (Stool Softener-Stimulant Laxative) 2 tab PO BID PRN Constipation #0 tabs 11/20/22 Physical Exam Narrative General: Alert, Oriented x3, Cooperative. BMI 32.0 kg/m? HEENT: Atraumatic, PERRLA, EOMI, Normocephalic Oral: Oral mucosa dry. No Gingival or Mucosal Lesions/ Ulcerations Neck: Supple, No JVD, Negative Carotid Bruits Lungs: Air entry diminished in bilateral lung bases. No crepitation/rhonchi Cardiovascular: Sinus bradycardia, heart rate low 50s. Normal S1, Normal S2, No murmurs Abdomen: Bowel Sounds Present, Soft, Non Tender, Non-Distended : No renal angle tenderness. No suprapubic tenderness. Extremities: No edema, Capillary Refill Less than 3 Seconds Skin: No rashes, No breakdown Musculoskeletal: No Tenderness to Palpation of Joints or Extremities. Bilateral TKR. ROM slightly limited at knees and hip joints, degenerative arthritis. Neurological: Cranial nerves II-XII grossly intact, DTR 2+/4 and Symmetrical, Neuro grossly intact Psych/Mental Status: Flat affect. HEENT head/scalp atraumatic and moist oral mucous membranes Resp normal respiratory effort, no retractions, no use of accessory muscles and clear to auscultation bilaterally Auscultation: Negative for rales, rhonchi or wheezes Cardio regular rate, regular rhythm, S1 normal heart sound, S2 normal heart sound, no murmurs, no rub, no gallops and no clicks GI normal to inspection, nondistended, normoactive bowel sounds, soft to palpation and non-tender Extremity no clubbing, cyanosis or edema Extremity Narrative: Pedal pulses are 2+ Neuro oriented x3, moves all extremities and no focal motor deficits Speech: speech normal Psych affect normal Psych Narrative: Very pleasant, appropriately interactive Weight / BMI Weight Weight: 185 lb 13.595 oz Body Mass Index (BMI) 34.0 ABG / Lab / Microbiology Data 11/20/22 05:14 11/20/22 05:14 Laboratory: Laboratory Results - last 24 hr 11/19/22 11:39: POC Glucose 212 H 11/19/22 13:19: Sodium 139, Potassium 4.4, Chloride 107, Carbon Dioxide 28.0, Anion Gap 4 L, BUN 22 H, Creatinine 1.31 H, Estim Creat Clear Calc 32.51, Est GFR (MDRD) Af Amer 52 L, Est GFR (MDRD) Non-Af 43 L, BUN/Creatinine Ratio 16.8, Glucose 191 H, Calcium 9.0 11/19/22 16:54: POC Glucose 116 H 11/19/22 21:37: POC Glucose 161 H 11/20/22 05:14: WBC 8.5, RBC 3.35 L, Hgb 10.0 L, Hct 30.7 L, MCV 91.6, MCH 29.9, MCHC 32.6, RDW Std Deviation 45.2 H, RDW Coeff of Woody 13.6, Plt Count 191, MPV 9.6, Immature Gran % (Auto) 0.500, Neut % (Auto) 78.9 H, Lymph % (Auto) 10.9 L, Burnett % (Auto) 7.7, Eos % (Auto) 1.9, Baso % (Auto) 0.1, Absolute Neuts (auto) 6.7, Absolute Lymphs (auto) 0.92, Nucleated RBC % 0, Sodium 139, Potassium 4.1, Chloride 104, Carbon Dioxide 30.0, Anion Gap 5, BUN 19 H, Creatinine 1.05 H, Estim Creat Clear Calc 40.56, Est GFR (MDRD) Af Amer 67, Est GFR (MDRD) Non-Af 55 L, BUN/Creatinine Ratio 18.1, Glucose 166 H, Calcium 9.0 11/20/22 05:15: POC Glucose 170 H D/C Instructions Discharge Diet: No restrictions Weight Bearing Status: Weight bearing as tolerated Call your doctor if you observe: Fever of 101 or Higher, Coldness, Increased Pain, Numbness or Tingling, Change in Color, Inability to urinate, Inability to have a bowel movement, Using more than 1 pad per hour, Shortness of breath, Dizziness, Fainting spells, Swelling in the ankles, Chest pain, Prolonged hiccupping, Increased palpitations (irregular heartbeat) and Calf discomfort When: IN 2 WEEKS Meaningful Use Info Meaningful Use Diagnoses (Choose all that apply): None applicable Discharge Plan Admission Admit Date/Time: 11/17/22 15:34 Primary Reason for Your Visit: Severe junctional bradycardia Attending Provider: Cleveland Biggs Primary Care Provider: Karlos Tang Consulting Providers: Cleveland Biggs; Geovanna Vazquez; Alcira Pemberton Discharge Orders/Prescriptions Prescriptions: New Xarelto 15 mg Tablet 15 mg PO DINNER 30 Days Qty: 30 0RF furosemide 40 mg Tablet 40 mg PO DAILY 30 Days Qty: 30 2RF sennosides-docusate sodium [Stool Softener-Stimulant Laxat] 8.6-50 mg Tablet 2 tab PO BID PRN (Reason: Constipation) Qty: 0 0RF Continued tramadol 50 mg tablet 50 mg PO TID PRN PRN (Reason: Pain) levothyroxine 125 mcg tablet 150 mcg PO DAILY Hold Instructions: having uptake scan potassium chloride 20 mEq tablet,ER particles/crystals 20 meq PO DAILY Qty: 90 3RF ugpxwlqfyiyf-sieiujje-dimdim Tablet 1 tab PO DAILY glipizide 5 mg tablet 5 mg PO BID pravastatin 20 mg tablet 20 mg PO QHS Qty: 90 3RF omeprazole 40 mg capsule,delayed release(DR/EC) 40 mg PO DAILY Qty: 90 3RF amiodarone 200 mg tablet 100 mg PO DAILY Qty: 45 3RF Changed losartan 100 mg tablet 50 mg PO QHS Qty: 90 3RF Held diltiazem HCl 240 mg capsule,extended release 24 hr 120 mg PO DAILY Hold Instructions: Hold it on till seen by supervisor instrument repair. atenolol 25 mg tablet 25 mg PO DAILY Hold Instructions: Hold it until seen by supervisor instrument repair metformin 500 mg tablet 1,000 mg PO BIDCM Hold Instructions: Hold for 5 days. Xarelto 20 mg tablet 20 mg PO QPM Qty: 90 3RF Hold Instructions: Hold it until creatinine clearance increase more than 50 mL/min Rx Instructions: must administer with evening meal Discontinued hydrochlorothiazide 12.5 mg capsule 12.5 mg PO DAILY Qty: 90 3RF Referrals / Follow Up: Quinton Bustos MD [Med Staff - Active Staff] - Within 1 Month Karlos Tang DO [Primary Care Provider] - Roxann Jiménez NP, [facility] [Med Staff - Adv Practice Prof] - See Referral Note (Call as soon as you are able to make an appointment for a sleep apnea evaluation) Nory Sharpe PA [Med Staff - Adv Practice Prof] - Within 2 Weeks Disposition Disposition (needs filled in before D/C Order can be placed): Home, Self Care Charges/Coding Visit Charges Inpatient E&M: 74415 Disch Hosp >30min
--- NOTE | 2022-11-20 11:43 | PHA.DC.MC.R ---
Pharmacy [facility] has performed discharge medication reconciliation and counseling for this patient. 1. FUROSEMIDE 40MG PO DAILY 2. SENNA/DOCUSATE 2T PO BID PRN CONSTIPATION The patient's discharge medication list was reviewed for discrepancies and discrepancies were resolved. The patient was counseled on the following discharge medications and changes in medications for homegoing were reviewed. The Reason for Use, instructions for use, and potential side effects were reviewed for all new medications. The patient's questions regarding all of their medications were answered. The patient was able to verbally demonstrate an understanding of their discharge medications. Patient counseled by internal control consultantDave. Medications at Discharge Home Medications tramadol 50 mg tablet 50 mg PO TID PRN PRN Pain 11/30/17 levothyroxine 125 mcg tablet 150 mcg PO DAILY thyroid 06/07/18 potassium chloride 20 mEq tablet,extended release(part/cryst) 20 meq PO DAILY POTASSIUM #90 tabs 06/05/19 glipizide 5 mg tablet 5 mg PO BID 03/29/22 cnbqaluvtxxm-ojhhjian-wmbxvs tablet 1 tab PO DAILY 03/29/22 pravastatin 20 mg tablet 20 mg PO QHS Stop Simvastatin #90 tabs 04/12/22 omeprazole 40 mg capsule,delayed release 40 mg PO DAILY stomach #90 caps 06/30/22 diltiazem HCl 240 mg capsule,24 hr,extended release 120 mg PO DAILY 07/05/22 metformin 500 mg tablet 1,000 mg PO BIDCM DIABETES 07/05/22 amiodarone 200 mg tablet 100 mg (1/2 x 200 mg) PO DAILY #45 tabs 08/01/22 atenolol 25 mg tablet 25 mg PO DAILY 10/19/22 rivaroxaban 20 mg tablet (Xarelto) 20 mg PO QPM Pt awaiting mail order RX (Pradaxa dc'd) #90 tabs 11/09/22 furosemide 40 mg tablet 40 mg PO DAILY 30 days #30 tabs 11/20/22 losartan 100 mg tablet 50 mg (1/2 x 100 mg) PO QHS BP #90 tabs 11/20/22 rivaroxaban 15 mg tablet (Xarelto) 15 mg PO DINNER 30 days #30 tabs 11/20/22 sennosides 8.6 mg-docusate sodium 50 mg tablet (Stool Softener-Stimulant Laxative) 2 tab PO BID PRN Constipation #0 tabs 11/20/22
[2022-11-20 14:13] LABS: Bedside Glucose 275 mg/dL (74-106)
== END 2022-11-20 12:54 | disposition home or self-care (01) | DRG 309 ==
LOC: ED 16:07 → ICU 16:35 → PCU 11-18 16:53
PROVIDERS: Internal Medicine; Internal Medicine Cardiovascular Disease; Admitting Provider Internal Medicine; Emergency Provider Student in an Organized Health Care Education/Training Program; PCP Family Medicine; Visit Provider Internal Medicine
DX: R00.1 Bradycardia, unspecified (principal); N17.9 Acute kidney failure, unspecified; I48.92 Unspecified atrial flutter; I48.0 Paroxysmal atrial fibrillation; E11.65 Type 2 diabetes mellitus with hyperglycemia; E78.5 Hyperlipidemia, unspecified; K21.9 Gastro-esophageal reflux disease without esophagitis; E87.5 Hyperkalemia; E03.9 Hypothyroidism, unspecified; I10 Essential (primary) hypertension; I25.10 Atherosclerotic heart disease of native coronary artery without angina pectoris; Z79.01 Long term (current) use of anticoagulants; Z79.84 Long term (current) use of oral hypoglycemic drugs; Z82.3 Family history of stroke; R09.02 Hypoxemia; Z51.5 Encounter for palliative care; R42 Dizziness and giddiness; Z66 Do not resuscitate
CPT/HCPCS: 36415; 71045; 80048; 80061; 82962; 83735; 83880; 84100; 84443; 84484; 85025; 93005; 94762; 97162; 97165; 97530; 99285; J7030; A4216; J1610; J2405

== ENCOUNTER → 2022-11-29 | Outpatient (CLI) | payer MEDICARE, SELFPAY ==
[2022-11-29 13:03] LABS: Hemoglobin A1c 7.2 % (3.8-5.6)
[2022-11-29 13:08] LABS: Anion Gap 10 (5-15); BUN 25 mg/dL (7-18); BUN/Creat Ratio 22.3 RATIO (10-20); Calcium,Total 9.6 mg/dL (8.5-10.1); Chloride 103 mmol/L (98-107); Creatinine, Serum 1.12 mg/dL (0.55-1.02); EST Glomerular Filtration Rate 51 mL/min (>60); Est Glom Filt Rate - Afr Amer 62 mL/min (>60); Glucose 138 mg/dL (74-106); Potassium 4.5 mmol/L (3.5-5.1); Sodium Level 139 mmol/L (136-145)
== END | disposition home or self-care (01) ==
LOC: BFHLAB 09:58
PROVIDERS: PCP Family Medicine; Referring Provider Family Medicine; Visit Provider Family Medicine
DX: N17.9 Acute kidney failure, unspecified (principal); E11.21 Type 2 diabetes mellitus with diabetic nephropathy
CPT/HCPCS: 36415; 80048; 83036

== ENCOUNTER → 2022-12-14 | Outpatient (CLI) | payer MEDICARE, SELFPAY | END | disposition home or self-care (01) | LOC: SL 13:03 | PROVIDERS: PCP Family Medicine; Referring Provider Family Medicine; Visit Provider Family Medicine | DX: G47.10 Hypersomnia, unspecified (principal); G47.30 Sleep apnea, unspecified | CPT/HCPCS: 95806 ==

== ENCOUNTER → 2023-01-23 | Outpatient (CLI) | payer MEDICARE, SELFPAY | END | disposition home or self-care (01) | LOC: SL 11:33 | PROVIDERS: PCP Family Medicine; Visit Provider Family Medicine | DX: G47.33 Obstructive sleep apnea (adult) (pediatric) (principal); Z99.89 Dependence on other enabling machines and devices ==

== ENCOUNTER 2023-06-27 14:56 | Outpatient (RCR) | payer MEDICARE, SELFPAY ==
--- NOTE | 2023-08-07 09:08 | HP.PT.NRP ---
Patient Information Patient Information: AUDRA SANDERS was seen in my office for initial evaluation on . The following Plan of Care was established for this patient: Last Seen Last Seen: This patient was last seen in our office 06/27/23. Pertinent comments regarding their Physical therapy will appear below: Pt. was seen for self pay DN. Pt. has not been seen in ~6 weeks and will be DC from PT at this point in time. At this point I will be discontinuing this patient from physical therapy. I would be happy to see this patient again in the future if found appropriate by the physician. Thank you! MOUNIKA VuongT
== END 2023-06-27 19:00 | disposition home or self-care (01) ==
LOC: PT 14:56
PROVIDERS: PCP Family Medicine
DX: M54.9 Dorsalgia, unspecified (principal)

== ENCOUNTER → 2023-07-24 | Outpatient (CLI) | payer MEDICARE, SELFPAY ==
[2023-07-24 13:32] LABS: Anion Gap 8 (5-15); BUN 28 mg/dL (7-18); BUN/Creat Ratio 26.7 RATIO (10-20); Calcium,Total 9.5 mg/dL (8.5-10.1); Chloride 105 mmol/L (98-107); Creatinine, Serum 1.05 mg/dL (0.55-1.02); EST Glomerular Filtration Rate 55 mL/min (>60); Est Glom Filt Rate - Afr Amer 67 mL/min (>60); Glucose 104 mg/dL (74-106); Potassium 4.1 mmol/L (3.5-5.1); Sodium Level 141 mmol/L (136-145); Thyroid Stim Hormone (TSH) 1.06 uIU/mL (0.358-3.74)
[2023-07-24 13:41] LABS: Hemoglobin A1c 7.1 % (3.8-5.6)
== END | disposition home or self-care (01) ==
PROVIDERS: PCP Family Medicine; Referring Provider Family Medicine; Visit Provider Family Medicine
DX: E11.21 Type 2 diabetes mellitus with diabetic nephropathy (principal); N18.31 Chronic kidney disease, stage 3a; E03.9 Hypothyroidism, unspecified
CPT/HCPCS: 36415; 80048; 83036; 84443

== ENCOUNTER → 2023-08-15 | Outpatient (CLI) | payer MEDICARE, SELFPAY ==
--- NOTE | 2023-08-15 14:34 | BI_ITS ---
MAMMOGRAPHY - BILATERAL SCREENING REASON FOR EXAM: Female, 68 years old. Routine annual screening examination. PERTINENT HISTORY: Non-contributory. TECHNIQUE: Digital bilateral breast phyllis (3D mammographic acquisition) in the CC and MLO projections. 2-D mediolateral oblique (MLO) and craniocaudad (CC) views of both breasts were obtained. CAD: Full Field Digital Mammography with Computer Added Detection was performed. COMPARISON: Comparison is made with prior study of September 27, 2021 and July 01, 2019. FINDINGS: Breast Composition: The breasts are heterogeneously dense, which may obscure small masses. There are no dominant masses or suspicious calcifications. Stable small benign-appearing bilateral axillary lymph nodes. No other significant abnormalities are identified. There has been no significant change since the prior study. BI/SCRN MAMM (CAD)W/PHYLLIS BILAT IMPRESSION: Stable bilateral screening mammogram. Yearly follow-up mammogram recommended. (A) ASSESSMENT CATEGORY: BIRADS Category 2: Benign. A letter regarding these results will be sent to the patient by the facility within 30 days. Approximately 10% of breast cancers are not detected by mammography. A normal mammogram should not delay biopsy of a clinically suspicious abnormality. [id number] Electronically Signed: Vicente Marshall MD at 8:33 EDT ,
== END | disposition home or self-care (01) ==
LOC: OPBI 14:32
PROVIDERS: PCP Family Medicine; Referring Provider Family Medicine; Visit Provider Family Medicine
DX: Z12.31 Encounter for screening mammogram for malignant neoplasm of breast (principal)
CPT/HCPCS: 77063; 77067

== ENCOUNTER → 2023-10-30 | Outpatient (CLI) | payer MEDICARE, SELFPAY ==
[2023-10-30 15:42] LABS: Anion Gap 8 (5-15); BUN 27 mg/dL (7-18); BUN/Creat Ratio 27.5 RATIO (10-20); Calcium,Total 9.7 mg/dL (8.5-10.1); Chloride 104 mmol/L (98-107); Creatinine, Serum 0.98 mg/dL (0.55-1.02); EST Glomerular Filtration Rate 60 mL/min (>60); Est Glom Filt Rate - Afr Amer 72 mL/min (>60); Glucose 115 mg/dL (74-106); Potassium 4.3 mmol/L (3.5-5.1); Sodium Level 138 mmol/L (136-145)
[2023-10-30 15:46] LABS: Hemoglobin A1c 7.2 % (3.8-5.6)
== END | disposition home or self-care (01) ==
LOC: BFHLAB 13:40
PROVIDERS: PCP Family Medicine; Referring Provider Family Medicine; Visit Provider Family Medicine
DX: Z01.818 Encounter for other preprocedural examination (principal); E11.21 Type 2 diabetes mellitus with diabetic nephropathy
CPT/HCPCS: 36415; 80048; 83036

== ENCOUNTER → 2024-02-11 | Outpatient (CLI) | payer MEDICARE, SELFPAY ==
[2024-02-11 15:27] LABS: Absolute Lymphocyte Count 1.55 X10^3/uL (0.83-4.51); Basophil# 0.03 X10^3/uL; Basophil% 0.4 % (0-1); Eosinophil# 0.12 X10^3/uL; Eosinophils% 1.7 % (0-5); Hematocrit 35.7 % (37-47); Hemoglobin 11.3 g/dL (12.0-15.0); Lymphocyte # 1.55 X10^3/ul (0.83-4.51); Lymphocyte % 21.6 % (19-41); Mean Corp Hgb Conc 31.7 g/dL (32-36); Mean Corpuscular Hgb 28.2 pg (27.0-32.0); Mean Platelet Vol. 9.9 fl (6.2-12.0); Monocyte# 0.47 X10^3/uL; Monocyte% 6.6 % (0-10); NRBC Flagged by Analyzer 0 % (0-5); Neutrophil # 4.97 X10^3/uL (2.7-7.7); Neutrophil % 69.3 % (47-70); Platelet Count 255 K/mm3 (150-450); RBC Distribution Width CV 13.2 % (11.6-14.6); RBC Distribution Width SD 43.1 fl (35.1-43.9); Red Blood Count 4.01 M/mm3 (4.2-5.4); White Blood Count 7.2 K/mm3 (4.4-11.0)
[2024-02-11 15:59] LABS: ALB/GLOB Ratio 1.1 RATIO (0.9-2.4); AST(SGOT) 23 U/L (15-37); Alanine Aminotransfer ALT/SGPT 33 U/L (13-56); Albumin, Serum 3.9 g/dL (3.2-5.0); Alkaline Phosphatase 56 U/L (45-117); Anion Gap 8 (5-15); BUN 22 mg/dL (7-18); BUN/Creat Ratio 23.8 RATIO (10-20); Calcium,Total 9.7 mg/dL (8.5-10.1); Chloride 104 mmol/L (98-107); Cholesterol 200 mg/dL (200); Creatinine, Serum 0.92 mg/dL (0.55-1.02); EST Glomerular Filtration Rate 64 mL/min (>60); Est Glom Filt Rate - Afr Amer 77 mL/min (>60); Globulin 3.4 g/dL (2.2-4.2); Glucose 154 mg/dL (74-106); High Density Lipoprotein 48 mg/dL; Potassium 4.3 mmol/L (3.5-5.1); Protein, Total 7.3 g/dL (6.4-8.2); Sodium Level 140 mmol/L (136-145); T4 Free Direct 1.21 ng/dL (0.76-1.46); Triglycerides 231 mg/dL; Very Low Density Lipoprotein 46 mg/dL (5-40)
[2024-02-11 17:39] LABS: Hemoglobin A1c 7.8 % (3.8-5.6)
== END | disposition home or self-care (01) ==
LOC: BFHLAB 13:31
PROVIDERS: PCP Family Medicine; Referring Provider Family Medicine; Visit Provider Family Medicine
DX: E11.21 Type 2 diabetes mellitus with diabetic nephropathy (principal); E11.22 Type 2 diabetes mellitus with diabetic chronic kidney disease; N18.31 Chronic kidney disease, stage 3a; I12.9 Hypertensive chronic kidney disease with stage 1 through stage 4 chronic kidney disease, or unspecified chronic kidney disease; E03.9 Hypothyroidism, unspecified
CPT/HCPCS: 36415; 80053; 80061; 82043; 82570; 83036; 84439; 84443; 85025

== ENCOUNTER → 2024-08-12 | Outpatient (CLI) | payer MEDICARE, SELFPAY ==
[2024-08-12 15:39] LABS: Microalbumin,Random Urine 50.6 mg/L (NO RANGE EST.); Microalbumin:Creatinine Ratio 4324.8 mg/g CRE
[2024-08-12 16:39] LABS: Hemoglobin A1c 6.6 % (<=5.6)
== END | disposition home or self-care (01) ==
LOC: BFHLAB 11:15
PROVIDERS: PCP Family Medicine; Visit Provider Family Medicine
DX: E11.21 Type 2 diabetes mellitus with diabetic nephropathy (principal); R80.9 Proteinuria, unspecified
CPT/HCPCS: 36415; 82043; 82570; 83036

== ENCOUNTER → 2024-09-01 | Outpatient (CLI) | payer MEDICARE, SELFPAY ==
--- NOTE | 2024-09-01 08:21 | BI_ITS ---
EXAM: SCRN MAMM (CAD)W/PHYLLIS BILAT DATE: 09/01/2024 CLINICAL HISTORY: F, Age 69 y/o , SCREENING BREAST CANCER RISK ASSESSMENT: Has not been calculated TECHNIQUE: Bilateral screening digital breast tomosynthesis with 2D and 3D images. Computer aided detection. COMPARISON: Prior exam(s) dated 08/15/2023 and 09/27/2021. FINDINGS: TISSUE DENSITY: The breast tissue is composed of scattered area of fibroglandular density. Bilateral Breast Mammographic Findings: No significant masses, calcifications or other abnormalities are identified. Benign round calcifications and vascular calcifications are seen in both breast. BI/SCRN MAMM (CAD)W/PHYLLIS BILAT IMPRESSION: OVERALL FINAL ASSESSMENT: BIRADS 2 BENIGN FINDING RECOMMENDATION: Routine annual follow-up in 1 Year A letter with findings and recommendations will be mailed to the patient. Reading Location: [id number]
== END | disposition home or self-care (01) ==
LOC: OPBI 08:19
PROVIDERS: PCP Family Medicine; Referring Provider Family Medicine; Visit Provider Family Medicine
DX: Z12.31 Encounter for screening mammogram for malignant neoplasm of breast (principal)
CPT/HCPCS: 77063; 77067

== ENCOUNTER → 2025-02-12 | Outpatient (CLI) | payer MEDICARE, SELFPAY ==
[2025-02-12 15:11] LABS: Hematocrit 36.4 % (37-47); Hemoglobin 11.9 g/dL (12.0-15.0); Immature Granulocytes Count 0.030 X10^3/uL (0.0-0.0); Mean Corp Hgb Conc 32.7 g/dL (32-36); Mean Corpuscular Volume 87.9 fL (81-99); Mean Platelet Vol. 10.2 fl (6.2-12.0); NRBC Flagged by Analyzer 0 % (0-5); Platelet Count 223 K/mm3 (150-450); RBC Distribution Width CV 12.9 % (11.6-14.6); RBC Distribution Width SD 41.5 fl (35.1-43.9); Red Blood Count 4.14 M/mm3 (4.2-5.4); White Blood Count 6.8 K/mm3 (4.4-11.0)
[2025-02-12 17:04] LABS: Creatinine, Urine (random) 78.90 mg/dL (28.00-217.00); Microalbumin,Random Urine 355.0 mg/L (<20 mg/L)
[2025-02-12 19:16] LABS: AST(SGOT) 26 U/L (<=31); Alanine Aminotransfer ALT/SGPT 24 U/L (<=34); Albumin, Serum 4.5 g/dL (3.4-4.8); Alkaline Phosphatase 62 U/L (35-104); BUN 26 mg/dL (4-19); BUN/Creat Ratio 27.4 RATIO (10-20); Calcium,Total 10.0 mg/dL (7.6-11.0); Cholesterol 195 mg/dL (<=200); Globulin 2.6 g/dL (2.2-4.2); Glucose 174 mg/dL (70-99); Triglycerides 219 mg/dL
[2025-02-12 19:17] LABS: Anion Gap 13 (5-15); Carbon Dioxide 26.6 mmol/L (21.0-32.0); Chloride 101 mmol/L (98-108); Low Density Lipoprotein Calc. 107 mg/dL; Potassium 4.8 mmol/L (3.3-5.1); Very Low Density Lipoprotein 44 mg/dL (5-40); cholesterol:hdl ratio screen 4.37
== END | disposition home or self-care (01) ==
LOC: MTLAB 13:01
PROVIDERS: PCP Family Medicine; Referring Provider Family Medicine; Visit Provider Family Medicine
DX: E11.21 Type 2 diabetes mellitus with diabetic nephropathy (principal); E11.22 Type 2 diabetes mellitus with diabetic chronic kidney disease; N18.31 Chronic kidney disease, stage 3a; I12.9 Hypertensive chronic kidney disease with stage 1 through stage 4 chronic kidney disease, or unspecified chronic kidney disease
CPT/HCPCS: 36415; 80053; 80061; 82043; 82570; 83036; 84443; 85025